=== PATIENT | female | born 1955 | race Caucasian/White ===

== ENCOUNTER 2017-09-28 10:09 | Emergency (ER) | payer OTHER ==
[~2017-09-28] VITALS: Ht 175.3 cm; Wt 78.5 kg
[~2017-09-28 10:09] MED LIST: LIBRIUM25 MG PO
--- NOTE | 2017-09-28 10:28 | ED AMS/SEIZURE/WEAK/DIZZY ---
History of Present Illness General Chief Complaint: General Adult Stated Complaint: HEART RACING, WEAKNESS Source: patient, family, old records Exam Limitations: no limitations Vital Signs & Intake/Output Vital Signs & Intake/Output Vital Signs Date Time Temp Pulse Resp B/P B/P Pulse O2 O2 Flow FiO2 Mean Ox Delivery Rate 09/28 1215 98.0 109 20 137/67 20 09/28 1011 96.4 124 18 155/91 98 Room Air Room Air Allergies Coded Allergies: Penicillins (UNKNOWN 09/28/17) Reconcile Medications LORazepam (Ativan) 1 MG TAB 1 TAB PO TID PRN ANXIETY Triage Note: PT TO ED WITH DAUGHTER WITH C/O "HEART RACING, I FEEL LIKE I'M HAVING A PANIC ATTACK". "I WAS CLEAN FOR YEARS AND STARTED DRINKING AGAIN OVER THE LAST WEEK OR SO". "MY SKIN IS GETTING YELLOW, AND I'M ANEMIC". Triage Nurses Notes Reviewed? yes Onset: Abrupt Duration: day(s): (3), constant Timing: recent history Injury Environment: home Severity: moderate No Modifying Factors: none Associated Symptoms: denies HPI: 61-year-old female with history of breast ca, mastectomy presents with family for evaluation complaining of heart racing for the past few days. The patient states that 3 days ago it all began when she started drinking. She states she had 2-3 classes of from this thing. She states that she was a previous alcoholic after her 4 years ago. She states she's been sober for the past several months and has never gone through alcohol withdrawals. She states she started drinking again because of the impending holiday. She denies any associated chest pain shortness of breath fever chills abdominal pain. Patient denies any other drug use. She states that she was seen by her primary care physician last week had blood work performed and was told she was anemic she had a chest x-ray as well however does not know the results. She denies any leg swelling or recent immobility. she denies si. (Vic Gooden) Past History Travel History Traveled to [place] past 21 day No Medical History Any Pertinent Medical History? 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 No (Vic Gooden) Review of Systems Review of Systems Constitutional: Reports: see HPI. Comments Review of systems: See HPI, All other systems negative. Constitutional, no chills no fever, no malaise HEENT: no sore throat no congestion Cardiovascular: No chest pain , palpitation Skin: no rashes, no change in skin Respiratory: No dyspnea no cough no sputum no hemoptysis GI: No nausea no vomiting, no diarrhea, no bloating/constipation : No dysuria No hematuria, no frequency Muscle skeletal: No joint pain, no back pain, no neck pain, Neurologic: , no headache Psych: No stress no depression,. Heme/endocrine: No bruising no bleeding Immunology: No lymphadenopathy (Vic Gooden) Physical Exam Physical Exam General Appearance: no apparent distress, awake, anxious Comments: Well-developed well-nourished person in no acute distress HEENT: Normal EENT exam; PERRL, EOMI, HEAD is atraumatic. moist mucous membranes. Neck: Supple normal range of motion Back:Full range of motion Cardiovascular: tachycardic, Regular rhythm no murmurs rubs Respiratory: No respiratory distress. Patient speaking in full complete sentences. Breath sounds clear to auscultation bilaterally: NO W/R/R Abdomen: Soft, nontender nondistended, no appreciable organomegaly. Normal bowel sounds. No rebound/guarding, No ascites. Extremity: No edema, full range of motion of extremities Neuro: Alert oriented x3, motor sensory normal, There were no obvious focal neurologic abnormalities. Skin: No appreciable rash on exposed skin, skin is warm and dry. Psych: tearful, memory and judgment is normal. Core Measures ACS in differential dx? Yes CVA/TIA Diagnosis No Sepsis Present: No Sepsis Focused Exam Completed? No (Vic Gooden) Progress Differential Diagnosis: arrythmia, alcohol intoxication, anemia, dehydration, electrolyte imbalance, GI bleed, ami Plan of Care: Orders Procedure Date/time Status ETHANOL 09/28 1045 Complete Telemetry/Media Relations Intern 09/28 1028 Active URINE DRUG SCREEN FOR ER ONLY 09/28 1022 Complete URINALYSIS 09/28 1022 Complete TROPONIN LEVEL 09/28 1010 Complete PARTIAL THROMBOPLASTIN TIME 09/28 1010 Complete PROTHROMBIN TIME 09/28 1010 Complete COMPREHENSIVE METABOLIC PANEL 09/28 1010 Complete CBC WITHOUT DIFFERENTIAL 09/28 1010 Complete EKG 09/28 1010 Active Laboratory Tests 09/28/17 1145: Urine Opiates Screen < 100.00, Methadone Screen 43, Barbiturate Screen < 60, Ur Phencyclidine Scrn < 6.00, Amphetamines Screen < 100, U Benzodiazepines Scrn < 85, Urine Cocaine Screen < 50, Urine Cannabis Screen < 5.00, Urinalysis LIGHT H , Urine Color YEL, Urine Clarity HAZY H, Urine pH 6.5, Ur Specific [place] <= 1.005, Urine Protein NEG, Urine Ketones NEG, Urine Nitrite NEG, Urine Bilirubin NEG, Urine Urobilinogen 1.0, Ur Leukocyte Esterase NEG, Ur Microscopic SEDIMENT EXAMINED, Urine RBC 3-5, Urine WBC RARE, Ur Epithelial Cells FEW, Urine Bacteria RARE H, Urine Mucus RARE, Urine Hemoglobin LARGE H, Urine Glucose NEG 09/28/17 1045: Anion Gap 17 H, Estimated GFR > 60, BUN/Creatinine Ratio 12.9, Glucose 106 H, Calcium 9.2, Total Bilirubin 4.7 H, AST 75 H, ALT 38, Alkaline Phosphatase 169 H, Troponin I 0.01, Total Protein 7.9, Albumin 4.0, Globulin 3.9, Albumin/ Globulin Ratio 1.0 L, PT 15.0 H, INR 1.43 H, APTT 38 H, CBC w Diff NO MAN DIFF REQ, RBC 3.20 L, MCV 97.4, MCH 33.6 H, RDW 16.1 H, MPV 6.6 L, Gran % 65.9, Lymphocytes % 28.3, Monocytes % 3.8, Eosinophils % 1.4, Basophils % 0.6, Absolute Granulocytes 3.3, Absolute Lymphocytes 1.4, Absolute Monocytes 0.2, Absolute Eosinophils 0.1, Absolute Basophils 0, PUBS MCHC 34.5, Serum Alcohol 202.0 09/28/17 1022: Serum Alcohol Cancelled pt anxious, denies cp, sob, only complaint is racing heart at this time, case d/ w dr nolasco, ativan 0.5mg iv ordered labs and xray reviewed from last week. pt declining wishing to speak with crisis 1145 on repeat evaluation patient reports to feeling significantly improved with IV Ativan. Discussed with the patient family all her lab results to date. Patient was seen and evaluated by Dr. Nolasco outpatient resources were provided for detox and psychiatric references. I discussed with the patient at length again plan of care they feel comfortable with taking her home. FINDINGS: The lung hall are well expanded and appear clear bilaterally. The cardiac silhouette is normal. There are no pleural effusions or pneumothorax. The central pulmonary vasculature is normal. The hilar regions appear normal. There is mild dextroscoliosis. There are multiple surgical clips in the left axilla comment demonstrated on prior imaging. IMPRESSION: 1. There are no acute cardiopulmonary findings. DICTATED BY: Jeffery Estrada MD DATE/TIME DICTATED:09/18/171138 WINDOW DECORATOR:CLAIRE DATE/TIME TRANSCRIBED:09/18/171138 CONFIDENTIAL, DO NOT COPY WITHOUT APPROPRIATE AUTHORIZATION. <Electronically signed in Other Vendor System> SIGNED BY: Jeffery Estrada MD 09/18/17 1145 Initial ED EKG: stach (Vic Gooden) Departure Departure Time of Disposition: 1222 Disposition: HOME OR SELF CARE Condition: Stable Clinical Impression Primary Impression: Anxiety Secondary Impressions: Alcohol intoxication, Palpitations Referrals: Jean Carlos Chappell MD (PCP/Family) Additional Instructions: follow up with your pmd next week. ativan as directed. as discussed DO NOT drink alcohol while taking this medication. return at anytime sooner if you have worsening of your symptoms despite medication or any other concerns Departure Forms: Customer Survey General Discharge Information Prescriptions: Current Visit Scripts LORazepam (Ativan) 1 TAB PO TID PRN ANXIETY #12 TAB (Vic Gooden) PA/PATHOLOGY SUPERVISOR Co-Sign Statement Statement: ED Attending supervision documentation- [] I saw and evaluated the patient. I have also reviewed all the pertinent lab results and diagnostic results. I agree with the findings and the plan of care as documented in the PA's/PATHOLOGY SUPERVISOR's documentation. [X] I have reviewed the ED Record and agree with the PA's/PATHOLOGY SUPERVISOR's documentation. [] Additions or exceptions (if any) to the PAs/PATHOLOGY SUPERVISOR's note and plan are summarized below: [] (Constance OROZCO,Marisela)
[2017-09-28 11:07] LABS: PTT 38 SEC (25-37)
[2017-09-28 11:08] LABS: ABSOLUTE BASOPHIL COUNT 0 /CUMM (0.0-0.2); ABSOLUTE EOSINOPHIL COUNT 0.1 /CUMM (0.0-0.7); ABSOLUTE GRANULOCYTE CT 3.3 /CUMM (1.4-6.5); ABSOLUTE LYMPH COUNT 1.4 /CUMM (1.2-3.4); ABSOLUTE MONOCYTE COUNT 0.2 /CUMM (0.10-0.60); BASOPHIL % 0.6 % (0.0-2.0); EOSINOPHIL % 1.4 % (0-5); GRANULOCYTE % 65.9 % (42.2-75.2); HEMATOCRIT 31.1 % (37-47); MEAN CORPUSCULAR HGB 33.6 PG (27.0-31.0); MEAN CORPUSCULAR HGB CONC 34.5 G/DL (33.0-37.0); MEAN CORPUSCULAR VOLUME 97.4 FL (81.0-99.0); MEAN PLATELET VOLUME 6.6 FL (7.4-10.4); PLATELET COUNT 76 /CUMM (130-400); RBC DISTRIBUTION WIDTH 16.1 % (11.5-14.5); WHITE BLOOD CELL COUNT 5.1 /CUMM (4.8-10.8)
[2017-09-28 12:15] VITALS: BP 137/67
[2017-09-28] MEDS ORDERED: ATIVAN1 M1 PO (12:22)
== END 2017-09-28 12:31 ==
LOC: ERH 10:09
PROVIDERS: Emergency Medicine
DX: F41.9 Anxiety disorder, unspecified (principal); F10.129 Alcohol abuse with intoxication, unspecified; R00.2 Palpitations
CPT/HCPCS: 80307; 81001; 93005; 93010; G0480

== ENCOUNTER 2018-01-19 11:35 | Inpatient (IN) | payer OTHER ==
[~2018-01-19] VITALS: Ht 177.8 cm; Wt 81.0 kg
[~2018-01-19 11:35] MED LIST changes: +ATIVAN1 M1 PO
[2018-01-19 13:11] LABS: ABSOLUTE BASOPHIL COUNT 0.1 /CUMM (0.0-0.2); ABSOLUTE EOSINOPHIL COUNT 0.4 /CUMM (0.0-0.7); ABSOLUTE GRANULOCYTE CT 3.6 /CUMM (1.4-6.5); ABSOLUTE MONOCYTE COUNT 0.4 /CUMM (0.10-0.60); BASOPHIL % 1.1 % (0.0-2.0); EOSINOPHIL % 5.7 % (0-5); GRANULOCYTE % 55.9 % (42.2-75.2); HEMATOCRIT 27.9 % (37-47); MEAN CORPUSCULAR HGB 33.4 PG (27.0-31.0); MEAN CORPUSCULAR VOLUME 98.3 FL (81.0-99.0); MEAN PLATELET VOLUME 7.5 FL (7.4-10.4); PLATELET COUNT 119 /CUMM (130-400); RBC DISTRIBUTION WIDTH 17.5 % (11.5-14.5); RED BLOOD CELL CT 2.84 /CUMM (4.20-5.40); WHITE BLOOD CELL COUNT 6.4 /CUMM (4.8-10.8)
[2018-01-19 13:25] LABS: PT 17.4 SEC (9.4-12.5); PTT 34 SEC (25-37)
--- NOTE | 2018-01-19 16:32 | ED GI/GU/ABDOMINAL COMPLAINT ---
History of Present Illness General Chief Complaint: General Adult Stated Complaint: BLEEDING FROM MOUTH Source: patient, family Exam Limitations: no limitations Vital Signs & Intake/Output Vital Signs & Intake/Output Vital Signs Date Time Temp Pulse Resp B/P B/P Pulse O2 O2 Flow FiO2 Mean Ox Delivery Rate 01/22 0625 98.1 79 20 120/60 91 Room Air 01/22 0000 Nasal 3.0L Cannula 01/21 1600 98.3 68 18 96/52 98 Room Air 01/21 1200 96 Nasal 3.0L Cannula ED Intake and Output 01/22 0000 01/21 1200 Intake Total 3026 1200 Output Total 400 200 Balance 2626 1000 Intake, IV 2306 1200 Intake, Oral 720 Number 1 0 Bowel Movements Output, Urine 400 200 Allergies Coded Allergies: Penicillins (TROUBLE BREATHING AN 01/19/18) Reconcile Medications Escitalopram Oxalate 10 MG TABLET 1 TAB PO DAILY MENTAL HEALTH (Reported) Lactulose 10 GRAM/15 ML SOLUTION 30 ML PO BID CONSTIPATION (Reported) Lorazepam 0.5 MG TABLET 1 TAB PO TIDPRN PRN ANXIETY (Reported) Propranolol HCl 20 MG TABLET 1 TAB PO BID VARICES (Reported) Spironolactone 25 MG TABLET 1 TAB PO DAILY DIURETIC (Reported) Ursodiol 500 MG TABLET 2 TAB PO QHS BILE (Reported) Triage Note: PT STATES SHE IS BLEEDING FROM HER MOUTH WHILE LAYING DOWN. PT STATSE SHE HAS A COUPLE OF THINGS GOING ON SHE HAS A LUMP ON HER LIVER. PT JAUDICE IN TRIAGE. PT STATES SHE HAS ESOPHOGEAL WENDY. AND WHEN SHE COUGHS MORE COMES OUT. PT REPORTS BEING COLD AND TIRED. PT STATES SHE HAS BEEN CONSTIPATED FOR THE PAST 11 DAYS. PT STATES SHE STARTED TO MOVE HER BOWELS A LITTLE YESTERDAY. Triage Nurses Notes Reviewed? yes ? N Is pt currently ? No HPI: 62 yo F PMH EtOH abuse, Cirrhosis (c/b esophageal varicies), BCA (s/p left mastectomy) presenting with hematemesis. Patient states that she woke up from sleep this morning with bright red blood on the pillow next to her, mild bleeding from left side of mouth, resolved with standing. Patient states that she had a second episode of bleeding from her mouth around 9:30 AM while laying down, "gushing" of bright red blood from left mouth, lasted 1-2 mins, also resolved with standing. ROS (+) for constipation x 8-9 days, started on lactulose, starting having regular bowel movements yesterday, family notes that the patient has seem more confused from baseline ("loopy"). Denies fevers, chills, chest pain, abdominla pain, nausea, hematochezia, urinary Sx, headache, neck pain or focal neurologic Sx. (Zak Ngo MD) Past History Travel History Traveled to [place] past 21 day No Medical History Any Pertinent Medical History? 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 Yes (Zak Ngo MD) Review of Systems Review of Systems Constitutional: Reports: no symptoms. EENTM: Reports: see HPI. Respiratory: Reports: no symptoms. Cardiovascular: Reports: no symptoms. GI: Reports: see HPI. Genitourinary: Reports: no symptoms. Musculoskeletal: Reports: no symptoms. Skin: Reports: no symptoms. Neurological/Psychological: Reports: no symptoms. Hematologic/Endocrine: Reports: no symptoms. Immunologic/Allergic: Reports: no symptoms. All Other Systems: Reviewed and Negative (Zak Ngo MD) Physical Exam Physical Exam General Appearance: alert, awake, comfortable Head: atraumatic Eyes: Bilateral: PERRL, EOMI. Ears, Nose, Throat, Mouth: moist mucous membrane Neck: normal inspection, full range of motion Respiratory: normal breath sounds, no respiratory distress, lungs clear Cardiovascular: regular rate/rhythm, normal peripheral pulses Gastrointestinal: soft, non-tender Comments: General: Awake, alert, appears fatigued HEENT: Poor dentition with eroision/large dental clary in tooth #18, no apparent bleeding from teeth or gums Abdomen: Soft and non-TTP throughout Core Measures ACS in differential dx? No Sepsis Present: No Sepsis Focused Exam Completed? No (Zak Ngo MD) Progress Differential Diagnosis: AAA, AMI, appendicitis, biliary colic, bowel obstruction , colon cancer, cholecystitis, diverticulitis, ectopic , endometritis, esophageal varices, gastritis, hepatitis, hernia, hemorrhoids, ischemic bowel, inflamm bowel dis, intrauterine , kidney stone, Erin-Karolyn tear, ovarian cyst, ovarian torsion, pancreatitis, PID/cervicitis, peptic ulcer, PUD/ GERD, perforated viscous, SBO, threatened AB, UTI/pyelo Plan of Care: Orders Procedure Date/time Status ICU LAB BUNDLE 01/22 0500 Active CBC WITHOUT DIFFERENTIAL 01/22 0500 Active XRY-CHEST XRAY, TWO VIEWS 01/22 UNK Active Transfer Disposition 01/21 2234 Active ECHOCARDIOGRAM 01/21 1623 Active OXYGEN SETUP CHG 01/21 UNK Complete OXYGEN 01/21 UNK Complete OXYGEN TRANSPORT 01/21 UNK Complete OXYGEN DAILY CHARGE 01/21 UNK Complete Transfer patient to 01/21 UNK Active OXYGEN SETUP CHG 01/20 UNK Complete OXYGEN 01/20 UNK Complete OXYGEN TRANSPORT 01/20 UNK Complete Current Medications Sig/Freddy Start time Last Medication Dose Stop Time Status Admin Omeprazole 40 MG DAILY AC 01/22 0700 AC 01/22 (Prilosec) 0600 Ursodiol 1,000 MG QPM 01/20 2100 AC 01/21 (ROMIE FORTE) 2118 Bacitracin 1 KHUSHBOO DAILY 01/20 1629 AC 01/21 (Bacitracin Ointment) 0852 Escitalopram Oxalate 10 MG DAILY 01/20 0900 AC 01/21 (Lexapro) 0852 Benzocaine/Menthol 1 TAMY Q2P PRN 01/20 0515 AC 01/20 (Chloraseptic 1042 Lozenges) Albumin Human 25 GM Q8 01/19 2244 AC 01/22 (Plasbumin) 0656 Docusate Sodium 100 MG DAILY PRN 01/19 1930 AC (Colace) Lorazepam 0.5 MG TIDPRN PRN 01/19 1930 AC (Ativan) 01/26 1929 Polyethylene Glycol 17 GM DAILY PRN 01/19 1930 AC (Miralax) Senna 187 MG AT BEDTIME PRN 01/19 1930 AC (Senokot) Laboratory Tests 01/22/18 0745: Sodium Pending, Potassium Pending, Chloride Pending, Carbon Dioxide Pending, Anion Gap Pending, BUN Pending, Creatinine Pending, Glucose Pending, Calcium Pending, Phosphorus Pending, Magnesium Pending, Total Bilirubin Pending, AST Pending, ALT Pending, Albumin Pending, CBC w Diff Pending, WBC Pending, RBC Pending, Hgb Pending, Hct Pending, MCV Pending, MCH Pending, MCHC Pending, RDW Pending, Plt Count Pending, MPV Pending Physician MDM: 62 yo F PMH EtOH abuse, Cirrhosis (c/b esophageal varicies), BCA (s/p left mastectomy) presenting with hematemesis. HR 50s, SBP 100s (expected with atenolol), awake, appears fatigued, abdominal exam benign, no apparent source of bleeding in mouth/gums. DDx: Variceal bleed, PUD, gastritis. Given concern for variceal bleeding, 2 large bore IVs placed, protonix IV push and octreotide IV push/drip given, ceftriaxone ordered. CBC with decreased Hgb from baseline at 9.5, platelets 119. CMP with bilirubin increased from baseline (5 >> > 9.3), SHELLEY with elevated creatinine at 1.4, mild hyponatremia. 500 ccs NS for SHELLEY. INR 1.59 2/[address] Goddard, will evaluate for urgent endoscopy. Admit to ICU for close monitoring, possible endoscopy. Initial ED EKG: none (Jeni OROZCO,Zak) Departure Departure Disposition: STILL A PATIENT Condition: Stable Clinical Impression Primary Impression: Hematemesis Referrals: Jean Carlos Chappell MD (PCP/Family) Departure Forms: Customer Survey General Discharge Information Admission Note Spoke With: Crow Zee MD Documentation of Exam: Documentation of any treatments & extenuating circumstances including Concerns Regarding Discharge (functional status, medication knowledge or non-compliance, living conditions, etc.) that warrant an admission rather than observation: [ Patient has history of esophageal varices secondary to hepatic cirrhosis, presents with 2 episodes of hematemesis this morning, patient is a high risk for hematuria with significant variceal bleeding requires admission to the hospital for monitoring, certainly hemoglobins, GI consult, possible endoscopy, possible blood transfusion, if discharged patient is a high likelihood of progression of variceal bleed with hemorrhagic shock, leading to ] (Zak Ngo MD)
--- NOTE | 2018-01-19 18:06 | RADIOLOGY REPORT ---
EXAMINATION: XR PORTABLE CHEST CLINICAL INFORMATION: Aspiration pneumonia COMPARISON: 09/18/2017 and multiple prior chest x-rays. TECHNIQUE: Portable AP upright view of the chest was obtained. FINDINGS: There is moderate enlargement of the cardiac silhouette. Pulmonary venous congestion and interstitial edema in the lower lungs noted. Small bilateral pleural effusions noted. Pulmonary opacities at the lung bases, particularly on the right side noted, which could represent atelectatic changes of the adjacent pulmonary parenchyma, although superimposed pneumonia is not excluded. Surgical marylou are seen in the left axilla. No pneumothorax. The bones are unremarkable. IMPRESSION: Moderate cardiomegaly, pulmonary venous congestion and interstitial edema lower lungs, suggests CHF. Pleural effusions and adjacent pulmonary opacities which could represent atelectasis and/or pneumonia. Clinical correlation is suggested.
[2018-01-19] MEDS ORDERED: SPIRONOLACTONE25 M1 PO (18:14)
[2018-01-19] MEDS ORDERED: ESCITALOPRAM OX10 MG PO (18:14)
[2018-01-19] MEDS ORDERED: LORAZEPAM0.5 M1 PO (18:14)
[2018-01-19] MEDS ORDERED: PROPRANOLOL HCL20 M1 PO (18:14)
[2018-01-19] MEDS ORDERED: URSODIOL500 M1 PO (18:15)
[2018-01-19] MEDS ORDERED: LACTULOSE10 GM/153 PO (18:15)
--- NOTE | 2018-01-19 19:09 | History & Physical ---
Nelson Haque 01/19/18 1848: General Information and HPI MD Statement: I have seen and personally examined PASCUAL WHITE and documented this H&P. The patient is a 62 year old F who presented with a patient stated chief complaint of hematemesis Source of Information: patient, family Exam Limitations: no limitations History of Present Illness: This is a 62-year-old female with past medical history significant for anxiety, depression, liver cirrhosis, portal hypertension, history of esophageal and gastric varices, H pylori gastritis, esophagitis, breast cancer status post mastectomy, breast reconstruction surgery, chemotherapy 14 years ago, fatty liver, chronic back pain, alcoholic, remote history of smoking, family history of colon cancer presented to the emergency room for evaluation of 2 episodes of hematemesis since last night. Patient has extensive history of alcohol abuse since 2012. She takes 8-10 glasses of whiskey every day. She stopped drinking since September 2017. Patient usually follows up with Dr. Reddy ovens supervisor as an outpatient. Dr. aFgan oncologist for breast cancer. Follows up Dr. Gil graves registration specialist. Isidro Chappell MD primary care physician Given her extensive family history of colon cancer patient has been undergoing screening colonoscopies every 3-5 years. So for colonoscopies were normal. She underwent endoscopy in 11/2017 given her liver cirrhosis and portal hypertension. EGD showed esophageal varices, gastric varices, gastropathy, antral erosions. He has a remote history of H pylori gastritis, duodenal ulcer in 2008. CT abdomen November 2017 showed extensive liver cirrhosis with evidence of portal hypertension, esophageal and gastric VARICES. Ill-defined area of hypoattenuation within the hepatic parenchyma within segment 4a in an area of capsular retraction. the possibility of an underlying infiltrative neoplastic process such as hepatocellular carcinoma is not entirely excluded. Liver protocol MRI is recommended for further evaluation as well as clinical correlation and AFP level. Closely following up with Dr. Reddy ovens supervisor for further workup. Patient reports that she has been constipated for last 10 days. She has no bowel movement for last 10 days, followed up with the Isidro Chappell MD primary care physician, started on lactulose on 01/17/2018. She reports one episode of bowel movement last night. She denies any nausea, vomiting, abdominal pain, hematochezia. However patient reports that she had an episode of blood gushing out from her mouth last night. She was dizzy and lightheaded. Again she noted one more episode of blood gushing out from her mouth this morning for 20 minutes. She presented to the emergency room for further evaluation of hematemesis. She denies taking any baby aspirin, [id number] NSAID. Remote history of smoking 20 years ago. Denies any abuse of illicit drugs. She denies any fever, chills, cough, short of breath, chest pain, palpitation, headache, focal neurologic deficits. 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 AN 01/19/18) Home Med list Escitalopram Oxalate 10 MG TABLET 1 TAB PO DAILY MENTAL HEALTH (Reported) Lactulose 10 GRAM/15 ML SOLUTION 30 ML PO BID CONSTIPATION (Reported) Lorazepam 0.5 MG TABLET 1 TAB PO TIDPRN PRN ANXIETY (Reported) Propranolol HCl 20 MG TABLET 1 TAB PO BID VARICES (Reported) Spironolactone 25 MG TABLET 1 TAB PO DAILY DIURETIC (Reported) Ursodiol 500 MG TABLET 2 TAB PO QHS BILE (Reported) Compliance With Home Meds: GOOD Past History Travel History Traveled to [place] past 21 day No Medical History Neurological: NONE EENT: NONE Cardiovascular: HYPOTENSION Respiratory: NONE Gastrointestinal: NONE Hepatic: NONE Renal: NONE Musculoskeletal: NONE Psychiatric: ALCOHOL ABUSE SINCE THE OF HER IN 2012 Endocrine: NONE Blood Disorders: NONE 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 EENTM: Denies: blurred vision, double vision. Cardiovascular: Denies: chest pain, edema, orthopena, palpitations, peripheral edema, syncope. Respiratory: Denies: cough, hemoptysis, orthopnea, short of breath, sputum production, stridor, wheezing. GI: Reports: constipation, vomiting. Denies: abdominal pain, bloating, diarrhea, distention, melena, nausea. Genitourinary: Denies: discharge, dysuria, frequency. Musculoskeletal: Denies: back pain, gout, joint pain. Skin: Denies: dryness, erythema, jaundice. Neurological/Psychological: Denies: anxiety, ataxia, headache, numbness, paresthesia. Exam & Diagnostic Data Last 24 Hrs of Vital Signs/I&O Vital Signs Date Time Temp Pulse Resp B/P B/P Pulse O2 O2 Flow FiO2 Mean Ox Delivery Rate 01/19 1848 97.8 59 16 98/56 96 Room Air 01/19 1702 97.3 59 20 111/56 97 Room Air 01/19 1253 95.0 56 16 108/58 98 Room Air Intake & Output 01/19 1600 01/19 0800 01/19 0000 Intake Total Output Total Balance Patient 78.925 kg Weight Weight Reported by Patient Measurement Method Physical Exam General Appearance Alert, Oriented X3, Cooperative, No Acute Distress Skin No Rashes, No Breakdown Skin Temp/Moisture Exam: Warm/Dry Sepsis Skin Exam (color): Normal for Ethnicity HEENT Atraumatic, PERRLA, EOMI, Mucous Membr. moist/pink, eyes yellow Neck Supple, No JVD, No thryomegaly Lymphatic Axillary nl, Cervical nl Cardiovascular Regular Rate, Normal S1, Normal S2 Lungs Normal Air Movement Abdomen Normal Bowel Sounds, Soft, No Tenderness Extremities No Clubbing, No Cyanosis, +2 pitting edema Vascular Normal Pulses, Pulses Symmetrical Last 24 Hrs of Labs/Bhupendra: Laboratory Tests 01/19/18 1802: Ammonia 39 H 01/19/18 1258: Anion Gap 16, Estimated GFR 38 L, BUN/Creatinine Ratio 22.1, Glucose 93, Lactic Acid 1.2, Calcium 9.4, Total Bilirubin 9.3 H, AST 37 H, ALT 21, Alkaline Phosphatase 97, Total Protein 8.0, Albumin 3.9, Globulin 4.1, Albumin/Globulin Ratio 1.0 L, PT 17.4 H, INR 1.59 H, APTT 34, CBC w Diff MAN DIFF ORDERED, RBC 2.84 L, MCV 98.3, MCH 33.4 H, MCHC 34.0, RDW 17.5 H, MPV 7.5, Gran % 55.9, Lymphocytes % 30.6, Monocytes % 6.7, Eosinophils % 5.7 H, Basophils % 1.1, Absolute Granulocytes 3.6, Segmented Neutrophils 54, Absolute Lymphocytes 2.0, Lymphocytes 35, Monocytes 1 L, Absolute Monocytes 0.4, Eosinophils 9 H, Absolute Eosinophils 0.4, Basophils 1, Absolute Basophils 0.1, Platelet Estimate DECREASEDD, Hypochromic-Microcytic 1+, Poikilocytosis 3+, Anisocytosis 3+, Mary Cells 1+, Schistocytes Assessment/Plan Assessment: This is a 62-year-old female with past medical history significant for anxiety, depression, liver cirrhosis, portal hypertension, history of esophageal and gastric varices, H pylori gastritis, esophagitis, breast cancer status post mastectomy, breast reconstruction surgery, chemotherapy 14 years ago, fatty liver, chronic back pain, alcoholic, remote history of smoking, family history of colon cancer presented to the emergency room for evaluation of 2 episodes of hematemesis since last night. ------- Vitals at the time of admission Afebrile, heart rate 59, respiratory rate 20, blood pressure 111/56, saturating at 98 on room 8 Pertinent labs WBC 6.4, hemoglobin 9.5, hematocrit 27, platelets 119 INR 1.5 BUN 31 and creatinine 1.4 cxr Moderate cardiomegaly, pulmonary venous congestion and interstitial edema lower lungs, suggests CHF. Pleural effusions and adjacent pulmonary opacities which could represent atelectasis and/or pneumonia. Upper GI bleed/hematemesis Patient presented with hematemesis since last night. She is hemodynamically stable with blood pressure ranging around 110. Hemoglobin 9.5 and hematocrit 27.9. No more episodes of hematemesis since presented to the emergency room. She was given Protonix IV, 1 dose of IV ceftriaxone and started on octreotide drip. Given her extensive family history of colon cancer patient has been undergoing screening colonoscopies every 3-5 years. So for colonoscopies were normal. She underwent endoscopy in 11/2017 given her liver cirrhosis and portal hypertension. EGD showed esophageal varices, gastric varices, gastropathy, antral erosions. He has a remote history of H pylori gastritis, duodenal ulcer in 2008. CT abdomen November 2017 showed extensive liver cirrhosis with evidence of portal hypertension, esophageal and gastric VARICES. Ill-defined area of hypoattenuation within the hepatic parenchyma within segment 4a in an area of capsular retraction. the possibility of an underlying infiltrative neoplastic process such as hepatocellular carcinoma is not entirely excluded. Liver protocol MRI is recommended for further evaluation as well as clinical correlation and AFP level. Closely following up with Dr. Reddy ovens supervisor for further workup. * ICU admit * Monitor vitals every hour * Closely monitor for blood pressure changes * Type and screen * 2 large IV bore needles * Monitor serial hemoglobin and hematocrit every 12 hours * Orthostatic vitals * Stool guaiac * IV Protonix 40 twice a day * IV gentle hydration * Continue octreotide drip for variceal bleed * Patient is on propranolol at home for prophylaxis varices * Patient is undergoing EGD in ICU tonight * Follow-up Gastro recommendations * Follow-up EGD note * Monitor for any active signs of bleeding, hemodynamic on stability Liver cirrhosis/portal hypertension/questionable malignancy liver CT abdomen November 2017 showed extensive liver cirrhosis with evidence of portal hypertension, esophageal and gastric VARICES. Ill-defined area of hypoattenuation within the hepatic parenchyma within segment 4a in an area of capsular retraction. the possibility of an underlying infiltrative neoplastic process such as hepatocellular carcinoma is not entirely excluded. Liver protocol MRI is recommended for further evaluation as well as clinical correlation and AFP level. Closely following up with Dr. Reddy ovens supervisor for further workup. * Planning to get outpatient MRA liver * Will get AFP level checked * F/U further GI recommendations AK I Patient presented with upper GI bleed and hematemesis. She was dehydrated at the time of presentation. BUN 32 and creatinine 1.4. Baseline creatinine 0.8. * Looks like prerenal * Adequate hydration * Recheck electrolytes and creatinine in the a.m. * Avoid nephrotoxic agents * no NSAIDS Hyperbilirubinemia Bilirubin 9.3, AST 37, ALT 21, alkaline phosphatase 97 Will get direct bilirubin Constipation Bowel regimen added as needed cxr findings chf versus pneumonia cxr showed Moderate cardiomegaly, pulmonary venous congestion and interstitial edema lower lungs, suggests CHF.Pleural effusions and adjacent pulmonary opacities which could represent atelectasis and/or pneumonia. Clinically she doesn't look like as if she has pneumonia or CHF. She denies any shortness of breath, fever, chills, cold, productive cough, chest pain. she has no history of prior CHF. Other patient has bilateral lower extremity swelling, takes Aldactone. * Monitor fever curve * Monitor leukocytosis * Will check proBNP * Consider adding antibiotics if she becomes febrile or symptomatic Anxiety continue Ativan 0.5 3 times a day as needed Depression continue Lexapro 10 daily DVT prophylaxis alps only given GI bleed She is nothing by mouth Full code Pain pathway IV Tylenol as needed House keeping issues No Foleys catheter No NG tube No rectal tube 2 IV peripheral lines No central line No vasopressors No intubation As Ranked By This Provider Problem List: 1. Hematemesis Core Measures/Misc (06/24) Acute Coronary Syndrome ACS Diagnosis: No Congestive Heart Failure Congestive Heart Failure Diagnosis No Cerebrovascular Accident CVA/TIA Diagnosis: No VTE (View Protocol) VTE Risk Factors No risk factors No Mechanical VTE Prophylaxis d/t Medical Contraindication No VTE Pharm Prophylaxis d/t Medical Contraindication Sepsis (View protocol) Sepsis Present: No Crow Zee MD 01/19/18 2314: Attending MD Review Statement Attending Statement Attending MD Statement: examined this patient, discuss w/resident/PA/MANAGER MOUNTAIN, agreed w/resident/PA/MANAGER MOUNTAIN, discussed with family, reviewed EMR data (avail), reviewed images, amended to note Attending Assessment/Plan: The patient is a 62 yo female with h/o anxiety/depression, cirrhosis/portal HTN/ esophageal varices (secondary to alcohol), h/o H pylori gastritis, breast ca (s/ p mastectomy & chemo 14 years ago), and chronic back pain who presented in the ED with c/o hematemesis. The patient had not drank alcohol since 09/23. She described 2 episodes of red hematemesis since last pm. No fever, chills, chest pain, dyspnea, or abdominal pain. She had noted being constipated and her PC started her on lactulose on 01/17. She had 1 BM last pm. She denied any orthostatic symptoms or lightheadedness. Physical Exam: VS: T 95, P 56, R 15, BP 108/58, PO 98% HEENT: eyes- PERRLA, EOMI cesar- dry mucosa Neck: no JVD/bruits Chest: diminished BS, otherwise clear Cor: RRR nl S1, S2 w/o murm Abd: BS+, soft, non tender, no masses, ?splenomegaly, liver edge firm Ext: 2+ edema, pulses 1+ Neuro: alert & oriented x 3, non-focal exam Labs/Tests- as above Impression/Plan: #Acute Upper Gastrointestinal Bleeding- concern primarily is for esophageal/ gastric variceal bleed. Patient with known disease on prior endoscopy. Other possibilities include ulcer/gastritis. Plan: Admit to ICU for close hemodynamic monitoring. GI consult- Dr. Trejo to perform EGD. IV Protonix, follow serial H/H transfuse prn keep Hgb >=8. IV Octreotide. #Acute Blood Loss Anemia- secondary to UGI bleeding. Baseline Hgb 10.8 09/23 now 9.5. Plan: Type and Cross- transfuse if Hgb < 8. #Hepatic Cirrhosis- with portal HTN- known. Denies alcohol intake since 09/23. Plan: As per GI. #Anxiety/Depression- has been stable. Plan: Continue Ativan and Lexapro.
[2018-01-19 20:15] VITALS: BP 92/60
--- NOTE | 2018-01-19 21:51 | Admission Certification ---
Admission Certification Certification Statement - As attending physician, I certify that at the time of - admission, based on clinical presentation, severity of - symptoms, need for further diagnostic testing and - therapeutic interventions, and risk of adverse outcomes - without in-hospital treatment, in my clinical assessment, - this patient requires an acute hospital stay for a minimum - of two nights or longer. I have also considered psychsocial - factors such as support system, advanced age, financial - issues, cognitive issues, and failed out-patient treatments, - past re-admission history, safety of patient, and lack of - compliance as applicable. Specific rationale supporting this admission is: The patient presents in ED with hematemasis with h/of cirrhosis and known esophageal varices. Needs admission to ICU for close hemodynamic monitoring, close follow of H/H, EGD, GI consult, Octreotide IV and Protonix.
--- NOTE | 2018-01-19 22:22 | Cons- Gastroenterology ---
General Information and HPI Consulting Request Date of Consult: 01/19/18 Requested By: Crow Zee MD Reason for Consult: I was called short while ago by the ER on behalf of the hospitalist service to assess possible UGIB (blood found on pillow), in a patient with cirrhosis. Source of Information: patient, old records Exam Limitations: no limitations History of Present Illness: 62 y/o female, post left mastectomy 2003 for invasive ductal breast Ca (2N1aMx; f/b +CTX, without RT or hormonal tx), f/b breast reconstruction, hx EtOH abuse ( [place]) x yrs- "D/C 06/2017" although 09/28/17: [EtOH] 202), hx cirrhosis, possible overlap with + PBC (hx +AMA), with hx esoph/gastric varices & portal gastropathy, hx colon adenoma. The patient recently saw Dr. Irving Reddy in the office 01/01/18, at which point, Inderal was increased to 20 mg BID & Compa 500 mg- 2tabs Qhs was added. She never had a formal liver bx. She was also on low dose Aldactone 25 mg daily. She was getting Lactulose both for possible low grade PSE & for constipation. She denied any previous abdominal taps or hx SBP. The patient's alcohol abuse worsened after she was in 2012. The patient presented to the [facility] 01/19/18 at 11:35 a.m., stating she was bleeding from the left side of her mouth when laying down, as she saw some blood on her pillow after awakening this a.m.. She has very poor dentition, especially in the left upper teeth. She denied any recent dental work, definite gum bleeding, tongue biting, seizures, or epistaxis. There was no definite hemoptysis or hematemesis. She denied any melena. There was no rectal bleeding , aside from a scant hemorrhoid, when straining and constipation. She claimed a small amount of blood later trickled at left side of her mouth again, one lying down, but that nothing else had recurred since being upright. Again, there was no overt hematemesis, just a "metal taste in her mouth". She denied any GERD, odynophagia, dysphagia, early satiety, retching, or abdominal pain, aside from some minimal discomfort associated with constipation. She was yellow. She noted dark urine over the past few days, without any pruritus. There was no definite confusion. She denied any fevers, chills, symptoms of UTI, or URI. She noted some mild increased peripheral edema, and perhaps some mild increased abdominal girth. 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 There was no obstipation, tenesmus, or diarrhea. Denied any history of viral hepatitis. She was remotely transfused at the time of her breast surgery in 2003. She denied any history of IVDA or tattoos. She denied any history of HIV. She was a remote [id number] cigarette smoker, stopping in 2003. The patient's oral cavity was inspected by the ER & no definite bleeding site was found. Upon arrival, BP 108/58, P 56 (on Inderal), R 16, T 95.0, O2 sat RA 98%. A digital rectal exam was not done in the ER, & the patient wished to defer one at the time of the GI consult. She denied any history of DTs or withdrawal. The patient's mother at 72 of hepatoma in the setting of alcoholic cirrhosis. Her father at 64 of colon cancer. There was no additional family history of any other GI issues. *Please note, the patient was found to have SHELLEY on admission, with previously nl GFR > 60, & subacute on chronic elevated LFTs. *The patient was given IV Protonix bolus followed by IV Protonix drip, IV Octreotide bolus followed by IV Octreotide drip, and IV Ceftriaxone 1 g in the ER, as per my recommendations (as I was taking care of another GI bleed at that time), along with IV NS. I advised an ICU admit. The patient has been NPO today , except for a sip of H2O this a.m. She was not on any ASA, anti-plt agents, or A/C tx. She denied any NSAIDS, aside from 1-2 tabs of Advil/month. She had a ? remote allergy to PCN, but has tolerated cepahlosporins. The patient a medical decisions and does not have a living will. *The patient is awaiting an outpt MRI liver per Dr. Aly Reddy for further workup of an ill-defined area of hypoattenuation in the liver within segment 4A. 11/21/17: EGD to D2 with bxs, per Dr. Aly Reddy- (done for cirrhosis, assess portal HTN, & hx H. pylori gastritis in 08/2005, txd with ? regimen)- 4 columns of non-bleeding esopahgeal varices beginning at 33 cm, extending to the GE junction (44 cm). Distally, one of these was large, 2 medium, and one small. There were no red [place]. GE junction was normal. No junctional varices. There were gastric varices in the proximal greater curve of fundus & in the distal fundus. Mild proximal portal gastropathy. Antral erosions- bx: mild CAG/CFG, HP-neg. *A non-selective beta steve, Inderal, was rxd then. 05/09/13: Last colonoscopy to cecum- negative. A follow-up surveillance colonoscopy was advised in 5 years (i.e.- 05/2018), in view of the +FHx colon Ca & past personal hx colon adenoma. 09/23/17: Fe 116, TIBC 275, Fe sat 42.2%, ferritin 245, B12 836, folate 7.6, HgA1C 4.1 09/28/17: [EtOH] 202 10/30/17: Hep Bs Ag- neg, Hep C Ab- neg; CAT- neg 1:40, +AMA 38, AFP 6.3. 01/19/18: Admission labs- WBC 6.4 (54S/35L/1M/9E/1Baso), H/H 9.5/27.9, MCV 98.3, RDW 17.5, PLT 119, PT 17.4, INR 1.59, PTT 34, glu 93, BUN/Cr 31/1.4, GFR 38, Na 136, K 4.5, HCO3 21, AG 16, lactate 1.2, amylase 40, lipase 272, Ca 9.4, albumin 3.9, globulin 4.1, TBil 9.3, DBil 6.7, alk phos 97, AST 37, ALT 21, NH3 39, troponin < 0.01, elevated BNP 5840, TSH 4.530, nl FT4 1.57 11/14/17: CT ABD & PELVIS W ORAL & IV CONT (per Dr. Aly Reddy)- IMPRESSION: 1. Progressive liver cirrhosis and evidence of portal hypertension with esophageal and gastric varices. 2. Ill-defined area of hypoattenuation within the hepatic parenchyma within segment 4a in an area of capsular retraction. The retraction was identified on the prior study from 2014. Although this likely represents the sequela of the patient's advanced liver cirrhosis, the possibility of an underlying infiltrative neoplastic process such as hepatocellular carcinoma is not entirely excluded. Liver protocol MRI is recommended for further evaluation as well as clinical correlation and AFP level. 3. Note is made of celiac axis variant anatomy as detailed above. 4. Trace abdominal and pelvic ascites. 5. Skin thickening of the partially imaged left breast. In this patient with history of left-sided invasive ductal carcinoma, immediate attention is recommended with physical examination and mammography. This unexpected result was discussed with Dr. Pablo at 8:52 AM on to a 2018 and it was ascertained that the content and urgency of the report was understood at the time of direct communication. (*Again , MRI liver has since beedn rxd per Dr. Aly Reddy) DICTATED BY: Shraddha Goldman MD DATE/TIME DICTATED:11/15/1773901/19/18: EKG- NSR @ 60, nl axis, PRWP, borderline prolonged QT interval. 01/19/18: XRY-PORTABLE CHEST XRAY- IMPRESSION: Moderate cardiomegaly, pulmonary venous congestion and interstitial edema lower lungs, suggests CHF. Pleural effusions and adjacent pulmonary opacities which could represent atelectasis and/or pneumonia. Clinical correlation is suggested. 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 AN INFANT 01/19/18) Home Med List: Escitalopram Oxalate 10 MG TABLET 1 TAB PO DAILY MENTAL HEALTH (Reported) Lactulose 10 GRAM/15 ML SOLUTION 30 ML PO BID CONSTIPATION (Reported) Lorazepam 0.5 MG TABLET 1 TAB PO TIDPRN PRN ANXIETY (Reported) Propranolol HCl 20 MG TABLET 1 TAB PO BID VARICES (Reported) Spironolactone 25 MG TABLET 1 TAB PO DAILY DIURETIC (Reported) Ursodiol 500 MG TABLET 2 TAB PO QHS BILE (Reported) Current Medications: Current Medications Sig/Freddy Start time Last Medication Dose Route Stop Time Status Admin Acetaminophen 1,000 MG Q8P PRN 01/19 1815 AC IV Ceftriaxone Sodium 0 .STK-MED ONE 01/19 173 DC .ROUTE Ceftriaxone Sodium 1,000 MG ONCE ONE 01/19 1645 DC 01/19 IV 01/19 1646 1754 Docusate Sodium 100 MG DAILY PRN 01/19 193 AC PO Escitalopram Oxalate 10 MG DAILY 01/20 09 AC PO Lorazepam 0.5 MG TIDPRN PRN 01/19 1930 AC PO 01/26 192 Octreotide Acetate 50 MCG ONCE ONE 01/19 1645 DC 01/19 IV 01/19 1646 1732 Octreotide Acetate 500 MCG Q10H 01/19 1645 AC 01/19 Dextrose/Water 500 ML IV 1817 Pantoprazole Sodium 40 MG BID 01/19 2100 AC IV Pantoprazole Sodium 0 .STK-MED ONE 01/19 1720 DC IV Pantoprazole Sodium 80 MG ONCE ONE 01/19 1630 DC 01/19 IV 01/19 1631 1722 Polyethylene Glycol 17 GM DAILY PRN 01/19 193 AC PO Senna 187 MG AT BEDTIME PRN 01/19 193 AC PO Sodium Chloride 1,000 ML Q13H 01/19 1930 AC 01/19 IV 2030 Sodium Chloride 500 ML BOLUS ONE 01/19 1630 DC 01/19 IV 01/19 1729 1722 Spironolactone 25 MG DAILY 01/20 09 AC PO Ursodiol 1,000 MG .[BEDTIME] 01/20 1930 UNVr PO Past History Travel History Traveled to [place] past 21 day No Medical History Blood Transfusion Hx: Yes Neurological: NONE EENT: NONE Cardiovascular: HYPOTENSION Respiratory: NONE Gastrointestinal: hx colon adenoma Hepatic: cirrhosis (EtOH, ? 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 , Age 72; Cause: Hepatoma. FATHER, , Age 64; Cause: Colon cancer. Psychosocial History Where Do You Live? Home Who Do You Live With? child (dtr & grandson) Services at Home: None Primary Language: Maori Smoking Status: Former Smoker ETOH Use: denies use (EtOH x yrs- stopped 09/2017) Illicit Drug Use: denies illicit drug use Living Will? no Power of Sling Operator/HCP? no Other Social History: since 2012. 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 EtOH abuse became worse after her . Allegedly stopped EtOH in 09/2017. Ex < 10 pk yr cigarette smoker. No illicit drugs. Lives with dtr & grandson. Functional Ability ADLs Independent: dressing, eating, toileting, bathing. Ambulation: independent IADLs Independent: shopping, housework, finances, food prep, telephone, transportation , medication admin. 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 Review of Systems Constitutional: Denies: chills, diaphoresis, fever, malaise, weakness, unexplained weight loss. EENTM: Reports: icterus. Denies: blurred vision, double vision, visual changes, eye pain, eye drainage, eye tearing, ear discharge, ear pain, ear redness, hearing changes, nasal congestion, epistaxis, nasal pain, throat pain, throat swelling, mouth pain, tooth pain. Cardiovascular: Reports: peripheral edema. Denies: chest pain, edema, orthopena, palpitations, syncope. Respiratory: Denies: cough, hemoptysis, orthopnea, short of breath, sputum production, stridor, wheezing. GI: Reports: constipation (better post Lactulose), vomiting (? hematemesis vs oral blood). Denies: abdominal pain, bloating, diarrhea, distention, bowel incontinence, melena, nausea, bloody stool, changes in stool, steatorrhea. Genitourinary: Denies: discharge, dysuria, frequency, hematuria, hesitation, nocturia, pain, urgency. Musculoskeletal: Reports: back pain (chronic LBP). Denies: gout, joint pain, joint swelling, muscle pain, muscle stiffness, neck pain. Skin: Reports: jaundice. Denies: cysts, change in skin color, change in hair/nails, dryness, erythema, lesions, lymphangitis, lumps, moles, rash. Neurological/Psychological: Reports: anxiety, depressed, emotional problems. Denies: ataxia, cognitive dysfunction, confusion, dementia, headache, numbness, paresthesia, pre-existing deficit, petit mal seizures, tingling, tremors, tonic-clonic seizures, unable to move lower ext, unable to move upper ext, weakness, other. Hematologic/Endocrine: Reports: bleeding. Denies: bruising, polyuria, polydipsia. Immunologic/Allergic: Denies: splenectomy, HIV/AIDS, lymphadenopathy. All Other Systems: Reviewed and Negative Exam & Diagnostic Data Vital Signs and I&O Vital Signs Date Time Temp Pulse Resp B/P B/P Pulse O2 O2 Flow FiO2 Mean Ox Delivery Rate 01/19 1954 98.2 60 15 102/55 96 Room Air 01/19 1848 97.8 59 16 98/56 96 Room Air 01/19 1702 97.3 59 20 111/56 97 Room Air 01/19 1253 95.0 56 16 108/58 98 Room Air Intake & Output 01/19 1600 01/19 0400 01/18 1600 01/18 0400 01/17 1600 01/17 0400 Intake Total Output Total Balance Patient 174 lb Weight Weight Reported by Patient Measurement Method Physical Exam: Well-developed, well-nourished, chronically ill appearing female, looking older than her stated age, in no apparent distress. Sallow complexion. Sclera icteric. Conjunctiva pink. Oropharynx clear. Poor dentition, especially upper left teeth. No oral thrush. No aphthous ulcers. There is no adenopathy, thyromegaly, or JVD. No peripheral stigmata of inflammatory bowel disease on exam. Faint spiders on the anterior chest wall. Breast & pelvic exams: API (post reconstruction left breast, by hx). No CVA tenderness. Lungs: clear to A&P, except for a few bibasilar crackles. No wheezing or rhonchi. Heart exam: regular rate rhythm, S1 and S2, without any murmur. Abdominal exam: normal bowel sounds, soft belly, mildly obese, nontender, without guarding or rebound. No definite mass. Liver approximately 12 cm by percussion. Palpable spleen tip. Questionable mild fluid shift. No pulsatile mass. Digital rectal exam: deferred by patient. Extremities: without cyanosis or clubbing. Trace peripheral edema. No palpable cords. Mild DJD. No acute artrhropathy. No rash. No palmar erythema. No Dupuytren's contractures. Distal pulses 1+ bilaterally. DTRs 2+ bilaterally. Alert and oriented x 3. Right handed. CN II-XII intact. No tremor. No asterixis. Results Pertinent Lab Results: Laboratory Tests 01/19 01/19 01/19 1802 1258 1258 Chemistry Sodium (137 - 145 mmol/L) 136 L Potassium (3.5 - 5.1 mmol/L) 4.5 Chloride (98 - 107 mmol/L) 100 Carbon Dioxide (22 - 30 mmol/L) 21 L Anion Gap (5 - 16) 16 BUN (7 - 17 mg/dL) 31 H Creatinine (0.5 - 1.0 mg/dL) 1.4 H Estimated GFR (>60 ml/min) 38 L BUN/Creatinine Ratio (7 - 25 %) 22.1 Glucose (65 - 99 mg/dL) 93 Lactic Acid (0.7 - 2.1 mmol/L) 1.2 Calcium (8.4 - 10.2 mg/dL) 9.4 Total Bilirubin (0.2 - 1.3 mg/dL) 9.3 H Direct Bilirubin (< 0.4 mg/dL) 6.7 H AST (14 - 36 U/L) 37 H ALT (9 - 52 U/L) 21 Alkaline Phosphatase (<127 U/L) 97 Ammonia (9 - 30 umol/L) 39 H Troponin I (< 0.11 ng/ml) < 0.01 [id number] Pept (<125 pg/mL) 5840 H Total Protein (6.3 - 8.2 g/dL) 8.0 Albumin (3.5 - 5.0 g/dL) 3.9 Globulin (1.9 - 4.2 gm/dL) 4.1 Albumin/Globulin Ratio (1.1 - 2.2 %) 1.0 L Amylase (30 - 110 U/L) 40 Lipase (23 - 300 U/L) 272 Alpha Fetoprotein Pending TSH (0.270 - 4.200 uIU/mL) 4.530 H Free T4 (0.78 - 2.44 ng/dL) 1.57 Coagulation PT (9.4 - 12.5 SEC) 17.4 H INR (0.90 - 1.19) 1.59 H APTT (25 - 37 SEC) 34 Hematology CBC w Diff MAN DIFF ORDERED WBC (4.8 - 10.8 /CUMM) 6.4 RBC (4.20 - 5.40 /CUMM) 2.84 L Hgb (12.0 - 16.0 G/DL) 9.5 L Hct (37 - 47 %) 27.9 L MCV (81.0 - 99.0 FL) 98.3 MCH (27.0 - 31.0 PG) 33.4 H MCHC (33.0 - 37.0 G/DL) 34.0 RDW (11.5 - 14.5 %) 17.5 H Plt Count (130 - 400 /CUMM) 119 L MPV (7.4 - 10.4 FL) 7.5 Gran % (42.2 - 75.2 %) 55.9 Lymphocytes % (20.5 - 51.1 %) 30.6 Monocytes % (1.7 - 9.3 %) 6.7 Eosinophils % (0 - 5 %) 5.7 H Basophils % (0.0 - 2.0 %) 1.1 Absolute Granulocytes (1.4 - 6.5 /CUMM) 3.6 Segmented Neutrophils (42.2 - 75.2 %) 54 Absolute Lymphocytes (1.2 - 3.4 /CUMM) 2.0 Lymphocytes (20.5 - 51.1 %) 35 Monocytes (1.7 - 9.3 %) 1 L Absolute Monocytes (0.10 - 0.60 /CUMM) 0.4 Eosinophils (0 - 5.0 %) 9 H Absolute Eosinophils (0.0 - 0.7 /CUMM) 0.4 Basophils (0.0 - 2.0 %) 1 Absolute Basophils (0.0 - 0.2 /CUMM) 0.1 Platelet Estimate (ADEQUATE) DECREASEDD Hypochromic-Microcytic 1+ Poikilocytosis 3+ Anisocytosis 3+ Mary Cells 1+ Schistocytes Imaging/Other Studies: 11/14/17: CT ABD & PELVIS W ORAL & IV CONT (per Dr. Aly Reddy)- IMPRESSION: 1. Progressive liver cirrhosis and evidence of portal hypertension with esophageal and gastric varices. 2. Ill-defined area of hypoattenuation within the hepatic parenchyma within segment 4a in an area of capsular retraction. The retraction was identified on the prior study from 2014. Although this likely represents the sequela of the patient's advanced liver cirrhosis, the possibility of an underlying infiltrative neoplastic process such as hepatocellular carcinoma is not entirely excluded. Liver protocol MRI is recommended for further evaluation as well as clinical correlation and AFP level. 3. Note is made of celiac axis variant anatomy as detailed above. 4. Trace abdominal and pelvic ascites. 5. Skin thickening of the partially imaged left breast. In this patient with history of left-sided invasive ductal carcinoma, immediate attention is recommended with physical examination and mammography. This unexpected result was discussed with Dr. Pablo at 8:52 AM on to a 2018 and it was ascertained that the content and urgency of the report was understood at the time of direct communication. (*Again , MRI liver has since beedn rxd per Dr. Aly Reddy) DICTATED BY: Shraddha Goldman MD DATE/TIME DICTATED:11/15/1773901/19/18: EKG- NSR @ 60, nl axis, PRWP, borderline prolonged QT interval. 01/19/18: XRY-PORTABLE CHEST XRAY- IMPRESSION: Moderate cardiomegaly, pulmonary venous congestion and interstitial edema lower lungs, suggests CHF. Pleural effusions and adjacent pulmonary opacities which could represent atelectasis and/or pneumonia. Clinical correlation is suggested. Assessment/Plan Assessment/Recommendations: 62 y/o female, post left mastectomy 2003 for invasive ductal breast Ca (2N1aMx; f/b +CTX, without RT or hormonal tx), f/b breast reconstruction, hx EtOH abuse ( [place]) x yrs- "D/C 06/2017" although 09/28/17: [EtOH] 202), hx cirrhosis, possible overlap with + PBC (hx +AMA), with hx esoph/gastric varices & portal gastropathy, hx colon adenoma. The patient recently saw Dr. Irving Reddy in the office 01/01/18, at which point, Inderal was increased to 20 mg BID & Compa 500 mg- 2tabs Qhs was added. She never had a formal liver bx. She was also on low dose Aldactone 25 mg daily. She was getting Lactulose both for possible low grade PSE & for constipation. She denied any previous abdominal taps or hx SBP. The patient's alcohol abuse worsened after she was in 2012. The patient presented to the [facility] 01/19/18 at 11:35 a.m., stating she was bleeding from the left side of her mouth when laying down, as she saw some blood on her pillow after awakening this a.m.. She has very poor dentition, especially in the left upper teeth. She denied any recent dental work, definite gum bleeding, tongue biting, seizures, or epistaxis. There was no definite hemoptysis or hematemesis. She denied any melena. There was no rectal bleeding , aside from a scant hemorrhoid, when straining and constipation. She claimed a small amount of blood later trickled at left side of her mouth again, one lying down, but that nothing else had recurred since being upright. Again, there was no overt hematemesis, just a "metal taste in her mouth". She denied any GERD, odynophagia, dysphagia, early satiety, retching, or abdominal pain, aside from some minimal discomfort associated with constipation. She was yellow. She noted dark urine over the past few days, without any pruritus. There was no definite confusion. She denied any fevers, chills, symptoms of UTI, or URI. She noted some mild increased peripheral edema, and perhaps some mild increased abdominal girth. 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 There was no obstipation, tenesmus, or diarrhea. Denied any history of viral hepatitis. She was remotely transfused at the time of her breast surgery in 2003. She denied any history of IVDA or tattoos. She denied any history of HIV. She was a remote [id number] cigarette smoker, stopping in 2003. The patient's oral cavity was inspected by the ER & no definite bleeding site was found. Upon arrival, BP 108/58, P 56 (on Inderal), R 16, T 95.0, O2 sat RA 98%. A digital rectal exam was not done in the ER, & the patient wished to defer one at the time of the GI consult. She denied any history of DTs or withdrawal. The patient's mother at 72 of hepatoma in the setting of alcoholic cirrhosis. Her father at 64 of colon cancer. There was no additional family history of any other GI issues. *Please note, the patient was found to have SHELLEY on admission, with previously nl GFR > 60, & subacute on chronic elevated LFTs. *The patient was given IV Protonix bolus followed by IV Protonix drip, IV Octreotide bolus followed by IV Octreotide drip, and IV Ceftriaxone 1 g in the ER, as per my recommendations (as I was taking care of another GI bleed at that time), along with IV NS. I advised an ICU admit. The patient has been NPO today , except for a sip of H2O this a.m. She was not on any ASA, anti-plt agents, or A/C tx. She denied any NSAIDS, aside from 1-2 tabs of Advil/month. She had a ? remote allergy to PCN, but has tolerated cepahlosporins. The patient a medical decisions and does not have a living will. *The patient is awaiting an outpt MRI liver per Dr. Aly Reddy for further workup of an ill-defined area of hypoattenuation in the liver within segment 4A. 11/21/17: EGD to D2 with bxs, per Dr. Aly Reddy- (done for cirrhosis, assess portal HTN, & hx H. pylori gastritis in 08/2005, txd with ? regimen)- 4 columns of non-bleeding esopahgeal varices beginning at 33 cm, extending to the GE junction (44 cm). Distally, one of these was large, 2 medium, and one small. There were no red [place]. GE junction was normal. No junctional varices. There were gastric varices in the proximal greater curve of fundus & in the distal fundus. Mild proximal portal gastropathy. Antral erosions- bx: mild CAG/CFG, HP-neg. *A non-selective beta steve, Inderal, was rxd then. 05/09/13: Last colonoscopy to cecum- negative. A follow-up surveillance colonoscopy was advised in 5 years (i.e.- 05/2018), in view of the +FHx colon Ca & past personal hx colon adenoma. 09/23/17: Fe 116, TIBC 275, Fe sat 42.2%, ferritin 245, B12 836, folate 7.6, HgA1C 4.1 09/28/17: [EtOH] 202 10/30/17: Hep Bs Ag- neg, Hep C Ab- neg; CAT- neg 1:40, +AMA 38, AFP 6.3. 01/19/18: Admission labs- WBC 6.4 (54S/35L/1M/9E/1Baso), H/H 9.5/27.9, MCV 98.3, RDW 17.5, PLT 119, PT 17.4, INR 1.59, PTT 34, glu 93, BUN/Cr 31/1.4, GFR 38, Na 136, K 4.5, HCO3 21, AG 16, lactate 1.2, amylase 40, lipase 272, Ca 9.4, albumin 3.9, globulin 4.1, TBil 9.3, DBil 6.7, alk phos 97, AST 37, ALT 21, NH3 39, troponin < 0.01, elevated BNP 5840, TSH 4.530, nl FT4 1.57 11/14/17: CT ABD & PELVIS W ORAL & IV CONT (per Dr. Aly Reddy)- IMPRESSION: 1. Progressive liver cirrhosis and evidence of portal hypertension with esophageal and gastric varices. 2. Ill-defined area of hypoattenuation within the hepatic parenchyma within segment 4a in an area of capsular retraction. The retraction was identified on the prior study from 2014. Although this likely represents the sequela of the patient's advanced liver cirrhosis, the possibility of an underlying infiltrative neoplastic process such as hepatocellular carcinoma is not entirely excluded. Liver protocol MRI is recommended for further evaluation as well as clinical correlation and AFP level. 3. Note is made of celiac axis variant anatomy as detailed above. 4. Trace abdominal and pelvic ascites. 5. Skin thickening of the partially imaged left breast. In this patient with history of left-sided invasive ductal carcinoma, immediate attention is recommended with physical examination and mammography. This unexpected result was discussed with Dr. Pablo at 8:52 AM on to a 2018 and it was ascertained that the content and urgency of the report was understood at the time of direct communication. (*Again , MRI liver has since beedn rxd per Dr. Aly Reddy) DICTATED BY: Shraddha Goldman MD DATE/TIME DICTATED:11/15/1773901/19/18: EKG- NSR @ 60, nl axis, PRWP, borderline prolonged QT interval. 01/19/18: XRY-PORTABLE CHEST XRAY- IMPRESSION: Moderate cardiomegaly, pulmonary venous congestion and interstitial edema lower lungs, suggests CHF. Pleural effusions and adjacent pulmonary opacities which could represent atelectasis and/or pneumonia. Clinical correlation is suggested. *As of 01/19/18, it was difficult to tell whether the patient had actual hematemesis, which she did definitely not experience, vs. bleeding from the oral cavity, with poor dentition. The history of esophageal & gastric varices along with portal gastropathy (on Inderal) is noted. She rarely took an Advil. The patient also had SHELLEY, which could have been precipitated by her low-dose Aldactone 25 mg daily and/or dehydration from her Lactulose. HRS seemed less likely. She did receive IV cont 11/14/17. Her NSAID use was minimal regarding SHELLEY. She did not appear encephalopathic (borderline NH3) and was A & Ox3. The risks and benefits of EGD were discussed with the patient, including the possible need for intubation, to protect her from aspiration. Furthermore, if she had uncontrollably bleeding esophageal varices or possible bleedng gastric varices, she was told that she might have to be transferred for TIPS. Informed consent for the EGD was obtained rfrom the patient. She was already rxd Protonix , Octreotide, & prophylactic Ceftriaxone. *SUGGEST: NPO. ICU monitoring. Continue IV Protonix drip & IV Octreotide drips for now ( may be superfluous & will adjust post EGD). Continue IV Ceftriaxone 1g daily for now. EGD with potential banding in ICU. Hold Lactulose (if needed, can eventually substitute Rifaximin for Lactulose, which will not dehydrate her). Hold Aldactone 25 mg daily. (Eventual resumption of Inderal 20 mg po BID as BP allows & Compa 500 mg tab- 2 tabs po Qhs, to be determined after EGD). T&C 2u PRBC. Keep Hgb > 7 (no hx ASHD, do not "overinflate" varices). Check CBC Q8h for now. Strict I /O's. Depending on EGD results, may need TIPS. *Complete abd sono (r/o hydronephrosis, r/o ascites, doubt dilated ducts). If tappable ascites, should do paracentesis to r/o SBP. Panculture (i.e.- BC/UC/sputum, etc). Check urine lytes & FENa. Gentle IVF. O2 prn. *Empiric SPA 25g IVPB Q8h to increase oncotic pressure & hopefully improve GFR. Consider renal input if no improvement in GFR. Close follow-up of lytes, GFR, LFTs. Eventual outpt MRI liver with gadolinium to r/o HCC, once GFR normalizes. No NSAIDS! Avoid hepatotoxins & keep Tylenol use to < 2g daily. If not immune, should be vaccinated against both Hep A & B semielectively, plus annual flu shot & Pneumovax, if not recently given. The above was discussed with the medical ICU house staff. As an aside, due for f/u surveillance colonoscopy in 05/2018. Further GI recommendations to follow post EGD. Dr. Aly Reddy will assume the pt's outpt GI care after D/C. 1 hour of ICU care was spent on the patient. Problem List: 1. Upper GI bleed 2. Cirrhosis 3. History of esophageal varices 4. Portal hypertensive gastropathy 5. Abnormal LFTs 6. SHELLEY (acute kidney injury) Copies To: Ariel OROZCO,Olga; Saadia OROZCO,Crow; Ta OROZCO,Jean Carlos; Nuzhat OROZCO,Dong Garcia; Barry OROZCO,Thomas Richardson. Consult Acknowledgment - Thank you for your consult request.
--- NOTE | 2018-01-19 23:15 | Procedure ---
Minor Surgical Procedure Note Date of Procedure: 01/19/18 Procedure Note: I was called urgently to the patients bedside during endoscope due to bleeding of the left lateral lower lip. Pt was admitted for suspected GI bleed and had brb from the mouth from unknown origin, thought to be either from varicies or from bleeding of the lip or oral cavity. upon placing the ET tube and the support bracket, significant bleeding was noted from the lower lip, L side and no significant bleeding was found on endoscope. Upon inspecton, a 2-3mm superficial crack in the mucosa of the lower lip that continued to pulsate with blood. Direct pressure was ineffective as no significant clotting was noted. While the patient was under anesthesia, I cleansed the area with chlorhexidine, anesthetized the region with 1% lido with epi, 2cc and place 4, 4-0 vicryl sutures into the lower lip. The bleeding ceased and patient was awaken from anethesia. Absorbable sutures were used that should absorb or fall out in this area in the next 7-10 days. Bacitracin could be used as needed to prevent dryness as well as infection prophylaxsis.
--- NOTE | 2018-01-19 23:47 | Proc Note Endoscopy ---
Endoscopy Procedure Medical History: unchanged Mental Status: alert/oriented Heart/Lung Eval Prior to Sedation: within normal limits Candidate for Sedation? Yes Procedure Date: 01/19/18 Procedure Type: EGD [employer] Eng[employer] Hand: RALEIGH MAURICIO MD ASA Classification: IV (IV-E) Indications: INDX: (*Please refer to my extensive GI consult from earlier on 01/19/18). 62 y/o female, remote hx breast Ca, long hx EtOH abuse (D/C 09/2017) with cirrhosis, additionally, + AMA (? PBC component), hx esophageal & gastric varices with portal gastropathy by 11/21/17: EGD, with poor dentition & bleeding from ? oropharynx vs. UGI bleed ("blood from mouth when tilting head to left"). Rare Advil. Instrument: diagnostic gastroscope Meds Received: MAC (& intubated per anesthesia) Patient's Tolerance: good Complications: none Extent Reached: second part of duodenum Procedure: Follow-uppper endoscopy to the second portion of the duodenum was performed with the Olympus high definition videoendoscope, after obtaining informed consent from the patient, with the residential monitor and pulse oximeter, with the assistance the GI on-call RNs, Kamilla, & Dr. Maynard, of [facility], by the bedside in the [facility], room #107. The patient had very poor dentition preoperatively. A mouthpiece was placed in the usual fashion to protect the patient's teeth. The patient was prophylactically intubated by anesthesiology, prior to inserting the endoscope. Before even inserting the endoscope, with the patient in the supine position, fresh bright red blood was seen emanating from a crack in the corner of the lower left lip. This completely corroborated the patient's story of having "blood from my mouth, when turning my head to the left". In view of this, I endoscoped the patient in the supine position, as I felt that turning the patient to the left lateral decubitus position would exacerbate her bleeding. Anesthesiology provided gentle pressure over the bleeding site at the lower left lip with a gauze pad, intraoperatively. Once the patient was sedated and intubated, the endoscope was advanced from the mouth into the esophagus, using direct visualization technique , with the patient in the supine position. The ET tube was seen going in between the vocal cords. There was some bright red blood in the pharynx, undoubtedly from the bleeding site at the lower left lip. The patient had swallowed some of this blood as well, but the brightness and amount of the blood diminished when entering the esophagus. The proximal esophageal mucosa appeared normal. There were no esophageal rings, webs, lesions, strictures, or ulcers. There was no monilia or vesicles. There was no esophageal ribbing. The Z line was well demarcated at 40 cm in the supine position. There was no hiatal hernia pouch. No significant esophageal inflammation was seen. There were no ectopic islands, nor gross Medina's esophagus. There were 3 columns of non-bleeding 1+ esophageal varices, extending from 30 cm-40 cm, with the patient in the supine position. There was no red nikolai sign. The vast majority of these esophageal varices flattened out with air insufflation. There was no Erin Jones tear. The araujo of the stomach distended normally with air insufflation. Direct and retroflexed views of the stomach were performed. No junctional varices were seen. There were some fairly large non-bleeding proximal gastric fundic varices, towards the greater curvature aspect, just below the cardia, & some smaller non- bleeding gastric fundic varices, distal to this. There was nothing endoscopically to suggest gastroparesis. There was some mild non-bleeding proximal portal gastropathy in the fundus & upper body of the stomach, with some erythema and inflammation, but no "elephant skinning". The remainder of the lesser curvature, incisura, lower body, and antrum appeared normal, without any gastric ulcers or gastric lesions. Some blood that had dripped down from the lip was washed and suctioned essentially clear from the stomach. The pylorus was patent, without any gastric outlet obstruction or channel ulcer. The duodenal bulb and duodenal sweep appeared normal, without any duodenal ulcers, distal ulcerations, or angiodysplasias. I was not able to see the ampulla with the direct-viewing scope. The folds of the second portion of the duodenum were normal in caliber, without any flattening, nodularity, scalloping, or mosaic pattern. No active upper GI bleeding was seen, aside from the blood emanating from the corner of the lower left lip. No GI therapeutics were performed, aside from the endoscopy itself. The patient tolerated the procedure well. Documenting photographs were obtained and placed inside the patient's chart in the ICU. At the conclusion of the upper endoscopy procedure, surgery was contacted. The patient remained sedated and was left on the ventilator by anesthesiology, until the tiny cut in the lower left lip was sutured by surgery. The patient was then uneventfully extubated by anesthesiology. Impression: 1. *Bleeding site from the corner of the lower left lip, sutured by surgery. 2. 3 columns of non-bleeding 1+ esophageal varices from 30-40 cm (supine position), without any red nikolai sign, left intact. No junctional varices. 3. Fairly large non-bleeding proximal gastric fundic varices, towards the greater curvature aspect, just below the cardia, & some smaller non-bleeding gastric fundic varices, distal to this. 4. Mild non-bleeding proximal portal gastropathy in the fundus & upper body of the stomach. Recommendations: NPO for now. Suture care of lower left lip per surgery. If stable, clears po tomorrow. May D/C IV Octreotide drip. May switch IV Protonix drip to IV Protonix 40 mg daily. Continue IV Ceftriaxone 1g daily for now, pending cultures. * Complete abd sono (r/o hydronephrosis, r/o ascites, doubt dilated ducts). If tappable ascites, should do paracentesis to r/o SBP. Panculture (i.e.- BC/UC/ sputum, etc). Hold Lactulose for now (if needed, can eventually substitute Rifaximin for Lactulose, which will not dehydrate the patient). Hold Aldactone 25 mg daily. (Eventual resumption of Inderal 20 mg po BID as BP allows, & Compa 500 mg tab- 2 tabs po Qhs, once the patient resumes po intake). T&C 2u PRBC. Keep Hgb > 7 (no hx ASHD, do not "overinflate" varices). Check CBC Q8h for now. Strict I/O's. Check urine lytes & FENa. Gentle IVF. O2 prn. *Empiric SPA 25g IVPB Q8h to increase oncotic pressure & hopefully improve GFR. Consider renal input if no improvement in GFR. Close follow-up of lytes, GFR, LFTs. Eventual outpt MRI liver with gadolinium to r/o HCC, once GFR normalizes. No NSAIDS! Avoid hepatotoxins & keep Tylenol use to < 2g daily. If not immune, should be vaccinated against both Hep A & B semielectively, plus annual flu shot & Pneumovax, if not recently given. The above was discussed with the medical ICU house staff. The above findings were conveyed to the patient, after she was extubated. As per patient request, I contacted her daughter, Ayanna Baker, postoperatively at [phone], regarding the above findings. As an aside, the patient is due for f/u surveillance colonoscopy in 05/2018. Further GI recommendations to follow, based on clinical course. Dr. Aly Reddy will assume the pt's outpt GI care after D/C. CC: Ariel OROZCO,Olga; Saadia OROZCO,Crow; Ta OROZCO,Jean Carlos; Nuzhat OROZCO,Raleigh Garcia; Barry OROZCO,Thomas Torres
[2018-01-19 23:52] LABS: ABSOLUTE BASOPHIL COUNT 0 /CUMM (0.0-0.2); ABSOLUTE EOSINOPHIL COUNT 0.5 /CUMM (0.0-0.7); ABSOLUTE GRANULOCYTE CT 3.9 /CUMM (1.4-6.5); ABSOLUTE MONOCYTE COUNT 0.5 /CUMM (0.10-0.60); BASOPHIL % 0.2 % (0.0-2.0); EOSINOPHIL % 7.6 % (0-5); GRANULOCYTE % 56.9 % (42.2-75.2); HEMATOCRIT 26.5 % (37-47); MEAN CORPUSCULAR HGB 33.9 PG (27.0-31.0); MEAN CORPUSCULAR HGB CONC 34.5 G/DL (33.0-37.0); MEAN CORPUSCULAR VOLUME 98.3 FL (81.0-99.0); MEAN PLATELET VOLUME 7.7 FL (7.4-10.4); PLATELET COUNT 100 /CUMM (130-400); RED BLOOD CELL CT 2.69 /CUMM (4.20-5.40); WHITE BLOOD CELL COUNT 6.9 /CUMM (4.8-10.8)
[2018-01-20] VITALS: BP 90/64
[2018-01-20 04:56] LABS: ABSOLUTE BASOPHIL COUNT 0 /CUMM (0.0-0.2); ABSOLUTE EOSINOPHIL COUNT 0.3 /CUMM (0.0-0.7); ABSOLUTE GRANULOCYTE CT 2.8 /CUMM (1.4-6.5); ABSOLUTE LYMPH COUNT 1.4 /CUMM (1.2-3.4); ABSOLUTE MONOCYTE COUNT 0.2 /CUMM (0.10-0.60); BASOPHIL % 0.2 % (0.0-2.0); EOSINOPHIL % 7.3 % (0-5); HEMATOCRIT 24.3 % (37-47); MEAN CORPUSCULAR HGB CONC 34.6 G/DL (33.0-37.0); MEAN CORPUSCULAR VOLUME 98.5 FL (81.0-99.0); MEAN PLATELET VOLUME 7.9 FL (7.4-10.4); PLATELET COUNT 83 /CUMM (130-400); RBC DISTRIBUTION WIDTH 17.2 % (11.5-14.5); RED BLOOD CELL CT 2.47 /CUMM (4.20-5.40); WHITE BLOOD CELL COUNT 4.8 /CUMM (4.8-10.8)
[2018-01-20 08:00] VITALS: BP 90/50
--- NOTE | 2018-01-20 09:49 | PN- Resident CRCU ---
Leanne Stephen 01/20/18 0949: Subjective HPI/CRCU Issues: -Possible Upper GI bleeding -Acute blood loss anemia -SHELLEY -Hepatic cirrhosis 24 Hour Events: The patient was seen and examined today. She denies any headache, dizziness, lightheadedness, chest pain, shortness of breath, nausea, vomiting, abdominal pain. Bleeding site from left lateral side of left hip notes that last night, which was sutured by surgery. The patient underwent endoscopy which did not reveal any evidence of active bleeding. Reports that she has an urge to urinate however is not able to pass any urine. Bladder scan was done which revealed 180 mL urine. On normal saline at 75 mL per hour. Borderline hypotensive. On IV albumin. Objective Vital Signs & I&O Last 8 Hrs of Vitals and I&O: Intake & Output 01/20 1600 Intake Total 1220 Output Total Balance 1220 Intake, IV 600 Intake, Oral 620 Number 1 Bowel Movements Exam General Appearance: no apparent distress, alert, awake, comfortable Head: atraumatic Ears, Nose, Throat: normal pharynx, Left lower lat lip suture intact Neck: supple Respiratory: normal breath sounds, chest non-tender, no respiratory distress Cardiovascular: regular rate/rhythm Gastrointestinal: tenderness Extremities: B/L pedal edema Cranial Nerves: normal speech, PERRL Current Medications: Current Medications Sig/Freddy Start time Last Medication Dose Route Stop Time Status Admin Acetaminophen 1,000 MG Q8P PRN 01/19 1815 AC IV Albumin Human 25 GM Q8 01/19 2244 AC 01/20 IV 1533 Benzocaine/Menthol 1 TAMY Q2P PRN 01/20 0515 AC 01/20 PO 1042 Ceftriaxone Sodium 1,000 MG Q24H 01/20 1800 AC IV Ceftriaxone Sodium 0 .STK-MED ONE 01/19 1733 DC .ROUTE Ceftriaxone Sodium 1,000 MG ONCE ONE 01/19 1645 DC 01/19 IV 01/19 1646 1754 Docusate Sodium 100 MG DAILY PRN 01/19 1930 AC PO Escitalopram Oxalate 10 MG DAILY 01/20 0900 AC 01/20 PO 1042 Lorazepam 0.5 MG TIDPRN PRN 01/19 1930 AC PO 01/26 1929 Octreotide Acetate 50 MCG ONCE ONE 01/19 1645 DC 01/19 IV 01/19 1646 1732 Octreotide Acetate 500 MCG Q10H 01/19 1645 DC 01/19 Dextrose/Water 500 ML IV 1817 Pantoprazole Sodium 40 MG DAILY 01/20 0900 AC 01/20 IV 1042 Pantoprazole Sodium 40 MG BID 01/19 2100 DC IV Pantoprazole Sodium 0 .STK-MED ONE 01/19 1720 DC IV Pantoprazole Sodium 80 MG ONCE ONE 01/19 1630 DC 01/19 IV 01/19 1631 1722 Polyethylene Glycol 17 GM DAILY PRN 01/19 1930 AC PO Senna 187 MG AT BEDTIME PRN 01/19 1930 AC PO Sodium Chloride 1,000 ML .Q8H 01/20 1500 AC IV Sodium Chloride 250 ML BOLUS ONE 01/20 0515 DC 01/20 IV 01/20 0614 0400 Sodium Chloride 1,000 ML Q13H 01/19 1930 DC 01/20 IV 0600 Sodium Chloride 500 ML BOLUS ONE 01/19 1630 DC 01/19 IV 01/19 1729 1722 Spironolactone 25 MG DAILY 01/20 0900 CAN PO Ursodiol 1,000 MG QPM 01/20 2100 UNVr PO Ursodiol 1,000 MG .[BEDTIME] 01/20 1930 CAN PO Impression/Plan Impression/Problem List Impression: This is a 62-year-old female with past medical history significant for anxiety/ depression, cirrhosis/portal hypertension, esophageal varices (secondary to alcohol), H pylori gastritis, breast cancer status post mastectomy and chemotherapy therapy (as 14 years ago), colon adenoma, chronic back pain who presented to the hospital bleeding from left side of her mouth when laying down. Was recently started on lactulose by her primary care. Was recently started on lactulose by her primary care. With a suspicion for possible bleeding from varices, she was admitted to the ICU. Received IV Protonix and IV octreotide, ceftriaxone in the ED. She underwent EGD which revealed: * 3 columns of non-bleeding 1+ esophageal varices from 30-40 cm (supine position ), without any red nikolai sign, left intact. No junctional varices. * Fairly large non-bleeding proximal gastric fundic varices, towards the greater curvature aspect, just below the cardia, & some smaller non-bleeding gastric fundic varices, distal to this. * Mild non-bleeding proximal portal gastropathy in the fundus & upper body of the stomach. Plan: * Continue to monitor in the ICU * Monitor H&H and transfuse if hemoglobin less than 8 * 2 g sodium diet given trace ascites * Topical bacitracin to be applied on suture side * Continued toward lactulose, spironolactone * Continue with IV albumin * Continue to monitor CBC every 8 hours * Avoid any aspirin and NSAID-containing medications. * Limits Tylenol use to less than 2 g per day * Consider administrating hep A, B and flu vaccine and Pneumovax * Outpatient MRI of the liver * Increase IV fluids * 24-hour urine protein, SPEP, UPEP per nephro * DVT PPX ALPS * Full code Problem List: 1. Laceration of lip 2. History of esophageal varices 3. Cirrhosis Pain Ratin Tomorrow's Labs & Rationales: CBC to monitor H&H ICU bundle to monitor electrolytes Plan DVT/Prophylaxis: Crow Salvador MD 01/20/18 1353: Attending MD Review Statement Attending Sign Off Attending Cosign Statement: I have: examined this patient, reviewed [facility] EMR data, discussd w/resident/PA/ BUILDING OPERATOR, discussed mgmt plan w/pt, agreed w/resident/PA/BUILDING OPERATOR, amended to note. Other Findings: The patient was seen and discussed with house staff and GI (Dr. Trejo). Source of bleed was inner lip (not varices) and this was sutured. Will continue to hydrate and follow renal function and H/H.
--- NOTE | 2018-01-20 11:08 | ULTRASOUND REPORT ---
EXAMINATION: US ABDOMEN COMPLETE CLINICAL INFORMATION: Acute renal insufficiency. Ascites. COMPARISON: CT abdomen and pelvis 11/14/2017, 01/24/2015, ultrasound abdomen 09/18/2017. TECHNIQUE: Real-time imaging of the abdominal viscera. Examination is obtained portably. Final Inspector Balance Wheel notes challenging exam with difficulty patient breath holding. FINDINGS: PANCREAS: The visualized pancreas is normal in size and echogenicity. There is no pancreatic ductal distention or retroperitoneal effusion. Portions of the pancreas are not well seen due to bowel gas and patient breathing. ABDOMINAL AORTA: The proximal segment is normal in caliber. INFERIOR VENA CAVA: Visualized portions are normal. LIVER: The liver has macrolobulated margins and coarsening of the echotexture. There is no visible focal hepatic parenchymal lesion or intrahepatic biliary ductal dilatation. Color Doppler shows portal flow towards the liver. GALLBLADDER: The gallbladder is distended measuring 5.8 cm in diameter. There is no visible gallstone or layering sludge. There is no gallbladder wall thickening. COMMON BILE DUCT: Normal in caliber measuring 0.5 cm in diameter. RIGHT KIDNEY: Normal. No hydronephrosis. No renal calculi or focal parenchymal lesions. The kidney measures 11.7 cm in maximum dimension. LEFT KIDNEY: Normal. No hydronephrosis. No renal calculi or focal parenchymal lesions. The kidney measures 12.6 cm in maximum dimension. SPLEEN: Spleen is mildly enlarged measuring 13.9 cm in length. FREE FLUID: Some trace ascites is noted around the liver, gallbladder fossa, and spleen. IMPRESSION: 1. Enlarged gallbladder 5.8 cm diameter. No stone, sludge, wall thickening. No ductal dilatation. 2. Splenomegaly. Mild ascites. Portal flow towards the liver. 3. No hydronephrosis. Normal renal parenchymal echogenicity and thickness.
--- NOTE | 2018-01-20 11:55 | PN- Gastroenterology ---
Assessment/Plan GI Assessment/Recommendations: 62 y/o female, post left mastectomy 2003 for invasive ductal breast Ca (2N1aMx; f/b +CTX, without RT or hormonal tx), f/b breast reconstruction, hx EtOH abuse ( [place]) x yrs- "D/C 06/2017" although 09/28/17: [EtOH] 202), hx cirrhosis, possible overlap with + PBC (hx +AMA), with hx esoph/gastric varices & portal gastropathy, hx colon adenoma. The patient recently saw Dr. Irving Reddy in the office 01/01/18, at which point, Inderal was increased to 20 mg BID & Compa 500 mg- 2tabs Qhs was added. She never had a formal liver bx. She was also on low dose Aldactone 25 mg daily. She was getting Lactulose both for possible low grade PSE & for constipation. She denied any previous abdominal taps or hx SBP. The patient's alcohol abuse worsened after she was in 2012. The patient presented to the [facility] 01/19/18 at 11:35 a.m., stating she was bleeding from the left side of her mouth when laying down, as she saw some blood on her pillow after awakening this a.m.. She has very poor dentition, especially in the left upper teeth. She denied any recent dental work, definite gum bleeding, tongue biting, seizures, or epistaxis. There was no definite hemoptysis or hematemesis. She denied any melena. There was no rectal bleeding , aside from a scant hemorrhoid, when straining and constipation. She claimed a small amount of blood later trickled at left side of her mouth again, one lying down, but that nothing else had recurred since being upright. Again, there was no overt hematemesis, just a "metal taste in her mouth". She denied any GERD, odynophagia, dysphagia, early satiety, retching, or abdominal pain, aside from some minimal discomfort associated with constipation. She was yellow. She noted dark urine over the past few days, without any pruritus. There was no definite confusion. She denied any fevers, chills, symptoms of UTI, or URI. She noted some mild increased peripheral edema, and perhaps some mild increased abdominal girth. She was constipated for the past 11 days [employer] and was taking Lactulose, having a BM on 01/18/18. There was no obstipation, tenesmus, or diarrhea. Denied any history of viral hepatitis. She was remotely transfused at the time of her breast surgery in 2003. She denied any history of IVDA or tattoos. She denied any history of HIV. She was a remote [id number] cigarette smoker, stopping in 2003. The patient's oral cavity was inspected by the ER & no definite bleeding site was found. Upon arrival, BP 108/58, P 56 (on Inderal), R 16, T 95.0, O2 sat RA 98%. A digital rectal exam was not done in the ER, & the patient wished to defer one at the time of the GI consult. She denied any history of DTs or withdrawal. The patient's mother at 72 of hepatoma in the setting of alcoholic cirrhosis. Her father at 64 of colon cancer. There was no additional family history of any other GI issues. *Please note, the patient was found to have SHELLEY on admission, with previously nl GFR > 60, & subacute on chronic elevated LFTs. *The patient was given IV Protonix bolus followed by IV Protonix drip, IV Octreotide bolus followed by IV Octreotide drip, and IV Ceftriaxone 1 g in the ER, as per my recommendations (as I was taking care of another GI bleed at that time), along with IV NS. I advised an ICU admit. The patient has been NPO today , except for a sip of H2O this a.m. She was not on any ASA, anti-plt agents, or A/C tx. She denied any NSAIDS, aside from 1-2 tabs of Advil/month. She had a ? remote allergy to PCN, but has tolerated cepahlosporins. The patient a medical decisions and does not have a living will. *The patient is awaiting an outpt MRI liver per Dr. Aly Reddy for further workup of an ill-defined area of hypoattenuation in the liver within segment 4A. 11/21/17: EGD to D2 with bxs, per Dr. Aly Reddy- (done for cirrhosis, assess portal HTN, & hx H. pylori gastritis in 08/2005, txd with ? regimen)- 4 columns of non-bleeding esopahgeal varices beginning at 33 cm, extending to the GE junction (44 cm). Distally, one of these was large, 2 medium, and one small. There were no red elmer. GE junction was normal. No junctional varices. There were gastric varices in the proximal greater curve of fundus & in the distal fundus. Mild proximal portal gastropathy. Antral erosions- bx: mild CAG/CFG, HP-neg. *A non-selective beta steve, Inderal, was rxd then. 05/09/13: Last colonoscopy to cecum- negative. A follow-up surveillance colonoscopy was advised in 5 years (i.e.- 05/2018), in view of the +FHx colon Ca & past personal hx colon adenoma. 09/23/17: Fe 116, TIBC 275, Fe sat 42.2%, ferritin 245, B12 836, folate 7.6, HgA1C 4.1 09/28/17: [EtOH] 202 10/30/17: Hep Bs Ag- neg, Hep C Ab- neg; CAT- neg 1:40, +AMA 38, AFP 6.3. 01/19/18: Admission labs- WBC 6.4 (54S/35L/1M/9E/1Baso), H/H 9.5/27.9, MCV 98.3, RDW 17.5, PLT 119, PT 17.4, INR 1.59, PTT 34, glu 93, BUN/Cr 31/1.4, GFR 38, Na 136, K 4.5, HCO3 21, AG 16, lactate 1.2, amylase 40, lipase 272, Ca 9.4, albumin 3.9, globulin 4.1, TBil 9.3, DBil 6.7, alk phos 97, AST 37, ALT 21, NH3 39, troponin < 0.01, elevated BNP 5840, TSH 4.530, nl FT4 1.57 11/14/17: CT ABD & PELVIS W ORAL & IV CONT (per Dr. Aly Reddy)- IMPRESSION: 1. Progressive liver cirrhosis and evidence of portal hypertension with esophageal and gastric varices. 2. Ill-defined area of hypoattenuation within the hepatic parenchyma within segment 4a in an area of capsular retraction. The retraction was identified on the prior study from 2014. Although this likely represents the sequela of the patient's advanced liver cirrhosis, the possibility of an underlying infiltrative neoplastic process such as hepatocellular carcinoma is not entirely excluded. Liver protocol MRI is recommended for further evaluation as well as clinical correlation and AFP level. 3. Note is made of celiac axis variant anatomy as detailed above. 4. Trace abdominal and pelvic ascites. 5. Skin thickening of the partially imaged left breast. In this patient with history of left-sided invasive ductal carcinoma, immediate attention is recommended with physical examination and mammography. This unexpected result was discussed with Dr. Pablo at 8:52 AM on to a 2017 and it was ascertained that the content and urgency of the report was understood at the time of direct communication. (*Again , MRI liver has since beedn rxd per Dr. Aly Reddy) DICTATED BY: Shraddha Goldman MD DATE/TIME DICTATED:11/15/1773901/19/18: EKG- NSR @ 60, nl axis, PRWP, borderline prolonged QT interval. 01/19/18: XRY-PORTABLE CHEST XRAY- IMPRESSION: Moderate cardiomegaly, pulmonary venous congestion and interstitial edema lower lungs, suggests CHF. Pleural effusions and adjacent pulmonary opacities which could represent atelectasis and/or pneumonia. Clinical correlation is suggested. *As of 01/19/18, it was difficult to tell whether the patient had actual hematemesis, which she did definitely not experience, vs. bleeding from the oral cavity, with poor dentition. The history of esophageal & gastric varices along with portal gastropathy (on Inderal) is noted. She rarely took an Advil. The patient also had SHELLEY, which could have been precipitated by her low-dose Aldactone 25 mg daily and/or dehydration from her Lactulose. HRS seemed less likely. She did receive IV cont 11/14/17. Her NSAID use was minimal regarding SHELLEY. She did not appear encephalopathic (borderline NH3) and was A & Ox3. The risks and benefits of EGD were discussed with the patient, including the possible need for intubation, to protect her from aspiration. Furthermore, if she had uncontrollably bleeding esophageal varices or possible bleedng gastric varices, she was told that she might have to be transferred for TIPS. Informed consent for the EGD was obtained rfrom the patient. She was already rxd Protonix , Octreotide, & prophylactic Ceftriaxone. 01/19/18: *EGD to D3- Impression: 1. *Bleeding site from the corner of the lower lat left lip, sutured by surgery. 2. 3 columns of non-bleeding 1+ esophageal varices from 30-40 cm (supine position), without any red nikolai sign, left intact. No junctional varices. 3. Fairly large non-bleeding proximal gastric fundic varices, towards the greater curvature aspect, just below the cardia, & some smaller non-bleeding gastric fundic varices, distal to this. 4. Mild non-bleeding proximal portal gastropathy in the fundus & upper body of the stomach. *As of 01/20/18, the patient remained with a systolic BP in the 90's. She was afebrile with O2 sat 2L- 95%. She had not required a transfusion. She remained on empiric IV Ceftriaxone. Her Aldactone was held, as was her Lactulose, due to SHELLEY. She remained on IV SPA 25g Q8h. + 895 cc fluid balance. Getting IV NS @ 75cc/hr. Inderal was on hold due to low BP. Her Compa was resumed 1g Qhs. She remained on IV Protonix 40 mg daily. As her varices were not actively bleeding, the Octrotide drip had been D/C. The patient's left lateral lower lip was successfully sutured by surgery post EGD on 01/19/18, while still sedated, prior to extubation. Absorbable sutures were used. Topical bacitracin was advised. She remained on her bowel regimen of Miralax, Colace & Senna. Her low Cortez & FENa 0.0 were c/w pre-renal vs HRS. *There was no significant ascites to tap on 01/20/18: sono (trace), per my review with Dr. Langley, nor were there any dilated ducts, HCC, or hydronephrosis. She was tolerating a regular diet. There was no further lip bleeding. 01/19/18: 11:20 p.m.- WBC 6.9, H/H 9.1/26.5, PLT 100 01/20/18: 4:15 a.m.- WBC 4.8, H/H 8.4/24.3, PLT 83, BUN/Cr 32/1.4, GFR 38, Na 136, K 4.6, HCO3 17, AG 16, Mg 1.9. 01/20/18: *Cortez 7, *FENa 0.0 (probable prerenal > HRS) 01/19/18: BC x 2- pending. 01/20/18: US-COMPLETE ABDOMEN- 1. Enlarged gallbladder 5.8 cm diameter. No stone, sludge, wall thickening. No ductal dilatation. Normal CBD 5 mm. 2. Splenomegaly 13.9 cm. Mild ascites (*per my personal review of the sono with Dr. Langley on 01/20/18, the ascites is scant, around the liver, GB, & spleen, & is high risk to needle). Portal flow towards the liver. Cirrhotic liver without HCC. 3. No hydronephrosis. Normal renal parenchymal echogenicity and thickness. *SUGGEST: *Change diet to 2g Na+ regular (trace ascites). Suture care of lower left lip per surgery (the sutures are absorbable; topical Bacitracin advised). IV Protonix 40 mg daily. Continue IV Ceftriaxone 1g daily for now, pending cultures. There was no significan tascites to tap on 01/20/18: sono. Panculture (i.e.- BC/UC/sputum, etc). *Continue to hold Lactulose for now (if needed, can eventually substitute Rifaximin for Lactulose, which will not dehydrate the patient). *Continue to hold Aldactone 25 mg daily. (Eventual resumption of Inderal 20 mg po BID as BP allows-> BP currently too low ; continue Compa 500 mg tab- 2 tabs po Qhs). T&C 2u PRBC. Keep Hgb > 7 (no hx ASHD, do not "overinflate" varices). Check CBC Q8h for now. Strict I/O's. Check Gentle IVF. O2 prn. *Continue empiric SPA 25g IVPB Q8h to increase oncotic pressure & hopefully improve GFR. *Consider renal input if no improvement in GFR (? pre-renal/hypoperfusion > HRS). *Consider echocardiogram if persistent hypotension. Close follow-up of lytes, GFR, LFTs. *Eventual outpt MRI liver with gadolinium to r/o HCC, once GFR normalizes, per Dr. Aly Reddy. No NSAIDS! Avoid hepatotoxins & keep Tylenol use to < 2g daily. If not immune, should be vaccinated against both Hep A & B semielectively, plus annual flu shot & Pneumovax, if not recently given. The above was again discussed with the medical ICU house staff. The above findings were also discussed with the patient & her son, Tigre, at the bedside in the ICU on 01/20/18, as per patient request. She is remaining in the hospital due to SHELLEY. As per patient request, I had previously contacted her daughter, Ayanna Baker, postoperatively 0n at , regarding the above 01/19/18: EGD findings. DVT prophylaxis with mechanical ALPS. *The patient is stable from a GI perspective for transfer out of the ICU. As an aside, the patient is due for f/u surveillance colonoscopy in 05/2018. Further GI recommendations to follow, based on clinical course. Dr. Aly Reddy will assume the pt's outpt GI care after D/C. 1/2 hour of ICU care was spent on the patient. Problem List: 1. Laceration of lip 2. Cirrhosis 3. History of esophageal varices 4. Portal hypertensive gastropathy 5. Abnormal LFTs 6. SHELLEY (acute kidney injury) 7. Hypotension Subjective Subjective: 01/19/18: *EGD to D3- Impression: 1. *Bleeding site from the corner of the lower lat left lip, sutured by surgery. 2. 3 columns of non-bleeding 1+ esophageal varices from 30-40 cm (supine position), without any red nikolai sign, left intact. No junctional varices. 3. Fairly large non-bleeding proximal gastric fundic varices, towards the greater curvature aspect, just below the cardia, & some smaller non-bleeding gastric fundic varices, distal to this. 4. Mild non-bleeding proximal portal gastropathy in the fundus & upper body of the stomach. *As of 01/20/18, the patient remained with a systolic BP in the 90's. She was afebrile with O2 sat 2L- 95%. She had not required a transfusion. She remained on empiric IV Ceftriaxone. Her Aldactone was held, as was her Lactulose, due to SHELLEY. She remained on IV SPA 25g Q8h. + 895 cc fluid balance. Getting IV NS @ 75cc/hr. Inderal was on hold due to low BP. Her Compa was resumed 1g Qhs. She remained on IV Protonix 40 mg daily. As her varices were not actively bleeding, the Octrotide drip had been D/C. The patient's left lateral lower lip was successfully sutured by surgery post EGD on 01/19/18, while still sedated, prior to extubation. Absorbable sutures were used. Topical bacitracin was advised. She remained on her bowel regimen of Miralax, Colace & Senna. Her low Cortez & FENa 0.0 were c/w pre-renal vs HRS. *There was no significant ascites to tap on 01/20/18: sono (trace), per my review with Dr. Langley, nor were there any dilated ducts, HCC, or hydronephrosis. She was tolerating a regular diet. There was no further lip bleeding. 01/19/18: 11:20 p.m.- WBC 6.9, H/H 9.1/26.5, PLT 100 01/20/18: 4:15 a.m.- WBC 4.8, H/H 8.4/24.3, PLT 83, BUN/Cr 32/1.4, GFR 38, Na 136, K 4.6, HCO3 17, AG 16, Mg 1.9. 01/20/18: *Cortez 7, *FENa 0.0 (probable prerenal > HRS) 01/19/18: BC x 2- pending. 01/20/18: US-COMPLETE ABDOMEN- 1. Enlarged gallbladder 5.8 cm diameter. No stone, sludge, wall thickening. No ductal dilatation. Normal CBD 5 mm. 2. Splenomegaly 13.9 cm. Mild ascites (*per my personal review of the sono with Dr. Langley on 01/20/18, the ascites is scant, around the liver, GB, & spleen, & is high risk to needle). Portal flow towards the liver. Cirrhotic liver without HCC. 3. No hydronephrosis. Normal renal parenchymal echogenicity and thickness. Review of Systems: Full 14 point ROS otherwise noncontributory, and as above. Review of Systems Constitutional: Denies: chills, diaphoresis, fever, malaise, weakness, unexplained weight loss. EENTM: Reports: icterus. Denies: blurred vision, double vision, visual changes, eye pain, eye drainage, eye tearing, ear discharge, ear pain, ear redness, hearing changes, nasal congestion, epistaxis, nasal pain, throat pain, throat swelling, mouth pain, tooth pain. Cardiovascular: Reports: peripheral edema. Denies: chest pain, edema, orthopena, palpitations, syncope. Respiratory: Denies: cough, hemoptysis, orthopnea, short of breath, sputum production, stridor, wheezing. GI: Reports: constipation (better post Lactulose), vomiting (? hematemesis vs oral blood-> found to be laceration of lower lateral left lip). Denies: abdominal pain, bloating, diarrhea, distention, bowel incontinence, melena, nausea, bloody stool, changes in stool, steatorrhea. Genitourinary: Denies: discharge, dysuria, frequency, hematuria, hesitation, nocturia, pain, urgency. Musculoskeletal: Reports: back pain (chronic LBP). Denies: gout, joint pain, joint swelling, muscle pain, muscle stiffness, neck pain. Skin: Reports: jaundice. Denies: cysts, change in skin color, change in hair/nails, dryness, erythema, lesions, lymphangitis, lumps, moles, rash. Neurological/Psychological: Reports: anxiety, depressed, emotional problems. Denies: ataxia, cognitive dysfunction, confusion, dementia, headache, numbness, paresthesia, pre-existing deficit, petit mal seizures, tingling, tremors, tonic- clonic seizures, unable to move lower ext, unable to move upper ext, weakness, other. Hematologic/Endocrine: Denies: bruising, bleeding (resolved), polyuria, polydipsia. Immunologic/Allergic: Denies: splenectomy, HIV/AIDS, lymphadenopathy. All Other Systems: Reviewed and Negative Objective Vital Signs and I&Os Vital Signs Date Time Temp Pulse Resp B/P B/P Pulse O2 O2 Flow FiO2 Mean Ox Delivery Rate 01/20 1040 Nasal 2.0L Cannula 01/20 0800 97.0 62 18 90/50 95 Nasal 2.0L Cannula 01/20 0400 95 Nasal 2.0L Cannula 01/20 0000 98 Nasal 4.0L Cannula 01/20 0000 98.0 56 15 90/64 98 Nasal 4.0L Cannula 01/19 2015 97.8 60 12 92/60 95 Room Air 01/194 98.2 60 15 102/55 96 Room Air 01/19 1848 97.8 59 16 98/56 96 Room Air 01/19 1702 97.3 59 20 111/56 97 Room Air 01/19 1253 95.0 56 16 108/58 98 Room Air Intake & Output 01/20 0400 01/19 1600 01/19 0400 01/18 0400 Intake Total 1095 850 Output Total 200 Balance 895 850 Intake, IV 975 850 Intake, Oral 120 Output, Urine 200 Patient 179 lb 174 lb Weight Weight Bed scale Reported by Patient Measurement Method Physical Exam: Well-developed, well-nourished, chronically ill appearing female, looking older than her stated age, in no apparent distress. Sallow complexion. Sclera icteric. Conjunctiva pink. Oropharynx clear. Poor dentition, especially upper left teeth. No oral thrush. No aphthous ulcers. *Lower lateral aspect of left lip-> sutured. There is no adenopathy, thyromegaly, or JVD. No peripheral stigmata of inflammatory bowel disease on exam. Faint spiders on the anterior chest wall. Breast & pelvic exams: API (post reconstruction left breast, by hx). No CVA tenderness. Lungs: clear to A&P, except for a few bibasilar crackles. No wheezing or rhonchi. Heart exam: regular rate rhythm, S1 and S2, without any murmur. Abdominal exam: normal bowel sounds, soft belly, mildly obese, nontender, without guarding or rebound. No definite mass. Liver approximately 12 cm by percussion. Palpable spleen tip. No definite fluid shift. No pulsatile mass. Digital rectal exam: deferred by patient. Extremities: without cyanosis or clubbing. Trace peripheral edema. B/L ALPS. No palpable cords. Mild DJD. No acute artrhropathy. No rash. No palmar erythema. No Dupuytren's contractures. Distal pulses 1+ bilaterally. DTRs 2+ bilaterally. Alert and oriented x 3. Right handed. CN II-XII intact. No tremor. No asterixis. Current Medications: Current Medications Sig/Freddy Start time Last Medication Dose Route Stop Time Status Admin Acetaminophen 1,000 MG Q8P PRN 01/19 1815 AC IV Albumin Human 25 GM Q8 01/19 2244 AC 01/20 IV 0601 Benzocaine/Menthol 1 TAMY Q2P PRN 01/20 0515 AC 01/20 PO 1042 Ceftriaxone Sodium 1,000 MG Q24H 01/20 1800 AC IV Ceftriaxone Sodium 0 .STK-MED ONE 01/19 1733 DC .ROUTE Ceftriaxone Sodium 1,000 MG ONCE ONE 01/19 1645 DC 01/19 IV 01/19 1646 1754 Docusate Sodium 100 MG DAILY PRN 01/19 1930 AC PO Escitalopram Oxalate 10 MG DAILY 01/20 0900 AC 01/20 PO 1042 Lorazepam 0.5 MG TIDPRN PRN 01/19 1930 AC PO 01/26 1929 Octreotide Acetate 50 MCG ONCE ONE 01/19 1645 DC 01/19 IV 01/19 1646 1732 Octreotide Acetate 500 MCG Q10H 01/19 1645 DC 01/19 Dextrose/Water 500 ML IV 1817 Pantoprazole Sodium 40 MG DAILY 01/20 0900 AC 01/20 IV 1042 Pantoprazole Sodium 40 MG BID 01/19 2100 DC IV Pantoprazole Sodium 0 .STK-MED ONE 01/19 1720 DC IV Pantoprazole Sodium 80 MG ONCE ONE 01/19 1630 DC 01/19 IV 01/19 1631 1722 Polyethylene Glycol 17 GM DAILY PRN 01/19 1930 AC PO Senna 187 MG AT BEDTIME PRN 01/19 1930 AC PO Sodium Chloride 250 ML BOLUS ONE 01/20 0515 DC 01/20 IV 01/20 0614 0400 Sodium Chloride 1,000 ML Q13H 01/19 1930 AC 01/20 IV 0600 Sodium Chloride 500 ML BOLUS ONE 01/19 1630 DC 01/19 IV 01/19 1729 1722 Spironolactone 25 MG DAILY 01/20 0900 CAN PO Ursodiol 1,000 MG QPM 01/20 2100 UNVr PO Ursodiol 1,000 MG .[BEDTIME] 01/20 193 CAN PO Results Pertinent Lab Results: Laboratory Tests 01/20 01/20 0530 0530 Urines Urinalysis LIGHT H Urine Color (YEL,AMB,STR) MARY Urine Clarity (CLEAR) HAZY H Urine pH (5.0 - 8.0) 5.5 Ur Specific [place] (1.001 - 1.035) >= 1.030 Urine Protein (NEG,<30 MG/DL) 100 H Urine Ketones (NEG) TRACE H Urine Nitrite (NEG) POS H Urine Bilirubin (NEG) POS@ICTO H Urine Urobilinogen (0.1 - 1.0 EU/dl) 4.0 H Ur Leukocyte Esterase (NEG) TRACE H Ur Microscopic SEDIMENT EXAMINED Urine WBC (0 - 2 /HPF) 1-3 H Ur Epithelial Cells (NONE,FEW) FEW Urine Bacteria (NEG/NONE) FEW H Hyaline Casts (0/LPF) RARE H Granular Casts (NONE /LPF) 1-3 H Urine Hemoglobin (NEG) NEG Ur Random Creatinine (mg/dL) 236.5 Ur Random Sodium (30 - 90 mmol/L) 7 L Ur Random Potassium (mmol/L) 59.9 Fraction Sodium Excret (<1% %) 0.0 Urine Glucose (N MG/DL) NEG 01/20 01/19 4905 2355 Chemistry Sodium (137 - 145 mmol/L) 136 L Potassium (3.5 - 5.1 mmol/L) 4.6 Chloride (98 - 107 mmol/L) 103 Carbon Dioxide (22 - 30 mmol/L) 17 L Anion Gap (5 - 16) 16 BUN (7 - 17 mg/dL) 32 H Creatinine (0.5 - 1.0 mg/dL) 1.4 H Estimated GFR (>60 ml/min) 38 L BUN/Creatinine Ratio (7 - 25 %) 22.9 Magnesium (1.6 - 2.3 mg/dL) 1.9 Hematology CBC w Diff NO MAN DIFF REQ Cancelled WBC (4.8 - 10.8 /CUMM) 4.8 Cancelled RBC (4.20 - 5.40 /CUMM) 2.47 L Cancelled Hgb (12.0 - 16.0 G/DL) 8.4 L Cancelled Hct (37 - 47 %) 24.3 L Cancelled MCV (81.0 - 99.0 FL) 98.5 Cancelled MCH (27.0 - 31.0 PG) 34.0 H Cancelled MCHC (33.0 - 37.0 G/DL) 34.6 Cancelled RDW (11.5 - 14.5 %) 17.2 H Cancelled Plt Count (130 - 400 /CUMM) 83 L Cancelled MPV (7.4 - 10.4 FL) 7.9 Cancelled Gran % (42.2 - 75.2 %) 59.0 Lymphocytes % (20.5 - 51.1 %) 28.7 Monocytes % (1.7 - 9.3 %) 4.8 Eosinophils % (0 - 5 %) 7.3 H Basophils % (0.0 - 2.0 %) 0.2 Absolute Granulocytes (1.4 - 6.5 /CUMM) 2.8 Absolute Lymphocytes (1.2 - 3.4 /CUMM) 1.4 Absolute Monocytes (0.10 - 0.60 /CUMM) 0.2 Absolute Eosinophils (0.0 - 0.7 /CUMM) 0.3 Absolute Basophils (0.0 - 0.2 /CUMM) 0 01/19 01/19 01/19 2320 1802 1717 Chemistry Ammonia (9 - 30 umol/L) 39 H Hematology CBC w Diff NO MAN DIFF REQ WBC (4.8 - 10.8 /CUMM) 6.9 RBC (4.20 - 5.40 /CUMM) 2.69 L Hgb (12.0 - 16.0 G/DL) 9.1 L Hct (37 - 47 %) 26.5 L MCV (81.0 - 99.0 FL) 98.3 MCH (27.0 - 31.0 PG) 33.9 H MCHC (33.0 - 37.0 G/DL) 34.5 RDW (11.5 - 14.5 %) 17.0 H Plt Count (130 - 400 /CUMM) 100 L MPV (7.4 - 10.4 FL) 7.7 Gran % (42.2 - 75.2 %) 56.9 Lymphocytes % (20.5 - 51.1 %) 28.7 Monocytes % (1.7 - 9.3 %) 6.6 Eosinophils % (0 - 5 %) 7.6 H Basophils % (0.0 - 2.0 %) 0.2 Absolute Granulocytes (1.4 - 6.5 /CUMM) 3.9 Absolute Lymphocytes (1.2 - 3.4 /CUMM) 2.0 Absolute Monocytes (0.10 - 0.60 /CUMM) 0.5 Absolute Eosinophils (0.0 - 0.7 /CUMM) 0.5 Absolute Basophils (0.0 - 0.2 /CUMM) 0 Urines Urine Color Cancelled Urine Clarity Cancelled Urine pH Cancelled Ur Specific [place] Cancelled Urine Protein Cancelled Urine Ketones Cancelled Urine Nitrite Cancelled Urine Bilirubin Cancelled Urine Urobilinogen Cancelled Ur Leukocyte Esterase Cancelled Ur Microscopic Cancelled Urine Hemoglobin Cancelled Urine Glucose Cancelled 01/19 01/19 1258 1258 Chemistry Sodium (137 - 145 mmol/L) 136 L Potassium (3.5 - 5.1 mmol/L) 4.5 Chloride (98 - 107 mmol/L) 100 Carbon Dioxide (22 - 30 mmol/L) 21 L Anion Gap (5 - 16) 16 BUN (7 - 17 mg/dL) 31 H Creatinine (0.5 - 1.0 mg/dL) 1.4 H Estimated GFR (>60 ml/min) 38 L BUN/Creatinine Ratio (7 - 25 %) 22.1 Glucose (65 - 99 mg/dL) 93 Lactic Acid (0.7 - 2.1 mmol/L) 1.2 Calcium (8.4 - 10.2 mg/dL) 9.4 Total Bilirubin (0.2 - 1.3 mg/dL) 9.3 H Direct Bilirubin (< 0.4 mg/dL) 6.7 H AST (14 - 36 U/L) 37 H ALT (9 - 52 U/L) 21 Alkaline Phosphatase (<127 U/L) 97 Troponin I (< 0.11 ng/ml) < 0.01 [id number] Pept (<125 pg/mL) 5840 H Total Protein (6.3 - 8.2 g/dL) 8.0 Albumin (3.5 - 5.0 g/dL) 3.9 Globulin (1.9 - 4.2 gm/dL) 4.1 Albumin/Globulin Ratio (1.1 - 2.2 %) 1.0 L Amylase (30 - 110 U/L) 40 Lipase (23 - 300 U/L) 272 Alpha Fetoprotein Pending TSH (0.270 - 4.200 uIU/mL) 4.530 H Free T4 (0.78 - 2.44 ng/dL) 1.57 Coagulation PT (9.4 - 12.5 SEC) 17.4 H INR (0.90 - 1.19) 1.59 H APTT (25 - 37 SEC) 34 Hematology CBC w Diff MAN DIFF ORDERED WBC (4.8 - 10.8 /CUMM) 6.4 RBC (4.20 - 5.40 /CUMM) 2.84 L Hgb (12.0 - 16.0 G/DL) 9.5 L Hct (37 - 47 %) 27.9 L MCV (81.0 - 99.0 FL) 98.3 MCH (27.0 - 31.0 PG) 33.4 H MCHC (33.0 - 37.0 G/DL) 34.0 RDW (11.5 - 14.5 %) 17.5 H Plt Count (130 - 400 /CUMM) 119 L MPV (7.4 - 10.4 FL) 7.5 Gran % (42.2 - 75.2 %) 55.9 Lymphocytes % (20.5 - 51.1 %) 30.6 Monocytes % (1.7 - 9.3 %) 6.7 Eosinophils % (0 - 5 %) 5.7 H Basophils % (0.0 - 2.0 %) 1.1 Absolute Granulocytes (1.4 - 6.5 /CUMM) 3.6 Segmented Neutrophils (42.2 - 75.2 %) 54 Absolute Lymphocytes (1.2 - 3.4 /CUMM) 2.0 Lymphocytes (20.5 - 51.1 %) 35 Monocytes (1.7 - 9.3 %) 1 L Absolute Monocytes (0.10 - 0.60 /CUMM) 0.4 Eosinophils (0 - 5.0 %) 9 H Absolute Eosinophils (0.0 - 0.7 /CUMM) 0.4 Basophils (0.0 - 2.0 %) 1 Absolute Basophils (0.0 - 0.2 /CUMM) 0.1 Platelet Estimate (ADEQUATE) DECREASEDD Hypochromic-Microcytic 1+ Poikilocytosis 3+ Anisocytosis 3+ [place] Cells 1+ Schistocytes Imaging/Other Studies: 11/14/17: CT ABD & PELVIS W ORAL & IV CONT (per Dr. Aly Reddy)- IMPRESSION: 1. Progressive liver cirrhosis and evidence of portal hypertension with esophageal and gastric varices. 2. Ill-defined area of hypoattenuation within the hepatic parenchyma within segment 4a in an area of capsular retraction. The retraction was identified on the prior study from 2014. Although this likely represents the sequela of the patient's advanced liver cirrhosis, the possibility of an underlying infiltrative neoplastic process such as hepatocellular carcinoma is not entirely excluded. Liver protocol MRI is recommended for further evaluation as well as clinical correlation and AFP level. 3. Note is made of celiac axis variant anatomy as detailed above. 4. Trace abdominal and pelvic ascites. 5. Skin thickening of the partially imaged left breast. In this patient with history of left-sided invasive ductal carcinoma, immediate attention is recommended with physical examination and mammography. This unexpected result was discussed with Dr. Pablo at 8:52 AM on to a 2018 and it was ascertained that the content and urgency of the report was understood at the time of direct communication. (*Again , MRI liver has since beedn rxd per Dr. Aly Reddy) DICTATED BY: Shraddha Goldman MD DATE/TIME DICTATED:11/15/1773901/19/18: EKG- NSR @ 60, nl axis, PRWP, borderline prolonged QT interval. 01/19/18: XRY-PORTABLE CHEST XRAY- IMPRESSION: Moderate cardiomegaly, pulmonary venous congestion and interstitial edema lower lungs, suggests CHF. Pleural effusions and adjacent pulmonary opacities which could represent atelectasis and/or pneumonia. Clinical correlation is suggested. 01/19/18: *EGD to D3- Impression: 1. *Bleeding site from the corner of the lower lat left lip, sutured by surgery. 2. 3 columns of non-bleeding 1+ esophageal varices from 30-40 cm (supine position), without any red nikolai sign, left intact. No junctional varices. 3. Fairly large non-bleeding proximal gastric fundic varices, towards the greater curvature aspect, just below the cardia, & some smaller non-bleeding gastric fundic varices, distal to this. 4. Mild non-bleeding proximal portal gastropathy in the fundus & upper body of the stomach. 01/20/18: US-COMPLETE ABDOMEN- 1. Enlarged gallbladder 5.8 cm diameter. No stone, sludge, wall thickening. No ductal dilatation. Normal CBD 5 mm. 2. Splenomegaly 13.9 cm. Mild ascites (*per my personal review of the sono with Dr. Langley on 01/20/18, the ascites is scant, around the liver, GB, & spleen, & is high risk to needle). Portal flow towards the liver. Cirrhotic liver without HCC. 3. No hydronephrosis. Normal renal parenchymal echogenicity and thickness.
[2018-01-20 12:00] VITALS: BP 92/50
[2018-01-20 13:44] LABS: ABSOLUTE BASOPHIL COUNT 0 /CUMM (0.0-0.2); ABSOLUTE EOSINOPHIL COUNT 0.3 /CUMM (0.0-0.7); RED BLOOD CELL CT 2.47 /CUMM (4.20-5.40); WHITE BLOOD CELL COUNT 5.4 /CUMM (4.8-10.8)
[2018-01-20 13:47] LABS: ABSOLUTE GRANULOCYTE CT 3.4 /CUMM (1.4-6.5); ABSOLUTE LYMPH COUNT 1.5 /CUMM (1.2-3.4); ABSOLUTE MONOCYTE COUNT 0.2 /CUMM (0.10-0.60); BASOPHIL % 0.8 % (0.0-2.0); EOSINOPHIL % 5.8 % (0-5); GRANULOCYTE % 63.3 % (42.2-75.2); HEMATOCRIT 24.4 % (37-47); MEAN CORPUSCULAR HGB 34.2 PG (27.0-31.0); MEAN CORPUSCULAR HGB CONC 34.7 G/DL (33.0-37.0); MEAN CORPUSCULAR VOLUME 98.8 FL (81.0-99.0); MEAN PLATELET VOLUME 7.6 FL (7.4-10.4)
[2018-01-20 14:13] LABS: PLATELET COUNT 89 /CUMM (130-400)
[2018-01-20 16:00] VITALS: BP 98/50
--- NOTE | 2018-01-20 17:32 | Cons- Nephrology ---
General Information and HPI Consulting Request Date of Consult: 01/20/18 Requested By: Crow Zee MD History of Present Illness: Ms Ace is a 62 yo F with a long history of alcohol abuse resulting in cirrhosis. She stopped drinking last year and has been treated with nadolol and spironolactone. She underwent EGD earlier this year which showed grade 1 varices. She was admitted yesterday with constipation, nausea, vomiting with poor po intake and hematemesis x 2. EGD here shows no GI source of bleeding and a cut on the inside of her lip. . She had not voided for a day (per patient) and initial report to me was she had not voided since admission (ICU nursing has clarified that she voided early this morning and again 200 cc just now). Cr was elevated at 1.4 (was 0.8 earlier this month). She denies NSAID use and has not been given IV contrast. She is currently getting albumin and IVF. BP is low ( 90's) prior admissions (progress notes) show BP had been higher (120's) . Pt is unaware of her normal BP but says it is normal on her visits. 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 AN INFANT 01/19/18) Home Med List: Escitalopram Oxalate 10 MG TABLET 1 TAB PO DAILY MENTAL HEALTH (Reported) Lactulose 10 GRAM/15 ML SOLUTION 30 ML PO BID CONSTIPATION (Reported) Lorazepam 0.5 MG TABLET 1 TAB PO TIDPRN PRN ANXIETY (Reported) Propranolol HCl 20 MG TABLET 1 TAB PO BID VARICES (Reported) Spironolactone 25 MG TABLET 1 TAB PO DAILY DIURETIC (Reported) Ursodiol 500 MG TABLET 2 TAB PO QHS BILE (Reported) Review of Systems Review of Systems: As in HPI feels better now. Past History Travel History Traveled to [place] past 21 day No Medical History Blood Transfusion Hx: Yes Neurological: NONE EENT: NONE Cardiovascular: HYPOTENSION Respiratory: NONE Gastrointestinal: hx colon adenoma Hepatic: cirrhosis (EtOH, ? 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 , Age 72; Cause: Hepatoma. FATHER, , Age 64; Cause: Colon cancer. Psychosocial History Where Do You Live? Home Who Do You Live With? child (dtr & grandson) Services at Home: None Primary Language: Upper Sorbian Smoking Status: Former Smoker ETOH Use: denies use (EtOH x yrs- stopped 09/2017) Illicit Drug Use: denies illicit drug use Living Will? no Power of Temporary Administrative Assistant/HCP? no Other Social History: since 2012. 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 EtOH abuse became worse after her . Allegedly stopped EtOH in 09/2017. Ex < 10 pk yr cigarette smoker. No illicit drugs. Lives with dtr & grandson. Functional Ability ADLs Independent: dressing, eating, toileting, bathing. Ambulation: independent IADLs Independent: shopping, housework, finances, food prep, telephone, transportation , medication admin. Employment History Employment: Retired Profession/Employer: retired [employer] Exam & Diagnostic Data Vital Signs and I&O Pleasant F in ICU NAD 92 / 50 62 97.4 Skin neg rash Eyes anicteric ENT moist Neck neg JVD Lungs clear to A Cor RRR Abd soft N/T min ascites Ext tr edema Results Pertinent Lab Results: Laboratory Tests 01/20 01/20 1230 0530 Hematology CBC w Diff NO MAN DIFF REQ WBC (4.8 - 10.8 /CUMM) 5.4 RBC (4.20 - 5.40 /CUMM) 2.47 L Hgb (12.0 - 16.0 G/DL) 8.4 L Hct (37 - 47 %) 24.4 L MCV (81.0 - 99.0 FL) 98.8 MCH (27.0 - 31.0 PG) 34.2 H MCHC (33.0 - 37.0 G/DL) 34.7 RDW (11.5 - 14.5 %) 17.0 H Plt Count (130 - 400 /CUMM) 89 L MPV (7.4 - 10.4 FL) 7.6 Gran % (42.2 - 75.2 %) 63.3 Lymphocytes % (20.5 - 51.1 %) 27.2 Monocytes % (1.7 - 9.3 %) 2.9 Eosinophils % (0 - 5 %) 5.8 H Basophils % (0.0 - 2.0 %) 0.8 Absolute Granulocytes (1.4 - 6.5 /CUMM) 3.4 Absolute Lymphocytes (1.2 - 3.4 /CUMM) 1.5 Absolute Monocytes (0.10 - 0.60 /CUMM) 0.2 Absolute Eosinophils (0.0 - 0.7 /CUMM) 0.3 Absolute Basophils (0.0 - 0.2 /CUMM) 0 Urines Ur Creatinine 24 Hour Pending Ur Total Protein 24 Hr Pending Protein/Creat Ratio 24h Pending U Protein Electrophores Pending Urine Albumin (%) Pending U Ywsys-8-Kxcyqgxm Pending U Xusom-9-Adluebqe Pending U Beta Globulin Pending U Gamma Globulin Pending U Abnormal Prot Band 1 Pending U Abnormal Prot Band 2 Pending U Abnormal Prot Band 3 Pending 01/20 01/20 01/20 0530 0514 9634 Chemistry Sodium (137 - 145 mmol/L) 136 L Potassium (3.5 - 5.1 mmol/L) 4.6 Chloride (98 - 107 mmol/L) 103 Carbon Dioxide (22 - 30 mmol/L) 17 L Anion Gap (5 - 16) 16 BUN (7 - 17 mg/dL) 32 H Creatinine (0.5 - 1.0 mg/dL) 1.4 H Estimated GFR (>60 ml/min) 38 L BUN/Creatinine Ratio (7 - 25 %) 22.9 Magnesium (1.6 - 2.3 mg/dL) 1.9 Urines Urinalysis LIGHT H Urine Color (YEL,AMB,STR) MARY Urine Clarity (CLEAR) HAZY H Urine pH (5.0 - 8.0) 5.5 Ur Specific [place] (1.001 - 1.035) >= 1.030 Urine Protein (NEG,<30 MG/DL) 100 H Urine Ketones (NEG) TRACE H Urine Nitrite (NEG) POS H Urine Bilirubin (NEG) POS@ICTO H Urine Urobilinogen (0.1 - 1.0 EU/dl) 4.0 H Ur Leukocyte Esterase (NEG) TRACE H Ur Microscopic SEDIMENT EXAMINED Urine WBC (0 - 2 /HPF) 1-3 H Ur Epithelial Cells (NONE,FEW) FEW Urine Bacteria (NEG/NONE) FEW H Hyaline Casts (0/LPF) RARE H Granular Casts (NONE /LPF) 1-3 H Urine Hemoglobin (NEG) NEG Ur Random Creatinine (mg/dL) 236.5 U Random Total Protein (0 - 12 mg/dL) 101 H Ur Random Sodium (30 - 90 mmol/L) 7 L Ur Random Potassium (mmol/L) 59.9 Fraction Sodium Excret (<1% %) 0.0 Urine Glucose (N MG/DL) NEG 01/20 01/19 1648 3875 Chemistry Prot Electrophoresis Pending Total Protein (PEP) Pending Albumin % (PEP) Pending Tzfvl-7-Vhcivzavl Pending Mnvqb-1-Ejuzernxx Pending Bcjd-3-Pfbuerxd Pending Omaa-1-Hzoiaaka Pending Gamma Globulins Pending Abnorm Protein Band 1 Pending Abnorm Protein Band 2 Pending Abnorm Protein Band 3 Pending Hematology CBC w Diff NO MAN DIFF REQ Cancelled WBC (4.8 - 10.8 /CUMM) 4.8 Cancelled RBC (4.20 - 5.40 /CUMM) 2.47 L Cancelled Hgb (12.0 - 16.0 G/DL) 8.4 L Cancelled Hct (37 - 47 %) 24.3 L Cancelled MCV (81.0 - 99.0 FL) 98.5 Cancelled MCH (27.0 - 31.0 PG) 34.0 H Cancelled MCHC (33.0 - 37.0 G/DL) 34.6 Cancelled RDW (11.5 - 14.5 %) 17.2 H Cancelled Plt Count (130 - 400 /CUMM) 83 L Cancelled MPV (7.4 - 10.4 FL) 7.9 Cancelled Gran % (42.2 - 75.2 %) 59.0 Lymphocytes % (20.5 - 51.1 %) 28.7 Monocytes % (1.7 - 9.3 %) 4.8 Eosinophils % (0 - 5 %) 7.3 H Basophils % (0.0 - 2.0 %) 0.2 Absolute Granulocytes (1.4 - 6.5 /CUMM) 2.8 Absolute Lymphocytes (1.2 - 3.4 /CUMM) 1.4 Absolute Monocytes (0.10 - 0.60 /CUMM) 0.2 Absolute Eosinophils (0.0 - 0.7 /CUMM) 0.3 Absolute Basophils (0.0 - 0.2 /CUMM) 0 01/19 01/19 01/19 2320 2244 1802 Chemistry Ammonia (9 - 30 umol/L) 39 H Hematology CBC w Diff NO MAN DIFF REQ WBC (4.8 - 10.8 /CUMM) 6.9 RBC (4.20 - 5.40 /CUMM) 2.69 L Hgb (12.0 - 16.0 G/DL) 9.1 L Hct (37 - 47 %) 26.5 L MCV (81.0 - 99.0 FL) 98.3 MCH (27.0 - 31.0 PG) 33.9 H MCHC (33.0 - 37.0 G/DL) 34.5 RDW (11.5 - 14.5 %) 17.0 H Plt Count (130 - 400 /CUMM) 100 L MPV (7.4 - 10.4 FL) 7.7 Gran % (42.2 - 75.2 %) 56.9 Lymphocytes % (20.5 - 51.1 %) 28.7 Monocytes % (1.7 - 9.3 %) 6.6 Eosinophils % (0 - 5 %) 7.6 H Basophils % (0.0 - 2.0 %) 0.2 Absolute Granulocytes (1.4 - 6.5 /CUMM) 3.9 Absolute Lymphocytes (1.2 - 3.4 /CUMM) 2.0 Absolute Monocytes (0.10 - 0.60 /CUMM) 0.5 Absolute Eosinophils (0.0 - 0.7 /CUMM) 0.5 Absolute Basophils (0.0 - 0.2 /CUMM) 0 Urines Ur Random Creatinine Cancelled Ur Random Sodium Cancelled Ur Random Potassium Cancelled Fraction Sodium Excret Cancelled 01/19 01/19 01/19 1717 1258 1258 Chemistry Sodium (137 - 145 mmol/L) 136 L Potassium (3.5 - 5.1 mmol/L) 4.5 Chloride (98 - 107 mmol/L) 100 Carbon Dioxide (22 - 30 mmol/L) 21 L Anion Gap (5 - 16) 16 BUN (7 - 17 mg/dL) 31 H Creatinine (0.5 - 1.0 mg/dL) 1.4 H Estimated GFR (>60 ml/min) 38 L BUN/Creatinine Ratio (7 - 25 %) 22.1 Glucose (65 - 99 mg/dL) 93 Lactic Acid (0.7 - 2.1 mmol/L) 1.2 Calcium (8.4 - 10.2 mg/dL) 9.4 Total Bilirubin (0.2 - 1.3 mg/dL) 9.3 H Direct Bilirubin (< 0.4 mg/dL) 6.7 H AST (14 - 36 U/L) 37 H ALT (9 - 52 U/L) 21 Alkaline Phosphatase (<127 U/L) 97 Troponin I (< 0.11 ng/ml) < 0.01 Son-I-Eizfgdnswst Pept (<125 pg/mL) 5840 H Total Protein (6.3 - 8.2 g/dL) 8.0 Albumin (3.5 - 5.0 g/dL) 3.9 Globulin (1.9 - 4.2 gm/dL) 4.1 Albumin/Globulin Ratio (1.1 - 2.2 %) 1.0 L Amylase (30 - 110 U/L) 40 Lipase (23 - 300 U/L) 272 Alpha Fetoprotein Pending TSH (0.270 - 4.200 uIU/mL) 4.530 H Free T4 (0.78 - 2.44 ng/dL) 1.57 Coagulation PT (9.4 - 12.5 SEC) 17.4 H INR (0.90 - 1.19) 1.59 H APTT (25 - 37 SEC) 34 Hematology CBC w Diff MAN DIFF ORDERED WBC (4.8 - 10.8 /CUMM) 6.4 RBC (4.20 - 5.40 /CUMM) 2.84 L Hgb (12.0 - 16.0 G/DL) 9.5 L Hct (37 - 47 %) 27.9 L MCV (81.0 - 99.0 FL) 98.3 MCH (27.0 - 31.0 PG) 33.4 H MCHC (33.0 - 37.0 G/DL) 34.0 RDW (11.5 - 14.5 %) 17.5 H Plt Count (130 - 400 /CUMM) 119 L MPV (7.4 - 10.4 FL) 7.5 Gran % (42.2 - 75.2 %) 55.9 Lymphocytes % (20.5 - 51.1 %) 30.6 Monocytes % (1.7 - 9.3 %) 6.7 Eosinophils % (0 - 5 %) 5.7 H Basophils % (0.0 - 2.0 %) 1.1 Absolute Granulocytes (1.4 - 6.5 /CUMM) 3.6 Segmented Neutrophils (42.2 - 75.2 %) 54 Absolute Lymphocytes (1.2 - 3.4 /CUMM) 2.0 Lymphocytes (20.5 - 51.1 %) 35 Monocytes (1.7 - 9.3 %) 1 L Absolute Monocytes (0.10 - 0.60 /CUMM) 0.4 Eosinophils (0 - 5.0 %) 9 H Absolute Eosinophils (0.0 - 0.7 /CUMM) 0.4 Basophils (0.0 - 2.0 %) 1 Absolute Basophils (0.0 - 0.2 /CUMM) 0.1 Platelet Estimate (ADEQUATE) DECREASEDD Hypochromic-Microcytic 1+ Poikilocytosis 3+ Anisocytosis 3+ Mary Cells 1+ Schistocytes Urines Urine Color Cancelled Urine Clarity Cancelled Urine pH Cancelled Ur Specific [place] Cancelled Urine Protein Cancelled Urine Ketones Cancelled Urine Nitrite Cancelled Urine Bilirubin Cancelled Urine Urobilinogen Cancelled Ur Leukocyte Esterase Cancelled Ur Microscopic Cancelled Urine Hemoglobin Cancelled Urine Glucose Cancelled Assessment/Plan Assessment/Recommendations Assessment: SHELLEY likely related to volume depletion and low BP. Oliguria is of concern but she did void to the IVF that she has been given. Would continue albumin for now and watch renal function. Suspect SHELLEY is related to volume and not hepatorenal. Thanks will follow. Mervin Padgett MD Recommendations: .
[2018-01-20 23:00] VITALS: BP 90/45
[2018-01-20 23:09] LABS: ABSOLUTE BASOPHIL COUNT 0 /CUMM (0.0-0.2); ABSOLUTE EOSINOPHIL COUNT 0.3 /CUMM (0.0-0.7); ABSOLUTE GRANULOCYTE CT 3.1 /CUMM (1.4-6.5); ABSOLUTE LYMPH COUNT 1.5 /CUMM (1.2-3.4); ABSOLUTE MONOCYTE COUNT 0.4 /CUMM (0.10-0.60); BASOPHIL % 0.1 % (0.0-2.0); GRANULOCYTE % 59.1 % (42.2-75.2); MEAN CORPUSCULAR HGB CONC 34.9 G/DL (33.0-37.0); MEAN CORPUSCULAR VOLUME 97.3 FL (81.0-99.0); MEAN PLATELET VOLUME 8.3 FL (7.4-10.4); PLATELET COUNT 97 /CUMM (130-400); RBC DISTRIBUTION WIDTH 17.3 % (11.5-14.5); RED BLOOD CELL CT 2.36 /CUMM (4.20-5.40); WHITE BLOOD CELL COUNT 5.3 /CUMM (4.8-10.8)
[2018-01-21 05:09] LABS: ABSOLUTE BASOPHIL COUNT 0 /CUMM (0.0-0.2); ABSOLUTE EOSINOPHIL COUNT 0.2 /CUMM (0.0-0.7); ABSOLUTE GRANULOCYTE CT 2.1 /CUMM (1.4-6.5); ABSOLUTE MONOCYTE COUNT 0.3 /CUMM (0.10-0.60); BASOPHIL % 0.3 % (0.0-2.0); EOSINOPHIL % 4.5 % (0-5); GRANULOCYTE % 45.3 % (42.2-75.2); HEMATOCRIT 22.7 % (37-47); MEAN CORPUSCULAR HGB 33.7 PG (27.0-31.0); MEAN CORPUSCULAR HGB CONC 34.4 G/DL (33.0-37.0); MEAN CORPUSCULAR VOLUME 97.9 FL (81.0-99.0); MEAN PLATELET VOLUME 7.5 FL (7.4-10.4); PLATELET COUNT 79 /CUMM (130-400); RBC DISTRIBUTION WIDTH 17.3 % (11.5-14.5); RED BLOOD CELL CT 2.32 /CUMM (4.20-5.40); WHITE BLOOD CELL COUNT 4.7 /CUMM (4.8-10.8)
[2018-01-21 08:00] VITALS: BP 94/50
--- NOTE | 2018-01-21 08:07 | PN- Resident CRCU ---
Otilia OROZCO,Maria Del Rosario 01/21/18 0807: Subjective HPI/CRCU Issues: - Bleeding for lower lip laceration - Hepatic cirrhosis with esophageal and gastric Varices - Acute blood loss anemia - Hyperbilirubinemia, improving. - SHELLEY - Thrombocytopenia 24 Hour Events: Patient sitting comfortably, eating her breakfast. Denies any further episodes of hematemesis. States she does not know how she got the laceration on her lip. She thinks her lips were cracked because of dehydration even though she drinks a lot of fluids at home. Also reports constipation. Denies any pain or burning with urination but states she usually has to wait for long time until she has the sensation to Void so her bladder is distended most of the times. Patient also has chronic bilateral pedal edema, but because of her borderline blood pressure she cannot be given more diuretics. Objective Vital Signs & I&O Last 8 Hrs of Vitals and I&O: Intake & Output 01/21 1600 Intake Total 1360 Output Total 150 Balance 1210 Intake, IV 1120 Intake, Oral 240 Number 0 Bowel Movements Output, Urine 150 Exam General Appearance: well developed/nourished, no apparent distress, alert, awake , comfortable Head: atraumatic, normal appearance Respiratory: normal breath sounds, chest non-tender, lungs clear Cardiovascular: regular rate/rhythm Gastrointestinal: normal bowel sounds, soft, non-tender Extremities: normal inspection, +1 pitting edema Cranial Nerves: normal hearing, normal speech, PERRL Current Medications: Current Medications Sig/Freddy Start time Last Medication Dose Route Stop Time Status Admin Acetaminophen 1,000 MG Q8P PRN 01/19 1815 AC IV Albumin Human 25 GM Q8 01/19 2244 AC 01/21 IV 1337 Bacitracin 1 KHUSHBOO DAILY 01/20 1629 01/21 TOP 0852 Benzocaine/Menthol 1 TAMY Q2P PRN 01/20 0515 AC 01/20 PO 1042 Ceftriaxone Sodium 1,000 MG Q24H 01/20 1800 AC 01/20 IV 1811 Docusate Sodium 100 MG DAILY PRN 01/19 1930 AC PO Escitalopram Oxalate 10 MG DAILY 01/20 0900 AC 01/21 PO 0852 Lorazepam 0.5 MG TIDPRN PRN 01/19 1930 AC PO 01/26 1929 Magnesium Sulfate 1 GM ONCE ONE 01/21 0615 DC 01/21 Dextrose/Water 100 ML IV 01/21 1014 0615 Pantoprazole Sodium 40 MG DAILY 01/20 0900 AC 01/21 IV 0852 Polyethylene Glycol 17 GM DAILY PRN 01/19 1930 AC PO Senna 187 MG AT BEDTIME PRN 01/19 1930 AC PO Sodium Chloride 1,000 ML .Q8H 01/20 1500 AC 01/21 IV 0852 Ursodiol 1,000 MG QPM 01/20 2100 AC 01/20 PO 4 Impression/Plan Impression/Problem List Impression: This is a 62-year-old female with past medical history significant for anxiety/ depression, cirrhosis/portal hypertension, esophageal varices (secondary to alcohol), H pylori gastritis, breast cancer status post mastectomy and chemotherapy therapy (as 14 years ago), colon adenoma, chronic back pain who presented to the hospital bleeding from left side of her mouth when laying down. Was recently started on lactulose by her primary care. Was recently started on lactulose by her primary care. With a suspicion for possible bleeding from varices, she was admitted to the ICU. Received IV Protonix and IV octreotide, ceftriaxone in the ED. She underwent EGD which revealed: * 3 columns of non-bleeding 1+ esophageal varices from 30-40 cm (supine position ), without any red nikolai sign, left intact. No junctional varices. * Fairly large non-bleeding proximal gastric fundic varices, towards the greater curvature aspect, just below the cardia, & some smaller non-bleeding gastric fundic varices, distal to this. * Mild non-bleeding proximal portal gastropathy in the fundus & upper body of the stomach. Plan: * Monitor H&H and transfuse if hemoglobin less than 8 * 2 g sodium diet given trace ascites * Topical bacitracin to be applied on suture site * Continued to hold lactulose, spironolactone * Change IV protonix to PO. * Can D/C ceftriaxone from tomorrow. * Creatinine trending up despite IV fluid hydration, Continue with IV albumin ( though low suspicion for hepatorenal syndrome) * 24-hour urine protein, SPEP, UPEP per nephro * Avoid any aspirin and NSAID-containing medications. * Limits Tylenol use to less than 2 g per day * Consider administrating hep A, B and flu vaccine and Pneumovax * Outpatient MRI of the liver * Thrombocytopenia; unclear etiology. Continue to monitor DVT PPX ALPS Patient is Full code Downgrade to gen Med Problem List: 1. Laceration of lip 2. SHELLEY (acute kidney injury) 3. Hypotension Pain Ratin Pain Location: NA Pain Goal: Remain pain free Pain Plan: NA Tomorrow's Labs & Rationales: CBC ICU bundle Plan DVT/Prophylaxis: mechanical Crow Zee MD 01/21/18 1709: Attending MD Review Statement Attending Sign Off Attending Cosign Statement: I have: examined this patient, reviewed aval EMR data, discussd w/resident/PA/ RESEARCH INVESTIGATOR, discussed mgmt plan w/CM, discussed mgmt plan w/pt, agreed w/resident/PA/RESEARCH INVESTIGATOR, amended to note. Other Findings: The patient was seen and discussed with house staff. Appreciate Nephrology follow-up. Creatinine increased to 1.8 today. Will continue alb/NS as per Nephrology. OK to transfer to general medical floor. May change IV pantoprazole to po protonix and discontinue ceftriaxone.
--- NOTE | 2018-01-21 10:49 | PN- Nephrology ---
Assessment/Plan Nephrology Assessment: SHELLEY, perhaps pre-renal but creatinine up despite IV fluids. [place] quite low. I am concerned about possibity of hepatorenal syndrome although normal serum albumin, lack of massive ascites make this less likey. Suggestion: Continue with SPA/NS for now Subjective Subjective: Patient sitting in chair, states she feels well. UO of 700 cc yesterday. Objective Vital Signs and I&Os Vital Signs Date Time Temp Pulse Resp B/P B/P Pulse O2 O2 Flow FiO2 Mean Ox Delivery Rate 01/21 0800 94 Nasal 3.0L Cannula 01/21 0800 98.2 70 19 94/50 94 Nasal 3.0L Cannula 01/21 0400 92 Nasal 3.0L Cannula 01/21 0000 92 Nasal 3.0L Cannula 01/20 2300 98.6 69 18 90/45 92 Nasal 3.0L Cannula 01/20 2000 95 Nasal 2.0L Cannula 01/20 1600 99.0 62 17 98/50 96 Room Air 01/20 1200 97.4 62 18 92/50 98 Nasal 2.0L Cannula Intake & Output 01/21 1600 01/21 0400 01/20 1600 01/20 0400 01/19 1600 01/19 0400 Intake Total 3927 458 3135 850 Output Total 200 300 400 Balance 5617 302 0193 850 Intake, IV 5500 031 6496 850 Intake, Oral 680 Number 0 1 Bowel Movements Output, Urine 200 300 400 Patient 179 lb 174 lb Weight Weight Bed scale Reported by Patient Measurement Method Physical Exam: NAD VS as above Lungs: clear CV: no rub Abd: nontender Exts: 1+ pedal edema Neuro: Awake, no asterixis. Current Medications: Current Medications Sig/Freddy Start time Last Medication Dose Route Stop Time Status Admin Acetaminophen 1,000 MG Q8P PRN 01/19 1815 AC IV Albumin Human 25 GM Q8 01/19 2244 AC 01/21 IV 0551 Bacitracin 1 KHUSHBOO DAILY 01/20 1629 AC 01/21 TOP 0852 Benzocaine/Menthol 1 TAMY Q2P PRN 01/20 0515 AC 01/20 PO 1042 Ceftriaxone Sodium 1,000 MG Q24H 01/20 1800 AC 01/20 IV 1811 Docusate Sodium 100 MG DAILY PRN 01/19 1930 AC PO Escitalopram Oxalate 10 MG DAILY 01/20 0900 AC 01/21 PO 0852 Lorazepam 0.5 MG TIDPRN PRN 01/19 1930 AC PO 01/26 1929 Magnesium Sulfate 1 GM ONCE ONE 01/21 06 DC 01/21 Dextrose/Water 100 ML IV 01/21 1014 0615 Pantoprazole Sodium 40 MG DAILY 01/20 0900 AC 01/21 IV 0852 Polyethylene Glycol 17 GM DAILY PRN 01/19 1930 AC PO Senna 187 MG AT BEDTIME PRN 01/19 1930 AC PO Sodium Chloride 1,000 ML .Q8H 01/20 1500 AC 01/21 IV 0852 Sodium Chloride 1,000 ML Q13H 01/19 1930 DC 01/20 IV 0600 Ursodiol 1,000 MG QPM 01/20 2100 AC 01/20 PO 2113 Results Pertinent Lab Results: Laboratory Tests 01/21 Chemistry Sodium (137 - 145 mmol/L) 137 Potassium (3.5 - 5.1 mmol/L) 4.2 Chloride (98 - 107 mmol/L) 106 Carbon Dioxide (22 - 30 mmol/L) 17 L Anion Gap (5 - 16) 14 BUN (7 - 17 mg/dL) 35 H Creatinine (0.5 - 1.0 mg/dL) 1.8 H Estimated GFR (>60 ml/min) 28 L Glucose (65 - 99 mg/dL) 112 H Calcium (8.4 - 10.2 mg/dL) 8.2 L Phosphorus (2.5 - 4.5 mg/dL) 4.8 H Magnesium (1.6 - 2.3 mg/dL) 1.7 Total Bilirubin (0.2 - 1.3 mg/dL) 6.0 H AST (14 - 36 U/L) 32 ALT (9 - 52 U/L) 17 Albumin (3.5 - 5.0 g/dL) 4.0 Hematology CBC w Diff NO MAN DIFF REQ NO MAN DIFF REQ WBC (4.8 - 10.8 /CUMM) 4.7 L 5.3 RBC (4.20 - 5.40 /CUMM) 2.32 L 2.36 L Hgb (12.0 - 16.0 G/DL) 7.8 L 8.0 L Hct (37 - 47 %) 22.7 L 23.0 L MCV (81.0 - 99.0 FL) 97.9 97.3 MCH (27.0 - 31.0 PG) 33.7 H 34.0 H MCHC (33.0 - 37.0 G/DL) 34.4 34.9 RDW (11.5 - 14.5 %) 17.3 H 17.3 H Plt Count (130 - 400 /CUMM) 79 L 97 L MPV (7.4 - 10.4 FL) 7.5 8.3 Gran % (42.2 - 75.2 %) 45.3 59.1 Lymphocytes % (20.5 - 51.1 %) 42.6 28.3 Monocytes % (1.7 - 9.3 %) 7.3 7.5 Eosinophils % (0 - 5 %) 4.5 5.0 Basophils % (0.0 - 2.0 %) 0.3 0.1 Absolute Granulocytes (1.4 - 6.5 /CUMM) 2.1 3.1 Absolute Lymphocytes (1.2 - 3.4 /CUMM) 2.0 1.5 Absolute Monocytes (0.10 - 0.60 /CUMM) 0.3 0.4 Absolute Eosinophils (0.0 - 0.7 /CUMM) 0.2 0.3 Absolute Basophils (0.0 - 0.2 /CUMM) 0 0 01/20 01/20 1230 0530 Hematology CBC w Diff NO MAN DIFF REQ WBC (4.8 - 10.8 /CUMM) 5.4 RBC (4.20 - 5.40 /CUMM) 2.47 L Hgb (12.0 - 16.0 G/DL) 8.4 L Hct (37 - 47 %) 24.4 L MCV (81.0 - 99.0 FL) 98.8 MCH (27.0 - 31.0 PG) 34.2 H MCHC (33.0 - 37.0 G/DL) 34.7 RDW (11.5 - 14.5 %) 17.0 H Plt Count (130 - 400 /CUMM) 89 L MPV (7.4 - 10.4 FL) 7.6 Gran % (42.2 - 75.2 %) 63.3 Lymphocytes % (20.5 - 51.1 %) 27.2 Monocytes % (1.7 - 9.3 %) 2.9 Eosinophils % (0 - 5 %) 5.8 H Basophils % (0.0 - 2.0 %) 0.8 Absolute Granulocytes (1.4 - 6.5 /CUMM) 3.4 Absolute Lymphocytes (1.2 - 3.4 /CUMM) 1.5 Absolute Monocytes (0.10 - 0.60 /CUMM) 0.2 Absolute Eosinophils (0.0 - 0.7 /CUMM) 0.3 Absolute Basophils (0.0 - 0.2 /CUMM) 0 Urines Ur Creatinine 24 Hour Cancelled Ur Total Protein 24 Hr Cancelled Protein/Creat Ratio 24h Cancelled U Protein Electrophores Cancelled Urine Albumin (%) Cancelled U [id number] Cancelled U [id number] Cancelled U Beta Globulin Cancelled U Gamma Globulin Cancelled U Abnormal Prot Band 1 Cancelled U Abnormal Prot Band 2 Cancelled U Abnormal Prot Band 3 Cancelled 01/20 01/20 01/20 0530 0530 0512 Miscellaneous Ref Lab Test Result Pending Urines Urinalysis LIGHT H Urine Color (YEL,AMB,STR) MARY Urine Clarity (CLEAR) HAZY H Urine pH (5.0 - 8.0) 5.5 Ur Specific [place] (1.001 - 1.035) >= 1.030 Urine Protein (NEG,<30 MG/DL) 100 H Urine Ketones (NEG) TRACE H Urine Nitrite (NEG) POS H Urine Bilirubin (NEG) POS@ICTO H Urine Urobilinogen (0.1 - 1.0 EU/dl) 4.0 H Ur Leukocyte Esterase (NEG) TRACE H Ur Microscopic SEDIMENT EXAMINED Urine WBC (0 - 2 /HPF) 1-3 H Ur Epithelial Cells (NONE,FEW) FEW Urine Bacteria (NEG/NONE) FEW H Hyaline Casts (0/LPF) RARE H Granular Casts (NONE /LPF) 1-3 H Urine Hemoglobin (NEG) NEG Ur Random Creatinine (mg/dL) 236.5 U Random Total Protein (0 - 12 mg/dL) 101 H Ur Random Sodium (30 - 90 mmol/L) 7 L Ur Random Potassium (mmol/L) 59.9 Fraction Sodium Excret (<1% %) 0.0 Urine Glucose (N MG/DL) NEG 01/20 01/20 01/19 1785 8515 2355 Chemistry Sodium (137 - 145 mmol/L) 136 L Potassium (3.5 - 5.1 mmol/L) 4.6 Chloride (98 - 107 mmol/L) 103 Carbon Dioxide (22 - 30 mmol/L) 17 L Anion Gap (5 - 16) 16 BUN (7 - 17 mg/dL) 32 H Creatinine (0.5 - 1.0 mg/dL) 1.4 H Estimated GFR (>60 ml/min) 38 L BUN/Creatinine Ratio (7 - 25 %) 22.9 Magnesium (1.6 - 2.3 mg/dL) 1.9 Prot Electrophoresis Pending Total Protein (PEP) Pending Albumin % (PEP) Pending [id number]-[id number] Pending Elngv-1-Twtcgnlhs Pending Krcg-4-Vdfdpmjr Pending Lojo-9-Qydqmbjr Pending Gamma Globulins Pending Abnorm Protein Band 1 Pending Abnorm Protein Band 2 Pending Abnorm Protein Band 3 Pending Hematology CBC w Diff NO MAN DIFF REQ Cancelled WBC (4.8 - 10.8 /CUMM) 4.8 Cancelled RBC (4.20 - 5.40 /CUMM) 2.47 L Cancelled Hgb (12.0 - 16.0 G/DL) 8.4 L Cancelled Hct (37 - 47 %) 24.3 L Cancelled MCV (81.0 - 99.0 FL) 98.5 Cancelled MCH (27.0 - 31.0 PG) 34.0 H Cancelled MCHC (33.0 - 37.0 G/DL) 34.6 Cancelled RDW (11.5 - 14.5 %) 17.2 H Cancelled Plt Count (130 - 400 /CUMM) 83 L Cancelled MPV (7.4 - 10.4 FL) 7.9 Cancelled Gran % (42.2 - 75.2 %) 59.0 Lymphocytes % (20.5 - 51.1 %) 28.7 Monocytes % (1.7 - 9.3 %) 4.8 Eosinophils % (0 - 5 %) 7.3 H Basophils % (0.0 - 2.0 %) 0.2 Absolute Granulocytes (1.4 - 6.5 /CUMM) 2.8 Absolute Lymphocytes (1.2 - 3.4 /CUMM) 1.4 Absolute Monocytes (0.10 - 0.60 /CUMM) 0.2 Absolute Eosinophils (0.0 - 0.7 /CUMM) 0.3 Absolute Basophils (0.0 - 0.2 /CUMM) 0 01/19 01/19 01/19 2320 2244 1802 Chemistry Ammonia (9 - 30 umol/L) 39 H Hematology CBC w Diff NO MAN DIFF REQ WBC (4.8 - 10.8 /CUMM) 6.9 RBC (4.20 - 5.40 /CUMM) 2.69 L Hgb (12.0 - 16.0 G/DL) 9.1 L Hct (37 - 47 %) 26.5 L MCV (81.0 - 99.0 FL) 98.3 MCH (27.0 - 31.0 PG) 33.9 H MCHC (33.0 - 37.0 G/DL) 34.5 RDW (11.5 - 14.5 %) 17.0 H Plt Count (130 - 400 /CUMM) 100 L MPV (7.4 - 10.4 FL) 7.7 Gran % (42.2 - 75.2 %) 56.9 Lymphocytes % (20.5 - 51.1 %) 28.7 Monocytes % (1.7 - 9.3 %) 6.6 Eosinophils % (0 - 5 %) 7.6 H Basophils % (0.0 - 2.0 %) 0.2 Absolute Granulocytes (1.4 - 6.5 /CUMM) 3.9 Absolute Lymphocytes (1.2 - 3.4 /CUMM) 2.0 Absolute Monocytes (0.10 - 0.60 /CUMM) 0.5 Absolute Eosinophils (0.0 - 0.7 /CUMM) 0.5 Absolute Basophils (0.0 - 0.2 /CUMM) 0 Urines Ur Random Creatinine Cancelled Ur Random Sodium Cancelled Ur Random Potassium Cancelled Fraction Sodium Excret Cancelled 01/19 01/19 01/19 1717 1258 1258 Chemistry Sodium (137 - 145 mmol/L) 136 L Potassium (3.5 - 5.1 mmol/L) 4.5 Chloride (98 - 107 mmol/L) 100 Carbon Dioxide (22 - 30 mmol/L) 21 L Anion Gap (5 - 16) 16 BUN (7 - 17 mg/dL) 31 H Creatinine (0.5 - 1.0 mg/dL) 1.4 H Estimated GFR (>60 ml/min) 38 L BUN/Creatinine Ratio (7 - 25 %) 22.1 Glucose (65 - 99 mg/dL) 93 Lactic Acid (0.7 - 2.1 mmol/L) 1.2 Calcium (8.4 - 10.2 mg/dL) 9.4 Total Bilirubin (0.2 - 1.3 mg/dL) 9.3 H Direct Bilirubin (< 0.4 mg/dL) 6.7 H AST (14 - 36 U/L) 37 H ALT (9 - 52 U/L) 21 Alkaline Phosphatase (<127 U/L) 97 Troponin I (< 0.11 ng/ml) < 0.01 [id number]-J-Msjjxhnxksu Pept (<125 pg/mL) 5840 H Total Protein (6.3 - 8.2 g/dL) 8.0 Albumin (3.5 - 5.0 g/dL) 3.9 Globulin (1.9 - 4.2 gm/dL) 4.1 Albumin/Globulin Ratio (1.1 - 2.2 %) 1.0 L Amylase (30 - 110 U/L) 40 Lipase (23 - 300 U/L) 272 Alpha Fetoprotein Pending TSH (0.270 - 4.200 uIU/mL) 4.530 H Free T4 (0.78 - 2.44 ng/dL) 1.57 Coagulation PT (9.4 - 12.5 SEC) 17.4 H INR (0.90 - 1.19) 1.59 H APTT (25 - 37 SEC) 34 Hematology CBC w Diff MAN DIFF ORDERED WBC (4.8 - 10.8 /CUMM) 6.4 RBC (4.20 - 5.40 /CUMM) 2.84 L Hgb (12.0 - 16.0 G/DL) 9.5 L Hct (37 - 47 %) 27.9 L MCV (81.0 - 99.0 FL) 98.3 MCH (27.0 - 31.0 PG) 33.4 H MCHC (33.0 - 37.0 G/DL) 34.0 RDW (11.5 - 14.5 %) 17.5 H Plt Count (130 - 400 /CUMM) 119 L MPV (7.4 - 10.4 FL) 7.5 Gran % (42.2 - 75.2 %) 55.9 Lymphocytes % (20.5 - 51.1 %) 30.6 Monocytes % (1.7 - 9.3 %) 6.7 Eosinophils % (0 - 5 %) 5.7 H Basophils % (0.0 - 2.0 %) 1.1 Absolute Granulocytes (1.4 - 6.5 /CUMM) 3.6 Segmented Neutrophils (42.2 - 75.2 %) 54 Absolute Lymphocytes (1.2 - 3.4 /CUMM) 2.0 Lymphocytes (20.5 - 51.1 %) 35 Monocytes (1.7 - 9.3 %) 1 L Absolute Monocytes (0.10 - 0.60 /CUMM) 0.4 Eosinophils (0 - 5.0 %) 9 H Absolute Eosinophils (0.0 - 0.7 /CUMM) 0.4 Basophils (0.0 - 2.0 %) 1 Absolute Basophils (0.0 - 0.2 /CUMM) 0.1 Platelet Estimate (ADEQUATE) DECREASEDD Hypochromic-Microcytic 1+ Poikilocytosis 3+ Anisocytosis 3+ Mary Cells 1+ Schistocytes Urines Urine Color Cancelled Urine Clarity Cancelled Urine pH Cancelled Ur Specific [place] Cancelled Urine Protein Cancelled Urine Ketones Cancelled Urine Nitrite Cancelled Urine Bilirubin Cancelled Urine Urobilinogen Cancelled Ur Leukocyte Esterase Cancelled Ur Microscopic Cancelled Urine Hemoglobin Cancelled Urine Glucose Cancelled
[2018-01-21 16:00] VITALS: BP 96/52
--- NOTE | 2018-01-21 16:03 | PN- Gastroenterology ---
Assessment/Plan GI Assessment/Recommendations: 62 y/o female, post left mastectomy 2003 for invasive ductal breast Ca (2N1aMx; f/b +CTX, without RT or hormonal tx), f/b breast reconstruction, hx EtOH abuse ( [place]) x yrs- "D/C 06/2017" although 09/28/17: [EtOH] 202), hx cirrhosis, possible overlap with + PBC (hx +AMA), with hx esoph/gastric varices & portal gastropathy, hx colon adenoma. The patient recently saw Dr. Irving Reddy in the office 01/01/18, at which point, Inderal was increased to 20 mg BID & Compa 500 mg- 2tabs Qhs was added. She never had a formal liver bx. She was also on low dose Aldactone 25 mg daily. She was getting Lactulose both for possible low grade PSE & for constipation. She denied any previous abdominal taps or hx SBP. The patient's alcohol abuse worsened after she was in 2012. The patient presented to the [facility] 01/19/18 at 11:35 a.m., stating she was bleeding from the left side of her mouth when laying down, as she saw some blood on her pillow after awakening this a.m.. She has very poor dentition, especially in the left upper teeth. She denied any recent dental work, definite gum bleeding, tongue biting, seizures, or epistaxis. There was no definite hemoptysis or hematemesis. She denied any melena. There was no rectal bleeding , aside from a scant hemorrhoid, when straining and constipation. She claimed a small amount of blood later trickled at left side of her mouth again, one lying down, but that nothing else had recurred since being upright. Again, there was no overt hematemesis, just a "metal taste in her mouth". She denied any GERD, odynophagia, dysphagia, early satiety, retching, or abdominal pain, aside from some minimal discomfort associated with constipation. She was yellow. She noted dark urine over the past few days, without any pruritus. There was no definite confusion. She denied any fevers, chills, symptoms of UTI, or URI. She noted some mild increased peripheral edema, and perhaps some mild increased abdominal girth. She was constipated for the past 11 days [employer] and was taking Lactulose, having a BM on 01/18/18. There was no obstipation, tenesmus, or diarrhea. Denied any history of viral hepatitis. She was remotely transfused at the time of her breast surgery in 2003. She denied any history of IVDA or tattoos. She denied any history of HIV. She was a remote 70-caba-aser cigarette smoker, stopping in 2003. The patient's oral cavity was inspected by the ER & no definite bleeding site was found. Upon arrival, BP 108/58, P 56 (on Inderal), R 16, T 95.0, O2 sat RA 98%. A digital rectal exam was not done in the ER, & the patient wished to defer one at the time of the GI consult. She denied any history of DTs or withdrawal. The patient's mother at 72 of hepatoma in the setting of alcoholic cirrhosis. Her father at 64 of colon cancer. There was no additional family history of any other GI issues. *Please note, the patient was found to have SHELLEY on admission, with previously nl GFR > 60, & subacute on chronic elevated LFTs. *The patient was given IV Protonix bolus followed by IV Protonix drip, IV Octreotide bolus followed by IV Octreotide drip, and IV Ceftriaxone 1 g in the ER, as per my recommendations (as I was taking care of another GI bleed at that time), along with IV NS. I advised an ICU admit. The patient has been NPO today , except for a sip of H2O this a.m. She was not on any ASA, anti-plt agents, or A/C tx. She denied any NSAIDS, aside from 1-2 tabs of Advil/month. She had a ? remote allergy to PCN, but has tolerated cepahlosporins. The patient a medical decisions and does not have a living will. *The patient is awaiting an outpt MRI liver per Dr. Aly Reddy for further workup of an ill-defined area of hypoattenuation in the liver within segment 4A. 11/21/17: EGD to D2 with bxs, per Dr. Aly Reddy- (done for cirrhosis, assess portal HTN, & hx H. pylori gastritis in 08/2005, txd with ? regimen)- 4 columns of non-bleeding esopahgeal varices beginning at 33 cm, extending to the GE junction (44 cm). Distally, one of these was large, 2 medium, and one small. There were no red elmer. GE junction was normal. No junctional varices. There were gastric varices in the proximal greater curve of fundus & in the distal fundus. Mild proximal portal gastropathy. Antral erosions- bx: mild CAG/CFG, HP-neg. *A non-selective beta steve, Inderal, was rxd then. 05/09/13: Last colonoscopy to cecum- negative. A follow-up surveillance colonoscopy was advised in 5 years (i.e.- 05/2018), in view of the +FHx colon Ca & past personal hx colon adenoma. 09/23/17: Fe 116, TIBC 275, Fe sat 42.2%, ferritin 245, B12 836, folate 7.6, HgA1C 4.1 09/28/17: [EtOH] 202 10/30/17: Hep Bs Ag- neg, Hep C Ab- neg; CAT- neg 1:40, +AMA 38, AFP 6.3. 01/19/18: Admission labs- WBC 6.4 (54S/35L/1M/9E/1Baso), H/H 9.5/27.9, MCV 98.3, RDW 17.5, PLT 119, PT 17.4, INR 1.59, PTT 34, glu 93, BUN/Cr 31/1.4, GFR 38, Na 136, K 4.5, HCO3 21, AG 16, lactate 1.2, amylase 40, lipase 272, Ca 9.4, albumin 3.9, globulin 4.1, TBil 9.3, DBil 6.7, alk phos 97, AST 37, ALT 21, NH3 39, troponin < 0.01, elevated BNP 5840, TSH 4.530, nl FT4 1.57 11/14/17: CT ABD & PELVIS W ORAL & IV CONT (per Dr. Aly Reddy)- IMPRESSION: 1. Progressive liver cirrhosis and evidence of portal hypertension with esophageal and gastric varices. 2. Ill-defined area of hypoattenuation within the hepatic parenchyma within segment 4a in an area of capsular retraction. The retraction was identified on the prior study from 2014. Although this likely represents the sequela of the patient's advanced liver cirrhosis, the possibility of an underlying infiltrative neoplastic process such as hepatocellular carcinoma is not entirely excluded. Liver protocol MRI is recommended for further evaluation as well as clinical correlation and AFP level. 3. Note is made of celiac axis variant anatomy as detailed above. 4. Trace abdominal and pelvic ascites. 5. Skin thickening of the partially imaged left breast. In this patient with history of left-sided invasive ductal carcinoma, immediate attention is recommended with physical examination and mammography. This unexpected result was discussed with Dr. Pablo at 8:52 AM on to a 2017 and it was ascertained that the content and urgency of the report was understood at the time of direct communication. (*Again , MRI liver has since beedn rxd per Dr. Aly Reddy) DICTATED BY: Shraddha Goldman MD DATE/TIME DICTATED:11/15/1773901/19/18: EKG- NSR @ 60, nl axis, PRWP, borderline prolonged QT interval. 01/19/18: XRY-PORTABLE CHEST XRAY- IMPRESSION: Moderate cardiomegaly, pulmonary venous congestion and interstitial edema lower lungs, suggests CHF. Pleural effusions and adjacent pulmonary opacities which could represent atelectasis and/or pneumonia. Clinical correlation is suggested. *As of 01/19/18, it was difficult to tell whether the patient had actual hematemesis, which she did definitely not experience, vs. bleeding from the oral cavity, with poor dentition. The history of esophageal & gastric varices along with portal gastropathy (on Inderal) is noted. She rarely took an Advil. The patient also had SHELLEY, which could have been precipitated by her low-dose Aldactone 25 mg daily and/or dehydration from her Lactulose. HRS seemed less likely. She did receive IV cont 11/14/17. Her NSAID use was minimal regarding SHELLEY. She did not appear encephalopathic (borderline NH3) and was A & Ox3. The risks and benefits of EGD were discussed with the patient, including the possible need for intubation, to protect her from aspiration. Furthermore, if she had uncontrollably bleeding esophageal varices or possible bleedng gastric varices, she was told that she might have to be transferred for TIPS. Informed consent for the EGD was obtained rfrom the patient. She was already rxd Protonix , Octreotide, & prophylactic Ceftriaxone. 01/19/18: *EGD to D3- Impression: 1. *Bleeding site from the corner of the lower lat left lip, sutured by surgery. 2. 3 columns of non-bleeding 1+ esophageal varices from 30-40 cm (supine position), without any red nikolai sign, left intact. No junctional varices. 3. Fairly large non-bleeding proximal gastric fundic varices, towards the greater curvature aspect, just below the cardia, & some smaller non-bleeding gastric fundic varices, distal to this. 4. Mild non-bleeding proximal portal gastropathy in the fundus & upper body of the stomach. *As of 01/20/18, the patient remained with a systolic BP in the 90's. She was afebrile with O2 sat 2L- 95%. She had not required a transfusion. She remained on empiric IV Ceftriaxone. Her Aldactone was held, as was her Lactulose, due to SHELLEY. She remained on IV SPA 25g Q8h. + 895 cc fluid balance. Getting IV NS @ 75cc/hr. Inderal was on hold due to low BP. Her Compa was resumed 1g Qhs. She remained on IV Protonix 40 mg daily. As her varices were not actively bleeding, the Octrotide drip had been D/C. The patient's left lateral lower lip was successfully sutured by surgery post EGD on 01/19/18, while still sedated, prior to extubation. Absorbable sutures were used. Topical bacitracin was advised. She remained on her bowel regimen of Miralax, Colace & Senna. Her low Cortez & FENa 0.0 were c/w pre-renal vs HRS. *There was no significant ascites to tap on 01/20/18: sono (trace), per my review with Dr. Langley, nor were there any dilated ducts, HCC, or hydronephrosis. She was tolerating a regular diet. There was no further lip bleeding. 01/19/18: 11:20 p.m.- WBC 6.9, H/H 9.1/26.5, PLT 100 01/20/18: 4:15 a.m.- WBC 4.8, H/H 8.4/24.3, PLT 83, BUN/Cr 32/1.4, GFR 38, Na 136, K 4.6, HCO3 17, AG 16, Mg 1.9. 01/20/18: *Cortez 7, *FENa 0.0 (probable prerenal > HRS) 01/19/18: BC x 2- negative so far. 01/20/18: UC- neg x 1 day. 01/20/18: US-COMPLETE ABDOMEN- 1. Enlarged gallbladder 5.8 cm diameter. No stone, sludge, wall thickening. No ductal dilatation. Normal CBD 5 mm. 2. Splenomegaly 13.9 cm. Mild ascites (*per my personal review of the sono with Dr. Langley on 01/20/18, the ascites is scant, around the liver, GB, & spleen, & is high risk to needle). Portal flow towards the liver. Cirrhotic liver without HCC. 3. No hydronephrosis. Normal renal parenchymal echogenicity and thickness. *As of 01/21/18, the patient remained with low systolic BP in the 90's, prohibiting resumption of Inderal. She remained afebrile with Tm 99. O2 sat 3L 96%. She was downgraded to general medicine earlier today. She was still on IV Ceftriaxone, but her cultures remained negative. *Renal consult of 01/20/18 & subsequent renal note of 01/21/18 appreciated.*I agree that the major differential diagnosis for the SHELLEY is prerenal vs. HRS, based on low Cortez & low FENa. Unfortunately, the patient's GFR has not responded to IVF & SPA. She had transiently received Octreotide prior to her admission EGD, but this was purely for possible variceal bleeding. As this was found not to be the case, her IV Octreotide drip was stopped at that point. The pt's UO had diminished to 700 cc yesterday. She was tolerating a 2g Na+ diet, without any recurrent lip bleeding or GI bleeding. She had not required any blood products. Mg was repleted. LFTs were slightly improving. She denied any confusion, fevers, or chills. She was ambulating in her room. She remained on IV NS @ 125 cc/hr & IV SPA 25g Q8h. 01/20/18: *SPEP (per renal; + proteinuria)- pending. 01/21/18: WBC 4.7, H/H 7.8/22.7, PLT 79, glucose 112, BUN/Cr 35/1.8, GFR 28, Na 137, K 4.2, HCO3 17, Ca 8.2, PO4 4.8, albumin 4.0, TBil 6.0, alk phos 97, AST 32 , ALT 17. *SUGGEST: *Continue 2g Na+ regular (trace ascites). Suture care of lower left lip per surgery (the sutures are absorbable; topical Bacitracin advised). IV Protonix 40 mg daily. May disontinue IV Ceftriaxone 1g daily, as cultures negative. There was no significant ascites to tap on 01/20/18: sono. *Continue to hold Lactulose for now (if needed, can eventually substitute Rifaximin for Lactulose, which will not dehydrate the patient). *Continue to hold Aldactone 25 mg daily. (Eventual resumption of Inderal 20 mg po BID as BP allows-> BP currently too low ; continue Compa 500 mg tab- 2 tabs po Qhs). T&C 2u PRBC. Keep Hgb > 7 (no hx ASHD, do not "overinflate" varices). Decrease frequency of CBC to daily for now. Strict I/O's. Check Gentle IVF (currently NS @ 125 cc/hr). O2 prn. *Continue empiric SPA 25g IVPB Q8h to increase oncotic pressure & hopefully improve GFR. * Continue to follow up with renal (? pre-renal/hypoperfusion vs. HRS). *Will defer to renal regarding resumption of Octreotide for HRS, which initially was given purely for possible variceal bleeding, which was found not to be the case. *Advise echocardiogram for persistent hypotension (r/o EtOH cardiomyopathy). Close follow-up of lytes, GFR, LFTs. *Eventual outpt MRI liver with gadolinium to r/o HCC, once GFR normalizes, per Dr. Aly Reddy. No NSAIDS! Avoid hepatotoxins & keep Tylenol use to < 2g daily. If not immune, should be vaccinated against both Hep A & B semielectively, plus annual flu shot & Pneumovax, if not recently given. The above was again discussed with the medical ICU house staff. The above findings were also previously discussed with the patient & her son, Tigre, at the bedside in the ICU on 01/20/18, as per patient request. As per patient request, I had previously contacted her daughter, Ayanna Baker, postoperatively on at [phone], regarding the above 01/19/18: EGD findings. DVT prophylaxis with mechanical ALPS. As an aside, the patient is due for f/u surveillance colonoscopy in 05/2018. I updated the patient in great detail today. Further GI recommendations to follow, based on clinical course. Dr. Aly Reddy will assume the pt's outpt GI care after D/C. Problem List: 1. Laceration of lip 2. Cirrhosis 3. History of esophageal varices 4. Portal hypertensive gastropathy 5. Abnormal LFTs 6. SHELLEY (acute kidney injury) 7. Hypotension Subjective Subjective: *As of 01/21/18, the patient remained with low systolic BP in the 90's, prohibiting resumption of Inderal. She remained afebrile with Tm 99. O2 sat 3L 96%. She was downgraded to general medicine earlier today. She was still on IV Ceftriaxone, but her cultures remained negative. *Renal consult of 01/20/18 & subsequent renal note of 01/21/18 appreciated.*I agree that the major differential diagnosis for the SHELLEY is prerenal vs. HRS, based on low Cortez & low FENa. Unfortunately, the patient's GFR has not responded to IVF & SPA. She had transiently received Octreotide prior to her admission EGD, but this was purely for possible variceal bleeding. As this was found not to be the case, her IV Octreotide drip was stopped at that point. The pt's UO had diminished to 700 cc yesterday. She was tolerating a 2g Na+ diet, without any recurrent lip bleeding or GI bleeding. She had not required any blood products. Mg was repleted. LFTs were slightly improving. She denied any confusion, fevers, or chills. She was ambulating in her room. She remained on IV NS @ 125 cc/hr & IV SPA 25g Q8h. 01/20/18: *SPEP (per renal; + proteinuria)- pending. 01/21/18: WBC 4.7, H/H 7.8/22.7, PLT 79, glucose 112, BUN/Cr 35/1.8, GFR 28, Na 137, K 4.2, HCO3 17, Ca 8.2, PO4 4.8, albumin 4.0, TBil 6.0, alk phos 97, AST 32 , ALT 17. Review of Systems: Full 14 point ROS otherwise noncontributory, and as above. Review of Systems Constitutional: Denies: chills, diaphoresis, fever, malaise, weakness, unexplained weight loss. EENTM: Reports: icterus. Denies: blurred vision, double vision, visual changes, eye pain, eye drainage, eye tearing, ear discharge, ear pain, ear redness, hearing changes, nasal congestion, epistaxis, nasal pain, throat pain, throat swelling, mouth pain, tooth pain. Cardiovascular: Reports: peripheral edema. Denies: chest pain, edema, orthopena, palpitations, syncope. Respiratory: Denies: cough, hemoptysis, orthopnea, short of breath, sputum production, stridor, wheezing. GI: Reports: constipation (better post Lactulose), ? vomiting-> resolved (? hematemesis vs oral blood-> found to be laceration of lower lateral left lip). Denies: abdominal pain, bloating, diarrhea, distention, bowel incontinence, melena, nausea, bloody stool, changes in stool, steatorrhea. Genitourinary: Reports: decreased urine output. Denies: discharge, dysuria, frequency, hematuria, hesitation, nocturia, pain, urgency. Musculoskeletal: Reports: back pain (chronic LBP). Denies: gout, joint pain, joint swelling, muscle pain, muscle stiffness, neck pain. Skin: Reports: jaundice. Denies: cysts, change in skin color, change in hair/nails, dryness, erythema, lesions, lymphangitis, lumps, moles, rash. Neurological/Psychological: Reports: anxiety, depressed, emotional problems. Denies: ataxia, cognitive dysfunction, confusion, dementia, headache, numbness, paresthesia, pre-existing deficit, petit mal seizures, tingling, tremors, tonic- clonic seizures, unable to move lower ext, unable to move upper ext, weakness, other. Hematologic/Endocrine: Denies: bruising, bleeding (resolved), polyuria, polydipsia. Immunologic/Allergic: Denies: splenectomy, HIV/AIDS, lymphadenopathy. All Other Systems: Reviewed and Negative Objective Vital Signs and I&Os Vital Signs Date Time Temp Pulse Resp B/P B/P Pulse O2 O2 Flow FiO2 Mean Ox Delivery Rate 01/21 1200 96 Nasal 3.0L Cannula 01/21 0800 94 Nasal 3.0L Cannula 01/21 0800 98.2 70 19 94/50 94 Nasal 3.0L Cannula 01/21 0400 92 Nasal 3.0L Cannula 01/21 0000 92 Nasal 3.0L Cannula 01/20 2300 98.6 69 18 90/45 92 Nasal 3.0L Cannula 01/20 2000 95 Nasal 2.0L Cannula Intake & Output 01/21 1600 01/21 0400 01/20 1600 01/20 0400 01/19 1600 01/19 0400 Intake Total 2560 800 2255 850 Output Total 350 300 400 Balance 2210 500 1855 850 Intake, IV 2320 800 1575 850 Intake, Oral 240 680 Number 0 1 Bowel Movements Output, Urine 350 300 400 Patient 179 lb 174 lb Weight Weight Bed scale Reported by Patient Measurement Method Physical Exam: Well-developed, well-nourished, chronically ill appearing female, looking older than her stated age, in no apparent distress. Sallow complexion. Sclera icteric. Conjunctiva pink. Oropharynx clear. Poor dentition, especially upper left teeth. No oral thrush. No aphthous ulcers. *Lower lateral aspect of left lip-> sutured. There is no adenopathy, thyromegaly, or JVD. No peripheral stigmata of inflammatory bowel disease on exam. Faint spiders on the anterior chest wall. Breast & pelvic exams: API (post reconstruction left breast, by hx). No CVA tenderness. Lungs: clear to A&P, except for a few bibasilar crackles. No wheezing or rhonchi. Heart exam: regular rate rhythm, S1 and S2, without any murmur. Abdominal exam: normal bowel sounds, soft belly, mildly obese, nontender, without guarding or rebound. No definite mass. Liver approximately 12 cm by percussion. Palpable spleen tip. No definite fluid shift. No pulsatile mass. Digital rectal exam: deferred by patient. Extremities: without cyanosis or clubbing. Trace peripheral edema. B/L ALPS. No palpable cords. Mild DJD. No acute artrhropathy. No rash. No palmar erythema. No Dupuytren's contractures. Distal pulses 1+ bilaterally. DTRs 2+ bilaterally. Alert and oriented x 3. Right handed. CN II-XII intact. No tremor. No asterixis. Current Medications: Current Medications Sig/Freddy Start time Last Medication Dose Route Stop Time Status Admin Acetaminophen 1,000 MG Q8P PRN 01/19 1815 AC IV Albumin Human 25 GM Q8 01/19 2244 01/21 IV 1337 Bacitracin 1 KHUSHBOO DAILY 01/20 1629 01/21 TOP 0852 Benzocaine/Menthol 1 TAMY Q2P PRN 01/20 0515 01/20 PO 1042 Ceftriaxone Sodium 1,000 MG Q24H 01/21 1600 01/21 IV 1628 Ceftriaxone Sodium 1,000 MG Q24H 01/20 1800 DC 01/20 IV 1811 Docusate Sodium 100 MG DAILY PRN 01/19 1930 AC PO Escitalopram Oxalate 10 MG DAILY 01/20 0900 01/21 PO 0852 Lorazepam 0.5 MG TIDPRN PRN 01/19 1930 AC PO 01/26 1929 Magnesium Sulfate 1 GM ONCE ONE 01/21 0615 VT 01/21 Dextrose/Water 100 ML IV 01/21 1014 0615 Pantoprazole Sodium 40 MG DAILY 01/20 0900 01/21 IV 0852 Polyethylene Glycol 17 GM DAILY PRN 01/19 1930 AC PO Senna 187 MG AT BEDTIME PRN 01/19 1930 AC PO Sodium Chloride 1,000 ML .Q8H 01/20 1500 01/21 IV 0852 Ursodiol 1,000 MG QPM 01/20 2100 01/20 PO 2114 Results Pertinent Lab Results: Laboratory Tests 01/21 01/20 0409 5 Chemistry Sodium (137 - 145 mmol/L) 137 Potassium (3.5 - 5.1 mmol/L) 4.2 Chloride (98 - 107 mmol/L) 106 Carbon Dioxide (22 - 30 mmol/L) 17 L Anion Gap (5 - 16) 14 BUN (7 - 17 mg/dL) 35 H Creatinine (0.5 - 1.0 mg/dL) 1.8 H Estimated GFR (>60 ml/min) 28 L Glucose (65 - 99 mg/dL) 112 H Calcium (8.4 - 10.2 mg/dL) 8.2 L Phosphorus (2.5 - 4.5 mg/dL) 4.8 H Magnesium (1.6 - 2.3 mg/dL) 1.7 Total Bilirubin (0.2 - 1.3 mg/dL) 6.0 H AST (14 - 36 U/L) 32 ALT (9 - 52 U/L) 17 Albumin (3.5 - 5.0 g/dL) 4.0 Hematology CBC w Diff NO MAN DIFF REQ NO MAN DIFF REQ WBC (4.8 - 10.8 /CUMM) 4.7 L 5.3 RBC (4.20 - 5.40 /CUMM) 2.32 L 2.36 L Hgb (12.0 - 16.0 G/DL) 7.8 L 8.0 L Hct (37 - 47 %) 22.7 L 23.0 L MCV (81.0 - 99.0 FL) 97.9 97.3 MCH (27.0 - 31.0 PG) 33.7 H 34.0 H MCHC (33.0 - 37.0 G/DL) 34.4 34.9 RDW (11.5 - 14.5 %) 17.3 H 17.3 H Plt Count (130 - 400 /CUMM) 79 L 97 L MPV (7.4 - 10.4 FL) 7.5 8.3 Gran % (42.2 - 75.2 %) 45.3 59.1 Lymphocytes % (20.5 - 51.1 %) 42.6 28.3 Monocytes % (1.7 - 9.3 %) 7.3 7.5 Eosinophils % (0 - 5 %) 4.5 5.0 Basophils % (0.0 - 2.0 %) 0.3 0.1 Absolute Granulocytes (1.4 - 6.5 /CUMM) 2.1 3.1 Absolute Lymphocytes (1.2 - 3.4 /CUMM) 2.0 1.5 Absolute Monocytes (0.10 - 0.60 /CUMM) 0.3 0.4 Absolute Eosinophils (0.0 - 0.7 /CUMM) 0.2 0.3 Absolute Basophils (0.0 - 0.2 /CUMM) 0 0 01/20 01/20 1230 0530 Hematology CBC w Diff NO MAN DIFF REQ WBC (4.8 - 10.8 /CUMM) 5.4 RBC (4.20 - 5.40 /CUMM) 2.47 L Hgb (12.0 - 16.0 G/DL) 8.4 L Hct (37 - 47 %) 24.4 L MCV (81.0 - 99.0 FL) 98.8 MCH (27.0 - 31.0 PG) 34.2 H MCHC (33.0 - 37.0 G/DL) 34.7 RDW (11.5 - 14.5 %) 17.0 H Plt Count (130 - 400 /CUMM) 89 L MPV (7.4 - 10.4 FL) 7.6 Gran % (42.2 - 75.2 %) 63.3 Lymphocytes % (20.5 - 51.1 %) 27.2 Monocytes % (1.7 - 9.3 %) 2.9 Eosinophils % (0 - 5 %) 5.8 H Basophils % (0.0 - 2.0 %) 0.8 Absolute Granulocytes (1.4 - 6.5 /CUMM) 3.4 Absolute Lymphocytes (1.2 - 3.4 /CUMM) 1.5 Absolute Monocytes (0.10 - 0.60 /CUMM) 0.2 Absolute Eosinophils (0.0 - 0.7 /CUMM) 0.3 Absolute Basophils (0.0 - 0.2 /CUMM) 0 Urines Ur Creatinine 24 Hour Cancelled Ur Total Protein 24 Hr Cancelled Protein/Creat Ratio 24h Cancelled U Protein Electrophores Cancelled Urine Albumin (%) Cancelled U [id number] Cancelled U [id number] Cancelled U Beta Globulin Cancelled U Gamma Globulin Cancelled U Abnormal Prot Band 1 Cancelled U Abnormal Prot Band 2 Cancelled U Abnormal Prot Band 3 Cancelled 01/20 01/20 01/20 0530 0530 0512 Miscellaneous Ref Lab Test Result Pending Urines Urinalysis LIGHT H Urine Color (YEL,AMB,STR) MARY Urine Clarity (CLEAR) HAZY H Urine pH (5.0 - 8.0) 5.5 Ur Specific [place] (1.001 - 1.035) >= 1.030 Urine Protein (NEG,<30 MG/DL) 100 H Urine Ketones (NEG) TRACE H Urine Nitrite (NEG) POS H Urine Bilirubin (NEG) POS@ICTO H Urine Urobilinogen (0.1 - 1.0 EU/dl) 4.0 H Ur Leukocyte Esterase (NEG) TRACE H Ur Microscopic SEDIMENT EXAMINED Urine WBC (0 - 2 /HPF) 1-3 H Ur Epithelial Cells (NONE,FEW) FEW Urine Bacteria (NEG/NONE) FEW H Hyaline Casts (0/LPF) RARE H Granular Casts (NONE /LPF) 1-3 H Urine Hemoglobin (NEG) NEG Ur Random Creatinine (mg/dL) 236.5 U Random Total Protein (0 - 12 mg/dL) 101 H Ur Random Sodium (30 - 90 mmol/L) 7 L Ur Random Potassium (mmol/L) 59.9 Fraction Sodium Excret (<1% %) 0.0 Urine Glucose (N MG/DL) NEG 01/20 01/20 01/19 0415 [id number] Chemistry Sodium (137 - 145 mmol/L) 136 L Potassium (3.5 - 5.1 mmol/L) 4.6 Chloride (98 - 107 mmol/L) 103 Carbon Dioxide (22 - 30 mmol/L) 17 L Anion Gap (5 - 16) 16 BUN (7 - 17 mg/dL) 32 H Creatinine (0.5 - 1.0 mg/dL) 1.4 H Estimated GFR (>60 ml/min) 38 L BUN/Creatinine Ratio (7 - 25 %) 22.9 Magnesium (1.6 - 2.3 mg/dL) 1.9 Prot Electrophoresis Pending Total Protein (PEP) Pending Albumin % (PEP) Pending [id number] Pending [id number] Pending [id number] Pending Axce-[id number]-Yqipdwio Pending Gamma Globulins Pending Abnorm Protein Band 1 Pending Abnorm Protein Band 2 Pending Abnorm Protein Band 3 Pending Hematology CBC w Diff NO MAN DIFF REQ Cancelled WBC (4.8 - 10.8 /CUMM) 4.8 Cancelled RBC (4.20 - 5.40 /CUMM) 2.47 L Cancelled Hgb (12.0 - 16.0 G/DL) 8.4 L Cancelled Hct (37 - 47 %) 24.3 L Cancelled MCV (81.0 - 99.0 FL) 98.5 Cancelled MCH (27.0 - 31.0 PG) 34.0 H Cancelled MCHC (33.0 - 37.0 G/DL) 34.6 Cancelled RDW (11.5 - 14.5 %) 17.2 H Cancelled Plt Count (130 - 400 /CUMM) 83 L Cancelled MPV (7.4 - 10.4 FL) 7.9 Cancelled Gran % (42.2 - 75.2 %) 59.0 Lymphocytes % (20.5 - 51.1 %) 28.7 Monocytes % (1.7 - 9.3 %) 4.8 Eosinophils % (0 - 5 %) 7.3 H Basophils % (0.0 - 2.0 %) 0.2 Absolute Granulocytes (1.4 - 6.5 /CUMM) 2.8 Absolute Lymphocytes (1.2 - 3.4 /CUMM) 1.4 Absolute Monocytes (0.10 - 0.60 /CUMM) 0.2 Absolute Eosinophils (0.0 - 0.7 /CUMM) 0.3 Absolute Basophils (0.0 - 0.2 /CUMM) 0 01/19 01/19 01/19 2320 2244 1802 Chemistry Ammonia (9 - 30 umol/L) 39 H Hematology CBC w Diff NO MAN DIFF REQ WBC (4.8 - 10.8 /CUMM) 6.9 RBC (4.20 - 5.40 /CUMM) 2.69 L Hgb (12.0 - 16.0 G/DL) 9.1 L Hct (37 - 47 %) 26.5 L MCV (81.0 - 99.0 FL) 98.3 MCH (27.0 - 31.0 PG) 33.9 H MCHC (33.0 - 37.0 G/DL) 34.5 RDW (11.5 - 14.5 %) 17.0 H Plt Count (130 - 400 /CUMM) 100 L MPV (7.4 - 10.4 FL) 7.7 Gran % (42.2 - 75.2 %) 56.9 Lymphocytes % (20.5 - 51.1 %) 28.7 Monocytes % (1.7 - 9.3 %) 6.6 Eosinophils % (0 - 5 %) 7.6 H Basophils % (0.0 - 2.0 %) 0.2 Absolute Granulocytes (1.4 - 6.5 /CUMM) 3.9 Absolute Lymphocytes (1.2 - 3.4 /CUMM) 2.0 Absolute Monocytes (0.10 - 0.60 /CUMM) 0.5 Absolute Eosinophils (0.0 - 0.7 /CUMM) 0.5 Absolute Basophils (0.0 - 0.2 /CUMM) 0 Urines Ur Random Creatinine Cancelled Ur Random Sodium Cancelled Ur Random Potassium Cancelled Fraction Sodium Excret Cancelled 01/19 01/19 01/19 1717 1258 1258 Chemistry Sodium (137 - 145 mmol/L) 136 L Potassium (3.5 - 5.1 mmol/L) 4.5 Chloride (98 - 107 mmol/L) 100 Carbon Dioxide (22 - 30 mmol/L) 21 L Anion Gap (5 - 16) 16 BUN (7 - 17 mg/dL) 31 H Creatinine (0.5 - 1.0 mg/dL) 1.4 H Estimated GFR (>60 ml/min) 38 L BUN/Creatinine Ratio (7 - 25 %) 22.1 Glucose (65 - 99 mg/dL) 93 Lactic Acid (0.7 - 2.1 mmol/L) 1.2 Calcium (8.4 - 10.2 mg/dL) 9.4 Total Bilirubin (0.2 - 1.3 mg/dL) 9.3 H Direct Bilirubin (< 0.4 mg/dL) 6.7 H AST (14 - 36 U/L) 37 H ALT (9 - 52 U/L) 21 Alkaline Phosphatase (<127 U/L) 97 Troponin I (< 0.11 ng/ml) < 0.01 Jen-G-Knlbrcausml Pept (<125 pg/mL) 5840 H Total Protein (6.3 - 8.2 g/dL) 8.0 Albumin (3.5 - 5.0 g/dL) 3.9 Globulin (1.9 - 4.2 gm/dL) 4.1 Albumin/Globulin Ratio (1.1 - 2.2 %) 1.0 L Amylase (30 - 110 U/L) 40 Lipase (23 - 300 U/L) 272 Alpha Fetoprotein Pending TSH (0.270 - 4.200 uIU/mL) 4.530 H Free T4 (0.78 - 2.44 ng/dL) 1.57 Coagulation PT (9.4 - 12.5 SEC) 17.4 H INR (0.90 - 1.19) 1.59 H APTT (25 - 37 SEC) 34 Hematology CBC w Diff MAN DIFF ORDERED WBC (4.8 - 10.8 /CUMM) 6.4 RBC (4.20 - 5.40 /CUMM) 2.84 L Hgb (12.0 - 16.0 G/DL) 9.5 L Hct (37 - 47 %) 27.9 L MCV (81.0 - 99.0 FL) 98.3 MCH (27.0 - 31.0 PG) 33.4 H MCHC (33.0 - 37.0 G/DL) 34.0 RDW (11.5 - 14.5 %) 17.5 H Plt Count (130 - 400 /CUMM) 119 L MPV (7.4 - 10.4 FL) 7.5 Gran % (42.2 - 75.2 %) 55.9 Lymphocytes % (20.5 - 51.1 %) 30.6 Monocytes % (1.7 - 9.3 %) 6.7 Eosinophils % (0 - 5 %) 5.7 H Basophils % (0.0 - 2.0 %) 1.1 Absolute Granulocytes (1.4 - 6.5 /CUMM) 3.6 Segmented Neutrophils (42.2 - 75.2 %) 54 Absolute Lymphocytes (1.2 - 3.4 /CUMM) 2.0 Lymphocytes (20.5 - 51.1 %) 35 Monocytes (1.7 - 9.3 %) 1 L Absolute Monocytes (0.10 - 0.60 /CUMM) 0.4 Eosinophils (0 - 5.0 %) 9 H Absolute Eosinophils (0.0 - 0.7 /CUMM) 0.4 Basophils (0.0 - 2.0 %) 1 Absolute Basophils (0.0 - 0.2 /CUMM) 0.1 Platelet Estimate (ADEQUATE) DECREASEDD Hypochromic-Microcytic 1+ Poikilocytosis 3+ Anisocytosis 3+ Mary Cells 1+ Schistocytes Urines Urine Color Cancelled Urine Clarity Cancelled Urine pH Cancelled Ur Specific [place] Cancelled Urine Protein Cancelled Urine Ketones Cancelled Urine Nitrite Cancelled Urine Bilirubin Cancelled Urine Urobilinogen Cancelled Ur Leukocyte Esterase Cancelled Ur Microscopic Cancelled Urine Hemoglobin Cancelled Urine Glucose Cancelled Imaging/Other Studies: 11/14/17: CT ABD & PELVIS W ORAL & IV CONT (per Dr. Aly Reddy)- IMPRESSION: 1. Progressive liver cirrhosis and evidence of portal hypertension with esophageal and gastric varices. 2. Ill-defined area of hypoattenuation within the hepatic parenchyma within segment 4a in an area of capsular retraction. The retraction was identified on the prior study from 2014. Although this likely represents the sequela of the patient's advanced liver cirrhosis, the possibility of an underlying infiltrative neoplastic process such as hepatocellular carcinoma is not entirely excluded. Liver protocol MRI is recommended for further evaluation as well as clinical correlation and AFP level. 3. Note is made of celiac axis variant anatomy as detailed above. 4. Trace abdominal and pelvic ascites. 5. Skin thickening of the partially imaged left breast. In this patient with history of left-sided invasive ductal carcinoma, immediate attention is recommended with physical examination and mammography. This unexpected result was discussed with Dr. Pablo at 8:52 AM on to a 2018 and it was ascertained that the content and urgency of the report was understood at the time of direct communication. (*Again , MRI liver has since beedn rxd per Dr. Aly Reddy) DICTATED BY: Shraddha Goldman MD DATE/TIME DICTATED:11/15/1740 01/19/18: EKG- NSR @ 60, nl axis, PRWP, borderline prolonged QT interval. 01/19/18: XRY-PORTABLE CHEST XRAY- IMPRESSION: Moderate cardiomegaly, pulmonary venous congestion and interstitial edema lower lungs, suggests CHF. Pleural effusions and adjacent pulmonary opacities which could represent atelectasis and/or pneumonia. Clinical correlation is suggested. 01/19/18: *EGD to D3- Impression: 1. *Bleeding site from the corner of the lower lat left lip, sutured by surgery. 2. 3 columns of non-bleeding 1+ esophageal varices from 30-40 cm (supine position), without any red nikolai sign, left intact. No junctional varices. 3. Fairly large non-bleeding proximal gastric fundic varices, towards the greater curvature aspect, just below the cardia, & some smaller non-bleeding gastric fundic varices, distal to this. 4. Mild non-bleeding proximal portal gastropathy in the fundus & upper body of the stomach. 01/20/18: US-COMPLETE ABDOMEN- 1. Enlarged gallbladder 5.8 cm diameter. No stone, sludge, wall thickening. No ductal dilatation. Normal CBD 5 mm. 2. Splenomegaly 13.9 cm. Mild ascites (*per my personal review of the sono with Dr. Langley on 01/20/18, the ascites is scant, around the liver, GB, & spleen, & is high risk to needle). Portal flow towards the liver. Cirrhotic liver without HCC. 3. No hydronephrosis. Normal renal parenchymal echogenicity and thickness.
[2018-01-22 06:25] VITALS: BP 120/60
--- NOTE | 2018-01-22 07:35 | PN- Housestaff ---
See Addendum Subjective Follow-up For: Acute kidney injury, lip laceration Subjective: No overnight events. Patient was transferred from last night. She says that she feels short of breath this morning and thinks that she has received much fluids. She is also wondering with the echocardiogram says. Otherwise, she is feeling fine. No chest pain, abdominal pain, nausea, vomiting, diarrhea. Review of Systems Constitutional: Reports: no symptoms. EENTM: Reports: no symptoms. Cardiovascular: Reports: no symptoms. Respiratory: Reports: see HPI. Gastrointestinal: Reports: no symptoms. Genitourinary: Reports: no symptoms. Musculoskeletal: Reports: no symptoms. Skin: Reports: no symptoms. Neurological/Psychological: Reports: no symptoms. Hematologic/Endocrine: Reports: no symptoms. Immunologic/Allergic: Reports: no symptoms. Objective Last 24 Hrs of Vital Signs/I&O Vital Signs Date Time Temp Pulse Resp B/P B/P Pulse O2 O2 Flow FiO2 Mean Ox Delivery Rate 01/22 0625 98.1 79 20 120/60 91 Room Air 01/22 0000 Nasal 3.0L Cannula 01/21 1600 98.3 68 18 96/52 98 Room Air 01/21 1200 96 Nasal 3.0L Cannula 01/21 0800 94 Nasal 3.0L Cannula 01/21 0800 98.2 70 19 94/50 94 Nasal 3.0L Cannula Intake & Output 01/22 0800 01/22 0000 01/21 1600 Intake Total 1360 1666 1360 Output Total 200 250 150 Balance 1160 1416 1210 Intake, IV 1000 1186 1120 Intake, Oral 360 480 240 Number 1 0 Bowel Movements Output, Urine 200 250 150 Physical Exam General Appearance: Alert, Oriented X3, Cooperative, No Acute Distress Cardiovascular: Regular Rate, Normal S1, Normal S2, JVD Lungs: crackles Abdomen: Normal Bowel Sounds, Soft, No Tenderness Extremities: 1+ pitting edema Current Medications: Current Medications Sig/Freddy Start time Last Medication Dose Route Stop Time Status Admin Acetaminophen 1,000 MG Q8P PRN 01/19 1815 DC IV Albumin Human 25 GM Q8 01/19 2244 AC 01/22 IV 0656 Bacitracin 1 KHUSHBOO DAILY 01/20 1629 01/21 TOP 0852 Benzocaine/Menthol 1 TAMY Q2P PRN 01/20 0515 AC 04/15 PO 1042 Ceftriaxone Sodium 1,000 MG Q24H 01/21 1600 DC 01/21 IV 1628 Ceftriaxone Sodium 1,000 MG Q24H 01/20 1800 DC 01/20 IV 1811 Docusate Sodium 100 MG DAILY PRN 01/19 1930 AC PO Escitalopram Oxalate 10 MG DAILY 01/20 0900 AC 01/21 PO 0852 Lorazepam 0.5 MG TIDPRN PRN 01/19 1930 AC PO 01/26 192 Magnesium Sulfate 1 GM ONCE ONE 01/21 0615 DC 01/21 Dextrose/Water 100 ML IV 01/21 1014 0615 Omeprazole 40 MG DAILY AC 01/22 0700 AC 01/22 PO 0600 Pantoprazole Sodium 40 MG DAILY 01/20 0900 DC 01/21 IV 0852 Polyethylene Glycol 17 GM DAILY PRN 01/19 193 AC PO Senna 187 MG AT BEDTIME PRN 01/19 193 AC PO Sodium Chloride 1,000 ML .Q8H 01/20 1500 DC 01/22 IV 0328 Ursodiol 1,000 MG QPM 01/20 2100 AC 01/21 PO 2118 Assessment/Plan Assessment: Ms. Ace is a 62-year-old female with past medical history significant for anxiety/depression, cirrhosis/portal hypertension, esophageal varices (secondary to alcohol), H pylori gastritis, breast cancer status post mastectomy and chemotherapy therapy (as 14 years ago), colon adenoma, chronic back pain who was initially admitted to the ICU for hematemesis later found to be an oral laceration that was sutured and is now transferred to general medicine on after stabilization of her condition. Problem List: 1. Acute kidney injury 2. Oral laceration 3. Alcoholic cirrhosis 4. Dyspnea #Acute kidney injury: The patient presented with a creatinine of 1.4 and this is up trended to 1.8 despite fluid hydration. Nephrology is evaluated and is concerned about potential hepatorenal syndrome. Urine electrolytes show a low sodium. Abdominal ultrasound shows no hydronephrosis and mild ascites. Creatinine today has returned to baseline of 1.0. -Appreciate nephrology recommendations -Continue albumin #Oral laceration: Patient seen that showed bleeding site from the corner of the left lower lip that was sutured by surgery, 3 columns of non-bleeding 1+ esophageal varices from 30-40 cm (supine position), without any red nikolai sign, left intact, No junctional varices, fairly large non-bleeding proximal gastric fundic varices, towards the greater curvature aspect, just below the cardia, & some smaller non-bleeding gastric fundic varices, distal to this, and mild non- bleeding proximal portal m gastropathy in the fundus & upper body of the stomach. She is unsure of how she received the oral laceration. -Local wound care -Bacitracin #Dyspnea: Patient is complaining of shortness of breath this morning. Chest x- ray on admission did show fluid overload and she has continued to receive a lot of fluid. There is concern for alcoholic cardiomyopathy. Repeat chest x-ray continues to show CHF. -Follow-up TTE -Stop fluids -Consider diuresing #Alcoholic cirrhosis: Patient says she has not drank since . She does have a history of alcoholic cirrhosis with esophageal and gastric varices. Endoscopy did not reveal any active bleeding. Her thrombocytopenia is likely secondary to alcohol use. -2 g sodium diet -Holding lactulose and spironolactone -Oral omeprazole -No NSAIDs -Limited acetaminophen to 2 g per day -Appreciate GI recommendations -Outpatient MRI of the liver #Chronic medical problems: Continue other medications DVT prophylaxis with Alps 2 g sodium diet Full code Problem List: 1. SHELLEY (acute kidney injury) Pain Ratin Pain Location: no Pain Goal: Remain pain free Pain Plan: see a/p Tomorrow's Labs & Rationales: cbc, bep, lft
--- NOTE | 2018-01-22 07:44 | Transfer of Care Summary ---
Hospital Course Course Hospital Course: This is a 62-year-old female with past medical history significant for anxiety, depression, liver cirrhosis, portal hypertension, history of esophageal and gastric varices, H pylori gastritis, esophagitis, breast cancer status post mastectomy, breast reconstruction surgery, chemotherapy 14 years ago, fatty liver, chronic back pain, alcoholic, remote history of smoking, family history of colon cancer presented to the emergency room for evaluation of 2 episodes of hematemesis on the night of presentation. Patient has extensive history of alcohol abuse since 2012. She takes 8-10 glasses of whiskey every day. She underwent endoscopy in 11/2017 given her liver cirrhosis and portal hypertension. EGD showed esophageal varices, gastric varices, gastropathy, antral erosions. He has a remote history of H pylori gastritis, duodenal ulcer in 2008. CT abdomen November 2017 showed extensive liver cirrhosis with evidence of portal hypertension, esophageal and gastric VARICES. Ill-defined area of hypoattenuation within the hepatic parenchyma within segment 4a in an area of capsular retraction. the possibility of an underlying infiltrative neoplastic process such as hepatocellular carcinoma is not entirely excluded. Vitals at the time of admission Afebrile, heart rate 59, respiratory rate 20, blood pressure 111/56, saturating at 98 on room 8 Pertinent labs WBC 6.4, hemoglobin 9.5, hematocrit 27, platelets 119 INR 1.5 BUN 31 and creatinine 1.4 cxr Moderate cardiomegaly, pulmonary venous congestion and interstitial edema lower lungs, suggests CHF. Pleural effusions and adjacent pulmonary opacities which could represent atelectasis and/or pneumonia. Hematemesis; With a suspicion for possible bleeding from varices, she was admitted to the ICU. Received IV Protonix and IV octreotide, ceftriaxone in the ED. She underwent EGD which revealed: * 3 columns of non-bleeding 1+ esophageal varices from 30-40 cm (supine position ), without any red nikolai sign, left intact. No junctional varices. * Fairly large non-bleeding proximal gastric fundic varices, towards the greater curvature aspect, just below the cardia, & some smaller non-bleeding gastric fundic varices, distal to this. * Mild non-bleeding proximal portal gastropathy in the fundus & upper body of the stomach. H&H was monitored every 8 hours, which remained stable. Patient was started on clear liquids and diet advanced as tolerated. On day 2 of admission, patient was found to have bleeding from laceration on her lower lip, which was sutured by surgery. Patient did not have any further episodes of active bleeding. Which and also received ceftriaxone x 3 days. - Currently off antibiotics. - Continue PO Protonix. - Topical bacitracin to be applied on suture site - Follow GI recommendation - Continue to monitor CBC daily. - Watch for any active signs of bleeding. History of cirrhosis with gastric and esophageal varices; CT scan showing trace ascites; - 2 g sodium diet given trace ascites - Lactulose and spironolactone on hold, if needed, can eventually substitute Rifaximin for Lactulose, which will not dehydrate the patient. - Continue to hold Aldactone 25 mg daily. - Propranolol on hold ; Eventual resumption of Inderal 20 mg po BID as BP allows -> BP currently too low; - Continue Ursodiol. - f/u GI recommendations - Outpatient MRA liver. - AFP pending Hypotension; Patient has history of chronic hypertension, But blood pressure the time of admission was lower than baseline. She was given IV fluids with some improvement in the blood pressure. - Continue to monitor vitals. - Continue to hold propranolol. - Echocardiogram pending(suggested by GI due persisent hypotension) SHELLEY; Patient had a creatinine of 1.4 at the time of admission, initially thought to be prerenal she was started on IV fluids. Nephrology was called with a low suspicion for hepatorenal syndrome. - Cr. Increased from 1.4 to 1.8 despite IV fluid hydration. - Continue Albumin per nephro - f/u nephro recommendations. - 24-hour urine protein, SPEP, UPEP per nephro - Continue to monitor Cr, GFR and lytes Thrombocytopenia; unclear etiology. - Continue to monitor DVT PPX ALPS Patient is Full code Assessment/Plan: See above
[2018-01-22 09:33] LABS: ABSOLUTE BASOPHIL COUNT 0 /CUMM (0.0-0.2); ABSOLUTE EOSINOPHIL COUNT 0.2 /CUMM (0.0-0.7); ABSOLUTE LYMPH COUNT 1.4 /CUMM (1.2-3.4); ABSOLUTE MONOCYTE COUNT 0.3 /CUMM (0.10-0.60); BASOPHIL % 1.2 % (0.0-2.0); EOSINOPHIL % 5.2 % (0-5); HEMATOCRIT 23.1 % (37-47); MEAN CORPUSCULAR HGB 33.7 PG (27.0-31.0); MEAN CORPUSCULAR HGB CONC 34.5 G/DL (33.0-37.0); MEAN CORPUSCULAR VOLUME 97.5 FL (81.0-99.0); MEAN PLATELET VOLUME 7.5 FL (7.4-10.4); PLATELET COUNT 78 /CUMM (130-400); RBC DISTRIBUTION WIDTH 17.2 % (11.5-14.5); RED BLOOD CELL CT 2.37 /CUMM (4.20-5.40)
--- NOTE | 2018-01-22 09:54 | RADIOLOGY REPORT ---
EXAMINATION: XR CHEST CLINICAL INFORMATION: 62-year-old female patient with shortness of breath, crackles, and edema. Presumptive diagnosis: Fluid overload. COMPARISON: Last chest x-ray done portably on 01/19/2018. (CHF). Baseline normal x-ray on 09/18/2017. TECHNIQUE: AP and lateral views of the chest. FINDINGS: The heart remains enlarged. There is increasing central pulmonary vascular congestion. Bilateral moderate effusions persist. IMPRESSION: No improvement in the CHF.
--- NOTE | 2018-01-22 10:33 | PN- Nephrology ---
Assessment/Plan Nephrology Assessment: SHELLEY from volume depletion, improved. Has some edema at this point. Creatinine not yet back to baseline of 0.8. Suggestion: Discontinue IV. Would not diurese at this point, however as creatinine not back to her normal. Subjective Subjective: Patient states she feels well, no N/V. Objective Vital Signs and I&Os Vital Signs Date Time Temp Pulse Resp B/P B/P Pulse O2 O2 Flow FiO2 Mean Ox Delivery Rate 01/22 0625 98.1 79 20 120/60 91 Room Air 01/22 0000 Nasal 3.0L Cannula 01/21 1600 98.3 68 18 96/52 98 Room Air 01/21 1200 96 Nasal 3.0L Cannula Intake & Output 01/22 1600 01/22 0400 01/21 1600 01/21 0400 01/20 1600 01/20 0400 Intake Total 1360 1666 2560 800 2255 850 Output Total 400 250 350 300 400 Balance 960 1416 2210 500 1855 850 Intake, IV 1000 1186 2320 800 1575 850 Intake, Oral 360 480 240 680 Number 1 0 1 Bowel Movements Output, Urine 400 250 350 300 400 Patient 179 lb Weight Weight Bed scale Measurement Method Physical Exam: NAD VS as above Lungs: clear CV: no rub Abd: nontender Exts: 1-2+ pedal edema Neuro: Awake, no asterixis. Current Medications: Current Medications Sig/Freddy Start time Last Medication Dose Route Stop Time Status Admin Acetaminophen 1,000 MG Q8P PRN 01/19 1815 DC IV Albumin Human 25 GM Q8 01/19 2244 AC 01/22 IV 0656 Bacitracin 1 KHUSHBOO DAILY 01/20 1629 AC 01/21 TOP 0852 Benzocaine/Menthol 1 TAMY Q2P PRN 01/20 0515 AC 01/20 PO 1042 Ceftriaxone Sodium 1,000 MG Q24H 01/21 1600 DC 01/21 IV 1628 Ceftriaxone Sodium 1,000 MG Q24H 01/20 1800 DC 01/20 IV 1811 Docusate Sodium 100 MG DAILY PRN 01/19 1930 AC PO Escitalopram Oxalate 10 MG DAILY 01/20 0900 AC 01/21 PO 0852 Lorazepam 0.5 MG TIDPRN PRN 01/19 1930 AC PO 01/26 1929 Omeprazole 40 MG DAILY AC 01/22 0700 AC 01/22 PO 0600 Pantoprazole Sodium 40 MG DAILY 01/20 0900 DC 01/21 IV 0852 Polyethylene Glycol 17 GM DAILY PRN 01/19 1930 AC PO Senna 187 MG AT BEDTIME PRN 01/19 1930 AC PO Sodium Chloride 1,000 ML .Q8H 01/20 1500 DC 01/22 IV 0328 Ursodiol 1,000 MG QPM 01/20 2100 AC 01/21 PO 2118 Results Pertinent Lab Results: Laboratory Tests 01/22 01/21 0745 0409 Chemistry Sodium (137 - 145 mmol/L) 139 137 Potassium (3.5 - 5.1 mmol/L) 3.7 4.2 Chloride (98 - 107 mmol/L) 107 106 Carbon Dioxide (22 - 30 mmol/L) 17 L 17 L Anion Gap (5 - 16) 15 14 BUN (7 - 17 mg/dL) 25 H 35 H Creatinine (0.5 - 1.0 mg/dL) 1.0 1.8 H Estimated GFR (>60 ml/min) 56 L 28 L Glucose (65 - 99 mg/dL) 92 112 H Calcium (8.4 - 10.2 mg/dL) 8.7 8.2 L Phosphorus (2.5 - 4.5 mg/dL) 3.0 4.8 H Magnesium (1.6 - 2.3 mg/dL) 1.9 1.7 Total Bilirubin (0.2 - 1.3 mg/dL) 6.5 H 6.0 H AST (14 - 36 U/L) 30 32 ALT (9 - 52 U/L) 18 17 Albumin (3.5 - 5.0 g/dL) 4.4 4.0 Hematology CBC w Diff NO MAN DIFF REQ NO MAN DIFF REQ WBC (4.8 - 10.8 /CUMM) 4.0 L 4.7 L RBC (4.20 - 5.40 /CUMM) 2.37 L 2.32 L Hgb (12.0 - 16.0 G/DL) 8.0 L 7.8 L Hct (37 - 47 %) 23.1 L 22.7 L MCV (81.0 - 99.0 FL) 97.5 97.9 MCH (27.0 - 31.0 PG) 33.7 H 33.7 H MCHC (33.0 - 37.0 G/DL) 34.5 34.4 RDW (11.5 - 14.5 %) 17.2 H 17.3 H Plt Count (130 - 400 /CUMM) 78 L 79 L MPV (7.4 - 10.4 FL) 7.5 7.5 Gran % (42.2 - 75.2 %) 51.0 45.3 Lymphocytes % (20.5 - 51.1 %) 35.2 42.6 Monocytes % (1.7 - 9.3 %) 7.4 7.3 Eosinophils % (0 - 5 %) 5.2 H 4.5 Basophils % (0.0 - 2.0 %) 1.2 0.3 Absolute Granulocytes (1.4 - 6.5 /CUMM) 2.0 2.1 Absolute Lymphocytes (1.2 - 3.4 /CUMM) 1.4 2.0 Absolute Monocytes (0.10 - 0.60 /CUMM) 0.3 0.3 Absolute Eosinophils (0.0 - 0.7 /CUMM) 0.2 0.2 Absolute Basophils (0.0 - 0.2 /CUMM) 0 0 01/20 1230 Hematology CBC w Diff NO MAN DIFF REQ NO MAN DIFF REQ WBC (4.8 - 10.8 /CUMM) 5.3 5.4 RBC (4.20 - 5.40 /CUMM) 2.36 L 2.47 L Hgb (12.0 - 16.0 G/DL) 8.0 L 8.4 L Hct (37 - 47 %) 23.0 L 24.4 L MCV (81.0 - 99.0 FL) 97.3 98.8 MCH (27.0 - 31.0 PG) 34.0 H 34.2 H MCHC (33.0 - 37.0 G/DL) 34.9 34.7 RDW (11.5 - 14.5 %) 17.3 H 17.0 H Plt Count (130 - 400 /CUMM) 97 L 89 L MPV (7.4 - 10.4 FL) 8.3 7.6 Gran % (42.2 - 75.2 %) 59.1 63.3 Lymphocytes % (20.5 - 51.1 %) 28.3 27.2 Monocytes % (1.7 - 9.3 %) 7.5 2.9 Eosinophils % (0 - 5 %) 5.0 5.8 H Basophils % (0.0 - 2.0 %) 0.1 0.8 Absolute Granulocytes (1.4 - 6.5 /CUMM) 3.1 3.4 Absolute Lymphocytes (1.2 - 3.4 /CUMM) 1.5 1.5 Absolute Monocytes (0.10 - 0.60 /CUMM) 0.4 0.2 Absolute Eosinophils (0.0 - 0.7 /CUMM) 0.3 0.3 Absolute Basophils (0.0 - 0.2 /CUMM) 0 0 01/20 01/20 01/20 0530 0530 0530 Urines Urinalysis LIGHT H Urine Color (YEL,AMB,STR) MARY Urine Clarity (CLEAR) HAZY H Urine pH (5.0 - 8.0) 5.5 Ur Specific [place] (1.001 - 1.035) >= 1.030 Urine Protein (NEG,<30 MG/DL) 100 H Urine Ketones (NEG) TRACE H Urine Nitrite (NEG) POS H Urine Bilirubin (NEG) POS@ICTO H Urine Urobilinogen (0.1 - 1.0 EU/dl) 4.0 H Ur Leukocyte Esterase (NEG) TRACE H Ur Microscopic SEDIMENT EXAMINED Urine WBC (0 - 2 /HPF) 1-3 H Ur Epithelial Cells (NONE,FEW) FEW Urine Bacteria (NEG/NONE) FEW H Hyaline Casts (0/LPF) RARE H Granular Casts (NONE /LPF) 1-3 H Urine Hemoglobin (NEG) NEG Ur Random Creatinine (mg/dL) 236.5 U Random Total Protein (0 - 12 mg/dL) 101 H Ur Random Sodium (30 - 90 mmol/L) 7 L Ur Random Potassium (mmol/L) 59.9 Ur Creatinine 24 Hour Cancelled Ur Total Protein 24 Hr Cancelled Protein/Creat Ratio 24h Cancelled Fraction Sodium Excret (<1% %) 0.0 Urine Glucose (N MG/DL) NEG U Protein Electrophores Cancelled Urine Albumin (%) Cancelled U [id number] Cancelled U Ssceb-1-Yqvkabpw Cancelled U Beta Globulin Cancelled U Gamma Globulin Cancelled U Abnormal Prot Band 1 Cancelled U Abnormal Prot Band 2 Cancelled U Abnormal Prot Band 3 Cancelled 01/20 01/20 01/20 0512 0415 0415 Chemistry Sodium (137 - 145 mmol/L) 136 L Potassium (3.5 - 5.1 mmol/L) 4.6 Chloride (98 - 107 mmol/L) 103 Carbon Dioxide (22 - 30 mmol/L) 17 L Anion Gap (5 - 16) 16 BUN (7 - 17 mg/dL) 32 H Creatinine (0.5 - 1.0 mg/dL) 1.4 H Estimated GFR (>60 ml/min) 38 L BUN/Creatinine Ratio (7 - 25 %) 22.9 Magnesium (1.6 - 2.3 mg/dL) 1.9 Prot Electrophoresis Pending Total Protein (PEP) Pending Albumin % (PEP) Pending [id number]-Pwuixwssb Pending Qouxw-7-Hdpifpazy Pending Lnsu-8-Bbmqndpa Pending Ptjd-3-Jqwxbhpv Pending Gamma Globulins Pending Abnorm Protein Band 1 Pending Abnorm Protein Band 2 Pending Abnorm Protein Band 3 Pending Hematology CBC w Diff NO MAN DIFF REQ WBC (4.8 - 10.8 /CUMM) 4.8 RBC (4.20 - 5.40 /CUMM) 2.47 L Hgb (12.0 - 16.0 G/DL) 8.4 L Hct (37 - 47 %) 24.3 L MCV (81.0 - 99.0 FL) 98.5 MCH (27.0 - 31.0 PG) 34.0 H MCHC (33.0 - 37.0 G/DL) 34.6 RDW (11.5 - 14.5 %) 17.2 H Plt Count (130 - 400 /CUMM) 83 L MPV (7.4 - 10.4 FL) 7.9 Gran % (42.2 - 75.2 %) 59.0 Lymphocytes % (20.5 - 51.1 %) 28.7 Monocytes % (1.7 - 9.3 %) 4.8 Eosinophils % (0 - 5 %) 7.3 H Basophils % (0.0 - 2.0 %) 0.2 Absolute Granulocytes (1.4 - 6.5 /CUMM) 2.8 Absolute Lymphocytes (1.2 - 3.4 /CUMM) 1.4 Absolute Monocytes (0.10 - 0.60 /CUMM) 0.2 Absolute Eosinophils (0.0 - 0.7 /CUMM) 0.3 Absolute Basophils (0.0 - 0.2 /CUMM) 0 Miscellaneous Ref Lab Test Result Pending 01/19 01/19 01/19 8845 5071 2244 Hematology CBC w Diff Cancelled NO MAN DIFF REQ WBC (4.8 - 10.8 /CUMM) Cancelled 6.9 RBC (4.20 - 5.40 /CUMM) Cancelled 2.69 L Hgb (12.0 - 16.0 G/DL) Cancelled 9.1 L Hct (37 - 47 %) Cancelled 26.5 L MCV (81.0 - 99.0 FL) Cancelled 98.3 MCH (27.0 - 31.0 PG) Cancelled 33.9 H MCHC (33.0 - 37.0 G/DL) Cancelled 34.5 RDW (11.5 - 14.5 %) Cancelled 17.0 H Plt Count (130 - 400 /CUMM) Cancelled 100 L MPV (7.4 - 10.4 FL) Cancelled 7.7 Gran % (42.2 - 75.2 %) 56.9 Lymphocytes % (20.5 - 51.1 %) 28.7 Monocytes % (1.7 - 9.3 %) 6.6 Eosinophils % (0 - 5 %) 7.6 H Basophils % (0.0 - 2.0 %) 0.2 Absolute Granulocytes (1.4 - 6.5 /CUMM) 3.9 Absolute Lymphocytes (1.2 - 3.4 /CUMM) 2.0 Absolute Monocytes (0.10 - 0.60 /CUMM) 0.5 Absolute Eosinophils (0.0 - 0.7 /CUMM) 0.5 Absolute Basophils (0.0 - 0.2 /CUMM) 0 Urines Ur Random Creatinine Cancelled Ur Random Sodium Cancelled Ur Random Potassium Cancelled Fraction Sodium Excret Cancelled 01/19 01/19 01/19 1802 1717 1258 Chemistry Ammonia (9 - 30 umol/L) 39 H Alpha Fetoprotein Pending Urines Urine Color Cancelled Urine Clarity Cancelled Urine pH Cancelled Ur Specific [place] Cancelled Urine Protein Cancelled Urine Ketones Cancelled Urine Nitrite Cancelled Urine Bilirubin Cancelled Urine Urobilinogen Cancelled Ur Leukocyte Esterase Cancelled Ur Microscopic Cancelled Urine Hemoglobin Cancelled Urine Glucose Cancelled 01/19 1258 Chemistry Sodium (137 - 145 mmol/L) 136 L Potassium (3.5 - 5.1 mmol/L) 4.5 Chloride (98 - 107 mmol/L) 100 Carbon Dioxide (22 - 30 mmol/L) 21 L Anion Gap (5 - 16) 16 BUN (7 - 17 mg/dL) 31 H Creatinine (0.5 - 1.0 mg/dL) 1.4 H Estimated GFR (>60 ml/min) 38 L BUN/Creatinine Ratio (7 - 25 %) 22.1 Glucose (65 - 99 mg/dL) 93 Lactic Acid (0.7 - 2.1 mmol/L) 1.2 Calcium (8.4 - 10.2 mg/dL) 9.4 Total Bilirubin (0.2 - 1.3 mg/dL) 9.3 H Direct Bilirubin (< 0.4 mg/dL) 6.7 H AST (14 - 36 U/L) 37 H ALT (9 - 52 U/L) 21 Alkaline Phosphatase (<127 U/L) 97 Troponin I (< 0.11 ng/ml) < 0.01 Cdy-V-Kykhikjepgb Pept (<125 pg/mL) 5840 H Total Protein (6.3 - 8.2 g/dL) 8.0 Albumin (3.5 - 5.0 g/dL) 3.9 Globulin (1.9 - 4.2 gm/dL) 4.1 Albumin/Globulin Ratio (1.1 - 2.2 %) 1.0 L Amylase (30 - 110 U/L) 40 Lipase (23 - 300 U/L) 272 TSH (0.270 - 4.200 uIU/mL) 4.530 H Free T4 (0.78 - 2.44 ng/dL) 1.57 Coagulation PT (9.4 - 12.5 SEC) 17.4 H INR (0.90 - 1.19) 1.59 H APTT (25 - 37 SEC) 34 Hematology CBC w Diff MAN DIFF ORDERED WBC (4.8 - 10.8 /CUMM) 6.4 RBC (4.20 - 5.40 /CUMM) 2.84 L Hgb (12.0 - 16.0 G/DL) 9.5 L Hct (37 - 47 %) 27.9 L MCV (81.0 - 99.0 FL) 98.3 MCH (27.0 - 31.0 PG) 33.4 H MCHC (33.0 - 37.0 G/DL) 34.0 RDW (11.5 - 14.5 %) 17.5 H Plt Count (130 - 400 /CUMM) 119 L MPV (7.4 - 10.4 FL) 7.5 Gran % (42.2 - 75.2 %) 55.9 Lymphocytes % (20.5 - 51.1 %) 30.6 Monocytes % (1.7 - 9.3 %) 6.7 Eosinophils % (0 - 5 %) 5.7 H Basophils % (0.0 - 2.0 %) 1.1 Absolute Granulocytes (1.4 - 6.5 /CUMM) 3.6 Segmented Neutrophils (42.2 - 75.2 %) 54 Absolute Lymphocytes (1.2 - 3.4 /CUMM) 2.0 Lymphocytes (20.5 - 51.1 %) 35 Monocytes (1.7 - 9.3 %) 1 L Absolute Monocytes (0.10 - 0.60 /CUMM) 0.4 Eosinophils (0 - 5.0 %) 9 H Absolute Eosinophils (0.0 - 0.7 /CUMM) 0.4 Basophils (0.0 - 2.0 %) 1 Absolute Basophils (0.0 - 0.2 /CUMM) 0.1 Platelet Estimate (ADEQUATE) DECREASEDD Hypochromic-Microcytic 1+ Poikilocytosis 3+ Anisocytosis 3+ [place] Cells 1+ Schistocytes
[2018-01-22] MEDS ORDERED: BACITRACIN ZIN120 GM TOP (13:23)
[2018-01-22 14:46] VITALS: BP 118/58
--- NOTE | 2018-01-22 18:05 | ECHOCARDIOGRAM REPORT ---
PASCUAL WHITE Age: 62 : 1955 Gender: F Exam Date: 01/21/2018 19:59 Exam Location: [facility] Ht (in): 70 Wt (lb): 178 BSA: 2.01 BP: 96 / 52 Ordering Physician: Becky Haque MD Referring Physician: Becky Haque MD Technologist: Franca Coley [facility] Room Number: 107 Indications: HEART FAILURE Rhythm: Sinus Technical Quality: Fair FINDINGS Left Ventricle Normal size left ventricle. Normal left ventricular wall thickness. No obvious regional wall motion abnormalities. Normal left ventricular ejection fraction visually estimated at >65 %. Flattened septum in systole and diastole consistent with right ventricle pressure and volume overload. Restrictive filling pattern of the left ventricle for age (stage 3 diastolic dysfunction). Right Ventricle Right ventricle at upper limits of normal. Right Atrium Moderate right atrial dilatation. Left Atrium Moderate left atrial dilatation. Mitral Valve Mildly calcified mitral valve annulus. Mitral valve moderately thickened. Mild to moderate mitral regurgitation. Aortic Valve Diffuse thickening of the aortic valve cusps with reduced excursion. Very mild aortic stenosis. Trace aortic regurgitation. Tricuspid Valve Structurally normal tricuspid valve. Moderate tricuspid regurgitation. Mild pulmonary hypertension. Right ventricular systolic pressure estimated at 38 mmHg. Pulmonic Valve Pulmonic valve not well visualized, grossly normal. Trace pulmonic regurgitation. Pericardium Minimal pericardial effusion (normal variant). Great Vessels Normal size aortic root. Dilated inferior vena cava. CONCLUSIONS Normal size left ventricle. Normal left ventricular wall thickness. Normal left ventricular ejection fraction visually estimated at >65 Flattened septum in systole and diastole consistent with right ventricle pressure and volume overload. Restrictive filling pattern of the left ventricle for age (stage 3 diastolic dysfunction). Right ventricle at upper limits of normal. Moderate atrial dilatation. Mild mitral regurgitation. Very mild aortic stenosis. Trace aortic regurgitation. Moderate tricuspid regurgitation. Mild pulmonary hypertension. Trace pulmonic regurgitation. Dilated inferior vena cava. Sd Grimaldo M.D. (Electronically Signed) Final Date: 22 January 2018 18:04 MEASUREMENTS (Male / Female) Normal Values 2D ECHO LV Diastolic Diameter PLAX 4.9 cm 4.2 - 5.9 / 3.9 - 5.3 cm LV Systolic Diameter PLAX 2.8 cm 2.1 - 4.0 cm LV Fractional Shortening PLAX 42.9 % 25 - 46 % LV Ejection Fraction 2D Teich 73.8 % IVS Diastolic Thickness 1.0 cm LVPW Diastolic Thickness 0.8 cm LV Relative Wall Thickness 0.4 RV Internal Dim ED PLAX 3.5 cm 1.9 - 3.8 cm LVOT Diameter 1.9 cm Aortic Root Diameter 2.7 cm LA Systolic Diameter LX 4.7 cm 3.0 - 4.0 / 2.7 - 3.8 cm LA Volume 73.0 cm 18 - 58 / 22 - 52 cm Ascending Aorta Diameter 2.9 cm DOPPLER AV Peak Velocity 208.0 cm/s AV Peak Gradient 17.3 mmHg AV Mean Velocity 143.0 cm/s AV Mean Gradient 9.0 mmHg AV Velocity Time Integral 44.9 cm LVOT Peak Velocity 127.0 cm/s LVOT Peak Gradient 6.5 mmHg LVOT Mean Velocity 81.2 cm/s LVOT Mean Gradient 3.0 mmHg LVOT Velocity Time Integral 27.0 cm LVOT Stroke Volume 76.6 cm AV Area Cont Eq vti 1.7 cm AV Area Cont Eq pk 1.7 cm MV Peak Velocity 189.0 cm/s MV Peak Gradient 14.3 mmHg MV Mean Velocity 81.6 cm/s MV Mean Gradient 3.0 mmHg Mitral E Point Velocity 162.0 cm/s Mitral A Point Velocity 69.1 cm/s Mitral E to A Ratio 2.3 MV PHT Velocity 198.0 cm/s MV Deceleration Hinds 1308.0 cm/s MV Pressure Half Time 45.4 ms MV Area PHT 4.8 cm MV Deceleration Time 158.0 ms TR Peak Velocity 285.0 cm/s TR Peak Gradient 32.5 mmHg Right Atrial Pressure 5.0 mmHg Pulmonary Artery Systolic Pressu 37.5 mmHg Right Ventricular Systolic Press 37.5 mmHg PV Peak Velocity 79.5 cm/s PV Peak Gradient 2.5 mmHg PV Mean Velocity 57.3 cm/s PV Mean Gradient 2.0 mmHg PV Velocity Time Integral 17.9 cm LV E' Lateral Velocity 16.3 cm/s Mitral E to LV E' Lateral Ratio 9.9 LV E' Septal Velocity 14.1 cm/s Mitral E to LV E' Septal Ratio 11.5
[2018-01-22 21:44] VITALS: BP 130/60
--- NOTE | 2018-01-22 23:28 | PN- Gastroenterology ---
Assessment/Plan GI Assessment/Recommendations: 62 y/o female, post left mastectomy 2003 for invasive ductal breast Ca (2N1aMx; f/b +CTX, without RT or hormonal tx), f/b breast reconstruction, hx EtOH abuse ( [place]) x yrs- "D/C 06/2017" although 09/28/17: [EtOH] 202), hx cirrhosis, possible overlap with + PBC (hx +AMA), with hx esoph/gastric varices & portal gastropathy, hx colon adenoma. The patient recently saw Dr. Irving Reddy in the office 01/01/18, at which point, Inderal was increased to 20 mg BID & Compa 500 mg- 2tabs Qhs was added. She never had a formal liver bx. She was also on low dose Aldactone 25 mg daily. She was getting Lactulose both for possible low grade PSE & for constipation. She denied any previous abdominal taps or hx SBP. The patient's alcohol abuse worsened after she was in 2012. The patient presented to the [place] ER 01/19/18 at 11:35 a.m., stating she was bleeding from the left side of her mouth when laying down, as she saw some blood on her pillow after awakening this a.m.. She has very poor dentition, especially in the left upper teeth. She denied any recent dental work, definite gum bleeding, tongue biting, seizures, or epistaxis. There was no definite hemoptysis or hematemesis. She denied any melena. There was no rectal bleeding , aside from a scant hemorrhoid, when straining and constipation. She claimed a small amount of blood later trickled at left side of her mouth again, one lying down, but that nothing else had recurred since being upright. Again, there was no overt hematemesis, just a "metal taste in her mouth". She denied any GERD, odynophagia, dysphagia, early satiety, retching, or abdominal pain, aside from some minimal discomfort associated with constipation. She was yellow. She noted dark urine over the past few days, without any pruritus. There was no definite confusion. She denied any fevers, chills, symptoms of UTI, or URI. She noted some mild increased peripheral edema, and perhaps some mild increased abdominal girth. She was constipated for the past 11 days [employer]FFER OPER[employer] and was taking Lactulose, having a BM on 01/18/18. There was no obstipation, tenesmus, or diarrhea. Denied any history of viral hepatitis. She was remotely transfused at the time of her breast surgery in 2003. She denied any history of IVDA or tattoos. She denied any history of HIV. She was a remote 70-madp-sjev cigarette smoker, stopping in 2003. The patient's oral cavity was inspected by the ER & no definite bleeding site was found. Upon arrival, BP 108/58, P 56 (on Inderal), R 16, T 95.0, O2 sat RA 98%. A digital rectal exam was not done in the ER, & the patient wished to defer one at the time of the GI consult. She denied any history of DTs or withdrawal. The patient's mother at 72 of hepatoma in the setting of alcoholic cirrhosis. Her father at 64 of colon cancer. There was no additional family history of any other GI issues. *Please note, the patient was found to have SHELLEY on admission, with previously nl GFR > 60, & subacute on chronic elevated LFTs. *The patient was given IV Protonix bolus followed by IV Protonix drip, IV Octreotide bolus followed by IV Octreotide drip, and IV Ceftriaxone 1 g in the ER, as per my recommendations (as I was taking care of another GI bleed at that time), along with IV NS. I advised an ICU admit. The patient has been NPO today , except for a sip of H2O this a.m. She was not on any ASA, anti-plt agents, or A/C tx. She denied any NSAIDS, aside from 1-2 tabs of Advil/month. She had a ? remote allergy to PCN, but has tolerated cepahlosporins. The patient a medical decisions and does not have a living will. *The patient is awaiting an outpt MRI liver per Dr. Aly Reddy for further workup of an ill-defined area of hypoattenuation in the liver within segment 4A. 11/21/17: EGD to D2 with bxs, per Dr. Aly Reddy- (done for cirrhosis, assess portal HTN, & hx H. pylori gastritis in 08/2005, txd with ? regimen)- 4 columns of non-bleeding esopahgeal varices beginning at 33 cm, extending to the GE junction (44 cm). Distally, one of these was large, 2 medium, and one small. There were no red elmer. GE junction was normal. No junctional varices. There were gastric varices in the proximal greater curve of fundus & in the distal fundus. Mild proximal portal gastropathy. Antral erosions- bx: mild CAG/CFG, HP-neg. *A non-selective beta steve, Inderal, was rxd then. 05/09/13: Last colonoscopy to cecum- negative. A follow-up surveillance colonoscopy was advised in 5 years (i.e.- 05/2018), in view of the +FHx colon Ca & past personal hx colon adenoma. 09/23/17: Fe 116, TIBC 275, Fe sat 42.2%, ferritin 245, B12 836, folate 7.6, HgA1C 4.1 09/28/17: [EtOH] 202 10/30/17: Hep Bs Ag- neg, Hep C Ab- neg; CAT- neg 1:40, +AMA 38, AFP 6.3. 01/19/18: Admission labs- WBC 6.4 (54S/35L/1M/9E/1Baso), H/H 9.5/27.9, MCV 98.3, RDW 17.5, PLT 119, PT 17.4, INR 1.59, PTT 34, glu 93, BUN/Cr 31/1.4, GFR 38, Na 136, K 4.5, HCO3 21, AG 16, lactate 1.2, amylase 40, lipase 272, Ca 9.4, albumin 3.9, globulin 4.1, TBil 9.3, DBil 6.7, alk phos 97, AST 37, ALT 21, NH3 39, troponin < 0.01, elevated BNP 5840, TSH 4.530, nl FT4 1.57 11/14/17: CT ABD & PELVIS W ORAL & IV CONT (per Dr. Aly Reddy)- IMPRESSION: 1. Progressive liver cirrhosis and evidence of portal hypertension with esophageal and gastric varices. 2. Ill-defined area of hypoattenuation within the hepatic parenchyma within segment 4a in an area of capsular retraction. The retraction was identified on the prior study from 2014. Although this likely represents the sequela of the patient's advanced liver cirrhosis, the possibility of an underlying infiltrative neoplastic process such as hepatocellular carcinoma is not entirely excluded. Liver protocol MRI is recommended for further evaluation as well as clinical correlation and AFP level. 3. Note is made of celiac axis variant anatomy as detailed above. 4. Trace abdominal and pelvic ascites. 5. Skin thickening of the partially imaged left breast. In this patient with history of left-sided invasive ductal carcinoma, immediate attention is recommended with physical examination and mammography. This unexpected result was discussed with Dr. Pablo at 8:52 AM on to a 2017 and it was ascertained that the content and urgency of the report was understood at the time of direct communication. (*Again , MRI liver has since beedn rxd per Dr. Aly Reddy) DICTATED BY: Sharddha Goldman MD DATE/TIME DICTATED:11/15/1773901/19/18: EKG- NSR @ 60, nl axis, PRWP, borderline prolonged QT interval. 01/19/18: XRY-PORTABLE CHEST XRAY- IMPRESSION: Moderate cardiomegaly, pulmonary venous congestion and interstitial edema lower lungs, suggests CHF. Pleural effusions and adjacent pulmonary opacities which could represent atelectasis and/or pneumonia. Clinical correlation is suggested. *As of 01/19/18, it was difficult to tell whether the patient had actual hematemesis, which she did definitely not experience, vs. bleeding from the oral cavity, with poor dentition. The history of esophageal & gastric varices along with portal gastropathy (on Inderal) is noted. She rarely took an Advil. The patient also had SHELLEY, which could have been precipitated by her low-dose Aldactone 25 mg daily and/or dehydration from her Lactulose. HRS seemed less likely. She did receive IV cont 11/14/17. Her NSAID use was minimal regarding SHELLEY. She did not appear encephalopathic (borderline NH3) and was A & Ox3. The risks and benefits of EGD were discussed with the patient, including the possible need for intubation, to protect her from aspiration. Furthermore, if she had uncontrollably bleeding esophageal varices or possible bleedng gastric varices, she was told that she might have to be transferred for TIPS. Informed consent for the EGD was obtained rfrom the patient. She was already rxd Protonix , Octreotide, & prophylactic Ceftriaxone. 01/19/18: *EGD to D3- Impression: 1. *Bleeding site from the corner of the lower lat left lip, sutured by surgery. 2. 3 columns of non-bleeding 1+ esophageal varices from 30-40 cm (supine position), without any red nikolai sign, left intact. No junctional varices. 3. Fairly large non-bleeding proximal gastric fundic varices, towards the greater curvature aspect, just below the cardia, & some smaller non-bleeding gastric fundic varices, distal to this. 4. Mild non-bleeding proximal portal gastropathy in the fundus & upper body of the stomach. *As of 01/20/18, the patient remained with a systolic BP in the 90's. She was afebrile with O2 sat 2L- 95%. She had not required a transfusion. She remained on empiric IV Ceftriaxone. Her Aldactone was held, as was her Lactulose, due to SHELLEY. She remained on IV SPA 25g Q8h. + 895 cc fluid balance. Getting IV NS @ 75cc/hr. Inderal was on hold due to low BP. Her Compa was resumed 1g Qhs. She remained on IV Protonix 40 mg daily. As her varices were not actively bleeding, the Octrotide drip had been D/C. The patient's left lateral lower lip was successfully sutured by surgery post EGD on 01/19/18, while still sedated, prior to extubation. Absorbable sutures were used. Topical bacitracin was advised. She remained on her bowel regimen of Miralax, Colace & Senna. Her low Cortez & FENa 0.0 were c/w pre-renal vs HRS. *There was no significant ascites to tap on 01/20/18: sono (trace), per my review with Dr. Langley, nor were there any dilated ducts, HCC, or hydronephrosis. She was tolerating a regular diet. There was no further lip bleeding. 01/19/18: 11:20 p.m.- WBC 6.9, H/H 9.1/26.5, PLT 100 01/20/18: 4:15 a.m.- WBC 4.8, H/H 8.4/24.3, PLT 83, BUN/Cr 32/1.4, GFR 38, Na 136, K 4.6, HCO3 17, AG 16, Mg 1.9. 01/20/18: *Cortez 7, *FENa 0.0 (probable prerenal > HRS) 01/19/18: BC x 2- negative so far. 01/20/18: UC- neg x 1 day. 01/20/18: US-COMPLETE ABDOMEN- 1. Enlarged gallbladder 5.8 cm diameter. No stone, sludge, wall thickening. No ductal dilatation. Normal CBD 5 mm. 2. Splenomegaly 13.9 cm. Mild ascites (*per my personal review of the sono with Dr. Langley on 01/20/18, the ascites is scant, around the liver, GB, & spleen, & is high risk to needle). Portal flow towards the liver. Cirrhotic liver without HCC. 3. No hydronephrosis. Normal renal parenchymal echogenicity and thickness. *As of 01/21/18, the patient remained with low systolic BP in the 90's, prohibiting resumption of Inderal. She remained afebrile with Tm 99. O2 sat 3L 96%. She was downgraded to general medicine earlier today. She was still on IV Ceftriaxone, but her cultures remained negative. *Renal consult of 01/20/18 & subsequent renal note of 01/21/18 appreciated.*I agree that the major differential diagnosis for the SHELLEY is prerenal vs. HRS, based on low Cortez & low FENa. Unfortunately, the patient's GFR has not responded to IVF & SPA. She had transiently received Octreotide prior to her admission EGD, but this was purely for possible variceal bleeding. As this was found not to be the case, her IV Octreotide drip was stopped at that point. The pt's UO had diminished to 700 cc yesterday. She was tolerating a 2g Na+ diet, without any recurrent lip bleeding or GI bleeding. She had not required any blood products. Mg was repleted. LFTs were slightly improving. She denied any confusion, fevers, or chills. She was ambulating in her room. She remained on IV NS @ 125 cc/hr & IV SPA 25g Q8h. 01/20/18: *SPEP (per renal; + proteinuria)- pending. 01/21/18: WBC 4.7, H/H 7.8/22.7, PLT 79, glucose 112, BUN/Cr 35/1.8, GFR 28, Na 137, K 4.2, HCO3 17, Ca 8.2, PO4 4.8, albumin 4.0, TBil 6.0, alk phos 97, AST 32 , ALT 17. 01/21/18: ECHOCARDIOGRAM: CONCLUSIONS Normal size left ventricle. Normal left ventricular wall thickness. Normal left ventricular ejection fraction visually estimated at >65 Flattened septum in systole and diastole consistent with right ventricle pressure and volume overload. Restrictive filling pattern of the left ventricle for age (*stage 3 diastolic dysfunction). Right ventricle at upper limits of normal. Moderate atrial dilatation. Mild mitral regurgitation. Very mild aortic stenosis. Trace aortic regurgitation. Moderate tricuspid regurgitation. Mild pulmonary hypertension. Trace pulmonic regurgitation. Dilated inferior vena cava. Sd Grimaldo M.D. 01/22/18: XRY-CHEST XRAY, TWO VIEWS- The heart remains enlarged. There is increasing central pulmonary vascular congestion. Bilateral moderate effusions persist. *No improvement in the CHF 01/19/18: AFP 6.4 01/22/18: WBC 4.0, H/H 8.0/23.1, PLT 78, glucose 92, BUN/Cr 25/1.0, GFR 56, Na 139, K 3.7, HCO3 17, Mg 1.9, Ca 8.7, PO4 3.0, albumin 4.4, TBil 6.5, AST 30, ALT 18. *As of 01/22/18, the patient's GFR was improving on tx for presumed pre-renal azotemia. Octreotide (initially rxd for suspicion of variceal bleed, not for HRS ), was never resumed. Her IVF (NS @ 125 cc/hr) was stopped on 01/22/18. She remained on IV SPA 25g Q8h. The patient noted shortness of breath (better when sitting up) & peripheral edema, without chest pain. She denied any abdominal pain or confusion. Her cultures remained negative. *Clinically, she was in mild CHF. Diuretics were held for now, post SHELLEY. Her BP was much better, & she was no longer hypotensive. BP 130/60, P 86, R 20, T 97.8 (w/o spike), O2 1.5L nc 92%. *SUGGEST: *Continue 2g Na+ regular (trace ascites). Suture care of lower left lip per surgery (the sutures are absorbable; topical Bacitracin advised). IV Protonix 40 mg daily. (IV Ceftriaxone 1g daily D/C'd 01/21/18, as cultures negative). There was no significant ascites to tap on : sono. *Continue to hold Lactulose for now (if needed, can eventually substitute Rifaximin for Lactulose, which will not dehydrate the patient). * Continue to hold Aldactone 25 mg daily. (Eventual resumption of Inderal 20 mg po BID as BP allows-> BP currently too low; continue Compa 500 mg tab- 2 tabs po Qhs ). T&C 2u PRBC. Keep Hgb > 7 (no hx ASHD, do not "overinflate" varices). Decrease frequency of CBC to daily for now. Strict I/O's. O2 prn. D/C IV NS @ 125cc/hr (done 01/22/18). D/C SPA 25g IVPB Q8h (GFR improved & pt in CHF)-> d/ w pt's RN. *Continue to follow up with renal (? pre-renal/hypoperfusion >> HRS). *Will defer to renal regarding resumption of Octreotide for less likely HRS, which initially was given purely for possible variceal bleeding, which was found not to be the case. Close follow-up of lytes, GFR, LFTs. *Eventual outpt MRI liver with gadolinium to r/o HCC, once GFR normalizes, per Dr. Aly Reddy. No NSAIDS! Avoid hepatotoxins & keep Tylenol use to < 2g daily. If not immune, should be vaccinated against both Hep A & B semielectively, plus annual flu shot & Pneumovax, if not recently given. The above findings were also previously discussed with the patient & her son, Tigre, at the bedside in the ICU on , as per patient request. As per patient request, I had previously contacted her daughter, Ayanna Baker, postoperatively on at [phone], regarding the above 01/19/18: EGD findings. DVT prophylaxis with mechanical ALPS. As an aside , the patient is due for f/u surveillance colonoscopy in 05/2018. I updated the patient in great detail today. Further GI recommendations to follow, based on clinical course. Dr. Aly Reddy will assume the pt's outpt GI care after D/C. Problem List: 1. Laceration of lip 2. Cirrhosis 3. History of esophageal varices 4. Portal hypertensive gastropathy 5. Abnormal LFTs 6. SHELLEY (acute kidney injury) 7. Hypotension 8. Diastolic CHF Subjective Subjective: 01/21/18: ECHOCARDIOGRAM: CONCLUSIONS Normal size left ventricle. Normal left ventricular wall thickness. Normal left ventricular ejection fraction visually estimated at >65 Flattened septum in systole and diastole consistent with right ventricle pressure and volume overload. Restrictive filling pattern of the left ventricle for age (*stage 3 diastolic dysfunction). Right ventricle at upper limits of normal. Moderate atrial dilatation. Mild mitral regurgitation. Very mild aortic stenosis. Trace aortic regurgitation. Moderate tricuspid regurgitation. Mild pulmonary hypertension. Trace pulmonic regurgitation. Dilated inferior vena cava. Sd Grimaldo M.D. 01/22/18: XRY-CHEST XRAY, TWO VIEWS- The heart remains enlarged. There is increasing central pulmonary vascular congestion. Bilateral moderate effusions persist. *No improvement in the CHF 01/19/18: AFP 6.4 01/22/18: WBC 4.0, H/H 8.0/23.1, PLT 78, glucose 92, BUN/Cr 25/1.0, GFR 56, Na 139, K 3.7, HCO3 17, Mg 1.9, Ca 8.7, PO4 3.0, albumin 4.4, TBil 6.5, AST 30, ALT 18. *As of 01/22/18, the patient's GFR was improving on tx for presumed pre-renal azotemia. Octreotide (initially rxd for suspicion of variceal bleed, not for HRS ), was never resumed. Her IVF (NS @ 125 cc/hr) was stopped on 01/22/18. She remained on IV SPA 25g Q8h. The patient noted shortness of breath (better when sitting up) & peripheral edema, without chest pain. She denied any abdominal pain or confusion. Her cultures remained negative. *Clinically, she was in mild CHF. Diuretics were held for now, post SHELLEY. Her BP was much better, & she was no longer hypotensive. BP 130/60, P 86, R 20, T 97.8 (w/o spike), O2 1.5L nc 92%. Review of Systems: Full 14 point ROS otherwise noncontributory, and as above. Review of Systems Constitutional: Denies: chills, diaphoresis, fever, malaise, weakness, unexplained weight loss. EENTM: Reports: icterus. Denies: blurred vision, double vision, visual changes, eye pain, eye drainage, eye tearing, ear discharge, ear pain, ear redness, hearing changes, nasal congestion, epistaxis, nasal pain, throat pain, throat swelling, mouth pain, tooth pain. Cardiovascular: Reports: peripheral edema. Denies: chest pain, edema, orthopena, palpitations, syncope. Respiratory: Reports: SOB Denies: cough, hemoptysis, orthopnea, sputum production, stridor, wheezing. GI: Reports: constipation (better post Lactulose), ? vomiting-> resolved (? hematemesis vs oral blood-> found to be laceration of lower lateral left lip). Denies: abdominal pain, bloating, diarrhea, distention, bowel incontinence, melena, nausea, bloody stool, changes in stool, steatorrhea. Genitourinary: Reports: decreased urine output-> sl better. Denies: discharge, dysuria, frequency, hematuria, hesitation, nocturia, pain, urgency. Musculoskeletal: Reports: back pain (chronic LBP). Denies: gout, joint pain, joint swelling, muscle pain, muscle stiffness, neck pain. Skin: Reports: jaundice. Denies: cysts, change in skin color, change in hair/nails, dryness, erythema, lesions, lymphangitis, lumps, moles, rash. Neurological/Psychological: Reports: anxiety, depressed, emotional problems. Denies: ataxia, cognitive dysfunction, confusion, dementia, headache, numbness, paresthesia, pre-existing deficit, petit mal seizures, tingling, tremors, tonic- clonic seizures, unable to move lower ext, unable to move upper ext, weakness, other. Hematologic/Endocrine: Denies: bruising, bleeding (resolved), polyuria, polydipsia. Immunologic/Allergic: Denies: splenectomy, HIV/AIDS, lymphadenopathy. All Other Systems: Reviewed and Negative Objective Vital Signs and I&Os Vital Signs Date Time Temp Pulse Resp B/P B/P Pulse O2 O2 Flow FiO2 Mean Ox Delivery Rate 01/22 2144 97.8 86 20 130/60 92 01/22 1600 Nasal 1.5L Cannula 04/17 1446 97.8 76 20 118/58 95 Room Air 01/22 0800 98 Nasal 3.0L Cannula 01/22 0625 98.1 79 20 120/60 91 Room Air 01/22 0000 Nasal 3.0L Cannula Intake & Output 01/22 1600 01/22 0400 01/21 1600 01/21 0400 01/20 1600 01/20 0400 Intake Total 1660 1666 2560 800 2255 850 Output Total 600 250 350 300 400 Balance 1060 1416 2210 500 1855 850 Intake, IV 1000 1186 2320 800 1575 850 Intake, Oral 660 480 240 680 Number 1 0 1 Bowel Movements Output, Urine 600 250 350 300 400 Patient 179 lb Weight Weight Bed scale Measurement Method Physical Exam: Well-developed, well-nourished, chronically ill appearing female, looking older than her stated age, in no apparent distress. Sallow complexion. Sclera icteric. Conjunctiva pink. Oropharynx clear. Poor dentition, especially upper left teeth. No oral thrush. No aphthous ulcers. *Lower lateral aspect of left lip-> sutured. There is no adenopathy, thyromegaly, or JVD. + HJR. No peripheral stigmata of inflammatory bowel disease on exam. Faint spiders on the anterior chest wall. Breast & pelvic exams: API (post reconstruction left breast, by hx). No CVA tenderness. Lungs: clear to A&P, except for mild bibasilar crackles. No wheezing or rhonchi. Heart exam: regular rate rhythm, S1 and S2, with I/ systolic murmur. Abdominal exam: normal bowel sounds, soft belly, mildly obese, nontender, without guarding or rebound. No definite mass. Liver approximately 12 cm by percussion. Palpable spleen tip. No definite fluid shift. No pulsatile mass. Digital rectal exam: deferred by patient. Extremities: without cyanosis or clubbing. Trace peripheral edema. B/L ALPS. No palpable cords. Mild DJD. No acute artrhropathy. No rash. No palmar erythema. No Dupuytren's contractures. Distal pulses 1+ bilaterally. DTRs 2+ bilaterally. Alert and oriented x 3. Right handed. CN II-XII intact. No tremor. No asterixis. Current Medications: Current Medications Sig/Freddy Start time Last Medication Dose Route Stop Time Status Admin Acetaminophen 1,000 MG Q8P PRN 01/19 1815 DC IV Albumin Human 25 GM Q8 01/19 2244 AC 01/22 IV 2132 Bacitracin 1 KHUSHBOO DAILY 01/20 1629 AC 01/21 TOP 0852 Benzocaine/Menthol 1 TAMY Q2P PRN 01/20 0515 AC 01/20 PO 1042 Docusate Sodium 100 MG DAILY PRN 01/19 1930 AC PO Escitalopram Oxalate 10 MG DAILY 01/20 0900 AC 01/22 PO 1046 Lorazepam 0.5 MG TIDPRN PRN 01/19 1930 AC PO 01/26 192 Omeprazole 40 MG DAILY AC 01/22 0700 AC 01/22 PO 0600 Polyethylene Glycol 17 GM DAILY PRN 01/19 193 AC PO Senna 187 MG AT BEDTIME PRN 01/19 193 AC PO Sodium Chloride 1,000 ML .Q8H 01/20 1500 DC 01/22 IV 0328 Ursodiol 1,000 MG QPM 01/20 2100 AC 01/22 PO 2131 Results Pertinent Lab Results: Laboratory Tests 01/22 01/21 0745 0409 Chemistry Sodium (137 - 145 mmol/L) 139 137 Potassium (3.5 - 5.1 mmol/L) 3.7 4.2 Chloride (98 - 107 mmol/L) 107 106 Carbon Dioxide (22 - 30 mmol/L) 17 L 17 L Anion Gap (5 - 16) 15 14 BUN (7 - 17 mg/dL) 25 H 35 H Creatinine (0.5 - 1.0 mg/dL) 1.0 1.8 H Estimated GFR (>60 ml/min) 56 L 28 L Glucose (65 - 99 mg/dL) 92 112 H Calcium (8.4 - 10.2 mg/dL) 8.7 8.2 L Phosphorus (2.5 - 4.5 mg/dL) 3.0 4.8 H Magnesium (1.6 - 2.3 mg/dL) 1.9 1.7 Total Bilirubin (0.2 - 1.3 mg/dL) 6.5 H 6.0 H AST (14 - 36 U/L) 30 32 ALT (9 - 52 U/L) 18 17 Albumin (3.5 - 5.0 g/dL) 4.4 4.0 Hematology CBC w Diff NO MAN DIFF REQ NO MAN DIFF REQ WBC (4.8 - 10.8 /CUMM) 4.0 L 4.7 L RBC (4.20 - 5.40 /CUMM) 2.37 L 2.32 L Hgb (12.0 - 16.0 G/DL) 8.0 L 7.8 L Hct (37 - 47 %) 23.1 L 22.7 L MCV (81.0 - 99.0 FL) 97.5 97.9 MCH (27.0 - 31.0 PG) 33.7 H 33.7 H MCHC (33.0 - 37.0 G/DL) 34.5 34.4 RDW (11.5 - 14.5 %) 17.2 H 17.3 H Plt Count (130 - 400 /CUMM) 78 L 79 L MPV (7.4 - 10.4 FL) 7.5 7.5 Gran % (42.2 - 75.2 %) 51.0 45.3 Lymphocytes % (20.5 - 51.1 %) 35.2 42.6 Monocytes % (1.7 - 9.3 %) 7.4 7.3 Eosinophils % (0 - 5 %) 5.2 H 4.5 Basophils % (0.0 - 2.0 %) 1.2 0.3 Absolute Granulocytes (1.4 - 6.5 /CUMM) 2.0 2.1 Absolute Lymphocytes (1.2 - 3.4 /CUMM) 1.4 2.0 Absolute Monocytes (0.10 - 0.60 /CUMM) 0.3 0.3 Absolute Eosinophils (0.0 - 0.7 /CUMM) 0.2 0.2 Absolute Basophils (0.0 - 0.2 /CUMM) 0 0 01/20 1230 Hematology CBC w Diff NO MAN DIFF REQ NO MAN DIFF REQ WBC (4.8 - 10.8 /CUMM) 5.3 5.4 RBC (4.20 - 5.40 /CUMM) 2.36 L 2.47 L Hgb (12.0 - 16.0 G/DL) 8.0 L 8.4 L Hct (37 - 47 %) 23.0 L 24.4 L MCV (81.0 - 99.0 FL) 97.3 98.8 MCH (27.0 - 31.0 PG) 34.0 H 34.2 H MCHC (33.0 - 37.0 G/DL) 34.9 34.7 RDW (11.5 - 14.5 %) 17.3 H 17.0 H Plt Count (130 - 400 /CUMM) 97 L 89 L MPV (7.4 - 10.4 FL) 8.3 7.6 Gran % (42.2 - 75.2 %) 59.1 63.3 Lymphocytes % (20.5 - 51.1 %) 28.3 27.2 Monocytes % (1.7 - 9.3 %) 7.5 2.9 Eosinophils % (0 - 5 %) 5.0 5.8 H Basophils % (0.0 - 2.0 %) 0.1 0.8 Absolute Granulocytes (1.4 - 6.5 /CUMM) 3.1 3.4 Absolute Lymphocytes (1.2 - 3.4 /CUMM) 1.5 1.5 Absolute Monocytes (0.10 - 0.60 /CUMM) 0.4 0.2 Absolute Eosinophils (0.0 - 0.7 /CUMM) 0.3 0.3 Absolute Basophils (0.0 - 0.2 /CUMM) 0 0 01/20 01/20 01/20 0530 0530 0530 Urines Urinalysis LIGHT H Urine Color (YEL,AMB,STR) MARY Urine Clarity (CLEAR) HAZY H Urine pH (5.0 - 8.0) 5.5 Ur Specific Tony (1.001 - 1.035) >= 1.030 Urine Protein (NEG,<30 MG/DL) 100 H Urine Ketones (NEG) TRACE H Urine Nitrite (NEG) POS H Urine Bilirubin (NEG) POS@ICTO H Urine Urobilinogen (0.1 - 1.0 EU/dl) 4.0 H Ur Leukocyte Esterase (NEG) TRACE H Ur Microscopic SEDIMENT EXAMINED Urine WBC (0 - 2 /HPF) 1-3 H Ur Epithelial Cells (NONE,FEW) FEW Urine Bacteria (NEG/NONE) FEW H Hyaline Casts (0/LPF) RARE H Granular Casts (NONE /LPF) 1-3 H Urine Hemoglobin (NEG) NEG Ur Random Creatinine (mg/dL) 236.5 U Random Total Protein (0 - 12 mg/dL) 101 H Ur Random Sodium (30 - 90 mmol/L) 7 L Ur Random Potassium (mmol/L) 59.9 Ur Creatinine 24 Hour Cancelled Ur Total Protein 24 Hr Cancelled Protein/Creat Ratio 24h Cancelled Fraction Sodium Excret (<1% %) 0.0 Urine Glucose (N MG/DL) NEG U Protein Electrophores Cancelled Urine Albumin (%) Cancelled U Poolg-6-Npoyfulu Cancelled U Mgddq-1-Nqjcqlva Cancelled U Beta Globulin Cancelled U Gamma Globulin Cancelled U Abnormal Prot Band 1 Cancelled U Abnormal Prot Band 2 Cancelled U Abnormal Prot Band 3 Cancelled 01/20 01/20 01/20 0512 0415 0415 Chemistry Sodium (137 - 145 mmol/L) 136 L Potassium (3.5 - 5.1 mmol/L) 4.6 Chloride (98 - 107 mmol/L) 103 Carbon Dioxide (22 - 30 mmol/L) 17 L Anion Gap (5 - 16) 16 BUN (7 - 17 mg/dL) 32 H Creatinine (0.5 - 1.0 mg/dL) 1.4 H Estimated GFR (>60 ml/min) 38 L BUN/Creatinine Ratio (7 - 25 %) 22.9 Magnesium (1.6 - 2.3 mg/dL) 1.9 Prot Electrophoresis Pending Total Protein (PEP) Pending Albumin % (PEP) Pending Qvebd-1-Inhrphctl Pending Qyubp-5-Pjibkowfl Pending Bghq-8-Xprhscfm Pending Mfes-6-Znvaflol Pending Gamma Globulins Pending Abnorm Protein Band 1 Pending Abnorm Protein Band 2 Pending Abnorm Protein Band 3 Pending Hematology CBC w Diff NO MAN DIFF REQ WBC (4.8 - 10.8 /CUMM) 4.8 RBC (4.20 - 5.40 /CUMM) 2.47 L Hgb (12.0 - 16.0 G/DL) 8.4 L Hct (37 - 47 %) 24.3 L MCV (81.0 - 99.0 FL) 98.5 MCH (27.0 - 31.0 PG) 34.0 H MCHC (33.0 - 37.0 G/DL) 34.6 RDW (11.5 - 14.5 %) 17.2 H Plt Count (130 - 400 /CUMM) 83 L MPV (7.4 - 10.4 FL) 7.9 Gran % (42.2 - 75.2 %) 59.0 Lymphocytes % (20.5 - 51.1 %) 28.7 Monocytes % (1.7 - 9.3 %) 4.8 Eosinophils % (0 - 5 %) 7.3 H Basophils % (0.0 - 2.0 %) 0.2 Absolute Granulocytes (1.4 - 6.5 /CUMM) 2.8 Absolute Lymphocytes (1.2 - 3.4 /CUMM) 1.4 Absolute Monocytes (0.10 - 0.60 /CUMM) 0.2 Absolute Eosinophils (0.0 - 0.7 /CUMM) 0.3 Absolute Basophils (0.0 - 0.2 /CUMM) 0 Miscellaneous Ref Lab Test Result Pending Imaging/Other Studies: 11/14/17: CT ABD & PELVIS W ORAL & IV CONT (per Dr. Aly Reddy)- IMPRESSION: 1. Progressive liver cirrhosis and evidence of portal hypertension with esophageal and gastric varices. 2. Ill-defined area of hypoattenuation within the hepatic parenchyma within segment 4a in an area of capsular retraction. The retraction was identified on the prior study from 2014. Although this likely represents the sequela of the patient's advanced liver cirrhosis, the possibility of an underlying infiltrative neoplastic process such as hepatocellular carcinoma is not entirely excluded. Liver protocol MRI is recommended for further evaluation as well as clinical correlation and AFP level. 3. Note is made of celiac axis variant anatomy as detailed above. 4. Trace abdominal and pelvic ascites. 5. Skin thickening of the partially imaged left breast. In this patient with history of left-sided invasive ductal carcinoma, immediate attention is recommended with physical examination and mammography. This unexpected result was discussed with Dr. Pablo at 8:52 AM on to a 2018 and it was ascertained that the content and urgency of the report was understood at the time of direct communication. (*Again , MRI liver has since beedn rxd per Dr. Aly Reddy) DICTATED BY: Shraddha Goldman MD DATE/TIME DICTATED:11/15/1773901/19/18: EKG- NSR @ 60, nl axis, PRWP, borderline prolonged QT interval. 01/19/18: XRY-PORTABLE CHEST XRAY- IMPRESSION: Moderate cardiomegaly, pulmonary venous congestion and interstitial edema lower lungs, suggests CHF. Pleural effusions and adjacent pulmonary opacities which could represent atelectasis and/or pneumonia. Clinical correlation is suggested. 01/19/18: *EGD to D3- Impression: 1. *Bleeding site from the corner of the lower lat left lip, sutured by surgery. 2. 3 columns of non-bleeding 1+ esophageal varices from 30-40 cm (supine position), without any red nikolai sign, left intact. No junctional varices. 3. Fairly large non-bleeding proximal gastric fundic varices, towards the greater curvature aspect, just below the cardia, & some smaller non-bleeding gastric fundic varices, distal to this. 4. Mild non-bleeding proximal portal gastropathy in the fundus & upper body of the stomach. 01/20/18: US-COMPLETE ABDOMEN- 1. Enlarged gallbladder 5.8 cm diameter. No stone, sludge, wall thickening. No ductal dilatation. Normal CBD 5 mm. 2. Splenomegaly 13.9 cm. Mild ascites (*per my personal review of the sono with Dr. Langley on 01/20/18, the ascites is scant, around the liver, GB, & spleen, & is high risk to needle). Portal flow towards the liver. Cirrhotic liver without HCC. 3. No hydronephrosis. Normal renal parenchymal echogenicity and thickness. 01/21/18: ECHOCARDIOGRAM: CONCLUSIONS Normal size left ventricle. Normal left ventricular wall thickness. Normal left ventricular ejection fraction visually estimated at >65 Flattened septum in systole and diastole consistent with right ventricle pressure and volume overload. Restrictive filling pattern of the left ventricle for age (*stage 3 diastolic dysfunction). Right ventricle at upper limits of normal. Moderate atrial dilatation. Mild mitral regurgitation. Very mild aortic stenosis. Trace aortic regurgitation. Moderate tricuspid regurgitation. Mild pulmonary hypertension. Trace pulmonic regurgitation. Dilated inferior vena cava. Sd Grimaldo M.D. 01/22/18: XRY-CHEST XRAY, TWO VIEWS- The heart remains enlarged. There is increasing central pulmonary vascular congestion. Bilateral moderate effusions persist. *No improvement in the CHF.
--- NOTE | 2018-01-23 05:07 | RADIOLOGY REPORT ---
EXAMINATION: XR PORTABLE CHEST CLINICAL INFORMATION: Shortness of breath. COMPARISON: 01/22/2018 TECHNIQUE: Portable frontal view of the chest was obtained. FINDINGS: Lung volumes are low. Small bilateral pleural effusions are present with associated airspace opacity. Central vascular prominence without overt edema. No pneumothorax. The cardiomediastinal silhouette is unchanged. Left axillary surgical clips. IMPRESSION: No significant change from prior. Small bilateral pleural effusions with airspace opacity.
[2018-01-23 06:37] VITALS: BP 140/68
--- NOTE | 2018-01-23 07:31 | PN- Housestaff ---
See Addendum Subjective Follow-up For: Acute kidney injury, acute hypoxic respiratory failure. Subjective: Patient was experiencing increased shortness of breath last night. repeat chest x-ray continues to show fluid overload. She is requiring Ventimask for oxygen. She is worried about requiring oxygen at home and does not think she is ready to go home despite wanting to go home today. She also notes that one of her teeth broke and fell on the floor. She says she needs to see a dentist. No chest pain Review of Systems Constitutional: Reports: no symptoms. EENTM: Reports: see HPI. Cardiovascular: Reports: no symptoms. Respiratory: Reports: see HPI. Gastrointestinal: Reports: no symptoms. Genitourinary: Reports: no symptoms. Musculoskeletal: Reports: no symptoms. Skin: Reports: no symptoms. Neurological/Psychological: Reports: no symptoms. Hematologic/Endocrine: Reports: no symptoms. Immunologic/Allergic: Reports: no symptoms. Objective Last 24 Hrs of Vital Signs/I&O Vital Signs Date Time Temp Pulse Resp B/P B/P Pulse O2 O2 Flow FiO2 Mean Ox Delivery Rate 01/23 0637 98.0 100 20 140/68 91 Nasal 1.5L Cannula 01/23 0143 Venti Mask 28% 01/23 0000 95 Nasal 2.0L Cannula 01/22 2144 97.8 86 20 130/60 92 01/22 1600 Nasal 1.5L Cannula 01/22 1446 97.8 76 20 118/58 95 Room Air 01/22 0800 98 Nasal 3.0L Cannula Intake & Output 01/23 0800 01/23 0000 01/22 1600 Intake Total 360 530 300 Output Total 200 400 Balance 360 330 -100 Intake, IV 50 Intake, Oral 360 480 300 Output, Urine 200 400 Physical Exam General Appearance: Alert, Oriented X3, Cooperative, Mild Distress Cardiovascular: Regular Rate, Normal S1, Normal S2, JVD present Lungs: crackles at base Abdomen: Normal Bowel Sounds, Soft, No Tenderness Extremities: 2+ pitting edema Current Medications: Current Medications Sig/Freddy Start time Last Medication Dose Route Stop Time Status Admin Albumin Human 25 GM Q8 01/19 2244 DC 01/22 IV 2132 Bacitracin 1 KHUSHBOO DAILY 01/20 1629 AC 01/21 TOP 0852 Benzocaine/Menthol 1 TAMY Q2P PRN 01/20 0515 AC 01/20 PO 1042 Docusate Sodium 100 MG DAILY PRN 01/19 1930 AC PO Escitalopram Oxalate 10 MG DAILY 01/20 0900 AC 01/22 PO 1046 Lorazepam 0.5 MG TIDPRN PRN 01/19 193 AC PO 01/26 1929 Omeprazole 40 MG DAILY AC 01/22 0700 DC 01/22 PO 0600 Pantoprazole Sodium 40 MG DAILY 01/23 0900 AC IV Polyethylene Glycol 17 GM DAILY PRN 01/19 1930 AC PO Senna 187 MG AT BEDTIME PRN 01/19 1930 AC PO Sodium Chloride 1,000 ML .Q8H 01/20 1500 DC 01/22 IV 0328 Spironolactone 25 MG DAILY 01/23 0900 AC PO Ursodiol 1,000 MG QPM 01/20 2100 AC 01/22 PO 2131 Last 24 Hrs of Lab/Bhupendra Results Last 24 Hrs of Labs/Mics: Laboratory Tests 01/22/18 0745: Anion Gap 15, Estimated GFR 56 L, Glucose 92, Calcium 8.7, Phosphorus 3.0, Magnesium 1.9, Total Bilirubin 6.5 H, AST 30, ALT 18, Albumin 4.4, CBC w Diff NO MAN DIFF REQ, RBC 2.37 L, MCV 97.5, MCH 33.7 H, MCHC 34.5, RDW 17.2 H, MPV 7.5, Gran % 51.0, Lymphocytes % 35.2, Monocytes % 7.4, Eosinophils % 5.2 H, Basophils % 1.2, Absolute Granulocytes 2.0, Absolute Lymphocytes 1.4, Absolute Monocytes 0.3, Absolute Eosinophils 0.2, Absolute Basophils 0 Assessment/Plan Assessment: Ms. Ace is a 62-year-old female with past medical history significant for anxiety/depression, cirrhosis/portal hypertension, esophageal varices (secondary to alcohol), H pylori gastritis, breast cancer status post mastectomy and chemotherapy therapy (as 14 years ago), colon adenoma, chronic back pain who was initially admitted to the ICU for hematemesis later found to be an oral laceration that was sutured and is now transferred to general medicine on after stabilization of her condition. Problem List: 1. Acute kidney injury 2. Oral laceration 3. Alcoholic cirrhosis 4. Acute hypoxic respiratory failure 5. Diastolic heart failure #Acute hypoxic respiratory failure: Patient continues to complain of dyspnea now requiring Ventimask. Chest x-ray on admission did show fluid overload and she received a lot of fluid. 2 repeat chest x-rays continue to show fluid overload. TTE revealed stage III diastolic dysfunction. Her dyspnea is likely secondary to right heart failure. Nephrology is recommending against diuresing. -Consider diuresing -Consider cardiology consult -Continue oxygen therapy -Follow-up BNP #Acute kidney injury: The patient presented with a creatinine of 1.4 and this is up trended to 1.8 despite fluid hydration. Nephrology is evaluated and is concerned about potential hepatorenal syndrome. Urine electrolytes show a low sodium. Abdominal ultrasound shows no hydronephrosis and mild ascites. Creatinine has returned to baseline of 1.0. This was likely prerenal given the FENA but may have been caused by low output heart failure/decreased circulating volume rather than actual hypovolemia. -Appreciate nephrology recommendations #Oral laceration: Patient seen that showed bleeding site from the corner of the left lower lip that was sutured by surgery, 3 columns of non-bleeding 1+ esophageal varices from 30-40 cm (supine position), without any red nikolai sign, left intact, No junctional varices, fairly large non-bleeding proximal gastric fundic varices, towards the greater curvature aspect, just below the cardia, & some smaller non-bleeding gastric fundic varices, distal to this, and mild non- bleeding proximal portal m gastropathy in the fundus & upper body of the stomach. She is unsure of how she received the oral laceration. -Local wound care -Bacitracin -Outpatient dentistry follow-up #Alcoholic cirrhosis: Patient says she has not drank since . She does have a history of alcoholic cirrhosis with esophageal and gastric varices. Endoscopy did not reveal any active bleeding. Her thrombocytopenia is likely secondary to alcohol use. -2 g sodium diet -Spironolactone -Oral omeprazole -No NSAIDs -Limited acetaminophen to 2 g per day -Appreciate GI recommendations -Outpatient MRI of the liver #Chronic medical problems: Continue other medications DVT prophylaxis with Alps 2 g sodium diet Full code Problem List: 1. Cirrhosis Pain Ratin Pain Location: no Pain Goal: Remain pain free Pain Plan: see a/p Tomorrow's Labs & Rationales: bep
[2018-01-23 09:29] LABS: ABSOLUTE BASOPHIL COUNT 0 /CUMM (0.0-0.2); ABSOLUTE EOSINOPHIL COUNT 0.2 /CUMM (0.0-0.7); ABSOLUTE GRANULOCYTE CT 3.6 /CUMM (1.4-6.5); ABSOLUTE LYMPH COUNT 1.3 /CUMM (1.2-3.4); ABSOLUTE MONOCYTE COUNT 0.4 /CUMM (0.10-0.60); BASOPHIL % 0.2 % (0.0-2.0); EOSINOPHIL % 3.9 % (0-5); GRANULOCYTE % 65.4 % (42.2-75.2); HEMATOCRIT 24.9 % (37-47); MEAN CORPUSCULAR HGB CONC 34.5 G/DL (33.0-37.0); MEAN CORPUSCULAR VOLUME 98.4 FL (81.0-99.0); PLATELET COUNT 84 /CUMM (130-400); RBC DISTRIBUTION WIDTH 17.3 % (11.5-14.5); RED BLOOD CELL CT 2.53 /CUMM (4.20-5.40); WHITE BLOOD CELL COUNT 5.6 /CUMM (4.8-10.8)
--- NOTE | 2018-01-23 11:57 | PN- Nephrology ---
Assessment/Plan Nephrology Assessment: Creatinine back to normal. Suggestion: At this point it might be reasonable to give her 20mg of IV Lasxi to diurese her a little, see if respiratory symptoms improve. Would not send he home on Lasix at this point. Subjective Subjective: Patient on oxygen, states she is SOB. She states she got Lasix today and urinate 600 cc but I only see spironolactone which wouln't work that quick. Objective Vital Signs and I&Os Vital Signs Date Time Temp Pulse Resp B/P B/P Pulse O2 O2 Flow FiO2 Mean Ox Delivery Rate 01/23 0637 98.0 100 20 140/68 91 Nasal 1.5L Cannula 01/23 0143 Venti Mask 28% 01/23 0000 95 Nasal 2.0L Cannula 01/22 2144 97.8 86 20 130/60 92 01/22 1600 Nasal 1.5L Cannula 01/22 1446 97.8 76 20 118/58 95 Room Air Intake & Output 01/23 1600 01/23 0400 01/22 1600 01/22 0400 01/21 1600 01/21 0400 Intake Total 465 759 2347 1666 2560 800 Output Total 200 600 250 350 300 Balance 744 566 0264 1416 2210 500 Intake, IV 50 1000 1186 2320 800 Intake, Oral 360 480 660 480 240 Number 1 0 Bowel Movements Output, Urine 200 600 250 350 300 Physical Exam: NAD VS as above Lungs: clear CV: no rub Abd: nontender Exts: 1+ pedal edema Neuro: Awake, no asterixis. Current Medications: Current Medications Sig/Freddy Start time Last Medication Dose Route Stop Time Status Admin Albumin Human 25 GM Q8 01/19 2244 DC 01/22 IV 2132 Bacitracin 1 KHUSHBOO DAILY 01/20 1629 AC 01/23 TOP 0911 Benzocaine/Menthol 1 TAMY Q2P PRN 01/20 0515 AC 01/23 PO 0916 Docusate Sodium 100 MG DAILY PRN 01/19 1930 AC PO Escitalopram Oxalate 10 MG DAILY 01/20 0900 AC 01/23 PO 0912 Lorazepam 0.5 MG BID PRN 01/23 0945 CAN PO 01/30 0944 Lorazepam 0.5 MG TIDPRN PRN 01/19 1930 AC 01/23 PO 01/26 192 0937 Omeprazole 40 MG DAILY AC 01/22 0700 DC 01/22 PO 0600 Pantoprazole Sodium 40 MG DAILY 01/23 0900 AC IV Polyethylene Glycol 17 GM DAILY PRN 01/19 1930 AC PO Senna 187 MG AT BEDTIME PRN 01/19 1930 AC PO Spironolactone 25 MG DAILY 01/23 0945 AC 01/23 PO 0948 Spironolactone 25 MG DAILY 01/23 0900 CAN PO Ursodiol 1,000 MG QPM 01/20 2100 AC 01/22 PO 2131 Results Pertinent Lab Results: Laboratory Tests 01/23 01/22 0831 0745 Chemistry Sodium (137 - 145 mmol/L) 138 139 Potassium (3.5 - 5.1 mmol/L) 3.8 3.7 Chloride (98 - 107 mmol/L) 105 107 Carbon Dioxide (22 - 30 mmol/L) 18 L 17 L Anion Gap (5 - 16) 15 15 BUN (7 - 17 mg/dL) 18 H 25 H Creatinine (0.5 - 1.0 mg/dL) 0.7 1.0 Estimated GFR (>60 ml/min) > 60 56 L BUN/Creatinine Ratio (7 - 25 %) 25.7 H Glucose (65 - 99 mg/dL) 92 Calcium (8.4 - 10.2 mg/dL) 8.7 Phosphorus (2.5 - 4.5 mg/dL) 3.0 Magnesium (1.6 - 2.3 mg/dL) 1.9 Total Bilirubin (0.2 - 1.3 mg/dL) 7.6 H 6.5 H Direct Bilirubin (< 0.4 mg/dL) 4.9 H AST (14 - 36 U/L) 28 30 ALT (9 - 52 U/L) 17 18 Alkaline Phosphatase (<127 U/L) 88 Zha-[id number]-Mcoxjxvifpj Pept (<125 pg/mL) 5710 H 4860 H Total Protein (6.3 - 8.2 g/dL) 7.8 Albumin (3.5 - 5.0 g/dL) 4.5 4.4 Hematology CBC w Diff NO MAN DIFF REQ NO MAN DIFF REQ WBC (4.8 - 10.8 /CUMM) 5.6 4.0 L RBC (4.20 - 5.40 /CUMM) 2.53 L 2.37 L Hgb (12.0 - 16.0 G/DL) 8.6 L 8.0 L Hct (37 - 47 %) 24.9 L 23.1 L MCV (81.0 - 99.0 FL) 98.4 97.5 MCH (27.0 - 31.0 PG) 34.0 H 33.7 H MCHC (33.0 - 37.0 G/DL) 34.5 34.5 RDW (11.5 - 14.5 %) 17.3 H 17.2 H Plt Count (130 - 400 /CUMM) 84 L 78 L MPV (7.4 - 10.4 FL) 7.0 L 7.5 Gran % (42.2 - 75.2 %) 65.4 51.0 Lymphocytes % (20.5 - 51.1 %) 23.4 35.2 Monocytes % (1.7 - 9.3 %) 7.1 7.4 Eosinophils % (0 - 5 %) 3.9 5.2 H Basophils % (0.0 - 2.0 %) 0.2 1.2 Absolute Granulocytes (1.4 - 6.5 /CUMM) 3.6 2.0 Absolute Lymphocytes (1.2 - 3.4 /CUMM) 1.3 1.4 Absolute Monocytes (0.10 - 0.60 /CUMM) 0.4 0.3 Absolute Eosinophils (0.0 - 0.7 /CUMM) 0.2 0.2 Absolute Basophils (0.0 - 0.2 /CUMM) 0 0 01/21 01/20 0409 2035 Chemistry Sodium (137 - 145 mmol/L) 137 Potassium (3.5 - 5.1 mmol/L) 4.2 Chloride (98 - 107 mmol/L) 106 Carbon Dioxide (22 - 30 mmol/L) 17 L Anion Gap (5 - 16) 14 BUN (7 - 17 mg/dL) 35 H Creatinine (0.5 - 1.0 mg/dL) 1.8 H Estimated GFR (>60 ml/min) 28 L Glucose (65 - 99 mg/dL) 112 H Calcium (8.4 - 10.2 mg/dL) 8.2 L Phosphorus (2.5 - 4.5 mg/dL) 4.8 H Magnesium (1.6 - 2.3 mg/dL) 1.7 Total Bilirubin (0.2 - 1.3 mg/dL) 6.0 H AST (14 - 36 U/L) 32 ALT (9 - 52 U/L) 17 Albumin (3.5 - 5.0 g/dL) 4.0 Hematology CBC w Diff NO MAN DIFF REQ NO MAN DIFF REQ WBC (4.8 - 10.8 /CUMM) 4.7 L 5.3 RBC (4.20 - 5.40 /CUMM) 2.32 L 2.36 L Hgb (12.0 - 16.0 G/DL) 7.8 L 8.0 L Hct (37 - 47 %) 22.7 L 23.0 L MCV (81.0 - 99.0 FL) 97.9 97.3 MCH (27.0 - 31.0 PG) 33.7 H 34.0 H MCHC (33.0 - 37.0 G/DL) 34.4 34.9 RDW (11.5 - 14.5 %) 17.3 H 17.3 H Plt Count (130 - 400 /CUMM) 79 L 97 L MPV (7.4 - 10.4 FL) 7.5 8.3 Gran % (42.2 - 75.2 %) 45.3 59.1 Lymphocytes % (20.5 - 51.1 %) 42.6 28.3 Monocytes % (1.7 - 9.3 %) 7.3 7.5 Eosinophils % (0 - 5 %) 4.5 5.0 Basophils % (0.0 - 2.0 %) 0.3 0.1 Absolute Granulocytes (1.4 - 6.5 /CUMM) 2.1 3.1 Absolute Lymphocytes (1.2 - 3.4 /CUMM) 2.0 1.5 Absolute Monocytes (0.10 - 0.60 /CUMM) 0.3 0.4 Absolute Eosinophils (0.0 - 0.7 /CUMM) 0.2 0.3 Absolute Basophils (0.0 - 0.2 /CUMM) 0 0 01/20 1230 Hematology CBC w Diff NO MAN DIFF REQ WBC (4.8 - 10.8 /CUMM) 5.4 RBC (4.20 - 5.40 /CUMM) 2.47 L Hgb (12.0 - 16.0 G/DL) 8.4 L Hct (37 - 47 %) 24.4 L MCV (81.0 - 99.0 FL) 98.8 MCH (27.0 - 31.0 PG) 34.2 H MCHC (33.0 - 37.0 G/DL) 34.7 RDW (11.5 - 14.5 %) 17.0 H Plt Count (130 - 400 /CUMM) 89 L MPV (7.4 - 10.4 FL) 7.6 Gran % (42.2 - 75.2 %) 63.3 Lymphocytes % (20.5 - 51.1 %) 27.2 Monocytes % (1.7 - 9.3 %) 2.9 Eosinophils % (0 - 5 %) 5.8 H Basophils % (0.0 - 2.0 %) 0.8 Absolute Granulocytes (1.4 - 6.5 /CUMM) 3.4 Absolute Lymphocytes (1.2 - 3.4 /CUMM) 1.5 Absolute Monocytes (0.10 - 0.60 /CUMM) 0.2 Absolute Eosinophils (0.0 - 0.7 /CUMM) 0.3 Absolute Basophils (0.0 - 0.2 /CUMM) 0
[2018-01-23 15:00] VITALS: BP 136/62
--- NOTE | 2018-01-23 20:48 | PN- Gastroenterology ---
Assessment/Plan GI Assessment/Recommendations: 62 y/o female, post left mastectomy 2003 for invasive ductal breast Ca (2N1aMx; f/b +CTX, without RT or hormonal tx), f/b breast reconstruction, hx EtOH abuse ( [place]) x yrs- "D/C 06/2017" although 09/28/17: [EtOH] 202), hx cirrhosis, possible overlap with + PBC (hx +AMA), with hx esoph/gastric varices & portal gastropathy, hx colon adenoma. The patient recently saw Dr. Irving Reddy in the office 01/01/18, at which point, Inderal was increased to 20 mg BID & Compa 500 mg- 2tabs Qhs was added. She never had a formal liver bx. She was also on low dose Aldactone 25 mg daily. She was getting Lactulose both for possible low grade PSE & for constipation. She denied any previous abdominal taps or hx SBP. The patient's alcohol abuse worsened after she was in 2012. The patient presented to the [place] ER 01/19/18 at 11:35 a.m., stating she was bleeding from the left side of her mouth when laying down, as she saw some blood on her pillow after awakening this a.m.. She has very poor dentition, especially in the left upper teeth. She denied any recent dental work, definite gum bleeding, tongue biting, seizures, or epistaxis. There was no definite hemoptysis or hematemesis. She denied any melena. There was no rectal bleeding , aside from a scant hemorrhoid, when straining and constipation. She claimed a small amount of blood later trickled at left side of her mouth again, one lying down, but that nothing else had recurred since being upright. Again, there was no overt hematemesis, just a "metal taste in her mouth". She denied any GERD, odynophagia, dysphagia, early satiety, retching, or abdominal pain, aside from some minimal discomfort associated with constipation. She was yellow. She noted dark urine over the past few days, without any pruritus. There was no definite confusion. She denied any fevers, chills, symptoms of UTI, or URI. She noted some mild increased peripheral edema, and perhaps some mild increased abdominal girth. 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 There was no obstipation, tenesmus, or diarrhea. Denied any history of viral hepatitis. She was remotely transfused at the time of her breast surgery in 2003. She denied any history of IVDA or tattoos. She denied any history of HIV. She was a remote [id number] cigarette smoker, stopping in 2003. The patient's oral cavity was inspected by the ER & no definite bleeding site was found. Upon arrival, BP 108/58, P 56 (on Inderal), R 16, T 95.0, O2 sat RA 98%. A digital rectal exam was not done in the ER, & the patient wished to defer one at the time of the GI consult. She denied any history of DTs or withdrawal. The patient's mother at 72 of hepatoma in the setting of alcoholic cirrhosis. Her father at 64 of colon cancer. There was no additional family history of any other GI issues. *Please note, the patient was found to have SHELLEY on admission, with previously nl GFR > 60, & subacute on chronic elevated LFTs. *The patient was given IV Protonix bolus followed by IV Protonix drip, IV Octreotide bolus followed by IV Octreotide drip, and IV Ceftriaxone 1 g in the ER, as per my recommendations (as I was taking care of another GI bleed at that time), along with IV NS. I advised an ICU admit. The patient has been NPO today , except for a sip of H2O this a.m. She was not on any ASA, anti-plt agents, or A/C tx. She denied any NSAIDS, aside from 1-2 tabs of Advil/month. She had a ? remote allergy to PCN, but has tolerated cepahlosporins. The patient a medical decisions and does not have a living will. *The patient is awaiting an outpt MRI liver per Dr. Aly Reddy for further workup of an ill-defined area of hypoattenuation in the liver within segment 4A. 11/21/17: EGD to D2 with bxs, per Dr. Aly Reddy- (done for cirrhosis, assess portal HTN, & hx H. pylori gastritis in 08/2005, txd with ? regimen)- 4 columns of non-bleeding esopahgeal varices beginning at 33 cm, extending to the GE junction (44 cm). Distally, one of these was large, 2 medium, and one small. There were no red elmer. GE junction was normal. No junctional varices. There were gastric varices in the proximal greater curve of fundus & in the distal fundus. Mild proximal portal gastropathy. Antral erosions- bx: mild CAG/CFG, HP-neg. *A non-selective beta steve, Inderal, was rxd then. 05/09/13: Last colonoscopy to cecum- negative. A follow-up surveillance colonoscopy was advised in 5 years (i.e.- 05/2018), in view of the +FHx colon Ca & past personal hx colon adenoma. 09/23/17: Fe 116, TIBC 275, Fe sat 42.2%, ferritin 245, B12 836, folate 7.6, HgA1C 4.1 09/28/17: [EtOH] 202 10/30/17: Hep Bs Ag- neg, Hep C Ab- neg; CAT- neg 1:40, +AMA 38, AFP 6.3. 01/19/18: Admission labs- WBC 6.4 (54S/35L/1M/9E/1Baso), H/H 9.5/27.9, MCV 98.3, RDW 17.5, PLT 119, PT 17.4, INR 1.59, PTT 34, glu 93, BUN/Cr 31/1.4, GFR 38, Na 136, K 4.5, HCO3 21, AG 16, lactate 1.2, amylase 40, lipase 272, Ca 9.4, albumin 3.9, globulin 4.1, TBil 9.3, DBil 6.7, alk phos 97, AST 37, ALT 21, NH3 39, troponin < 0.01, elevated BNP 5840, TSH 4.530, nl FT4 1.57 11/14/17: CT ABD & PELVIS W ORAL & IV CONT (per Dr. Aly Reddy)- IMPRESSION: 1. Progressive liver cirrhosis and evidence of portal hypertension with esophageal and gastric varices. 2. Ill-defined area of hypoattenuation within the hepatic parenchyma within segment 4a in an area of capsular retraction. The retraction was identified on the prior study from 2014. Although this likely represents the sequela of the patient's advanced liver cirrhosis, the possibility of an underlying infiltrative neoplastic process such as hepatocellular carcinoma is not entirely excluded. Liver protocol MRI is recommended for further evaluation as well as clinical correlation and AFP level. 3. Note is made of celiac axis variant anatomy as detailed above. 4. Trace abdominal and pelvic ascites. 5. Skin thickening of the partially imaged left breast. In this patient with history of left-sided invasive ductal carcinoma, immediate attention is recommended with physical examination and mammography. This unexpected result was discussed with Dr. Pablo at 8:52 AM on to a 2017 and it was ascertained that the content and urgency of the report was understood at the time of direct communication. (*Again , MRI liver has since beedn rxd per Dr. Aly Reddy) DICTATED BY: Shraddha Goldman MD DATE/TIME DICTATED:11/15/1773901/19/18: EKG- NSR @ 60, nl axis, PRWP, borderline prolonged QT interval. 01/19/18: XRY-PORTABLE CHEST XRAY- IMPRESSION: Moderate cardiomegaly, pulmonary venous congestion and interstitial edema lower lungs, suggests CHF. Pleural effusions and adjacent pulmonary opacities which could represent atelectasis and/or pneumonia. Clinical correlation is suggested. *As of 01/19/18, it was difficult to tell whether the patient had actual hematemesis, which she did definitely not experience, vs. bleeding from the oral cavity, with poor dentition. The history of esophageal & gastric varices along with portal gastropathy (on Inderal) is noted. She rarely took an Advil. The patient also had SHELLEY, which could have been precipitated by her low-dose Aldactone 25 mg daily and/or dehydration from her Lactulose. HRS seemed less likely. She did receive IV cont 11/14/17. Her NSAID use was minimal regarding SHELLEY. She did not appear encephalopathic (borderline NH3) and was A & Ox3. The risks and benefits of EGD were discussed with the patient, including the possible need for intubation, to protect her from aspiration. Furthermore, if she had uncontrollably bleeding esophageal varices or possible bleedng gastric varices, she was told that she might have to be transferred for TIPS. Informed consent for the EGD was obtained rfrom the patient. She was already rxd Protonix , Octreotide, & prophylactic Ceftriaxone. 01/19/18: *EGD to D3- Impression: 1. *Bleeding site from the corner of the lower lat left lip, sutured by surgery. 2. 3 columns of non-bleeding 1+ esophageal varices from 30-40 cm (supine position), without any red nikolai sign, left intact. No junctional varices. 3. Fairly large non-bleeding proximal gastric fundic varices, towards the greater curvature aspect, just below the cardia, & some smaller non-bleeding gastric fundic varices, distal to this. 4. Mild non-bleeding proximal portal gastropathy in the fundus & upper body of the stomach. *As of 01/20/18, the patient remained with a systolic BP in the 90's. She was afebrile with O2 sat 2L- 95%. She had not required a transfusion. She remained on empiric IV Ceftriaxone. Her Aldactone was held, as was her Lactulose, due to SHELLEY. She remained on IV SPA 25g Q8h. + 895 cc fluid balance. Getting IV NS @ 75cc/hr. Inderal was on hold due to low BP. Her Compa was resumed 1g Qhs. She remained on IV Protonix 40 mg daily. As her varices were not actively bleeding, the Octrotide drip had been D/C. The patient's left lateral lower lip was successfully sutured by surgery post EGD on 01/19/18, while still sedated, prior to extubation. Absorbable sutures were used. Topical bacitracin was advised. She remained on her bowel regimen of Miralax, Colace & Senna. Her low Cortez & FENa 0.0 were c/w pre-renal vs HRS. *There was no significant ascites to tap on 01/20/18: sono (trace), per my review with Dr. Langley, nor were there any dilated ducts, HCC, or hydronephrosis. She was tolerating a regular diet. There was no further lip bleeding. 01/19/18: 11:20 p.m.- WBC 6.9, H/H 9.1/26.5, PLT 100 01/20/18: 4:15 a.m.- WBC 4.8, H/H 8.4/24.3, PLT 83, BUN/Cr 32/1.4, GFR 38, Na 136, K 4.6, HCO3 17, AG 16, Mg 1.9. 01/20/18: *Cortez 7, *FENa 0.0 (probable prerenal > HRS) 01/19/18: BC x 2- negative so far. 01/20/18: UC- neg x 1 day. 01/20/18: US-COMPLETE ABDOMEN- 1. Enlarged gallbladder 5.8 cm diameter. No stone, sludge, wall thickening. No ductal dilatation. Normal CBD 5 mm. 2. Splenomegaly 13.9 cm. Mild ascites (*per my personal review of the sono with Dr. Langley on 01/20/18, the ascites is scant, around the liver, GB, & spleen, & is high risk to needle). Portal flow towards the liver. Cirrhotic liver without HCC. 3. No hydronephrosis. Normal renal parenchymal echogenicity and thickness. *As of 01/21/18, the patient remained with low systolic BP in the 90's, prohibiting resumption of Inderal. She remained afebrile with Tm 99. O2 sat 3L 96%. She was downgraded to general medicine earlier today. She was still on IV Ceftriaxone, but her cultures remained negative. *Renal consult of 01/20/18 & subsequent renal note of 01/21/18 appreciated.*I agree that the major differential diagnosis for the SHELLEY is prerenal vs. HRS, based on low Cotrez & low FENa. Unfortunately, the patient's GFR has not responded to IVF & SPA. She had transiently received Octreotide prior to her admission EGD, but this was purely for possible variceal bleeding. As this was found not to be the case, her IV Octreotide drip was stopped at that point. The pt's UO had diminished to 700 cc yesterday. She was tolerating a 2g Na+ diet, without any recurrent lip bleeding or GI bleeding. She had not required any blood products. Mg was repleted. LFTs were slightly improving. She denied any confusion, fevers, or chills. She was ambulating in her room. She remained on IV NS @ 125 cc/hr & IV SPA 25g Q8h. 01/20/18: *SPEP (per renal; + proteinuria)- pending. 01/21/18: WBC 4.7, H/H 7.8/22.7, PLT 79, glucose 112, BUN/Cr 35/1.8, GFR 28, Na 137, K 4.2, HCO3 17, Ca 8.2, PO4 4.8, albumin 4.0, TBil 6.0, alk phos 97, AST 32 , ALT 17. 01/21/18: ECHOCARDIOGRAM: CONCLUSIONS Normal size left ventricle. Normal left ventricular wall thickness. Normal left ventricular ejection fraction visually estimated at >65 Flattened septum in systole and diastole consistent with right ventricle pressure and volume overload. Restrictive filling pattern of the left ventricle for age (*stage 3 diastolic dysfunction). Right ventricle at upper limits of normal. Moderate atrial dilatation. Mild mitral regurgitation. Very mild aortic stenosis. Trace aortic regurgitation. Moderate tricuspid regurgitation. Mild pulmonary hypertension. Trace pulmonic regurgitation. Dilated inferior vena cava. Sd Grimaldo M.D. 01/22/18: XRY-CHEST XRAY, TWO VIEWS- The heart remains enlarged. There is increasing central pulmonary vascular congestion. Bilateral moderate effusions persist. *No improvement in the CHF 01/19/18: AFP 6.4 01/22/18: WBC 4.0, H/H 8.0/23.1, PLT 78, glucose 92, BUN/Cr 25/1.0, GFR 56, Na 139, K 3.7, HCO3 17, Mg 1.9, Ca 8.7, PO4 3.0, albumin 4.4, TBil 6.5, AST 30, ALT 18. *As of 01/22/18, the patient's GFR was improving on tx for presumed pre-renal azotemia. Octreotide (initially rxd for suspicion of variceal bleed, not for HRS ), was never resumed. Her IVF (NS @ 125 cc/hr) was stopped on 01/22/18. She remained on IV SPA 25g Q8h. The patient noted shortness of breath (better when sitting up) & peripheral edema, without chest pain. She denied any abdominal pain or confusion. Her cultures remained negative. *Clinically, she was in mild CHF. Diuretics were held for now, post SHELLEY. Her BP was much better, & she was no longer hypotensive. BP 130/60, P 86, R 20, T 97.8 (w/o spike), O2 1.5L nc 92%. 01/23/18: WBC 5.6, H/H 8.6/24.9, PLT 84, BUN/Cr 18/0.7, GFR > 60, Na 138, K 3.8, HCO3 18, AG 15, albumin 4.5, globulin 3.3, TBil 7.6, DBil 4.9, alk phos 88, AST 28, ALT 17 01/23/18: XRY-PORTABLE CHEST XRAY- No significant change from prior. Small bilateral pleural effusions with airspace opacity. *As of 01/23/18, the patient's GFR was now normal. She was in some mild CHF and was diuresed, as per renal. She was rxd Aldactone 25 mg po daily & got Lasix 20 mg IV x 1. She was negative 140 cc fluid balance so far today. Her breathing was better & she was less short of breath. She denied any chest pain. She was hemodynamically stable & afebrile, with O2 sat 28% VM- 95%. *SUGGEST- *Continue 2g Na+ regular (trace ascites). Suture care of lower left lip per surgery (the sutures are absorbable; topical Bacitracin advised). Protonix 40 mg daily. (IV Ceftriaxone 1g daily D/C'd 01/21/18, as cultures negative). There was no significant ascites to tap on : sono. *Continue to hold Lactulose for now (if needed, can eventually substitute Rifaximin for Lactulose, which will not dehydrate the patient). * Aldactone 25 mg daily & Lasix 20 mg daily for now, as per renal, with close f/u lytes, GFR, & CHF. (Eventual resumption of Inderal 20 mg po BID as BP allows- BP previously too low; continue Compa 500 mg tab- 2 tabs po Qhs). T&C 2u PRBC. Keep Hgb > 7 (no hx ASHD, do not "overinflate" varices). Decrease frequency of CBC to daily for now. Strict I/O's. O2 prn. *IVF & SPA both stopped 01/22/18. * Continue to follow up with renal (? pre-renal/hypoperfusion >> HRS). *Eventual outpt MRI liver with gadolinium to r/o HCC, if GFR remains stable, per Dr. Aly Reddy. No NSAIDS! Avoid hepatotoxins & keep Tylenol use to < 2g daily. If not immune, should be vaccinated against both Hep A & B semielectively, plus annual flu shot & Pneumovax, if not recently given. The above findings were also previously discussed with the patient & her son, Tigre, at the bedside in the ICU on 01/20/18, as per patient request. As per patient request, I had previously contacted her daughter, Ayanna Baker, postoperatively on at [phone], regarding the above 01/19/18: EGD findings. DVT prophylaxis with mechanical ALPS. As an aside, the patient is due for f/u surveillance colonoscopy in 2017. I updated the patient in great detail today. *Further inpt GI follow-up as needed- d/w Dr. Almanza today. Dr. Aly Reddy will assume the pt's outpt GI care after D/C. Problem List: 1. Laceration of lip 2. Cirrhosis 3. History of esophageal varices 4. Portal hypertensive gastropathy 5. Abnormal LFTs 6. SHELLEY (acute kidney injury) 7. Diastolic CHF Subjective Subjective: 01/23/18: WBC 5.6, H/H 8.6/24.9, PLT 84, BUN/Cr 18/0.7, GFR > 60, Na 138, K 3.8, HCO3 18, AG 15, albumin 4.5, globulin 3.3, TBil 7.6, DBil 4.9, alk phos 88, AST 28, ALT 17 01/23/18: XRY-PORTABLE CHEST XRAY- No significant change from prior. Small bilateral pleural effusions with airspace opacity. *As of 01/23/18, the patient's GFR was now normal. She was in some mild CHF and was diuresed, as per renal. She was rxd Aldactone 25 mg po daily & got Lasix 20 mg IV x 1. She was negative 140 cc fluid balance so far today. Her breathing was better & she was less short of breath. She denied any chest pain. She was hemodynamically stable & afebrile, with O2 sat 28% VM- 95%. Review of Systems: Full 14 point ROS otherwise noncontributory, and as above. Review of Systems Constitutional: Denies: chills, diaphoresis, fever, malaise, weakness, unexplained weight loss. EENTM: Reports: icterus. Denies: blurred vision, double vision, visual changes, eye pain, eye drainage, eye tearing, ear discharge, ear pain, ear redness, hearing changes, nasal congestion, epistaxis, nasal pain, throat pain, throat swelling, mouth pain, tooth pain. Cardiovascular: Reports: peripheral edema. Denies: chest pain, edema, orthopena, palpitations, syncope. Respiratory: Reports: SOB-> improving post diuresis Denies: cough, hemoptysis, orthopnea, sputum production, stridor, wheezing. GI: Reports: constipation (better post Lactulose), ? vomiting-> resolved (? 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 Denies: abdominal pain, bloating, diarrhea, distention, bowel incontinence, melena, nausea, bloody stool, changes in stool, steatorrhea. Genitourinary: Reports: decreased urine output-> sl better. Denies: discharge, dysuria, frequency, hematuria, hesitation, nocturia, pain, urgency. Musculoskeletal: Reports: back pain (chronic LBP). Denies: gout, joint pain, joint swelling, muscle pain, muscle stiffness, neck pain. Skin: Reports: jaundice. Denies: cysts, change in skin color, change in hair/nails, dryness, erythema, lesions, lymphangitis, lumps, moles, rash. Neurological/Psychological: Reports: anxiety, depressed, emotional problems. Denies: ataxia, cognitive dysfunction, confusion, dementia, headache, numbness, paresthesia, pre-existing deficit, petit mal seizures, tingling, tremors, tonic- clonic seizures, unable to move lower ext, unable to move upper ext, weakness, other. Hematologic/Endocrine: Denies: bruising, bleeding (resolved), polyuria, polydipsia. Immunologic/Allergic: Denies: splenectomy, HIV/AIDS, lymphadenopathy. All Other Systems: Reviewed and Negative Objective Vital Signs and I&Os Vital Signs Date Time Temp Pulse Resp B/P B/P Pulse O2 O2 Flow FiO2 Mean Ox Delivery Rate 01/23 1600 95 Venti Mask 28% 01/23 1500 97.9 93 20 136/62 95 01/23 1425 97 Venti Mask 28% 01/23 0800 97 Venti Mask 2.0L 01/23 0637 98.0 100 20 140/68 91 Nasal 1.5L Cannula 04/18 0143 Venti Mask 28% 01/23 0000 95 Nasal 2.0L Cannula 01/22 2144 97.8 86 20 130/60 92 Intake & Output 01/23 1600 01/23 0400 01/22 1600 01/22 0400 01/21 1600 01/21 0400 Intake Total 836 920 0116 1666 2560 800 Output Total 200 600 250 350 300 Balance 243 830 3847 1416 2210 500 Intake, IV 50 1000 1186 2320 800 Intake, Oral 360 480 660 480 240 Number 1 0 Bowel Movements Output, Urine 200 600 250 350 300 Physical Exam: Well-developed, well-nourished, chronically ill appearing female, looking older than her stated age, in no apparent distress. Sallow complexion. Sclera icteric. Conjunctiva pink. Oropharynx clear. Poor dentition, especially upper left teeth. No oral thrush. No aphthous ulcers. *Lower lateral aspect of left lip-> sutured. There is no adenopathy, thyromegaly, or JVD. + HJR. No peripheral stigmata of inflammatory bowel disease on exam. Faint spiders on the anterior chest wall. Breast & pelvic exams: API (post reconstruction left breast, by hx). No CVA tenderness. Lungs: clear to A&P, except for scant bibasilar crackles. No wheezing or rhonchi. Heart exam: regular rate rhythm, S1 and S2, with I/ systolic murmur. Abdominal exam: normal bowel sounds, soft belly, mildly obese, nontender, without guarding or rebound. No definite mass. Liver approximately 12 cm by percussion. Palpable spleen tip. No definite fluid shift. No pulsatile mass. Digital rectal exam: deferred by patient. Extremities: without cyanosis or clubbing. < 1+ peripheral edema LE B/L. B/L ALPS. No palpable cords. Mild DJD. No acute artrhropathy. No rash. No palmar erythema. No Dupuytren's contractures. Distal pulses 1+ bilaterally. DTRs 2+ bilaterally. Alert and oriented x 3. Right handed. CN II-XII intact. No tremor. No asterixis. Current Medications: Current Medications Sig/Freddy Start time Last Medication Dose Route Stop Time Status Admin Albumin Human 25 GM Q8 01/19 2244 DC 01/22 IV 2132 Bacitracin 1 KHUSHBOO DAILY 01/20 1629 AC 01/23 TOP 0911 Benzocaine/Menthol 1 TAMY Q2P PRN 01/20 0515 AC 01/23 PO 0916 Docusate Sodium 100 MG DAILY PRN 01/19 1930 AC PO Escitalopram Oxalate 10 MG DAILY 01/20 0900 AC 01/23 PO 0912 Furosemide 20 MG DAILY 01/23 1321 AC 01/23 IV 1702 Lorazepam 0.5 MG BID PRN 01/23 0945 CAN PO 01/30 0944 Lorazepam 0.5 MG TIDPRN PRN 01/19 1930 AC 01/23 PO 01/26 192 0937 Omeprazole 40 MG DAILY AC 01/24 0700 AC PO Omeprazole 40 MG DAILY AC 01/22 0700 DC 01/22 PO 0600 Pantoprazole Sodium 40 MG DAILY 01/23 0900 DC IV Polyethylene Glycol 17 GM DAILY PRN 01/19 1930 AC PO Senna 187 MG AT BEDTIME PRN 01/19 1930 AC PO Spironolactone 25 MG DAILY 01/23 0945 AC 01/23 PO 0948 Spironolactone 25 MG DAILY 01/23 0900 CAN PO Ursodiol 1,000 MG QPM 01/20 2100 AC 01/22 PO 2131 Results Pertinent Lab Results: Laboratory Tests 01/23 01/22 0831 0745 Chemistry Sodium (137 - 145 mmol/L) 138 139 Potassium (3.5 - 5.1 mmol/L) 3.8 3.7 Chloride (98 - 107 mmol/L) 105 107 Carbon Dioxide (22 - 30 mmol/L) 18 L 17 L Anion Gap (5 - 16) 15 15 BUN (7 - 17 mg/dL) 18 H 25 H Creatinine (0.5 - 1.0 mg/dL) 0.7 1.0 Estimated GFR (>60 ml/min) > 60 56 L BUN/Creatinine Ratio (7 - 25 %) 25.7 H Glucose (65 - 99 mg/dL) 92 Calcium (8.4 - 10.2 mg/dL) 8.7 Phosphorus (2.5 - 4.5 mg/dL) 3.0 Magnesium (1.6 - 2.3 mg/dL) 1.9 Total Bilirubin (0.2 - 1.3 mg/dL) 7.6 H 6.5 H Direct Bilirubin (< 0.4 mg/dL) 4.9 H AST (14 - 36 U/L) 28 30 ALT (9 - 52 U/L) 17 18 Alkaline Phosphatase (<127 U/L) 88 [id number] Pept (<125 pg/mL) 5710 H 4860 H Total Protein (6.3 - 8.2 g/dL) 7.8 Albumin (3.5 - 5.0 g/dL) 4.5 4.4 Hematology CBC w Diff NO MAN DIFF REQ NO MAN DIFF REQ WBC (4.8 - 10.8 /CUMM) 5.6 4.0 L RBC (4.20 - 5.40 /CUMM) 2.53 L 2.37 L Hgb (12.0 - 16.0 G/DL) 8.6 L 8.0 L Hct (37 - 47 %) 24.9 L 23.1 L MCV (81.0 - 99.0 FL) 98.4 97.5 MCH (27.0 - 31.0 PG) 34.0 H 33.7 H MCHC (33.0 - 37.0 G/DL) 34.5 34.5 RDW (11.5 - 14.5 %) 17.3 H 17.2 H Plt Count (130 - 400 /CUMM) 84 L 78 L MPV (7.4 - 10.4 FL) 7.0 L 7.5 Gran % (42.2 - 75.2 %) 65.4 51.0 Lymphocytes % (20.5 - 51.1 %) 23.4 35.2 Monocytes % (1.7 - 9.3 %) 7.1 7.4 Eosinophils % (0 - 5 %) 3.9 5.2 H Basophils % (0.0 - 2.0 %) 0.2 1.2 Absolute Granulocytes (1.4 - 6.5 /CUMM) 3.6 2.0 Absolute Lymphocytes (1.2 - 3.4 /CUMM) 1.3 1.4 Absolute Monocytes (0.10 - 0.60 /CUMM) 0.4 0.3 Absolute Eosinophils (0.0 - 0.7 /CUMM) 0.2 0.2 Absolute Basophils (0.0 - 0.2 /CUMM) 0 0 04/16 0409 Chemistry Sodium (137 - 145 mmol/L) 137 Potassium (3.5 - 5.1 mmol/L) 4.2 Chloride (98 - 107 mmol/L) 106 Carbon Dioxide (22 - 30 mmol/L) 17 L Anion Gap (5 - 16) 14 BUN (7 - 17 mg/dL) 35 H Creatinine (0.5 - 1.0 mg/dL) 1.8 H Estimated GFR (>60 ml/min) 28 L Glucose (65 - 99 mg/dL) 112 H Calcium (8.4 - 10.2 mg/dL) 8.2 L Phosphorus (2.5 - 4.5 mg/dL) 4.8 H Magnesium (1.6 - 2.3 mg/dL) 1.7 Total Bilirubin (0.2 - 1.3 mg/dL) 6.0 H AST (14 - 36 U/L) 32 ALT (9 - 52 U/L) 17 Albumin (3.5 - 5.0 g/dL) 4.0 Hematology CBC w Diff NO MAN DIFF REQ WBC (4.8 - 10.8 /CUMM) 4.7 L RBC (4.20 - 5.40 /CUMM) 2.32 L Hgb (12.0 - 16.0 G/DL) 7.8 L Hct (37 - 47 %) 22.7 L MCV (81.0 - 99.0 FL) 97.9 MCH (27.0 - 31.0 PG) 33.7 H MCHC (33.0 - 37.0 G/DL) 34.4 RDW (11.5 - 14.5 %) 17.3 H Plt Count (130 - 400 /CUMM) 79 L MPV (7.4 - 10.4 FL) 7.5 Gran % (42.2 - 75.2 %) 45.3 Lymphocytes % (20.5 - 51.1 %) 42.6 Monocytes % (1.7 - 9.3 %) 7.3 Eosinophils % (0 - 5 %) 4.5 Basophils % (0.0 - 2.0 %) 0.3 Absolute Granulocytes (1.4 - 6.5 /CUMM) 2.1 Absolute Lymphocytes (1.2 - 3.4 /CUMM) 2.0 Absolute Monocytes (0.10 - 0.60 /CUMM) 0.3 Absolute Eosinophils (0.0 - 0.7 /CUMM) 0.2 Absolute Basophils (0.0 - 0.2 /CUMM) 0 Imaging/Other Studies: 11/14/17: CT ABD & PELVIS W ORAL & IV CONT (per Dr. Aly Reddy)- IMPRESSION: 1. Progressive liver cirrhosis and evidence of portal hypertension with esophageal and gastric varices. 2. Ill-defined area of hypoattenuation within the hepatic parenchyma within segment 4a in an area of capsular retraction. The retraction was identified on the prior study from 2014. Although this likely represents the sequela of the patient's advanced liver cirrhosis, the possibility of an underlying infiltrative neoplastic process such as hepatocellular carcinoma is not entirely excluded. Liver protocol MRI is recommended for further evaluation as well as clinical correlation and AFP level. 3. Note is made of celiac axis variant anatomy as detailed above. 4. Trace abdominal and pelvic ascites. 5. Skin thickening of the partially imaged left breast. In this patient with history of left-sided invasive ductal carcinoma, immediate attention is recommended with physical examination and mammography. This unexpected result was discussed with Dr. Pablo at 8:52 AM on to a 2018 and it was ascertained that the content and urgency of the report was understood at the time of direct communication. (*Again , MRI liver has since beedn rxd per Dr. Aly Reddy) DICTATED BY: Shraddha Goldman MD DATE/TIME DICTATED:11/15/1773901/19/18: EKG- NSR @ 60, nl axis, PRWP, borderline prolonged QT interval. 01/19/18: XRY-PORTABLE CHEST XRAY- IMPRESSION: Moderate cardiomegaly, pulmonary venous congestion and interstitial edema lower lungs, suggests CHF. Pleural effusions and adjacent pulmonary opacities which could represent atelectasis and/or pneumonia. Clinical correlation is suggested. 01/19/18: *EGD to D3- Impression: 1. *Bleeding site from the corner of the lower lat left lip, sutured by surgery. 2. 3 columns of non-bleeding 1+ esophageal varices from 30-40 cm (supine position), without any red nikolai sign, left intact. No junctional varices. 3. Fairly large non-bleeding proximal gastric fundic varices, towards the greater curvature aspect, just below the cardia, & some smaller non-bleeding gastric fundic varices, distal to this. 4. Mild non-bleeding proximal portal gastropathy in the fundus & upper body of the stomach. 01/20/18: US-COMPLETE ABDOMEN- 1. Enlarged gallbladder 5.8 cm diameter. No stone, sludge, wall thickening. No ductal dilatation. Normal CBD 5 mm. 2. Splenomegaly 13.9 cm. Mild ascites (*per my personal review of the sono with Dr. Langley on 01/20/18, the ascites is scant, around the liver, GB, & spleen, & is high risk to needle). Portal flow towards the liver. Cirrhotic liver without HCC. 3. No hydronephrosis. Normal renal parenchymal echogenicity and thickness. 01/21/18: ECHOCARDIOGRAM: CONCLUSIONS Normal size left ventricle. Normal left ventricular wall thickness. Normal left ventricular ejection fraction visually estimated at >65 Flattened septum in systole and diastole consistent with right ventricle pressure and volume overload. Restrictive filling pattern of the left ventricle for age (*stage 3 diastolic dysfunction). Right ventricle at upper limits of normal. Moderate atrial dilatation. Mild mitral regurgitation. Very mild aortic stenosis. Trace aortic regurgitation. Moderate tricuspid regurgitation. Mild pulmonary hypertension. Trace pulmonic regurgitation. Dilated inferior vena cava. Sd Grimaldo M.D. 01/22/18: XRY-CHEST XRAY, TWO VIEWS- The heart remains enlarged. There is increasing central pulmonary vascular congestion. Bilateral moderate effusions persist. *No improvement in the CHF. 01/23/18: XRY-PORTABLE CHEST XRAY- No significant change from prior. Small bilateral pleural effusions with airspace opacity.
[2018-01-23 22:07] VITALS: BP 136/62
[2018-01-24 06:41] VITALS: BP 136/64
--- NOTE | 2018-01-24 07:18 | PN- Housestaff ---
See Addendum Subjective Follow-up For: Acute Hypoxic respiratory failure secondary to fluid overload, jarrell, oral laceration Subjective: No overnight events. The patient's breathing is much improved this morning after the diuresis yesterday. She a lot last night. She is saturating well off of oxygen but still wants it sometimes because she feels better with it. Otherwise, no chest pain, abdominal pain, or other complaints. Review of Systems Constitutional: Reports: no symptoms. EENTM: Reports: no symptoms. Cardiovascular: Reports: no symptoms. Respiratory: Reports: see HPI. Gastrointestinal: Reports: no symptoms. Genitourinary: Reports: no symptoms. Musculoskeletal: Reports: no symptoms. Skin: Reports: no symptoms. Neurological/Psychological: Reports: no symptoms. Hematologic/Endocrine: Reports: no symptoms. Immunologic/Allergic: Reports: no symptoms. Objective Last 24 Hrs of Vital Signs/I&O Vital Signs Date Time Temp Pulse Resp B/P B/P Pulse O2 O2 Flow FiO2 Mean Ox Delivery Rate 01/24 0641 98.1 107 20 136/64 94 Venti Mask 01/24 0000 93 Venti Mask 28% 01/23 2207 98.7 100 18 136/62 93 01/23 1600 95 Venti Mask 28% 01/23 1500 97.9 93 20 136/62 95 01/23 1425 97 Venti Mask 28% 01/23 0800 97 Venti Mask 2.0L Intake & Output 01/24 0800 01/24 0000 01/23 1600 Intake Total 200 200 Output Total 500 Balance 200 -300 Intake, Oral 200 200 Output, Urine 500 Physical Exam General Appearance: Alert, Oriented X3, Cooperative, No Acute Distress Cardiovascular: Regular Rate, Normal S1, Normal S2, JVD, lower than yesterday Lungs: mild crackles at base Abdomen: Normal Bowel Sounds, Soft, No Tenderness Extremities: 1+ pitting edema Current Medications: Current Medications Sig/Freddy Start time Last Medication Dose Route Stop Time Status Admin Bacitracin 1 KHUSHBOO DAILY 01/20 1629 AC 01/23 TOP 0911 Benzocaine/Menthol 1 TAMY Q2P PRN 01/20 0515 AC 01/23 PO 0916 Docusate Sodium 100 MG DAILY PRN 01/19 1930 AC PO Escitalopram Oxalate 10 MG DAILY 01/20 0900 AC 01/23 PO 0912 Furosemide 20 MG DAILY 01/23 1321 AC 01/23 IV 1702 Lorazepam 0.5 MG BID PRN 01/23 945 CAN PO 01/31 944 Lorazepam 0.5 MG TIDPRN PRN 01/19 1930 AC 01/23 PO 01/26 Omeprazole 40 MG DAILY AC 01/24 0700 AC 01/24 PO 0536 Pantoprazole Sodium 40 MG DAILY 01/23 0900 DC IV Polyethylene Glycol 17 GM DAILY PRN 01/19 1930 AC PO Senna 187 MG AT BEDTIME PRN 01/19 1930 AC PO Spironolactone 25 MG DAILY 01/23 0945 AC 01/23 PO 0948 Spironolactone 25 MG DAILY 01/23 09 CAN PO Ursodiol 1,000 MG QPM 01/20 2100 AC 01/23 PO 2048 Last 24 Hrs of Lab/Bhupendra Results Last 24 Hrs of Labs/Mics: Laboratory Tests 01/23/1831: Anion Gap 15, Estimated GFR > 60, BUN/Creatinine Ratio 25.7 H, Total Bilirubin 7.6 H, Direct Bilirubin 4.9 H, AST 28, ALT 17, Alkaline Phosphatase 88, Pro-B- Natriuretic Pept 5710 H, Total Protein 7.8, Albumin 4.5, CBC w Diff NO MAN DIFF REQ, RBC 2.53 L, MCV 98.4, MCH 34.0 H, MCHC 34.5, RDW 17.3 H, MPV 7.0 L, Gran % 65.4, Lymphocytes % 23.4, Monocytes % 7.1, Eosinophils % 3.9, Basophils % 0.2, Absolute Granulocytes 3.6, Absolute Lymphocytes 1.3, Absolute Monocytes 0.4 , Absolute Eosinophils 0.2, Absolute Basophils 0 Assessment/Plan Assessment: Ms. Ace is a 62-year-old female with past medical history significant for anxiety/depression, cirrhosis/portal hypertension, esophageal varices (secondary to alcohol), H pylori gastritis, breast cancer status post mastectomy and chemotherapy therapy (as 14 years ago), colon adenoma, chronic back pain who was initially admitted to the ICU for hematemesis later found to be an oral laceration that was sutured and is now transferred to general medicine on after stabilization of her condition. Problem List: 1. Acute kidney injury 2. Oral laceration 3. Alcoholic cirrhosis 4. Acute hypoxic respiratory failure 5. Diastolic heart failure #Acute hypoxic respiratory failure: The patient's dyspnea has markedly improved status post diuresis.. Chest x-ray on admission did show fluid overload and she received a lot of fluid. 2 repeat chest x-rays continued to show fluid overload. TTE revealed stage III diastolic dysfunction. Her dyspnea was likely secondary to right heart failure. BNP was elevated. -Continue furosemide 20 mg IV daily -Continue oxygen therapy -Physical therapy consult -Ambulatory saturations #Acute kidney injury: The patient presented with a creatinine of 1.4 and this is up trended to 1.8 despite fluid hydration. Nephrology is evaluated and is concerned about potential hepatorenal syndrome. Urine electrolytes show a low sodium. Abdominal ultrasound shows no hydronephrosis and mild ascites. Creatinine has returned to baseline of 1.0. This was likely prerenal given the FENA but may have been caused by low output heart failure/decreased circulating volume rather than actual hypovolemia. -Appreciate nephrology recommendations #Oral laceration: Patient seen that showed bleeding site from the corner of the left lower lip that was sutured by surgery, 3 columns of non-bleeding 1+ esophageal varices from 30-40 cm (supine position), without any red nikolai sign, left intact, No junctional varices, fairly large non-bleeding proximal gastric fundic varices, towards the greater curvature aspect, just below the cardia, & some smaller non-bleeding gastric fundic varices, distal to this, and mild non- bleeding proximal portal m gastropathy in the fundus & upper body of the stomach. She is unsure of how she received the oral laceration. -Local wound care -Bacitracin -Outpatient dentistry follow-up #Alcoholic cirrhosis: Patient says she has not drank since . She does have a history of alcoholic cirrhosis with esophageal and gastric varices. Endoscopy did not reveal any active bleeding. Her thrombocytopenia is likely secondary to alcohol use. -2 g sodium diet -Spironolactone -Oral omeprazole -No NSAIDs -Limited acetaminophen to 2 g per day -Appreciate GI recommendations -Outpatient MRI of the liver #Chronic medical problems: Continue other medications DVT prophylaxis with Alps 2 g sodium diet Full code Problem List: 1. Diastolic CHF 2. Cirrhosis Pain Ratin Pain Location: no Pain Goal: Remain pain free Pain Plan: see a/p Tomorrow's Labs & Rationales: bep
--- NOTE | 2018-01-24 07:46 | Patient Discharge Instructions ---
Discharge Instructions General Discharge Information You were seen/treated for: Oral laceration, acute kidney injury, acute hypoxic respiratory failure secondary to fluid overload Watch for these problems: Fever, chest pain, shortness of breath Special Instructions: Please take all medications as directed. Please follow-up with primary care and gastroenterology. Please follow-up for MRI of your liver. Okay to take loratadine for allergies or seasonal. Diet Continue normal diet: No Additional DIET Information: 2g Sodium Activity Full Activity/No Limits: Yes Acute Coronary Syndrome Inclusion Criteria At DC or during hospital stay patient has or had the following: ACS DIAGNOSIS No Discharge Core Measures Meds if any: Prescribed or Continued at Discharge Meds if any: NOT Prescribed or Continued at Discharge Congestive Heart Failure Inclusion Criteria At DC or during hospital stay patient has or had the following: CHF DIAGNOSIS No Discharge Core Measures Meds if any: Prescribed or Continued at Discharge Meds if any: NOT Prescribed or Continued at Discharge Cerebrovascular accident Inclusion Criteria At DC or during hospital stay patient has or had the following: CVA/TIA Diagnosis No Discharge Core Measures Meds if any: Prescribed or Continued at Discharge Meds if any: NOT Prescribed or Continued at Discharge Venous thromboembolism Inclusion Criteria VTE Diagnosis No VTE Type NONE VTE Confirmed by (Test) NONE Discharge Core Measures - Per Current guidelines, there needs to be overlap - treatment for the first 5 days of Warfarin therapy. - If discharged on Warfarin prior to 5 days of - overlap therapy, the patient will need to be - assessed for post discharge needs including - *Post discharge parental anticoagulation - *Warfarin and/or parental anticoagulation education - *Follow up date to check INR post discharge At least 5 days overlap therapy as Inpatient No Meds if any: Prescribed or Continued at Discharge Note: Overlap Therapy is Warfarin and Anticoagulant Meds if any: NOT Prescribed or Continued at Discharge
[2018-01-24] MEDS ORDERED: OMEPRAZOLE20 M2 PO (08:59)
--- NOTE | 2018-01-24 09:46 | PN- Student ---
Subjective Subjective: No overnight events reported. Ms. Ace reports that she feels as if she is breathing better and was able to lay at 30 degrees and using 2 pillows to sleep last night. She reports getting up multiple times to urinate and reports that she produced 800 cc of urine yesterday from 4:30 to midnight and about 300 cc this morning of urine, post diuresis with spirnolactone and furosemide. She feels as if she is ready to go home, she lives with her daughter. Objective Objective: Current Medications Sig/Freddy Start time Last Medication Dose Route Stop Time Status Admin Bacitracin 1 KHUSHBOO DAILY 01/20 1629 AC 01/23 TOP 0911 Benzocaine/Menthol 1 TAMY Q2P PRN 01/20 0515 AC 01/23 PO 0916 Docusate Sodium 100 MG DAILY PRN 01/19 1930 AC PO Escitalopram Oxalate 10 MG DAILY 01/20 0900 AC 01/23 PO 0912 Furosemide 20 MG DAILY 01/23 1321 AC 01/23 IV 1702 Lorazepam 0.5 MG TIDPRN PRN 01/19 1930 AC 01/23 PO 01/26 1929 2049 Omeprazole 40 MG DAILY AC 01/24 0700 AC 01/24 PO 0536 Pantoprazole Sodium 40 MG DAILY 01/23 0900 DC IV Polyethylene Glycol 17 GM DAILY PRN 01/19 1930 AC PO Senna 187 MG AT BEDTIME PRN 01/19 1930 AC PO Spironolactone 25 MG DAILY 01/23 0945 AC 01/23 PO 0948 Ursodiol 1,000 MG QPM 01/20 2100 AC 01/23 PO 2049 Laboratory Tests 01/24 0805 Chemistry Sodium Pending Potassium Pending Chloride Pending Carbon Dioxide Pending Anion Gap Pending BUN Pending Creatinine Pending BUN/Creatinine Ratio Pending Total Bilirubin Pending Direct Bilirubin Pending AST Pending ALT Pending Alkaline Phosphatase Pending Total Protein Pending Albumin Pending Vital Signs Date Time Temp Pulse Resp B/P B/P Pulse O2 O2 Flow FiO2 Mean Ox Delivery Rate 01/24 0641 98.1 107 20 136/64 94 Venti Mask 01/24 0000 93 Venti Mask 28% 01/23 2207 98.7 100 18 136/62 93 01/23 1600 95 Venti Mask 28% 01/23 1500 97.9 93 20 136/62 95 01/23 1425 97 Venti Mask 28% Intake & Output 01/24 1600 01/24 0800 01/24 0000 Intake Total 200 200 Output Total 500 Balance 200 -300 Intake, Oral 200 200 Output, Urine 500 Chest X-Ray 01/23/18 revealed small bilateral pleural effusions with air space opacity comparing to previous CXR the radiologist's impression that there was no significant change and the patient's CXR is consistent with that of CHF Echocardiogram 01/21/18 normal size LV & wall thickness normal LV EF estimated to be >65% flattened septum in systole and diastole consistent with RV pressure and volume overload moderate atrial dilation mild MR, mild , trace AR, moderate TR, mild pulmonary HTN, trace NE, Dilated inferior vena cava Physical Exam General apperance: AOx3, sitting up in bed, no acute distress HEENT: slight scleral icterus, spider angioma lower left jaw CV: regular rhythym, regular rate, normal S1&S2 Pulm: slight crackles at the lung bases bilaterally Abd: normal bowel sounds, non-tender, soft Ext: 1+ pitting edema bilaterally at the ankle Assessment/Plan Assessment: Ms. Ace is a 62 year old female with a past medical history significant for anxiety, depression, cirrhosis, esophageal varcies, H Pylori gastritis, breast cancer s/p masectomy and chemotherapy who presented to the ED and admitted to the ICU for hematemesis. This was found to be a result of an oral laceration that was sutured. She was transferred to the general medical floor on 01/21/18. She also was found to be short of breath and was found to be in CHF. She has been seen by GI, nephrology and PT during her hospitalization. She lives at home with her daughter. She has been on oxygen during her stay in the hospital but does not recieve oxygen at home. She is a prior smoker and alcoholic with her last drink being around [place]. She has improved over the course of her hospitalization with her breathing improving. Plan: Problem List: 1. Acute Hypoxia 2. SHELLEY 3. Oral laceration 4. Alcoholic cirrhosis 5. Chronic medical problems #Acute Hypoxia: Patient previously had difficulty breathing, orthopnea and peripheral pitting edema. On chest xray and echocardiogram studies it was found that she had a normal LV ejection fraction, however she had RV pressure and volume overload. Her BNP was elevated on 01/22/18 and on 01/23/18 further supporting volume overload. She was given lasix and spirnolactone on 01/23/19 and diuressed a total of 1100 cc's from yesterday into today. She reports improved breahting, improved orthonpnea as she was able to lay 30 degrees flat with two pillows last night and a significantly reduced JVD over a 24 hour period. She is seen by Dr. Conn who suggests he would like to see Ms. Ace's spirnolactone increased and lasix discontinued at the time of discharge due to concern of volume depletion. Her potassium is 3.6 at this time and her sodium is 141. Her BUN/Cr ratio is 17.5 with a GFR > 60. She has been on oxygen supplemenation for the duration of her hospitalization. Her oxygenation should be assessed prior to discharge. -Continue Lasix and Spirnolactone today -Monitor O2 saturation off oxygen while at rest and ambulatory -PT consult -consider discharge today if O2 sat and PT consult determine she is physically stable and saturating well -If discharging today consider sending home on Spirnolactone alone -matain heart healthy low sodium diet #SHELLEY: Patient has improved creatinine levels from 1.4 from when she first arrived with a spike of 1.8 to wnl and today being at 0.8. She also has improved BUN from being in the 30s to 14 today. Her estimated GFR has also significantly improved from 38 with a low of 28 to >60 the past two days. Patient most likely had decreased right sided cardiac output leading to reval venous congestion resulting in volume retention. This could be explained by hypervolemic hypotonic hyponatremia seen on blood work up. Her potassium level is wnl, 3.6 today with it being just above the lower limit of normal. Dr. Conn suggested increasing the patients Spirnolactone and removing lasix at discharge which would help raise her potassium as well. -Continue diuresis -As labs have resolved f/u in outpatient -Appreciate nephrology recommendations -f/u electrolytes in outpatient setting #Oral laceration: Patient presented with bleeding, there was concern this was from ruptured esophogeal varcies. However she was found to have an oral laceration, subsequently recieiving repair via sutures of her lower left lip, with no indications of local infection. She is also being followed for the presence of esophageal varcies as a result of alcohol abuse. -Continue to monitor for signs of infection #Alcoholic cirrhosis: Patient has a history of esophageal varcies and it was initially worrying that her initial bleeding presentation was related to rupture. Endoscopy revealed that there was no evidence of bleeding or rupture. She reports that she has not had any ETOH use since . She does have spider angioma present on her face, and some scleral icterus. Her low platelet count is likely due to her alcohol abuse. -Spirnolactone -Omeprazole -No NSADs -Appreciate GI recommendations -Due to questionable kidney function, schedule MRI of the liver outpatient when numbers improve #Chronic medical problems -take medications as prescribed DVT ppx: ALPS Heart healthy low sodium diet Full code
--- NOTE | 2018-01-24 10:47 | PN- Nephrology ---
Assessment/Plan Nephrology Assessment: Still with some edema no longer in respiratory distress. Suggestion: Could increase spironolactone further but realize it takes many days to reach equilibrium levels. Would try to avoid discharging her on Lasix as risk of another bout of volume depletion high, can induce HRS. If she requires Lasix as outpatient will need very close monitoring. Subjective Subjective: Breathing much better today. Objective Vital Signs and I&Os Vital Signs Date Time Temp Pulse Resp B/P B/P Pulse O2 O2 Flow FiO2 Mean Ox Delivery Rate 01/24 641 98.1 107 20 136/64 94 Venti Mask 01/24 0000 93 Venti Mask 28% 01/23 2207 98.7 100 18 136/62 93 01/23 1600 95 Venti Mask 28% 01/23 1500 97.9 93 20 136/62 95 01/23 1425 97 Venti Mask 28% Intake & Output 01/24 1600 01/24 0400 01/23 1600 01/23 0400 01/22 1600 01/22 0400 Intake Total 200 200 800 091 0629 1666 Output Total 500 200 600 250 Balance 200 -300 741 596 1306 1416 Intake, IV 50 1000 1186 Intake, Oral 200 200 360 480 660 480 Number 1 Bowel Movements Output, Urine 500 200 600 250 Physical Exam: NAD VS as above Lungs: clear CV: no rub Abd: nontender Exts: 1+ pedal edema Neuro: Awake, no asterixis. Results Pertinent Lab Results: Laboratory Tests 01/24 01/23 0805 0831 Chemistry Sodium (137 - 145 mmol/L) 141 138 Potassium (3.5 - 5.1 mmol/L) 3.6 3.8 Chloride (98 - 107 mmol/L) 104 105 Carbon Dioxide (22 - 30 mmol/L) 19 L 18 L Anion Gap (5 - 16) 18 H 15 BUN (7 - 17 mg/dL) 14 18 H Creatinine (0.5 - 1.0 mg/dL) 0.8 0.7 Estimated GFR (>60 ml/min) > 60 > 60 BUN/Creatinine Ratio (7 - 25 %) 17.5 25.7 H Total Bilirubin (0.2 - 1.3 mg/dL) 8.0 H 7.6 H Direct Bilirubin (< 0.4 mg/dL) 5.4 H 4.9 H AST (14 - 36 U/L) 27 28 ALT (9 - 52 U/L) 16 17 Alkaline Phosphatase (<127 U/L) 84 88 [id number] Pept (<125 pg/mL) 5710 H Total Protein (6.3 - 8.2 g/dL) 7.5 7.8 Albumin (3.5 - 5.0 g/dL) 4.0 4.5 Hematology CBC w Diff NO MAN DIFF REQ WBC (4.8 - 10.8 /CUMM) 5.6 RBC (4.20 - 5.40 /CUMM) 2.53 L Hgb (12.0 - 16.0 G/DL) 8.6 L Hct (37 - 47 %) 24.9 L MCV (81.0 - 99.0 FL) 98.4 MCH (27.0 - 31.0 PG) 34.0 H MCHC (33.0 - 37.0 G/DL) 34.5 RDW (11.5 - 14.5 %) 17.3 H Plt Count (130 - 400 /CUMM) 84 L MPV (7.4 - 10.4 FL) 7.0 L Gran % (42.2 - 75.2 %) 65.4 Lymphocytes % (20.5 - 51.1 %) 23.4 Monocytes % (1.7 - 9.3 %) 7.1 Eosinophils % (0 - 5 %) 3.9 Basophils % (0.0 - 2.0 %) 0.2 Absolute Granulocytes (1.4 - 6.5 /CUMM) 3.6 Absolute Lymphocytes (1.2 - 3.4 /CUMM) 1.3 Absolute Monocytes (0.10 - 0.60 /CUMM) 0.4 Absolute Eosinophils (0.0 - 0.7 /CUMM) 0.2 Absolute Basophils (0.0 - 0.2 /CUMM) 0 04/17 0745 Chemistry Sodium (137 - 145 mmol/L) 139 Potassium (3.5 - 5.1 mmol/L) 3.7 Chloride (98 - 107 mmol/L) 107 Carbon Dioxide (22 - 30 mmol/L) 17 L Anion Gap (5 - 16) 15 BUN (7 - 17 mg/dL) 25 H Creatinine (0.5 - 1.0 mg/dL) 1.0 Estimated GFR (>60 ml/min) 56 L Glucose (65 - 99 mg/dL) 92 Calcium (8.4 - 10.2 mg/dL) 8.7 Phosphorus (2.5 - 4.5 mg/dL) 3.0 Magnesium (1.6 - 2.3 mg/dL) 1.9 Total Bilirubin (0.2 - 1.3 mg/dL) 6.5 H AST (14 - 36 U/L) 30 ALT (9 - 52 U/L) 18 [id number]-Aqawfzltdsr Pept (<125 pg/mL) 4860 H Albumin (3.5 - 5.0 g/dL) 4.4 Hematology CBC w Diff NO MAN DIFF REQ WBC (4.8 - 10.8 /CUMM) 4.0 L RBC (4.20 - 5.40 /CUMM) 2.37 L Hgb (12.0 - 16.0 G/DL) 8.0 L Hct (37 - 47 %) 23.1 L MCV (81.0 - 99.0 FL) 97.5 MCH (27.0 - 31.0 PG) 33.7 H MCHC (33.0 - 37.0 G/DL) 34.5 RDW (11.5 - 14.5 %) 17.2 H Plt Count (130 - 400 /CUMM) 78 L MPV (7.4 - 10.4 FL) 7.5 Gran % (42.2 - 75.2 %) 51.0 Lymphocytes % (20.5 - 51.1 %) 35.2 Monocytes % (1.7 - 9.3 %) 7.4 Eosinophils % (0 - 5 %) 5.2 H Basophils % (0.0 - 2.0 %) 1.2 Absolute Granulocytes (1.4 - 6.5 /CUMM) 2.0 Absolute Lymphocytes (1.2 - 3.4 /CUMM) 1.4 Absolute Monocytes (0.10 - 0.60 /CUMM) 0.3 Absolute Eosinophils (0.0 - 0.7 /CUMM) 0.2 Absolute Basophils (0.0 - 0.2 /CUMM) 0
[2018-01-24 14:36] VITALS: BP 130/78
[2018-01-24 22:12] VITALS: BP 130/70
[2018-01-25 06:45] VITALS: BP 130/60
--- NOTE | 2018-01-25 07:07 | PN- Housestaff ---
See Addendum Subjective Follow-up For: Acute kidney injury, oral ulceration, acute hypoxic respiratory failure Subjective: No overnight events, her breathing continues to improve. She is ready go home today. Review of Systems Constitutional: Reports: no symptoms. EENTM: Reports: no symptoms. Cardiovascular: Reports: no symptoms. Respiratory: Reports: no symptoms. Gastrointestinal: Reports: no symptoms. Genitourinary: Reports: no symptoms. Musculoskeletal: Reports: no symptoms. Skin: Reports: no symptoms. Neurological/Psychological: Reports: no symptoms. Hematologic/Endocrine: Reports: no symptoms. Immunologic/Allergic: Reports: no symptoms. Objective Last 24 Hrs of Vital Signs/I&O Vital Signs Date Time Temp Pulse Resp B/P B/P Pulse O2 O2 Flow FiO2 Mean Ox Delivery Rate 01/25 0645 99.7 98 20 130/60 93 Room Air 01/24 2212 98.9 100 20 130/70 92 Venti Mask 2.0L 01/24 1600 93 Room Air 01/24 1436 97.5 91 18 130/78 95 Venti Mask 01/24 0800 94 Intake & Output 01/25 0800 01/25 0000 01/24 1600 Intake Total 350 Output Total Balance 350 Intake, Oral 350 Physical Exam General Appearance: Alert, Oriented X3, Cooperative, No Acute Distress Cardiovascular: Regular Rate, Normal S1, Normal S2 Lungs: mild crackles at base Abdomen: Normal Bowel Sounds, Soft, No Tenderness Extremities: mild edema Current Medications: Current Medications Sig/Freddy Start time Last Medication Dose Route Stop Time Status Admin Bacitracin 1 KHUSHBOO DAILY 01/20 1629 AC 01/24 TOP 1006 Benzocaine/Menthol 1 TAMY Q2P PRN 01/20 0515 AC 01/23 PO 0916 Docusate Sodium 100 MG DAILY PRN 01/19 193 AC PO Escitalopram Oxalate 10 MG DAILY 01/20 0900 AC 01/24 PO 1006 Furosemide 20 MG DAILY 01/23 1321 AC 01/24 IV 1006 Lorazepam 0.5 MG TIDPRN PRN 01/19 1930 AC 01/24 PO 01/26 Omeprazole 40 MG DAILY AC 01/24 0700 AC 01/25 PO 0612 Polyethylene Glycol 17 GM DAILY PRN 01/19 1930 AC PO Senna 187 MG AT BEDTIME PRN 01/19 1930 AC 01/24 PO 2000 Spironolactone 25 MG DAILY 01/23 0945 AC 01/24 PO 1006 Ursodiol 1,000 MG QPM 01/20 2100 AC 01/24 PO 2000 Last 24 Hrs of Lab/Bhupendra Results Last 24 Hrs of Labs/Mics: Laboratory Tests 01/24/18 0805: Anion Gap 18 H, Estimated GFR > 60, BUN/Creatinine Ratio 17.5, Total Bilirubin 8.0 H, Direct Bilirubin 5.4 H, AST 27, ALT 16, Alkaline Phosphatase 84, Total Protein 7.5, Albumin 4.0 Assessment/Plan Assessment: Ms. Ace is a 62-year-old female with past medical history significant for anxiety/depression, cirrhosis/portal hypertension, esophageal varices (secondary to alcohol), H pylori gastritis, breast cancer status post mastectomy and chemotherapy therapy (as 14 years ago), colon adenoma, chronic back pain who was initially admitted to the ICU for hematemesis later found to be an oral laceration that was sutured and is now transferred to general medicine on after stabilization of her condition. Problem List: 1. Acute kidney injury 2. Oral laceration 3. Alcoholic cirrhosis 4. Acute hypoxic respiratory failure 5. Diastolic heart failure #Acute hypoxic respiratory failure: The patient's dyspnea has markedly improved status post diuresis. Chest x-ray on admission did show fluid overload and she received a lot of fluid. 2 repeat chest x-rays continued to show fluid overload. TTE revealed stage III diastolic dysfunction. Her dyspnea was likely secondary to right heart failure. BNP was elevated. She is still requiring oxygen while ambulating however. Therefore we'll send her home with oxygen temporarily at least. -Continue furosemide 20 mg IV daily -Continue oxygen therapy, home with oxygen -Ambulatory saturations #Acute kidney injury: The patient presented with a creatinine of 1.4 and this up trended to 1.8 despite fluid hydration. Nephrology evaluated. Urine electrolytes showed a low sodium. Abdominal ultrasound shows no hydronephrosis and mild ascites. Creatinine has returned to baseline of 1.0. This was likely prerenal given the FENA but may have been caused by low output heart failure/decreased circulating volume rather than actual hypovolemia. -Appreciate nephrology recommendations #Oral laceration: Patient seen that showed bleeding site from the corner of the left lower lip that was sutured by surgery, 3 columns of non-bleeding 1+ esophageal varices from 30-40 cm (supine position), without any red nikolai sign, left intact, No junctional varices, fairly large non-bleeding proximal gastric fundic varices, towards the greater curvature aspect, just below the cardia, & some smaller non-bleeding gastric fundic varices, distal to this, and mild non- bleeding proximal portal m gastropathy in the fundus & upper body of the stomach. She is unsure of how she received the oral laceration. -Local wound care -Bacitracin -Outpatient dentistry follow-up #Alcoholic cirrhosis: Patient says she has not drank since . She does have a history of alcoholic cirrhosis with esophageal and gastric varices. Endoscopy did not reveal any active bleeding. Her thrombocytopenia is likely secondary to alcohol use. -2 g sodium diet -Spironolactone -Oral omeprazole -No NSAIDs -Limited acetaminophen to 2 g per day -Appreciate GI recommendations -Outpatient MRI of the liver #Chronic medical problems: Continue other medications DVT prophylaxis with Alps 2 g sodium diet Full code Problem List: 1. SHELLEY (acute kidney injury) 2. Cirrhosis 3. Diastolic CHF Pain Ratin Pain Location: no Pain Goal: Remain pain free Pain Plan: see a/p Tomorrow's Labs & Rationales: no
--- NOTE | 2018-01-25 08:00 | Discharge Summary ---
Visit Information Visit Dates Admission Date: 01/19/18 Discharge Date: 01/25/18 Hospital Course Course Attending Physician: Gela Almanza MD Primary Care Physician: Ta OROZCO,[facility] Course: Ms. Ace is a 62-year-old female with past medical history significant for anxiety/depression, cirrhosis/portal hypertension, esophageal varices (secondary to alcohol), H pylori gastritis, breast cancer status post mastectomy and chemotherapy therapy (as 14 years ago), colon adenoma, chronic back pain who was initially admitted to the ICU for hematemesis later found to be an oral laceration that was sutured and was then transferred to general medicine on 01/21 after stabilization of her condition. Problem List: 1. Oral laceration 2. Acute kidney injury 3. Alcoholic cirrhosis 4. Acute hypoxic respiratory failure 5. Heart failure with preserved ejection fraction #Oral laceration: Patient presented with supposed hematemesis but was later found to have bleeding site from the corner of the left lower lip that was sutured by surgery. Gastroenterology was consulted. Endoscopy revealed 3 columns of non-bleeding 1+ esophageal varices from 30-40 cm (supine position), without any red nikolai sign, left intact, no junctional varices, fairly large non-bleeding proximal gastric fundic varices, towards the greater curvature aspect, just below the cardia, some smaller non-bleeding gastric fundic varices, distal to this, and mild non-bleeding proximal portal gastropathy in the fundus & upper body of the stomach. She is unsure of how she received the oral laceration. She does note that she has poor dental hygiene and severe gingivitis. She should continue local wound care and follow-up with a dentist. #Acute hypoxic respiratory failure: The patient developed dyspnea after being transferred general medicine. Chest x-ray on admission did show fluid overload and she received a lot of fluid. 2 repeat chest x-rays continued to show fluid overload. TTE revealed stage III diastolic dysfunction. Her dyspnea was likely secondary to right heart failure. BNP was elevated. Her dyspnea improved with diuresis. The patient desaturated to 88% ambulating on room air and will need home oxygen. Her oxygen saturation returned to 93/94% with oxygen. #Acute kidney injury: The patient presented with a creatinine of 1.4 and this up trended to 1.8 despite fluid hydration. Nephrology evaluated. Urine electrolytes showed a low sodium. There was initial concern for hepatorenal syndrome. Abdominal ultrasound shows no hydronephrosis and mild ascites. Creatinine has returned to baseline of 1.0. This was likely prerenal given the FENA but may have been caused by low output heart failure/decreased circulating volume rather than actual hypovolemia. She should continue to avoid NSAIDs and nephrotoxic medications. #Alcoholic cirrhosis: Patient says she has not drank since . She does have a history of alcoholic cirrhosis with esophageal and gastric varices. Endoscopy did not reveal any active bleeding. Her thrombocytopenia was likely secondary to alcohol use. She was maintained on a 2 g sodium diet and her spironolactone was restarted. She should continue avoiding NSAIDs and limit acetaminophen to 2 g per day. She will also need an outpatient MRI of the liver and follow-up with gastroenterology. #Chronic medical problems: Her other home medications were continued. Allergies: Coded Allergies: Penicillins (TROUBLE BREATHING AN 01/19/18) Disposition Summary Disposition Principal Diagnosis: 1. Oral laceration Additional Diagnosis: 2. Acute kidney injury 3. Alcoholic cirrhosis 4. Acute hypoxic respiratory failure 5. Heart failure with preserved ejection fraction Discharge Disposition: home or self care Discharge Instructions General Discharge Information Code Status: Full Code Patient's Diet: 2 g sodium diet, abstain from all alcohol use Patient's Activity: As tolerated Follow-Up Instructions/Appts: Please take all medications as directed. Please follow-up with primary care and gastroenterology for MRI of the liver. Please avoid all alcohol. Medications at Discharge Discharge Medications: Continue taking these medications: Spironolactone (Spironolactone) 25 MG TABLET 1 Tablet ORAL DAILY Qty = 30 Lorazepam (Lorazepam) 0.5 MG TABLET 1 Tablet ORAL THREE TIMES A DAY NEEDED as needed for ANXIETY Qty = 30 Propranolol HCl (Propranolol HCl) 20 MG TABLET 1 Tablet ORAL TWICE DAILY Qty = 60 Escitalopram Oxalate (Escitalopram Oxalate) 10 MG TABLET 1 Tablet ORAL DAILY Qty = 30 Ursodiol (Ursodiol) 500 MG TABLET 2 Tablet ORAL TAKE AT BEDTIME Qty = 60 Lactulose (Lactulose) 10 GRAM/15 ML SOLUTION 30 Milliliters ORAL TWICE DAILY Qty = 1000 Start taking the following new medications: Omeprazole (Omeprazole) 20 MG CAPSULE.DR 40 Milligram ORAL DAILY BEFORE BREAKFAST Qty = 60 No Refills Instructions: . Bacitracin (Bacitracin Zinc) 500 UNIT/GRAM OINT...G. 1 Application On the skin DAILY Qty = 1 No Refills Instructions: . Copies To: Maya OROZCO,Dong Stephens; Fabien OROZCO,Crow Garcia; Lorin OROZCO,Mervin Romo; Jacobo Espinal ; Ta OROZCO,Jean Carlos; Barry OROZCO,Thomas Torres
--- NOTE | 2018-01-25 08:24 | PN- Student ---
Subjective Subjective: No overnight events reported. Patient states that she is feeling and breathing well. She will have repeat amblulatory oxygen saturation testing done today after breakfast. Otherwise she is looking forward to going home today. She denies any chest pain, palpatations, headache, n/v or skin rashes/brusing. Objective Objective: Current Medications Sig/Freddy Start time Last Medication Dose Route Stop Time Status Admin Bacitracin 1 KHUSHBOO DAILY 01/20 1629 AC 01/24 TOP 1006 Benzocaine/Menthol 1 TAMY Q2P PRN 01/20 0515 AC 01/23 PO 0916 Docusate Sodium 100 MG DAILY PRN 01/19 1930 AC PO Escitalopram Oxalate 10 MG DAILY 01/20 0900 AC 01/24 PO 1006 Furosemide 20 MG DAILY 01/23 1321 AC 01/24 IV 1006 Lorazepam 0.5 MG TIDPRN PRN 01/19 1930 AC 01/24 PO 01/26 Omeprazole 40 MG DAILY AC 01/24 0700 AC 01/25 PO 0612 Polyethylene Glycol 17 GM DAILY PRN 01/19 193 AC PO Senna 187 MG AT BEDTIME PRN 01/19 193 AC 01/24 PO 2000 Spironolactone 25 MG DAILY 01/23 0945 AC 01/24 PO 1006 Ursodiol 1,000 MG QPM 01/20 2100 AC 01/24 PO 1999 Laboratory Tests 01/24 0805 Chemistry Sodium (137 - 145 mmol/L) 141 Potassium (3.5 - 5.1 mmol/L) 3.6 Chloride (98 - 107 mmol/L) 104 Carbon Dioxide (22 - 30 mmol/L) 19 L Anion Gap (5 - 16) 18 H BUN (7 - 17 mg/dL) 14 Creatinine (0.5 - 1.0 mg/dL) 0.8 Estimated GFR (>60 ml/min) > 60 BUN/Creatinine Ratio (7 - 25 %) 17.5 Total Bilirubin (0.2 - 1.3 mg/dL) 8.0 H Direct Bilirubin (< 0.4 mg/dL) 5.4 H AST (14 - 36 U/L) 27 ALT (9 - 52 U/L) 16 Alkaline Phosphatase (<127 U/L) 84 Total Protein (6.3 - 8.2 g/dL) 7.5 Albumin (3.5 - 5.0 g/dL) 4.0 Vital Signs Date Time Temp Pulse Resp B/P B/P Pulse O2 O2 Flow FiO2 Mean Ox Delivery Rate 01/25 0645 99.7 98 20 130/60 93 Room Air 01/24 2212 98.9 100 20 130/70 92 Venti Mask 2.0L 01/24 1600 93 Room Air 01/24 1436 97.5 91 18 130/78 95 Venti Mask 01/24 0800 94 Intake & Output 01/25 0800 01/25 0000 01/24 1600 Intake Total 350 Output Total Balance 350 Intake, Oral 350 Physical Exam General apperance: AOx3, sitting in bed comfortably no signs of acute distress CV: regular rate and rhythym, normal S1 & S2, JVD improved significantly Pulmonary: Room air, Posterior lung hall clear on ausculataion Abdomen: normal bowel sounds, soft, non-tender Extremities: Slight peripheral edema at the ankle, improved from yesterday Assessment/Plan Assessment: Ms. Ace is a 62 year old female with a Past medical history significant for anxiety, depression, cirrohsis, portal hypertension, esophageal varcies, H. pylori gastritis and breast cancer s/p masectomy and chemotherapy presented to the hospital initially with hematemesis on 01/19/18. It was initially worried this was due to esophageal variceal rupture. However after endoscopic study and upon further inspection it was deemed to be due to an oral laceration which was repaired with suture. She was initially admitted to the ICU and then transfered to the medical floor on 01/21/18. Over the duration of her hospitalization it was discovered that she was experiencing right sided volume and presure overload, leading to her experiencing dyspnea, orthopnea, and peripheral edema. She has been subsequently given IV lasix and spirnolactone to reduce her volume burden. Today her breathing and peripheral edema are much improved and the patient feels that she is ready for discharge. However she did use supplemental oxygen via venti mask last night, as she states it was more as a safety blanket than actual need. She did desaturate on ambulation yesterday, and required oxygen while ambulating. Plan: Problem list: 1. Acute Hypoxia 2. SHELLEY 3. Oral Laceration 4. Alcoholic Cirrhosis 5 Chronic medical problems #Acute Hypoxia: Patient has improved significantly showing only slight peripheral edema today at the ankle and increased ease of breathing. She reports producing a total of 1100 ccs of urine over the course of yesterday evening into this morning. However her oxygen saturation on ambulation yesterday reportedly did drop she feels she is ready to go home today. She will perform another ambulatory oxygen saturation testing again today prior to possible discharge. Furthermore Ms. Ace did use the ventimask last night as she stated it was her safety blanket. It is likely she will be discharged with supplemental oxygen. After consultation with nephrology it was recommended that she go home on spirnolactone alone, as nephrology is worried about discharging with lasix. -Continue Spirnolactone therapy at home -One dose of lasix this morning prior to discharge -discharge with oxygen supplementation PRN -Home incentive spirometry -f/u with pcp #SHELLEY: Ms. Ace kidney function testing is greatly improved with her BUN and Cr being 14 and 0.8 as of yesterday morning. She will have repeat blood work this morning prior to possible discharge. Furthermore her sodium and potassium levels have also remained wnl. It is likely this was related to her right heart dysfunction as her kidneys were not adequately perfused due to the heart overload. -appreciate nephrology recommendation -f/u with ssn/ssbn assistant navigator when discharged #Oral Laceration: Patient initially presented to the hospital for a bleed that was suspected to be an esophgeal variceal rupture. However it was discovered to be the result of an oral laceration that was repaired. She has not had any episodes of hemoptysis or hematesis during her hospitalization on the medical floor. -watch for signs of infection -continue wound hygeine #Alcoholic Cirrhosis: Patient has a histroy of cirrhosis due to alcohol abuse. She does have an elevated total and direct bilirubin which is likely related to her liver cirrhosis. She will have liver imaging done outpatient when she recovers from her hospitalization. -f/u with pcp -avoid hepatotoxins #Chronic medical problems: -continue home medications as prescribed DVT ppx: ALPS Heart healthy low sodium diet Full code
[2018-01-25] MEDS ORDERED: OMEPRAZOLE20 M2 PO (09:41)
[2018-01-25] MEDS ORDERED: BACITRACIN ZIN120 GM TOP (09:41)
[2018-01-25 14:09] VITALS: BP 128/60
== END 2018-01-25 15:00 | disposition home health service (06) | DRG 157 ==
LOC: ERH 11:35 → ERHI 17:32 → CRI 17:32 → ENRESERV 18:20 → ENTRNSPT 19:48 → EDTRNSPTSTS 19:55 → EDTRNSPT 19:55 → CRI 19:57 → CMPTRNSPT 20:28 → ENTRNSPT 01-21 22:10 → EDTRNSPTSTS 01-21 22:20 → EDTRNSPT 01-21 22:20 → CMPTRNSPT 01-21 22:41 → 2NA 01-21 22:44 → ENPENDDIS 01-25 09:44 → 2NA 01-25 15:00
PROVIDERS: Emergency Medicine; Hospitalist; Internal Medicine; Physician Assistant Medical
PROC: 0DJ08ZZ Inspection of Upper Intestinal Tract, Via Natural or Artificial Opening Endoscopic (ICD-10-PCS; principal; 2018-01-19)
PROC: 0CQ1XZZ Repair Lower Lip, External Approach (ICD-10-PCS; 2018-01-19)
DX: S01.511A Laceration without foreign body of lip, initial encounter (principal); J96.01 Acute respiratory failure with hypoxia; N17.9 Acute kidney failure, unspecified; D69.6 Thrombocytopenia, unspecified; D62 Acute posthemorrhagic anemia; I85.10 Secondary esophageal varices without bleeding; I95.9 Hypotension, unspecified; I50.32 Chronic diastolic (congestive) heart failure; K76.6 Portal hypertension; F32.9 Major depressive disorder, single episode, unspecified; F41.9 Anxiety disorder, unspecified; K29.70 Gastritis, unspecified, without bleeding; B96.81 Helicobacter pylori [H. pylori] as the cause of diseases classified elsewhere; Z85.3 Personal history of malignant neoplasm of breast; Z90.10 Acquired absence of unspecified breast and nipple; M54.9 Dorsalgia, unspecified; Z80.0 Family history of malignant neoplasm of digestive organs; Z88.0 Allergy status to penicillin; F10.10 Alcohol abuse, uncomplicated; K59.00 Constipation, unspecified; K70.30 Alcoholic cirrhosis of liver without ascites
CPT/HCPCS: 2NASP; 82570; 84133; 84156; 84166; 84300; CCU; 36415; 36592; 71045; 71046; 81001; 82436; 84165; 87040; 87086; 93005; 93010; 93306; 96374; 96375; J0131; J0696; J1940; J2354; J7040; J7060; P9047

== ENCOUNTER 2018-02-28 10:46 | Inpatient (IN) | payer OTHER ==
[~2018-02-28] VITALS: Ht 175.3 cm; Wt 94.9 kg
[~2018-02-28 10:46] MED LIST changes: +BACITRACIN ZIN120 GM TOP; +ESCITALOPRAM OX10 MG PO; +LACTULOSE10 GM/153 PO; +LORAZEPAM0.5 M1 PO; +OMEPRAZOLE20 M2 PO; +PROPRANOLOL HCL20 M1 PO; +SPIRONOLACTONE25 M1 PO; +URSODIOL500 M1 PO
--- NOTE | 2018-02-28 11:06 | ED DYSPNEA/ASTHMA COMPLAINT ---
History of Present Illness General Chief Complaint: General Adult Stated Complaint: UNABLE TO URINATE X 3 DAYS Source: patient, old records Exam Limitations: no limitations Vital Signs & Intake/Output Vital Signs & Intake/Output Vital Signs Date Time Temp Pulse Resp B/P B/P Pulse O2 O2 Flow FiO2 Mean Ox Delivery Rate 02/28 1416 97.5 54 24 90/56 92 Nasal Cannula 02/28 1252 97.8 54 20 84/40 95 Nasal 3.0L Cannula 02/28 1154 91 Nasal 2.0L Cannula 02/28 1055 96.9 56 22 86/40 92 Nasal 2.0L Cannula Allergies Coded Allergies: Penicillins (TROUBLE BREATHING AN 01/19/18) Reconcile Medications Escitalopram Oxalate 10 MG TABLET 1 TAB PO DAILY MENTAL HEALTH (Reported) Lactulose 10 GRAM/15 ML SOLUTION 30 ML PO DAILY CONSTIPATION (Reported) Lorazepam 0.5 MG TABLET 1 TAB PO TIDPRN PRN ANXIETY (Reported) Propranolol HCl 20 MG TABLET 1 TAB PO BID VARICES (Reported) Rifaximin (Xifaxan) 550 MG TABLET 1 TAB PO BID GI (Reported) Spironolactone 25 MG TABLET 1 TAB PO DAILY DIURETIC (Reported) Ursodiol 500 MG TABLET 2 TAB PO QHS BILE (Reported) Triage Note: PT STATES THAT SHE FEELS LIKE SHE HAS TO URINATE THE PAST 3 DAYS AND WHEN SHE GOES SHE ONLY DRIBBLES. PT HAS CHIROSIS . SKIN JAUNDICE, PT O2 DEPENDENT AND STATES THAT SHE FEELS SOB, O2 SAT 92 % ON 2L VIA NC. ALSO STATES THAT SHE HAS INCREASED BILATERAL LOWER EXTREMITIE EDEMA AND WEIGHT GAIN Triage Nurses Notes Reviewed? yes Onset: Abrupt Duration: day(s): (2), constant Timing: recent history Severity: moderate Prior Episodes/Possible Cause: occasional episodes Associated Symptoms: edema HPI: 62-year-old female with past medical history significant for anxiety/depression, cirrhosis/portal hypertension, esophageal varices (secondary to alcohol), H pylori gastritis, breast cancer status post mastectomy and chemotherapy therapy (as 14 years ago), colon adenoma, chronic back pain, CHF presents to ER with family for evaluation complaining of progressively worsening shortness of breath worse with exertion bilateral leg swelling and decreased urine output for the past 3 days. Her family states this is similar to her previous presentation one month ago which time she was in the emergency room and admitted for acute kidney injury in the emergency room and admitted for acute kidney injury No fever no chills no chest pain. There has been no change in mental status no lethargy fa or recent trauma (Vic Gooden) Past History Travel History Traveled to [place] past 21 day No Medical History Any Pertinent Medical History? see below for history Neurological: NONE EENT: NONE Cardiovascular: HYPOTENSION Respiratory: NONE Gastrointestinal: hx colon adenoma Hepatic: cirrhosis (Et[place], ? 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 , Age 72; Cause: Hepatoma. FATHER, , Age 64; Cause: Colon cancer. Hx Contributory? No (Vic Gooden) Review of Systems Review of Systems Constitutional: Reports: see HPI. Comments Insert review of systemsReview of systems: See HPI, All other systems negative. Constitutional, no chills no fever, (+) malaise no weight loss HEENT: no sore throat no congestion, no ear pain Cardiovascular: No chest pain , no palpitation Skin: no rashes, no change in skin Respiratory: (+) dyspnea no cough no sputum no hemoptysis GI: No nausea no vomiting, no diarrhea : No dysuria No hematuria, no frequency Muscle skeletal: No joint pain, no back pain, no neck pain, Neurologic: , no headache Psych: No stress Heme/endocrine: No bruising Immunology: No lymphadenopathy (Vic Gooden) Physical Exam Physical Exam General Appearance: well developed/nourished, alert Respiratory: normal breath sounds Comments: Insert full physical examWell-developed well-nourished person in no acute distress HEENT: Normal EENT exam; PERRL, EOMI, HEAD is atraumatic. moist mucous membranes. Neck: Supple, normal range of motion without pain or tenderness Back: Nontender, no CVA tenderness. Full range of motion Cardiovascular: Regular rate and rhythms no murmurs rubs or gallops Respiratory: Chest nontender.There were no bony deformities, no asymmetry. No respiratory distress. Patient speaking in full complete sentences. Diminished breath sounds Diminished breath sounds Abdomen: Soft, nontender nondistended, no appreciable organomegaly. Normal bowel sounds. No rebound/guarding, No appreciable enlargement of the abdominal aorta, ascites. Extremity: No edema, full range of motion of extremities, normal and equal pulses bilaterally, 5 out of 5 strength noted to bilateral upper and lower extremities Neuro: Alert oriented x3, motor sensory normal, cranial nerves II through XII grossly intact. There were no obvious focal neurologic abnormalities. Skin: Jaundiced, Jaundice,skin is warm and dry. Psych: Mood and affect is normal, memory and judgment is normal. Core Measures ACS in differential dx? Yes CVA/TIA Diagnosis No Sepsis Present: No Sepsis Focused Exam Completed? No (Joe MONTANO,Vic) Progress Differential Diagnosis: asthma, AMI, CHF, COPD, acute kidney injury ascites Plan of Care: Orders Procedure Date/time Status Heart Healthy Diet 02/28 D Active Intake & Output 02/28 1446 Active Pathway - chart 02/28 1324 Active House Staff 02/28 1324 Active Patient Data 02/28 1324 Active Code Status 02/28 1324 Active Patient Data 02/28 1320 Active ED Holding Orders 02/28 1248 Active Admit to inpatient 02/28 1248 Active Vital Signs 02/28 1248 Active Code Status 02/28 1248 Complete Quintana, Insertion/Removal/Asses 02/28 1225 Active TROPONIN LEVEL 02/28 1140 Complete COMPREHENSIVE METABOLIC PANEL 02/28 1140 Complete B-TYPE NATRIURETIC PEP (BNP) 02/28 1140 Complete Telemetry/Leather Grainer 02/28 1121 Active AMMONIA 02/28 1121 Complete LACTIC ACID 02/28 1121 Complete EKG 02/28 1121 Active PARTIAL THROMBOPLASTIN TIME 02/28 1106 Complete PROTHROMBIN TIME 02/28 1106 Complete CULTURE,URINE 02/28 1057 Active URINALYSIS 02/28 1057 Active CBC WITHOUT DIFFERENTIAL 02/28 1057 Complete VTE Mechanical Prophylaxis 02/28 UNK Active Current Medications Sig/Freddy Start time Last Medication Dose Stop Time Status Admin Sodium Chloride 1,000 ML ONCE ONE 02/28 1130 AC 02/28 (Normal Saline 0.9%) 02/28 1809 1151 Laboratory Tests 02/28/18 1421: Lactic Acid Cancelled 02/28/18 1140: Anion Gap 19 H, Estimated GFR 9 L, BUN/Creatinine Ratio 9.4, Glucose 115 H, Lactic Acid 1.7, Calcium 9.2, Total Bilirubin 15.4 H, AST 39 H, ALT 22, Alkaline Phosphatase 122, Ammonia 82 H, Troponin I 0.02, Dga-O-Fzccyfibpbf Pept 31434 H, Total Protein 8.1, Albumin 4.2, Globulin 3.9, Albumin/Globulin Ratio 1.1, PT 20.3 H, INR 1.85 H, APTT 36, CBC w Diff MAN DIFF ORDERED, RBC 2.19 L, MCV 102.8 H, MCH 36.9 H, MCHC 35.9, RDW 20.2 H, MPV 8.2, Gran % 64.1, Lymphocytes % 26.5, Monocytes % 9.1, Eosinophils % 0, Basophils % 0.3, Absolute Granulocytes 4.3, Absolute Lymphocytes 1.8, Absolute Monocytes 0.6, Absolute Eosinophils 0, Absolute Basophils 0, Platelet Estimate DECREASED, Poikilocytosis 2+, Anisocytosis 2+, Parlin Cells 2+, Schistocytes 02/28/18 1059: Troponin I Cancelled, Myw-F-Uapalkefwwy Pept Cancelled 02/28/18 1057: Sodium Cancelled, Potassium Cancelled, Chloride Cancelled, Carbon Dioxide Cancelled, Anion Gap Cancelled, BUN Cancelled, Creatinine Cancelled, BUN/ Creatinine Ratio Cancelled, Glucose Cancelled, Calcium Cancelled, Total Bilirubin Cancelled, AST Cancelled, ALT Cancelled, Alkaline Phosphatase Cancelled, Total Protein Cancelled, Albumin Cancelled, Globulin Cancelled, Albumin/Globulin Ratio Cancelled Microbiology 02/28 1057 URINE ROUT: Urine Culture - ORD Labs ordered old records reviewed gentle hydration ordered x-rays ordered Case discussed with Dr. Ybarra who is in to evaluate the patient agrees with plan I discussed with the patient and family at length all of her labs patient was hypotensive during her last visit to the ER has a history of hypotension she is mentating alert and oriented [address] Ybarra put a call to the hospitalist and nephrology, lactulose ordered for elevated ammonia she is alert and oriented 3 Diagnostic Imaging: Viewed by Me: Radiology Read. Discussed w/RAD: Radiology Read. Radiology Impression: PATIENT: PASCUAL WHITE PRESENT AGE: 62 PATIENT ACCOUNT NO: [id number] : 53 LOCATION: [facility] ORDERING PHYSICIAN: Vic MONTANO SERVICE DATE: 02/28/18 EXAM TYPE: RAD - XRY- PORTABLE CHEST XRAY EXAMINATION: XR PORTABLE CHEST CLINICAL INFORMATION: Dyspnea. COMPARISON: 01/23/2018 TECHNIQUE: Portable frontal view of the chest was obtained. FINDINGS: Since the previous study there has been a significant increase in right subpulmonic pleural effusion. In addition, there is a probable left subpulmonic effusion as well. There is upper zone redistribution consistent with elevated left ventricular end-diastolic pressure and pulmonary vascular congestion. No gross interstitial pulmonary edema is seen. Heart size is borderline. Surgical clips noted in the left axilla. IMPRESSION: Increasing size of right subpulmonic pleural effusion with mild CHF. A small left effusion is present as well. DICTATED BY: Alpesh Funes MD DATE/TIME DICTATED:02/28/181204 SUBMARINE OPERATOR:CLAIRE DATE/TIME TRANSCRIBED:02/28/181204 CONFIDENTIAL, DO NOT COPY WITHOUT APPROPRIATE AUTHORIZATION. <Electronically signed in Other Vendor System> SIGNED BY: Alpesh Funes MD 02/28/18 1216 Initial ED EKG: normal intervals, normal p-waves, normal QRS complex, normal sinus rhythm Prior EKG: unchanged Rhythm Strip: normal sinus rhythm (Vic Gooden) Departure Departure Time of Disposition: 1239 Disposition: STILL A PATIENT Condition: Stable Clinical Impression Primary Impression: SHELLEY (acute kidney injury) Secondary Impressions: CHF (congestive heart failure), Hepatic encephalopathy, Hyponatremia, Pleural effusion Referrals: Jean Carlos Chappell MD (PCP/Family) Departure Forms: Customer Survey General Discharge Information Admission Note Documentation of Exam: Documentation of any treatments & extenuating circumstances including Concerns Regarding Discharge (functional status, medication knowledge or non-compliance, living conditions, etc.) that warrant an admission rather than observation: Nephrology, GI, cardiology consult gentle hydration, trend electrolytes premature discharge to BE medically harmful (Vic Gooden) Admission Note Spoke With: Sandy OROZCO,Dante Documentation of Exam: Documentation of any treatments & extenuating circumstances including Concerns Regarding Discharge (functional status, medication knowledge or non-compliance, living conditions, etc.) that warrant an admission rather than observation: [PT' S BLOOD PRESSURE IS LOW. SIMLAR TO HER LAST ADMISSION PT IS A&OX3. SHE DENIES LIGHTHEADEDNESS. HER AMMONIA IS ELEVATED BUT SHE IS NOT CONFUSED. AT THIS POIT SHE IS STABLE FOR GEN MED] PA/PNEUMATIC TESTER MECHANIC Co-Sign Statement Statement: ED Attending supervision documentation- [X] I saw and evaluated the patient. I have also reviewed all the pertinent lab results and diagnostic results. I agree with the findings and the plan of care as documented in the PA's/PNEUMATIC TESTER MECHANIC's documentation. [X] I have reviewed the ED Record and agree with the PA's/PNEUMATIC TESTER MECHANIC's documentation. [] Additions or exceptions (if any) to the PAs/PNEUMATIC TESTER MECHANIC's note and plan are summarized below: [SEE GINA NOTE] (Tate OROZCO,Rigo Early) Critical Care Note Critical Care Note Critical Care Time: 30-74 min (Vic Gooden) Critical Care Time: 30-74 min (Vic Gooden)
[2018-02-28] MEDS ORDERED: XIFAXAN550 M1 PO (11:48)
[2018-02-28 12:04] LABS: PT 20.3 SEC (9.4-12.5); PTT 36 SEC (25-37)
[2018-02-28 12:10] LABS: ABSOLUTE BASOPHIL COUNT 0 /CUMM (0.0-0.2); ABSOLUTE EOSINOPHIL COUNT 0 /CUMM (0.0-0.7); ABSOLUTE GRANULOCYTE CT 4.3 /CUMM (1.4-6.5); ABSOLUTE LYMPH COUNT 1.8 /CUMM (1.2-3.4); ABSOLUTE MONOCYTE COUNT 0.6 /CUMM (0.10-0.60); BASOPHIL % 0.3 % (0.0-2.0); EOSINOPHIL % 0 % (0-5); HEMATOCRIT 22.5 % (37-47); MEAN CORPUSCULAR HGB 36.9 PG (27.0-31.0); MEAN CORPUSCULAR HGB CONC 35.9 G/DL (33.0-37.0); MEAN CORPUSCULAR VOLUME 102.8 FL (81.0-99.0); MEAN PLATELET VOLUME 8.2 FL (7.4-10.4); PLATELET COUNT 98 /CUMM (130-400); RBC DISTRIBUTION WIDTH 20.2 % (11.5-14.5); RED BLOOD CELL CT 2.19 /CUMM (4.20-5.40); WHITE BLOOD CELL COUNT 6.7 /CUMM (4.8-10.8)
--- NOTE | 2018-02-28 12:16 | RADIOLOGY REPORT ---
EXAMINATION: XR PORTABLE CHEST CLINICAL INFORMATION: Dyspnea. COMPARISON: 01/23/2018 TECHNIQUE: Portable frontal view of the chest was obtained. FINDINGS: Since the previous study there has been a significant increase in right subpulmonic pleural effusion. In addition, there is a probable left subpulmonic effusion as well. There is upper zone redistribution consistent with elevated left ventricular end-diastolic pressure and pulmonary vascular congestion. No gross interstitial pulmonary edema is seen. Heart size is borderline. Surgical clips noted in the left axilla. IMPRESSION: Increasing size of right subpulmonic pleural effusion with mild CHF. A small left effusion is present as well.
[2018-02-28 12:19] LABS: GRANULOCYTE % 64.1 % (42.2-75.2)
--- NOTE | 2018-02-28 13:32 | History & Physical ---
Amber Pierson 02/28/18 1329: General Information and HPI History of Present Illness: Ms. White is a 62-year-old female with past medical history significant for HFpEF (>65% 01/2018), anxiety/depression, cirrhosis/portal hypertension, esophageal varices, H pylori gastritis, breast cancer status post mastectomy and chemotherapy therapy (2003), colon adenoma, chronic back pain who presents to the ED with progressively worsening SOB, BLE swelling and decreased urine output for the past 3 days. Patient reports for the past 3 days she has had urinary retention accompanied by abdominal distention. She does notice that she has dribbling without urinary burning or increase in frequency. She keeps herself hydrated with half a gallon of water a day. She is also on a sodium restricted diet but recently had a poor appetite. She had one episode of watery brown stools. She saw her PCP last week because she was very lethargic and what the family reports as "semi-comatose" and she was put on lactulose and rifaximin at that time. After recent discharge from [facility] in January 2018 for acute hypoxic respiratory failure she uses continuous home oxygen 2-3L. She reports last she went to see her GI doctor who advised a possible liver transplant at [place] [place]. She does not have a critical care clinical nurse specialist. She lives with her daughter and has a visiting nurse once a week. She denies any fever, chills, nausea, vomiting, abdominal pain or bowel symptoms. In the ED, she was given 1 dose of Lactulose and NS IVF. 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 AN INFANT 01/19/18) Home Med list Escitalopram Oxalate 10 MG TABLET 1 TAB PO DAILY MENTAL HEALTH (Reported) Lactulose 10 GRAM/15 ML SOLUTION 30 ML PO DAILY CONSTIPATION (Reported) Lorazepam 0.5 MG TABLET 1 TAB PO TIDPRN PRN ANXIETY (Reported) Propranolol HCl 20 MG TABLET 1 TAB PO BID VARICES (Reported) Rifaximin (Xifaxan) 550 MG TABLET 1 TAB PO BID GI (Reported) Spironolactone 25 MG TABLET 1 TAB PO DAILY DIURETIC (Reported) Ursodiol 500 MG TABLET 2 TAB PO QHS BILE (Reported) Past History Travel History Traveled to [place] past 21 day No Medical History Neurological: NONE EENT: NONE Cardiovascular: HYPOTENSION Respiratory: NONE Gastrointestinal: hx colon adenoma Hepatic: cirrhosis (EtOH, ? 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 , Age 72; Cause: Hepatoma. FATHER, , Age 64; Cause: Colon cancer. Psychosocial History Who Do You Live With? child (dtr & grandson) Services at Home: None Primary Language: Bulgarian ETOH Use: denies use Illicit Drug Use: denies illicit drug use Living Will? no Power of Sucker Machine Operator/HCP? no Functional Ability ADLs Independent: dressing, eating, toileting, bathing. Ambulation: independent IADLs Independent: shopping, housework, finances, food prep, telephone, transportation , medication admin. Review of Systems Review of Systems Constitutional: Reports: see HPI. Exam & Diagnostic Data Last 24 Hrs of Vital Signs/I&O Vital Signs Date Time Temp Pulse Resp B/P B/P Pulse O2 O2 Flow FiO2 Mean Ox Delivery Rate 02/28 1252 97.8 54 20 84/40 95 Nasal 3.0L Cannula 02/28 1154 91 Nasal 2.0L Cannula 02/28 1055 96.9 56 22 86/40 92 Nasal 2.0L Cannula Intake & Output 02/28 1600 02/28 0800 02/28 0000 Intake Total Output Total Balance Patient 200 lb Weight Physical Exam General Appearance Alert, Oriented X3, Cooperative, No Acute Distress Skin Jaundice HEENT Atraumatic, PERRLA, EOMI, scleral icterus Neck Supple, No JVD, No thryomegaly Cardiovascular 2/6 systolic murmur Lungs Clear to Auscultation, Normal Air Movement Abdomen Normal Bowel Sounds, Soft, No Tenderness Extremities BLE 2+ pitting edema, pedal edema, nonpalpable pulses, left hip ecchymoses Last 24 Hrs of Labs/Bhupendra: Laboratory Tests 02/28/18 1140: Anion Gap 19 H, Estimated GFR 9 L, BUN/Creatinine Ratio 9.4, Glucose 115 H, Lactic Acid 1.7, Calcium 9.2, Total Bilirubin 15.4 H, AST 39 H, ALT 22, Alkaline Phosphatase 122, Ammonia 82 H, Troponin I 0.02, Dth-U-Trvvnujqkeg Pept 42036 H, Total Protein 8.1, Albumin 4.2, Globulin 3.9, Albumin/Globulin Ratio 1.1, PT 20.3 H, INR 1.85 H, APTT 36, CBC w Diff MAN DIFF ORDERED, RBC 2.19 L, MCV 102.8 H, MCH 36.9 H, MCHC 35.9, RDW 20.2 H, MPV 8.2, Gran % 64.1, Lymphocytes % 26.5, Monocytes % 9.1, Eosinophils % 0, Basophils % 0.3, Absolute Granulocytes 4.3, Absolute Lymphocytes 1.8, Absolute Monocytes 0.6, Absolute Eosinophils 0, Absolute Basophils 0, Platelet Estimate DECREASED, Poikilocytosis 2+, Anisocytosis 2+, Tram Cells 2+, Schistocytes 02/28/18 1059: Troponin I Cancelled, Ijt-F-Kvvwepggpxb Pept Cancelled 02/28/18 1057: Sodium Cancelled, Potassium Cancelled, Chloride Cancelled, Carbon Dioxide Cancelled, Anion Gap Cancelled, BUN Cancelled, Creatinine Cancelled, BUN/ Creatinine Ratio Cancelled, Glucose Cancelled, Calcium Cancelled, Total Bilirubin Cancelled, AST Cancelled, ALT Cancelled, Alkaline Phosphatase Cancelled, Total Protein Cancelled, Albumin Cancelled, Globulin Cancelled, Albumin/Globulin Ratio Cancelled Microbiology 02/28 1057 URINE ROUT: Urine Culture - ORD Diagnostic Data EKG Results SR, HR 53, QTc 515 CXR Results FINDINGS: Since the previous study there has been a significant increase in right subpulmonic pleural effusion. In addition, there is a probable left subpulmonic effusion as well. There is upper zone redistribution consistent with elevated left ventricular end-diastolic pressure and pulmonary vascular congestion. No gross interstitial pulmonary edema is seen. Heart size is borderline. Surgical clips noted in the left axilla. IMPRESSION: Increasing size of right subpulmonic pleural effusion with mild CHF. A small left effusion is present as well. Assessment/Plan Assessment: Ms. White is a 62-year-old female with past medical history significant for HFpEF (>65% 01/2018), anxiety/depression, alcoholic cirrhosis/portal hypertension, esophageal varices, H pylori gastritis, breast cancer status post mastectomy and chemotherapy therapy (2003), colon adenoma, chronic back pain who presents to the ED with progressively worsening SOB, BLE swelling and decreased urine output for the past 3 days. Problem list: #Hypotension #Chronic Thrombocytopenia - may be secondary to alcohol #Mild Hyponatremia #Anion gap metabolic acidosis #SHELLEY (Cr 4.8, baseline ~1) may be secondary to hypotension versus hepatorenal syndrome #Mild CHF exacerbation (BNP 18,200) Plan: Admit to general medical floor for further evaluation and management TRC/nebs PRN Vitals every shift 1200 mL fluid restriction for hyponatremia 2 g sodium restriction Urine lytes to investigate hyponatremia Hold spironolactone Start Midorine 10 mg TID for hypotension Continue home med lactulose and rifaximin IV albumin 25 g every 6h Resume home meds: Escitalopram, propranolol, ursodiol Avoid nephrotoxic agents Nephro consult GI consult Diet: Renal DVT ppx: ALPS Code: Full As Ranked By This Provider Problem List: 1. Hepatic encephalopathy 2. Pleural effusion 3. Heart failure, diastolic, with acute decompensation 4. Hyponatremia 5. SHELLEY (acute kidney injury) Core Measures/Misc (06/24) Acute Coronary Syndrome ACS Diagnosis: No Congestive Heart Failure Congestive Heart Failure Diagnosis No Cerebrovascular Accident CVA/TIA Diagnosis: No VTE (View Protocol) VTE Risk Factors Age>40 No Mechanical VTE Prophylaxis d/t N/A MechProphylax Ordered No VTE Pharm Prophylaxis d/t Platelets below ref range Sepsis (View protocol) Sepsis Present: No If YES complete Sepsis Event Note If YES complete Sepsis Event Note Archie OROZCO,Gela 02/28/18 1510: Core Measures/Misc (06/24) Sepsis (View protocol) If YES complete Sepsis Event Note If YES complete Sepsis Event Note Attending MD Review Statement Attending Statement Attending MD Statement: examined this patient, discuss w/resident/PA/TRAFFIC MONITOR SPECIALIST, agreed w/resident/PA/TRAFFIC MONITOR SPECIALIST, discussed with family, reviewed EMR data (avail), discussed with nursing, discussed with case mgmt, reviewed images, amended to note Attending Assessment/Plan: 62 y/o F with pmh sig for ch diastolic CHF, anxiety/depression, alcoholic cirrhosis/portal hypertension, esophageal varices, H pylori gastritis, breast cancer status post mastectomy and chemotherapy therapy (2003), colon adenoma, chronic back pain, recent admission to in 01/23 for acute kidney injury, acute resp failure, and oral laceration p/w Unable to urinate x 3 days. She also noticed swelling in b/l le and abd swelling. She is also Jaundiced. She did complain of some chills but denies any fevers. She said that she did not have the urge to urinate. She has a Quintana catheter inserted in the emergency room and did not drain any urine. Patient is in acute renal failure. She denies any diarrhea. She is aching her medications including lactulose, Rifaxamine and other medications. Vital Signs Date Time Temp Pulse Resp B/P B/P Pulse O2 O2 Flow FiO2 Mean Ox Delivery Rate 02/28 1416 97.5 54 24 90/56 92 Nasal Cannula 02/28 1252 97.8 54 20 84/40 95 Nasal 3.0L Cannula 02/28 1154 91 Nasal 2.0L Cannula 02/28 1055 96.9 56 22 86/40 92 Nasal 2.0L Cannula on exam; aox3, nad. heent: + scleral icterus. few Telengectasia noted on patient's neck and face cv; s1,s2, rrr resp; decreased bs at bases. abd; distended, + shifting dullness, bs+, NT. ext; 3+ edema b/l no asterixis. Laboratory Tests 02/28 02/28 1421 1140 Chemistry Sodium (137 - 145 mmol/L) 129 L Potassium (3.5 - 5.1 mmol/L) 3.9 Chloride (98 - 107 mmol/L) 93 L Carbon Dioxide (22 - 30 mmol/L) 18 L Anion Gap (5 - 16) 19 H BUN (7 - 17 mg/dL) 45 H Creatinine (0.5 - 1.0 mg/dL) 4.8 H Estimated GFR (>60 ml/min) 9 L BUN/Creatinine Ratio (7 - 25 %) 9.4 Glucose (65 - 99 mg/dL) 115 H Lactic Acid (0.7 - 2.1 mmol/L) Cancelled 1.7 Calcium (8.4 - 10.2 mg/dL) 9.2 Total Bilirubin (0.2 - 1.3 mg/dL) 15.4 H AST (14 - 36 U/L) 39 H ALT (9 - 52 U/L) 22 Alkaline Phosphatase (<127 U/L) 122 Ammonia (9 - 30 umol/L) 82 H Troponin I (< 0.11 ng/ml) 0.02 Loy-M-Ktqzntfimvp Pept (<125 pg/mL) 03582 H Total Protein (6.3 - 8.2 g/dL) 8.1 Albumin (3.5 - 5.0 g/dL) 4.2 Globulin (1.9 - 4.2 gm/dL) 3.9 Albumin/Globulin Ratio (1.1 - 2.2 %) 1.1 Coagulation PT (9.4 - 12.5 SEC) 20.3 H INR (0.90 - 1.19) 1.85 H APTT (25 - 37 SEC) 36 Hematology CBC w Diff MAN DIFF ORDERED WBC (4.8 - 10.8 /CUMM) 6.7 RBC (4.20 - 5.40 /CUMM) 2.19 L Hgb (12.0 - 16.0 G/DL) 8.1 L Hct (37 - 47 %) 22.5 L MCV (81.0 - 99.0 FL) 102.8 H MCH (27.0 - 31.0 PG) 36.9 H MCHC (33.0 - 37.0 G/DL) 35.9 RDW (11.5 - 14.5 %) 20.2 H Plt Count (130 - 400 /CUMM) 98 L MPV (7.4 - 10.4 FL) 8.2 Gran % (42.2 - 75.2 %) 64.1 Lymphocytes % (20.5 - 51.1 %) 26.5 Monocytes % (1.7 - 9.3 %) 9.1 Eosinophils % (0 - 5 %) 0 Basophils % (0.0 - 2.0 %) 0.3 Absolute Granulocytes (1.4 - 6.5 /CUMM) 4.3 Absolute Lymphocytes (1.2 - 3.4 /CUMM) 1.8 Absolute Monocytes (0.10 - 0.60 /CUMM) 0.6 Absolute Eosinophils (0.0 - 0.7 /CUMM) 0 Absolute Basophils (0.0 - 0.2 /CUMM) 0 Platelet Estimate (ADEQUATE) DECREASED Poikilocytosis 2+ Anisocytosis 2+ Mary Cells 2+ Schistocytes 02/28 02/28 1059 1057 Chemistry Sodium Cancelled Potassium Cancelled Chloride Cancelled Carbon Dioxide Cancelled Anion Gap Cancelled BUN Cancelled Creatinine Cancelled BUN/Creatinine Ratio Cancelled Glucose Cancelled Calcium Cancelled Total Bilirubin Cancelled AST Cancelled ALT Cancelled Alkaline Phosphatase Cancelled Troponin I Cancelled Faq-L-Bpgrcvvhrig Pept Cancelled Total Protein Cancelled Albumin Cancelled Globulin Cancelled Albumin/Globulin Ratio Cancelled A/P: 62 y/o F with pmh sig for ch diastolic CHF, anxiety/depression, alcoholic cirrhosis/portal hypertension, esophageal varices, H pylori gastritis, breast cancer status post mastectomy and chemotherapy therapy (2003), colon adenoma, chronic back pain, recent admission to in 01/23 for acute kidney injury, acute resp failure, and oral laceration is admitted with oliguric acute renal failure, possibility of hepatorenal syndrome although patient is not in hepatic encephalopathy at this time. She also has hyponatremia. Patient admitted to medicine. Seen by Dr. Rogers from nephrology. She will be started on IV albumin as well as Midodrin. Will hold off on further IV hydration. Will put her on 1200 cc fluid restriction for hyponat. Will stop her spironolactone. We will continue her lactulose as well as rifaximin. Would hold any other nephrotoxic medications. We'll monitor her creatinine. Please consult GI. She sees Dr. Reddy as an outpatient and claims that rifaximin was recently admitted. He likely has mild ascites but low likelihood of SBP. DVT px; ALPS. Full code. Jose Luis OROZCO,Harsh 02/28/18 1552: General Information and HPI MD Statement: I have seen and personally examined PASCUAL WHITE and documented this H&P. The patient is a 62 year old F who presented with a patient stated chief complaint of inability to urinate. Source of Information: patient, family, old records Exam Limitations: no limitations Core Measures/Misc (06/24) VTE (View Protocol) Comment: low palatelet Sepsis (View protocol) If YES complete Sepsis Event Note If YES complete Sepsis Event Note Resident Review Statement Resident Statement: examined this patient, discussed with environmental health and safety intern, agreed with environmental health and safety intern Other Findings: Patient is a 62-year-old female, baseline on 2-3 L of oxygen at home with past medical history of hepatic cirrhosis secondary to alcohol leading to portal hypertension, esophageal verices undergoing regular endoscopy(last January 2018), history of H. pylori gastritis, history of breast cancer status post mastectomy and chemotherapy (14 years ago), colon adenoma, chronic back pain, anxiety, depression, presented with chief complaints of inability to urinate since last 3 days. Most of the history is taken from the patient's son. She usually during half gallon of water in a day and on low-sodium diet and having very little appetite despite of that she is gaining weight since last 1 week. She was seen by her newspaper inserter last week and he wanted, hard to bring the list of liver transplantation. He also added tablet rifaximin 550 mg twice daily. She was little bit drowsy and she was seen by her primary care provider last week. She was given syrup lactulose, as she was not compliant with the lactulose. ED course - vital signs at the time of admission -temperature 96.9, pulse 56, respiratory rate 22, blood pressure 86/40, SPO2 92% on 2 L nasal cannula. On physical exam -patient was conscious cooperative and oriented to time place and person. She was pale, sclera was icteric, had a spider angioma on the left lower check, thin and cachectic, neck -no JVD, oral cavity dry chest - bilateral clear,heart systolic murmur present, abdomen distended-ascites present, bilateral lower extremity 3+ edema present. Blood workup showed -hemoglobin 8.1, hematocrit 22.5, platelet count 98,000, granulocytes 64.1, serum sodium 129, potassium 3.9, chloride 93, carbon dioxide 18, anion gap 19, BUN 45, creatinine 4.8, GFR 9, glucose 115, lactic acid 1.7, calcium 9.2, phosphorus 4.6, magnesium 1.6, total bilirubin 15.4, AST 39, ALT 22 , alkaline phosphatase 122, ammonia 82, creatinine kinase 51, troponin 0 0.02, proBNP 18,200, total protein 8.1, albumin 4.2, globulin 3.9, PT/INR-20.3/ 1.85, APTT 36. CXR -Increasing size of right subpulmonic pleural effusion with mild CHF. A small left effusion is present as well. Assessment and plan - Hepatorenal syndrome secondary to alcoholic cirrhosis and dehydration (anemia, thrombocytopenia, low Na, HCo3 -18, AG -19, BUN-45, Cr-4.8, NH3-82) * Keep head end of the bed elevated * We will hold spironolactone, citalopram * We will continue lactulose and rifaximin * We will start patient on tablet midodrine 10 mg 3 times a day tomorrow. * Injection albumin 25 g IV Q6 * Fluid restriction 1200 cc per day * Avoid pain medication sedative-hypnotics * We will follow GI consult for further evaluation and management. * We will follow nephrology consult for further evaluation and management. Macrocytic anemia - * We will check Vit b12, and folic acid Elevated Pro-BNP in setting of HRS; CXR - mild CHF - * We cannt use lasix due to compromized renal perfusion * We will restrict the fluid intake to 1200CC, and d strict intake output charting. Code status - FC DVT prophylaxis - ALPS Diet - Renal Dialysis diet
[2018-02-28 15:40] VITALS: BP 88/50
--- NOTE | 2018-02-28 16:10 | Cons- Nephrology ---
General Information and HPI Consulting Request Date of Consult: 02/28/18 Requested By: Gela Almanza MD Reason for Consult: SHELLEY Source of Information: patient, family, old records Exam Limitations: no limitations History of Present Illness: The patient is a 62-year-old woman who was seen by the renal service last month for acute kidney injury secondary to hypotension and volume depletion in the setting of decompensated alcoholic cirrhosis. Her creatinine peaked at that time at 1.8 falling with IV hydration to 0.8 at the time of discharge on 01/25. She now comes in today because she noted increasing lower extremity edema over the past several days while at the same time her urine output has become minimal. She was found to have a serum creatinine of 4.8 and serum sodium of 129. There has been no exposure to NSAIDs or parenteral contrast. She admits to attempts at hydration with increased fluid intake recently. Her outpatient medication regimen included lactulose, rifaximin, ursodiol and spironolactone. Past medical history is positive for cirrhosis secondary to alcohol although there was also mention of a possible diagnosis of primary biliary cirrhosis, portal hypertension with esophageal and gastric varices, left breast surgery for cancer in 2003, anemia and thrombocytopenia. Medications: See below Family history: Strongly positive for alcohol abuse, negative for kidney disease. She has 2 children a son and a daughter who were not drinkers. Social history: Chronic alcoholism dating back many years but significantly exacerbated after her several years ago. 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 AN 01/19/18) Home Med List: Escitalopram Oxalate 10 MG TABLET 1 TAB PO DAILY MENTAL HEALTH (Reported) Lactulose 10 GRAM/15 ML SOLUTION 30 ML PO DAILY CONSTIPATION (Reported) Lorazepam 0.5 MG TABLET 1 TAB PO TIDPRN PRN ANXIETY (Reported) Propranolol HCl 20 MG TABLET 1 TAB PO BID VARICES (Reported) Rifaximin (Xifaxan) 550 MG TABLET 1 TAB PO BID GI (Reported) Spironolactone 25 MG TABLET 1 TAB PO DAILY DIURETIC (Reported) Ursodiol 500 MG TABLET 2 TAB PO QHS BILE (Reported) Review of Systems Review of Systems: Gen.: Appetite flat, recent weight gain Skin: No rash or new skin lesions HEENT: No visual or hearing disturbances, no discharge Cardiopulmonary: No shortness of breath, cough, chest pain, orthopnea GI: No nausea, vomiting, abdominal pain; she has chronic diarrhea which she attributesprobably correctlyto her medications : Decreased urine output (see HPI). No dysuria, hematuria or other symptoms referable to the urinary tract Musculoskeletal: No arthralgias, arthritis, myalgias Neuro: Cognitive function has apparently been fairly well preserved on this occasion according to the patient and her son, no paresthesias Past History Travel History Traveled to [place] past 21 day No Medical History Neurological: NONE EENT: NONE Cardiovascular: HYPOTENSION Respiratory: NONE Gastrointestinal: hx colon adenoma Hepatic: cirrhosis (EtOH, ? 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 , Age 72; Cause: Hepatoma. FATHER, , Age 64; Cause: Colon cancer. Psychosocial History Who Do You Live With? child (dtr & grandson) Services at Home: None Primary Language: Trinidadian Smoking Status: Unknown If Ever Smoked ETOH Use: denies use Illicit Drug Use: denies illicit drug use Living Will? no Power of Hand Launderer/HCP? no Functional Ability ADLs Independent: dressing, eating, toileting, bathing. Ambulation: independent IADLs Independent: shopping, housework, finances, food prep, telephone, transportation , medication admin. Exam & Diagnostic Data Vital Signs and I&O Vital Signs Date Time Temp Pulse Resp B/P B/P Pulse O2 O2 Flow FiO2 Mean Ox Delivery Rate 02/28 1416 97.5 54 24 90/56 92 Nasal Cannula 02/28 1252 97.8 54 20 84/40 95 Nasal 3.0L Cannula 02/28 1154 91 Nasal 2.0L Cannula 02/28 1055 96.9 56 22 86/40 92 Nasal 2.0L Cannula Intake & Output 02/28 1600 02/28 04002/27 04002/26 0400 Intake Total Output Total 0 Balance 0 Output, Urine 0 Patient 200 lb Weight Physical Exam: General: Well-developed chronically ill-appearing female looking older than her stated age Skin: Jaundiced with several spider telangiectasia HEENT: Conjunctivae pale, sclerae icteric, mucous membranes dry Neck: Without masses or thyromegaly, no supraclavicular or cervical adenopathy Chest: Clear without rales or rhonchi with some bronchial breath sounds at both bases Heart: Regular rate and rhythm without S3 or rub Abdomen: Soft and nontender without palpable masses or organomegaly; there is a well-healed horizontal surgical scar; probable ascites although not specifically tested Extremities: 3+ lower extremity edema without cyanosis Neuro: Awake, alert without cognitive dysfunction, no focal findings, no asterixis or myoclonus Assessment/Plan Assessment/Recommendations Assessment: 62-year-old woman with alcoholic cirrhosis on chronic lactulose and rifaximin therapy with resulting chronic diarrhea, now comes in with acute kidney injury while at the same time becoming markedly fluid overloaded with severe edema and a rising serum bilirubin. She does not appear to be encephalopathic. Etiology of her SHELLEY is likely poor renal perfusion due to hypotension but I cannot absolutely rule out hepatorenal syndrome at this time. Recommendations: 1. Spot urine for sodium; check serum phosphorus, magnesium and CK levels 2. 25% albumin 25 g IV every 6 hours 3. Would avoid crystalloid at this time 4. Limit p.o. fluids to 1200 cc per day 5. No diuretics but continue prophylactic therapy for encephalopathy 6. Midodrine 10 mg p.o. every 8 hours 7. Would hold on octreotide for the moment but have a very low threshold for starting should she develop any encephalopathic signs or symptoms 8. GI consult Thank you. Will follow along with you.
[2018-02-28 17:20] VITALS: BP 79/48
[2018-02-28 21:00] VITALS: BP 82/48
--- NOTE | 2018-02-28 21:43 | RADIOLOGY REPORT ---
EXAMINATION: CHEST 1 VIEW CLINICAL INFORMATION: Decreased oxygen saturation. COMPARISON: Same day chest radiograph obtained at 1120 hours TECHNIQUE: An AP view of the chest was obtained at 2121 hours. FINDINGS: The cardiac silhouette is enlarged, though stable. There is increasing bibasilar airspace disease. There are small bilateral pleural effusions. There is mild interstitial prominence throughout both lungs. The osseous structures are stable. IMPRESSION: Stable cardiomegaly. Small bilateral pleural effusions with increasing bibasilar airspace disease and mild vascular congestion.
[2018-02-28 23:00] VITALS: BP 92/40
--- NOTE | 2018-02-28 23:33 | Event Note ---
Event Note Event Note: S: Patient has been in persistent asymptomatic hypotension at 80s/50s (per previous hx, that was her baseline), without tachycardia,. 8:30 PM, patient suddenly desatted into 82% on the 3 L of oxygen nasal cannula, however still without particular complaint or tachypnea. Respiratory therapist was notified and increased oxygen flow 6L and then to high flow to maintain oxygen around 88% , and recommended continuous oxygen therapy. Patient had not received a nighttime dose of midodrine at the time of the event. Propranolol was on hold due to hypotension. B: Ms. Ace is a 62-year-old female with past medical history significant for HFpEF (>65% 01/2018), anxiety/depression, alcoholic cirrhosis/portal hypertension, esophageal varices, H pylori gastritis, breast cancer status post mastectomy and chemotherapy therapy (2003), colon adenoma, chronic back pain who presents to the ED with progressively worsening SOB, BLE swelling and decreased urine output for the past 3 days. A/R: In view of patient's critical hypotension, and sudden oxygen desaturation patient may require continuous oxygen flow and possible, BiPAP/intubation if continues to deteriorate. Patient denies any history of pulmonary disease, and the etiology of the O2 desaturation could be due to newly developed hepatopulmonary syndrome, was negative findings of sudden deterioration of vascular congestion on chest x-ray repeated during the event. At this point point, patient may require upper level of care and critical care units, and further evaluation in the a.m.
[2018-03-01 05:27] LABS: ABSOLUTE BASOPHIL COUNT 0 /CUMM (0.0-0.2); ABSOLUTE EOSINOPHIL COUNT 0.1 /CUMM (0.0-0.7); ABSOLUTE LYMPH COUNT 1.6 /CUMM (1.2-3.4); ABSOLUTE MONOCYTE COUNT 0.4 /CUMM (0.10-0.60); BASOPHIL % 0.3 % (0.0-2.0); EOSINOPHIL % 2.1 % (0-5); MEAN CORPUSCULAR HGB 36.8 PG (27.0-31.0); MEAN CORPUSCULAR HGB CONC 35.8 G/DL (33.0-37.0); MEAN CORPUSCULAR VOLUME 102.9 FL (81.0-99.0); MEAN PLATELET VOLUME 7.5 FL (7.4-10.4); PLATELET COUNT 74 /CUMM (130-400); RBC DISTRIBUTION WIDTH 19.5 % (11.5-14.5); RED BLOOD CELL CT 1.81 /CUMM (4.20-5.40); WHITE BLOOD CELL COUNT 5.3 /CUMM (4.8-10.8)
[2018-03-01 05:31] LABS: HEMATOCRIT 18.6 % (37-47)
--- NOTE | 2018-03-01 07:32 | Cons- CRCU ---
Kanchan OROZCO,Mel 03/01/18 0731: General Information and HPI Consulting Request Date of Consult: 03/01/18 Requested By: Reason for Consult: Persistent hypotension and desaturation requiring high flow nasal cannula Source of Information: patient, old records, EMS Exam Limitations: no limitations History of Present Illness: Patient is a 62 YO F with PMH significant for anxiety/depression, cirrhosis/ portal hypertension, esophageal varices (secondary to alcohol), H pylori gastritis, breast cancer status post mastectomy and chemotherapy therapy (as 14 years ago), colon adenoma, chronic back pain, CHF presents to ER with family for evaluation complaining of progressively worsening shortness of breath worse with exertion bilateral leg swelling and decreased urine output for the past 3 days. Admitted for acute kidney injury in the setting of GI bleed and hypotension which improved with hydration. She is scheduled to get transplant evaluation at [facility] coming March 25. She follows , occasionally . H Decompensated alcoholic cirrhosis - although there was also mention of a possible diagnosis of primary biliary cirrhosis. Splenomegaly with portal hypertension leading to thrombocytopenia, esophageal and gastric varices, left breast surgery for cancer in 2003, anemia and thrombocytopenia. Family history: Strongly positive for alcohol abuse, negative for kidney disease. She has 2 children a son and a daughter who were not drinkers. Social history: Chronic alcoholism dating back many years but significantly exacerbated after her several years ago. Stopped since last april, had 2 drinks last and since then in absolute remission. 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 AN INFANT 01/19/18) Home Med List: Albumin Human (Alburx) 25 % VIAL 25 GM IV Q6 hepatorenal syndrome Escitalopram Oxalate 10 MG TABLET 1 TAB PO DAILY MENTAL HEALTH (Reported) Lactulose 10 GRAM/15 ML SOLUTION 30 ML PO DAILY CONSTIPATION (Reported) Lorazepam 0.5 MG TABLET 1 TAB PO TIDPRN PRN ANXIETY (Reported) Midodrine HCl 2.5 MG TABLET 10 MG PO 0800,1200,1600 hepatorenal syndrome Octreotide Acetate 500 MCG/ML VIAL 50 ML IV CONTINOUS INFUSION hepatorenal syndrome 50mcg/hr of continous infusion. Propranolol HCl 20 MG TABLET 1 TAB PO BID VARICES (Reported) Rifaximin (Xifaxan) 550 MG TABLET 1 TAB PO BID GI (Reported) Spironolactone 25 MG TABLET 1 TAB PO DAILY DIURETIC (Reported) Ursodiol 500 MG TABLET 2 TAB PO QHS BILE (Reported) Current Medications: Current Medications Sig/Freddy Start time Last Medication Dose Route Stop Time Status Admin Albumin Human 25 GM Q6 02/28 1800 AC 03/01 IV 0634 Albumin Human 25 GM TID 02/28 1615 DC IV Escitalopram Oxalate 10 MG DAILY 03/01 0900 AC 03/01 PO 1140 Lactulose 10 GM TID 02/28 1633 AC 03/01 PO 1140 Lactulose 0 .STK-MED ONE 02/28 1312 DC PO Lactulose 20 GM ONCE ONE 02/28 1230 DC 02/28 PO 02/28 1231 1316 Magnesium Chloride 64 MG BID 03/01 0900 AC PO Midodrine 10 MG Q8 03/01 1400 CAN PO Midodrine 5 MG 0800,1200,1600 03/01 0800 DC PO Midodrine 10 MG 0800,1200,1600 03/01 0800 DC PO Midodrine 10 MG 0800,1200,1600 02/28 2030 AC 03/01 PO 1140 Octreotide Acetate 100 MCG Q8 03/01 1400 AC IV Propranolol HCl 20 MG BID 02/28 2100 AC PO Rifaximin 550 MG BID 02/28 2100 AC 03/01 PO 1139 Sodium Chloride 1,000 ML ONCE ONE 02/28 1130 DC 02/28 IV 02/28 1809 1151 Ursodiol 900 MG 2100 02/28 2100 AC 02/28 PO 2112 Review of Systems Review of Systems Constitutional: Reports: see HPI. EENTM: Reports: see HPI. Cardiovascular: Reports: see HPI. Past History Travel History Traveled to [place] past 21 day No Medical History Blood Transfusion Hx: No Neurological: NONE EENT: NONE Cardiovascular: HYPOTENSION Respiratory: HOME O2 USE Gastrointestinal: hx colon adenoma Hepatic: cirrhosis (EtOH, ? 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 , Age 72; Cause: Hepatoma. FATHER, , Age 64; Cause: Colon cancer. Psychosocial History Where Do You Live? Home Who Do You Live With? child (dtr & grandson) Services at Home: Nursing Primary Language: Chinese Smoking Status: Former Smoker ETOH Use: denies use Illicit Drug Use: denies illicit drug use Living Will? no Power of Environmental Analyst/HCP? no Functional Ability ADLs Independent: dressing, eating, toileting, bathing. Ambulation: independent IADLs Independent: shopping, housework, finances, food prep, telephone, transportation , medication admin. Exam & Diagnostic Data Last 24 Hrs of Vital Signs/I&O Vital Signs Date Time Temp Pulse Resp B/P B/P Pulse O2 O2 Flow FiO2 Mean Ox Delivery Rate 03/01 0400 94 Nasal 50% Cannula 03/01 0008 98 Nasal 55% Cannula 03/01 0000 95 Nasal 50% Cannula 02/28 2300 97.7 54 18 92/40 95 Nasal 50% Cannula 02/28 2114 56 82/48 02/28 2102 90 Nasal 6.0L Cannula 02/28 2100 97.5 56 20 82/48 86 Nasal 4.0L Cannula 02/28 2001 Nasal 4.0L Cannula 02/28 1746 52 02/28 1720 97.5 50 18 79/48 92 Nasal 3.0L Cannula 02/28 1611 24 94 Nasal 3.0L Cannula 02/28 1611 24 95 Nasal 4.0L Cannula 02/28 1600 94 Nasal 3.0L Cannula 02/28 1541 24 90 Nasal 4.0L Cannula 02/28 1540 84 Nasal 2.5L Cannula 02/28 1540 97.8 54 24 88/50 84 Nasal 3.0L Cannula 02/28 1416 97.5 54 24 90/56 92 Nasal Cannula 02/28 1252 97.8 54 20 84/40 95 Nasal 3.0L Cannula 02/28 1154 91 Nasal 2.0L Cannula 02/28 1055 96.9 56 22 86/40 92 Nasal 2.0L Cannula Intake & Output 03/01 0800 03/01 0000 02/28 1600 Intake Total 260 480 Output Total 20 0 0 Balance 240 480 0 Intake, IV 200 120 Intake, Oral 60 360 Number 0 0 Bowel Movements Output, Urine 20 0 0 Patient 95.339 kg 97.154 kg Weight Weight Bed scale Bed scale Measurement Method Physical Exam General Appearance: alert, awake Head: atraumatic, normal appearance Eyes: Bilateral: PERRL, EOMI, pale conjunctivae. Ears, Nose, Throat: normal pharynx, spider angiomata on left lateral lip region, right anterior chest region Neck: normal inspection, supple Respiratory: normal breath sounds, chest non-tender, no respiratory distress Cardiovascular: bradycardia, systolic murmur, normal S1, S2 Peripheral Pulses: 2+ radial (R), 2+ radial (L) Gastrointestinal: non-tender, distention, hepatomegaly, spleenomegaly Back: normal inspection, normal range of motion Extremities: 3+ pitting edema present Neurologic/Psych: awake, alert, oriented x 3, mild asterexis Cranial Nerves: normal speech, PERRL Skin: intact, spider angiomata Last 48 Hrs of Labs/Bhupendra: Laboratory Tests 03/01/18 0509: CBC w Diff MAN DIFF ORDERED, RBC 1.81 L, MCV 102.9 H, MCH 36.8 H, MCHC 35.8, RDW 19.5 H, MPV 7.5, Gran % 58.0, Lymphocytes % 31.2, Monocytes % 8.4, Eosinophils % 2.1, Basophils % 0.3, Absolute Granulocytes 3.0, Segmented Neutrophils 47, Absolute Lymphocytes 1.6, Lymphocytes 43, Monocytes 6, Absolute Monocytes 0.4, Eosinophils 4, Absolute Eosinophils 0.1, Absolute Basophils 0, Platelet Estimate DECREASED, Polychromasia 1+, Poikilocytosis 2+, Anisocytosis 1 +, Macrocytic Cells 1+, Target Cells FEW, Ovalocytes 1+, Conway Cells 2+, Elliptocytes FEW, Fld Total RBCs Counted 100 03/01/18 0507: Anion Gap 20 H, Estimated GFR 8 L, BUN/Creatinine Ratio 8.9, Phosphorus 5.0 H , Magnesium 1.6 02/28/18 2200: pH 7.45, pCO2 24 L, pO2 77 L, HCO3 16 L, ABG O2 Sat (Measured) 93.0 L, P-50 (Temp Corrected) N, Carboxyhemoglobin 2.3, O2 Concentration % 50%, Temperature 96.6 L, O2 Delivery Method NC, Phlebotomy Draw Site RIGHT BRACHIAL 02/28/18 1421: Lactic Acid Cancelled 02/28/18 1140: Anion Gap 19 H, Estimated GFR 9 L, BUN/Creatinine Ratio 9.4, Glucose 115 H, Lactic Acid 1.7, Calcium 9.2, Phosphorus 4.6 H, Magnesium 1.6, Total Bilirubin 15.4 H, AST 39 H, ALT 22, Alkaline Phosphatase 122, Ammonia 82 H, Creatine Kinase 51, Troponin I 0.02, Cvi-E-Qjwhgzphavp Pept 93135 H, Total Protein 8.1, Albumin 4.2, Globulin 3.9, Albumin/Globulin Ratio 1.1, Vitamin B12 975 H, Folate 12.1, PT 20.3 H, INR 1.85 H, APTT 36, CBC w Diff MAN DIFF ORDERED, RBC 2.19 L, MCV 102.8 H, MCH 36.9 H, MCHC 35.9, RDW 20.2 H, MPV 8.2, Gran % 64.1 , Lymphocytes % 26.5, Monocytes % 9.1, Eosinophils % 0, Basophils % 0.3, Absolute Granulocytes 4.3, Absolute Lymphocytes 1.8, Absolute Monocytes 0.6, Absolute Eosinophils 0, Absolute Basophils 0, Platelet Estimate DECREASED, Poikilocytosis 2+, Anisocytosis 2+, Mary Cells 2+, Schistocytes 02/28/18 1059: Troponin I Cancelled, Zbx-C-Hsdaipalyiy Pept Cancelled 02/28/18 1057: Sodium Cancelled, Potassium Cancelled, Chloride Cancelled, Carbon Dioxide Cancelled, Anion Gap Cancelled, BUN Cancelled, Creatinine Cancelled, BUN/ Creatinine Ratio Cancelled, Glucose Cancelled, Calcium Cancelled, Total Bilirubin Cancelled, AST Cancelled, ALT Cancelled, Alkaline Phosphatase Cancelled, Total Protein Cancelled, Albumin Cancelled, Globulin Cancelled, Albumin/Globulin Ratio Cancelled Diagnostic Data CXR Results IMPRESSION: Stable cardiomegaly. Small bilateral pleural effusions with increasing bibasilar airspace disease and mild vascular congestion Assessment/Plan CRCU Impression/Plan: Patient is a 62 YO F with PMH significant for Diastolic heart failure (EF65% ), alcoholic cirrhosis/portal hypertension possible overlap with progressive biliary cirrhosis (+AMA), esophageal varices, H pylori gastritis, breast cancer s/p mastectomy and chemotherapy therapy (2003), colon adenoma, chronic back pain, anxiety/depression recent admission to in 01/23 for acute kidney injury, acute resp failure, and oral laceration is admitted to general medicine floor initially with concerns of acute renal failure with possible hepatorenal syndrome. At presentation VS - Temp 97.8, HR 54, blood pressure 86/40, SPO2 92% on 2 L nasal cannula. Physical exam AAO X 3, She was pale, sclera was icteric, had a spider angioma on the left lower check, neck -no JVD, oral cavity dry chest - bilateral clear, heart systolic murmur present, abdomen distended-ascites with hepatosplenomegaly present, bilateral lower extremity 3+ edema present. Pertinent labs H&H 8.1/ 22.5, platelet count 98,000, granulocytes 64.1, serum Na 129, K 3.9, cl 93, bicarbonate 18, AG 19, BUN 45, Cr 4.8, GFR 9, glucose 115, lactic acid 1.7, Ca 9.2, Po4 4.6, Mg 1.6, total bilirubin 15.4, AST 39, ALT 22, ALP 122, ammonia 82, CPK 51, troponin 0.02, proBNP 18,200, TP 8.1, albumin 4.2, globulin 3.9, PT/INR-20.3/ 1.85, APTT 36. Imaging shows bilateral pleural effusions with increasing bibasilar airspace disease, mild vascular congestion. Differrential Acute hepatorenal syndrome due to decompensation of cirrhosis, Increased third spacing due to anemia in addition to diarrhea. Problem list Decompensated alcohol cirrhosis She has a history of heavy bourbon use X 45yrs which was worsened after her in 2012. She was in absolute remission from alcohol since (stopped since , had one time gloria). She had cirrhosis with possible overlap with + PBC (hx +AMA), with hx esoph/gastric varices & portal gastropathy. Recently admitted for esophageal bleed and SHELLEY, recovered with resuscitation/endoscopy and esophageal and gastric varices. She had spider angiomata, hepatosplenomegaly with 3+ pitting edema. She was on rifaximin/ lactulose, prapranolol at baseline. CXR did show bilateral pleural effusions Right > left concerning for hepatic hydrothorax. She had mild asterexis although alert and oriented X 3. She was admitted to general medicine floor and transferred to ICU for acute desaturation to 82% on 3L of oxygen, persistent hypotension 80/40mmHg requiring 50% of high flow. She was started on albumin 25mg Q6, midodrine 10mg Q8 while continuing rifaximin, Ursodiol 900mg. She was profoundly oliguric with 15ml of urine since admission. Started on octerotide drip subsequently. Propronolol held due to bradycardia. Patient not responding to fluids, octreotie, albumin and midrodrine. Patient still with BP 90/40 and increated BUN/Cr. Patient may need norepinephrine to achieve sufficient increase in MAP. Further, patient may benefit from thoracentesis to improve pulmonary function. Given that patient is currently in the process of seeking a transplant evaluation and since she clearly needs more intensive hepatology services, A decidsion was made to transfer to [facility]. She was accepted by [facility] with transplant hepatology consultation. SHELLEY with possible Hepatorenal syndrome Cr at admission was 4.8 --> 5.3 (day 2). Urine lytes shows random Cr 222, Urine Na 58, K 27, FeNa 1.1. chem panel on 03/01/18 - Na 131 , K 3.6, Cl 94, bicarbonate 17, AG 20, BUN 47, Cr 5.3. She remained profoundly anuric with only 15ml of fluid. ProBNP 43070. She was started on Midodrine and albumin without any improvement. Started on octreotide drip. Patient remains alert, oriented X 3 without any encephalopathy. Acute drop in H&H Patient had a H&H of 8.1/22.5 at admission, dropped to 6.6/18 on 03/01. She received a unit of transfusion with improvement in H&H to 7.4/21. No hematemesis/melena. She received 1L of NS after admission. No clear source of bleed. Anxiety/depression Continued Escitalopram DVT prophylaxis ALPS Code status Full code Recommendations: as above Consult Acknowledgment - Thank you for your consult request. Ham Agee MD 03/01/18 1241: Assessment/Plan CRCU Other Findings/Comments: Ham Franklin M.D. have examined this patient, reviewed available EMR data, personally reviewed images, discussed with resident/PA/PATTERN CHECKER, discussed management plan with housestaff and nursing staff, discussed managment plan all of healthcare providers, discussed management plan with patient and/or family, agreed with resident/PA/PATTERN CHECKER. The past history and parts of the chart have been autopopulated. Impression 62 year old woman * cirrhosis, etoh related * shelley, likely HRS * hyponatremia * anemia * hypotension Plan -GI consultation -renal consul appreciated -octreotide to be started -transfusion -ECHO, abd usg -monitor lfts -high flow oxygen taper to goal >92% -resume midodrine DVT prophylaxis at all times - ALPS TTS 40min Consult Acknowledgment - Thank you for your consult request.
[2018-03-01 08:00] VITALS: BP 90/50
[2018-03-01 12:00] VITALS: BP 90/40
--- NOTE | 2018-03-01 12:27 | PN- Nephrology ---
See Addendum Assessment/Plan Nephrology Assessment: 1. Acute kidney injury secondary to hepatorenal syndrome with hypotension, oliguria and rising serum creatinine 2. Hyponatremia -improved 3. Respiratory alkalosis with underlying anion gap metabolic acidosis as well 4. Lannec's cirrhosis with rising serum bilirubin, thrombocytopenia and elevated INR 5. Anemia -severe; no evidence for GI bleeding at the moment Suggestion: 1. Continue albumin infusions, midodrine 2. Start octreotide 3. Agree with need for packed RBC transfusion 4. Monitor for GI bleeding 5. Vitamin K 6. Blood cultures 7. Consider abdominal ultrasound, echocardiogram 8. If significant ascites found, consider diagnostic tap 9. Monitor renal function, CBC daily; follow LFTs Subjective Subjective: Patient remains awake and alert but continues to be oliguric with a rising serum creatinine. Falling hemoglobin noted and packed RBC transfusion in progress. Despite lactulose and rifaximin, she has yet to move her bowels. Objective Vital Signs and I&Os Vital Signs Date Time Temp Pulse Resp B/P B/P Pulse O2 O2 Flow FiO2 Mean Ox Delivery Rate 03/01 1144 90/40 03/01 1131 93 Nasal 50% Cannula 03/01 0842 94 Nasal 50% Cannula 03/01 0400 94 Nasal 50% Cannula 03/01 0008 98 Nasal 55% Cannula 03/01 0000 95 Nasal 50% Cannula 02/28 2300 97.7 54 18 92/40 95 Nasal 50% Cannula 02/28 2114 56 82/48 02/28 2102 90 Nasal 6.0L Cannula 02/28 2100 97.5 56 20 82/48 86 Nasal 4.0L Cannula 02/28 2001 Nasal 4.0L Cannula 02/28 1746 52 02/28 1720 97.5 50 18 79/48 92 Nasal 3.0L Cannula 02/28 1611 24 94 Nasal 3.0L Cannula 02/28 1611 24 95 Nasal 4.0L Cannula 02/28 1600 94 Nasal 3.0L Cannula 02/28 1541 24 90 Nasal 4.0L Cannula 02/28 1540 84 Nasal 2.5L Cannula 02/28 1540 97.8 54 24 88/50 84 Nasal 3.0L Cannula 02/28 1416 97.5 54 24 90/56 92 Nasal Cannula 02/28 1252 97.8 54 20 84/40 95 Nasal 3.0L Cannula Intake & Output 03/010 02/28 0400 Intake Total 260 480 Output Total 20 0 0 Balance 240 480 0 Intake, IV 200 120 Intake, Oral 60 360 Number 0 0 Bowel Movements Output, Urine 20 0 0 Patient 209 lb 214 lb Weight Weight Bed scale Bed scale Measurement Method Physical Exam: General: Well-developed chronically ill-appearing female looking older than her stated age Skin: Jaundiced with several spider telangiectasia HEENT: Conjunctivae pale, sclerae icteric, mucous membranes dry Neck: Without masses or thyromegaly, no supraclavicular or cervical adenopathy Chest: Clear without rales or rhonchi Heart: Regular rate and rhythm without S3 or rub Abdomen: Soft and nontender without palpable masses or organomegaly; there is a well-healed horizontal surgical scar Extremities: 3+ lower extremity edema without cyanosis Neuro: Awake, alert without cognitive dysfunction, no focal findings, +few beats of asterixis, no myoclonus Results Pertinent Lab Results: Laboratory Tests 03/01 03/01 0509 0507 Chemistry Sodium (137 - 145 mmol/L) 131 L Potassium (3.5 - 5.1 mmol/L) 3.6 Chloride (98 - 107 mmol/L) 94 L Carbon Dioxide (22 - 30 mmol/L) 17 L Anion Gap (5 - 16) 20 H BUN (7 - 17 mg/dL) 47 H Creatinine (0.5 - 1.0 mg/dL) 5.3 *H Estimated GFR (>60 ml/min) 8 L BUN/Creatinine Ratio (7 - 25 %) 8.9 Phosphorus (2.5 - 4.5 mg/dL) 5.0 H Magnesium (1.6 - 2.3 mg/dL) 1.6 Hematology CBC w Diff MAN DIFF ORDERED WBC (4.8 - 10.8 /CUMM) 5.3 RBC (4.20 - 5.40 /CUMM) 1.81 L Hgb (12.0 - 16.0 G/DL) 6.6 *L Hct (37 - 47 %) 18.6 *L MCV (81.0 - 99.0 FL) 102.9 H MCH (27.0 - 31.0 PG) 36.8 H MCHC (33.0 - 37.0 G/DL) 35.8 RDW (11.5 - 14.5 %) 19.5 H Plt Count (130 - 400 /CUMM) 74 L MPV (7.4 - 10.4 FL) 7.5 Gran % (42.2 - 75.2 %) 58.0 Lymphocytes % (20.5 - 51.1 %) 31.2 Monocytes % (1.7 - 9.3 %) 8.4 Eosinophils % (0 - 5 %) 2.1 Basophils % (0.0 - 2.0 %) 0.3 Absolute Granulocytes (1.4 - 6.5 /CUMM) 3.0 Segmented Neutrophils (42.2 - 75.2 %) 47 Absolute Lymphocytes (1.2 - 3.4 /CUMM) 1.6 Lymphocytes (20.5 - 51.1 %) 43 Monocytes (1.7 - 9.3 %) 6 Absolute Monocytes (0.10 - 0.60 /CUMM) 0.4 Eosinophils (0 - 5.0 %) 4 Absolute Eosinophils (0.0 - 0.7 /CUMM) 0.1 Absolute Basophils (0.0 - 0.2 /CUMM) 0 Platelet Estimate (ADEQUATE) DECREASED Polychromasia 1+ Poikilocytosis 2+ Anisocytosis 1+ Macrocytic Cells 1+ Target Cells FEW Ovalocytes 1+ Mary Cells 2+ Elliptocytes FEW Other Body Source Fld Total RBCs Counted (%) 100 02/28 02/28 2200 1421 Blood Gas pH (7.35 - 7.45 PH) 7.45 pCO2 (35 - 45 TORR) 24 L pO2 (80 - 100 TORR) 77 L HCO3 (21 - 28 MEQ/L) 16 L ABG O2 Sat (Measured) (>96.0 %) 93.0 L P-50 (Temp Corrected) N Carboxyhemoglobin (1.5 - 5.0 %) 2.3 O2 Concentration % 50% Temperature (97.0 - 100.0 FARH) 96.6 L O2 Delivery Method NC Chemistry Lactic Acid Cancelled Miscellaneous Phlebotomy Draw Site RIGHT BRACHIAL 02/28 02/28 1140 1059 Chemistry Sodium (137 - 145 mmol/L) 129 L Potassium (3.5 - 5.1 mmol/L) 3.9 Chloride (98 - 107 mmol/L) 93 L Carbon Dioxide (22 - 30 mmol/L) 18 L Anion Gap (5 - 16) 19 H BUN (7 - 17 mg/dL) 45 H Creatinine (0.5 - 1.0 mg/dL) 4.8 H Estimated GFR (>60 ml/min) 9 L BUN/Creatinine Ratio (7 - 25 %) 9.4 Glucose (65 - 99 mg/dL) 115 H Lactic Acid (0.7 - 2.1 mmol/L) 1.7 Calcium (8.4 - 10.2 mg/dL) 9.2 Phosphorus (2.5 - 4.5 mg/dL) 4.6 H Magnesium (1.6 - 2.3 mg/dL) 1.6 Total Bilirubin (0.2 - 1.3 mg/dL) 15.4 H AST (14 - 36 U/L) 39 H ALT (9 - 52 U/L) 22 Alkaline Phosphatase (<127 U/L) 122 Ammonia (9 - 30 umol/L) 82 H Creatine Kinase (30 - 135 U/L) 51 Troponin I (< 0.11 ng/ml) 0.02 Cancelled [id number]-[id number]-Xpfhblqruqe Pept (<125 pg/mL) 17243 H Cancelled Total Protein (6.3 - 8.2 g/dL) 8.1 Albumin (3.5 - 5.0 g/dL) 4.2 Globulin (1.9 - 4.2 gm/dL) 3.9 Albumin/Globulin Ratio (1.1 - 2.2 %) 1.1 Vitamin B12 (239 - 931 pg/mL) 975 H Folate (2.76 - 20.0 ng/mL) 12.1 Coagulation PT (9.4 - 12.5 SEC) 20.3 H INR (0.90 - 1.19) 1.85 H APTT (25 - 37 SEC) 36 Hematology CBC w Diff MAN DIFF ORDERED WBC (4.8 - 10.8 /CUMM) 6.7 RBC (4.20 - 5.40 /CUMM) 2.19 L Hgb (12.0 - 16.0 G/DL) 8.1 L Hct (37 - 47 %) 22.5 L MCV (81.0 - 99.0 FL) 102.8 H MCH (27.0 - 31.0 PG) 36.9 H MCHC (33.0 - 37.0 G/DL) 35.9 RDW (11.5 - 14.5 %) 20.2 H Plt Count (130 - 400 /CUMM) 98 L MPV (7.4 - 10.4 FL) 8.2 Gran % (42.2 - 75.2 %) 64.1 Lymphocytes % (20.5 - 51.1 %) 26.5 Monocytes % (1.7 - 9.3 %) 9.1 Eosinophils % (0 - 5 %) 0 Basophils % (0.0 - 2.0 %) 0.3 Absolute Granulocytes (1.4 - 6.5 /CUMM) 4.3 Absolute Lymphocytes (1.2 - 3.4 /CUMM) 1.8 Absolute Monocytes (0.10 - 0.60 /CUMM) 0.6 Absolute Eosinophils (0.0 - 0.7 /CUMM) 0 Absolute Basophils (0.0 - 0.2 /CUMM) 0 Platelet Estimate (ADEQUATE) DECREASED Poikilocytosis 2+ Anisocytosis 2+ Mary Cells 2+ Schistocytes 02/28 1057 Chemistry Sodium Cancelled Potassium Cancelled Chloride Cancelled Carbon Dioxide Cancelled Anion Gap Cancelled BUN Cancelled Creatinine Cancelled BUN/Creatinine Ratio Cancelled Glucose Cancelled Calcium Cancelled Total Bilirubin Cancelled AST Cancelled ALT Cancelled Alkaline Phosphatase Cancelled Total Protein Cancelled Albumin Cancelled Globulin Cancelled Albumin/Globulin Ratio Cancelled
[2018-03-01 13:56] LABS: ABSOLUTE BASOPHIL COUNT 0 /CUMM (0.0-0.2); ABSOLUTE EOSINOPHIL COUNT 0 /CUMM (0.0-0.7); ABSOLUTE GRANULOCYTE CT 3.7 /CUMM (1.4-6.5); ABSOLUTE LYMPH COUNT 1.3 /CUMM (1.2-3.4); ABSOLUTE MONOCYTE COUNT 0.5 /CUMM (0.10-0.60); BASOPHIL % 0.2 % (0.0-2.0); EOSINOPHIL % 0 % (0-5); GRANULOCYTE % 66.9 % (42.2-75.2); MEAN CORPUSCULAR HGB 35.1 PG (27.0-31.0); MEAN CORPUSCULAR HGB CONC 35.3 G/DL (33.0-37.0); MEAN CORPUSCULAR VOLUME 99.2 FL (81.0-99.0); MEAN PLATELET VOLUME 7.9 FL (7.4-10.4); PLATELET COUNT 80 /CUMM (130-400); RBC DISTRIBUTION WIDTH 22.1 % (11.5-14.5); RED BLOOD CELL CT 2.11 /CUMM (4.20-5.40); WHITE BLOOD CELL COUNT 5.5 /CUMM (4.8-10.8)
--- NOTE | 2018-03-01 14:43 | ECHOCARDIOGRAM REPORT ---
PASCUAL WHITE Age: 62 : 1955 Gender: F Exam Date: 03/01/2018 11:54 Exam Location: [facility] Ht (in): 69 Wt (lb): 214 BSA: 2.20 BP: 95 / 51 Ordering Physician: Bladimir Sweeney MD Referring Physician: Bladimir Sweeney MD Technologist: Skyler Castellon RIZWAN Room Number: 106 Indications: HEART FAILURE Rhythm: Sinus Technical Quality: good FINDINGS Left Ventricle Normal left ventricular size and wall thickness with normal systolic function. No obvious regional wall motion abnormalities. Diastolic filling pattern is consistent with restrictive hemodynamics. The ejection fraction is visually estimated at 70%. Right Ventricle The right ventricle is normal in size and function. Right Atrium The right atrium is normal in size. Left Atrium The left atrium is normal in size. The interatrial septum is intact. Mitral Valve The mitral valve demonstrates mild annular and leaflet calcification. There is mild mitral regurgitation. Aortic Valve Mildly thickened and sclerotic aortic valve without significant stenosis. There is trace aortic regurgitation. Tricuspid Valve The tricuspid valve is normal in structure and function. There is moderate tricuspid regurgitation. Pulmonary artery systolic pressure is normal. Pulmonic Valve Structurally normal pulmonic valve. There is mild pulmonic regurgitation. Pericardium Normal pericardium without effusion. Large pleural effusion. Great Vessels Normal aortic root dimension. The aortic arch and great vessels are well seen and are normal. CONCLUSIONS 1. Normal EF of 70% with restrictive hemodynamics. 2. Mild mitral regurgitation. 3. Moderate tricuspid regurgitation. 4. Trace aortic regurgitation. 5. Mild pulmonic regurgitation. 6. Large pleural effusion. Simba Kang M.D. (Electronically Signed) Final Date: 01 Mar 2018 14:43 MEASUREMENTS (Male / Female) Normal Values 2D ECHO LV Diastolic Diameter PLAX 4.9 cm 4.2 - 5.9 / 3.9 - 5.3 cm LV Systolic Diameter PLAX 2.9 cm 2.1 - 4.0 cm LV Fractional Shortening PLAX 40.8 % 25 - 46 % LV Ejection Fraction 2D Teich 71.4 % IVS Diastolic Thickness 1.0 cm LVPW Diastolic Thickness 0.8 cm LV Relative Wall Thickness 0.4 RV Internal Dim ED PLAX 3.5 cm 1.9 - 3.8 cm LVOT Diameter 1.8 cm Aortic Root Diameter 2.3 cm LA Systolic Diameter LX 3.6 cm 3.0 - 4.0 / 2.7 - 3.8 cm Ascending Aorta Diameter 2.5 cm DOPPLER AV Peak Velocity 212.0 cm/s AV Peak Gradient 18.0 mmHg AV Mean Velocity 133.0 cm/s AV Mean Gradient 8.0 mmHg AV Velocity Time Integral 47.9 cm AI Deceleration Gillespie 187.0 cm/s AI Peak Velocity 329.0 cm/s AI Pressure Half Time 516.0 ms AI Peak Gradient 43.3 mmHg LVOT Peak Velocity 134.0 cm/s LVOT Peak Gradient 7.2 mmHg LVOT Mean Velocity 80.0 cm/s LVOT Mean Gradient 3.0 mmHg LVOT Velocity Time Integral 30.3 cm LVOT Stroke Volume 77.1 cm AV Area Cont Eq vti 1.6 cm AV Area Cont Eq pk 1.6 cm MV Peak Velocity 157.0 cm/s MV Peak Gradient 9.9 mmHg MV Mean Velocity 64.4 cm/s MV Mean Gradient 2.0 mmHg Mitral E Point Velocity 143.0 cm/s Mitral A Point Velocity 43.8 cm/s Mitral E to A Ratio 3.3 MV PHT Velocity 160.0 cm/s MV Deceleration Gillespie 395.0 cm/s MV Pressure Half Time 121.5 ms MV Area PHT 1.8 cm MV Deceleration Time 317.0 ms MR Peak Velocity 444.0 cm/s MR Peak Gradient 78.9 mmHg TR Peak Velocity 163.0 cm/s TR Peak Gradient 10.6 mmHg Right Atrial Pressure 10.0 mmHg Pulmonary Artery Systolic Pressu 20.6 mmHg Right Ventricular Systolic Press 20.6 mmHg PV Peak Velocity 73.1 cm/s PV Peak Gradient 2.1 mmHg PV Mean Velocity 48.0 cm/s PV Mean Gradient 1.0 mmHg PV Velocity Time Integral 18.4 cm LV E' Lateral Velocity 12.5 cm/s Mitral E to LV E' Lateral Ratio 11.4 LV E' Septal Velocity 9.5 cm/s Mitral E to LV E' Septal Ratio 15.1
[2018-03-01 16:00] VITALS: BP 88/44
--- NOTE | 2018-03-01 16:11 | Cons- Gastroenterology ---
General Information and HPI Consulting Request Date of Consult: 03/01/18 Requested By: Gela Almanza MD Reason for Consult: 1. Cirrhosis 2. Acute kidney kidney injury, question HRS type I 3. Primary biliary cholangitis 4. 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 She has PMH additionally significant for invasive ductal breast CA [id number] with chemotherapy but no Radiation Therapy. Patient has been having gradual decompensation of her liver disease. Significant outpatient labs include a negative HBsAg and HCVab. An AMA of 38 and AFP of 6.3. She had a CT Scan of the abdomen and pelvis that showed hypoattenuation in Segment 4a of the liver which was to be further evaluated by MRI. On that CT she also had mild ascites and evidence of portal hypertension with esophageal and gastric varices. Her Primary Cider Press Operator , Dr. Abdiel Reddy, had already referred her to [facility] for transplant evaluation which was scheduled to take place within the first week in March. Ms. Ace was last admitted to [facility] in January with acute hypoxic respiratory failure and since that time has been maintained on home oxygen. During that admission she underwent upper endoscopy by Dong Trejo MD who noted grade 1 esophageal varices with no stigmata of bleeding, portal hypertensive gastropathy, and fundal gastric varices with no stigmata of bleeding. On admission in January her BUN/Cr was 31/1.4 with a GFR of 38. At discharge it was 14/0.8 with a GFR of >60. She had been maintained on lactulose for constipation as well as Minimal HE/Stage 1 HE as well as for constipation. She drinks half a gallon of water daily and follows a sodium-restricted diet. She has not been having diarrhea. However, she was admitted last night with increasing shortness of breath, increasing peripheral edema over the past couple of weeks with increasing abdominal girth. She has also noted marked decrease in her urine output and has had only "dribbling." On admission whe had a BUN/ Creatinie of 45/4.8 which increased overnight to 57/5.3. She had a urine Na of 58. She was given a bolus of IV fluids and started on albumin, octreotide and midrodrine with little urine output. 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 AN 01/19/18) Home Med List: Escitalopram Oxalate 10 MG TABLET 1 TAB PO DAILY MENTAL HEALTH (Reported) Lactulose 10 GRAM/15 ML SOLUTION 30 ML PO DAILY CONSTIPATION (Reported) Lorazepam 0.5 MG TABLET 1 TAB PO TIDPRN PRN ANXIETY (Reported) Propranolol HCl 20 MG TABLET 1 TAB PO BID VARICES (Reported) Rifaximin (Xifaxan) 550 MG TABLET 1 TAB PO BID GI (Reported) Spironolactone 25 MG TABLET 1 TAB PO DAILY DIURETIC (Reported) Ursodiol 500 MG TABLET 2 TAB PO QHS BILE (Reported) Current Medications: Current Medications Sig/Freddy Start time Last Medication Dose Route Stop Time Status Admin Albumin Human 25 GM Q6 02/28 1800 AC 03/01 IV 1254 Albumin Human 25 GM TID 02/28 1615 DC IV Escitalopram Oxalate 10 MG DAILY 03/01 0900 AC 03/01 PO 1140 Lactulose 10 GM TID 02/28 1633 AC 03/01 PO 1344 Magnesium Chloride 64 MG BID 03/01 0900 AC PO Midodrine 10 MG Q8 03/01 1400 CAN PO Midodrine 5 MG 0800,1200,1600 03/01 0800 DC PO Midodrine 10 MG 0800,1200,1600 03/01 0800 DC PO Midodrine 10 MG 0800,1200,1600 02/28 2030 AC 03/01 PO 1140 Octreotide Acetate 500 MCG Q10H 03/01 1515 AC Dextrose/Water 500 ML IV Octreotide Acetate 100 MCG Q8 03/01 1400 DC 03/01 IV 1344 Propranolol HCl 20 MG BID 02/28 2100 AC PO Rifaximin 550 MG BID 02/28 2100 AC 03/01 PO 1139 Sodium Chloride 1,000 ML ONCE ONE 02/28 1130 DC 02/28 IV 02/28 1809 1151 Ursodiol 900 MG 02/28 AC 02/28 PO 211 Past History Travel History Traveled to [place] past 21 day No Medical History Blood Transfusion Hx: No Neurological: NONE EENT: NONE Cardiovascular: HYPOTENSION Respiratory: HOME O2 USE Gastrointestinal: hx colon adenoma Hepatic: cirrhosis (EtOH, ? 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 , Age 72; Cause: Hepatoma. FATHER, , Age 64; Cause: Colon cancer. Psychosocial History Where Do You Live? Home Who Do You Live With? child (dtr & grandson) Services at Home: Nursing Primary Language: Uzbek Smoking Status: Former Smoker ETOH Use: denies use Illicit Drug Use: denies illicit drug use Living Will? no Power of Jig Filler/HCP? no Functional Ability ADLs Independent: dressing, eating, toileting, bathing. Ambulation: independent IADLs Independent: shopping, housework, finances, food prep, telephone, transportation , medication admin. Review of Systems Review of Systems Constitutional: Reports: see HPI. EENTM: Reports: no symptoms. Cardiovascular: Reports: edema. Respiratory: Reports: see HPI. GI: Reports: no symptoms. Genitourinary: Reports: no symptoms, hesitation. Musculoskeletal: Reports: no symptoms. Skin: Reports: no symptoms. Neurological/Psychological: Reports: no symptoms. Hematologic/Endocrine: Reports: no symptoms. Exam & Diagnostic Data Vital Signs and I&O Vital Signs Date Time Temp Pulse Resp B/P B/P Pulse O2 O2 Flow FiO2 Mean Ox Delivery Rate 03/01 1200 95 Nasal 50% Cannula 03/01 1200 98.8 54 18 90/40 96 Nasal 50% Cannula 03/01 1144 90/40 03/01 1131 93 Nasal 50% Cannula 03/01 0842 94 Nasal 50% Cannula 03/01 0800 96 Nasal 50% Cannula 03/01 0800 97.8 57 24 90/50 96 Nasal 50% Cannula 03/01 0400 94 Nasal 50% Cannula 03/01 0008 98 Nasal 55% Cannula 03/01 0000 95 Nasal 50% Cannula 02/28 2300 97.7 54 18 92/40 95 Nasal 50% Cannula 02/28 2114 56 82/48 02/28 2102 90 Nasal 6.0L Cannula 02/28 2100 97.5 56 20 82/48 86 Nasal 4.0L Cannula 02/28 2001 Nasal 4.0L Cannula 02/28 1746 52 02/28 1720 97.5 50 18 79/48 92 Nasal 3.0L Cannula 02/28 1611 24 94 Nasal 3.0L Cannula 02/28 1611 24 95 Nasal 4.0L Cannula 02/28 1600 94 Nasal 3.0L Cannula Intake & Output 03/01 0400 02/28 0400 Intake Total 880 480 Output Total 39 0 0 Balance 841 480 0 Intake, IV 670 120 Intake, Oral 210 360 Number 0 0 Bowel Movements Output, Urine 39 0 0 Patient 209 lb 214 lb Weight Weight Bed scale Bed scale Measurement Method Physical Exam General Appearance: alert, awake, thin Head: atraumatic Eyes: Bilateral: normal appearance, pale conjunctivae. Ears, Nose, Throat: hearing grossly normal Neck: normal inspection, supple, full range of motion Respiratory: decreased breath sounds on the right with dullness to percussion Cardiovascular: regular rate/rhythm, normal S1 and S2 without rub, murmur, or gallop Gastrointestinal: normal bowel sounds, soft, non-tender, mild distention Extremities: 2+ pitting edema bilaterally Neurologic/Psych: alert, oriented x 3 Cranial Nerves: normal speech, no asterixis Skin: intact, warm/dry Results Pertinent Lab Results: Laboratory Tests 03/01 03/01 1400 1254 Hematology CBC w Diff MAN DIFF ORDERED WBC (4.8 - 10.8 /CUMM) 5.5 RBC (4.20 - 5.40 /CUMM) 2.11 L Hgb (12.0 - 16.0 G/DL) 7.4 *L Hct (37 - 47 %) 21.0 L MCV (81.0 - 99.0 FL) 99.2 H MCH (27.0 - 31.0 PG) 35.1 H MCHC (33.0 - 37.0 G/DL) 35.3 RDW (11.5 - 14.5 %) 22.1 H Plt Count (130 - 400 /CUMM) 80 L MPV (7.4 - 10.4 FL) 7.9 Gran % (42.2 - 75.2 %) 66.9 Lymphocytes % (20.5 - 51.1 %) 23.8 Monocytes % (1.7 - 9.3 %) 9.1 Eosinophils % (0 - 5 %) 0 Basophils % (0.0 - 2.0 %) 0.2 Absolute Granulocytes (1.4 - 6.5 /CUMM) 3.7 Absolute Lymphocytes (1.2 - 3.4 /CUMM) 1.3 Absolute Monocytes (0.10 - 0.60 /CUMM) 0.5 Absolute Eosinophils (0.0 - 0.7 /CUMM) 0 Absolute Basophils (0.0 - 0.2 /CUMM) 0 Platelet Estimate (ADEQUATE) DECREASED Polychromasia 1+ Poikilocytosis 2+ Anisocytosis 1+ Macrocytic Cells 1+ Target Cells Ovalocytes 1+ Mary Cells 2+ Schistocytes Urines Ur Random Creatinine (mg/dL) 222.7 Ur Random Sodium (30 - 90 mmol/L) 58 Ur Random Potassium (mmol/L) 27.1 Fraction Sodium Excret (<1% %) 1.1 H 03/01 03/01 0509 0507 Chemistry Sodium (137 - 145 mmol/L) 131 L Potassium (3.5 - 5.1 mmol/L) 3.6 Chloride (98 - 107 mmol/L) 94 L Carbon Dioxide (22 - 30 mmol/L) 17 L Anion Gap (5 - 16) 20 H BUN (7 - 17 mg/dL) 47 H Creatinine (0.5 - 1.0 mg/dL) 5.3 *H Estimated GFR (>60 ml/min) 8 L BUN/Creatinine Ratio (7 - 25 %) 8.9 Phosphorus (2.5 - 4.5 mg/dL) 5.0 H Magnesium (1.6 - 2.3 mg/dL) 1.6 Hematology CBC w Diff MAN DIFF ORDERED WBC (4.8 - 10.8 /CUMM) 5.3 RBC (4.20 - 5.40 /CUMM) 1.81 L Hgb (12.0 - 16.0 G/DL) 6.6 *L Hct (37 - 47 %) 18.6 *L MCV (81.0 - 99.0 FL) 102.9 H MCH (27.0 - 31.0 PG) 36.8 H MCHC (33.0 - 37.0 G/DL) 35.8 RDW (11.5 - 14.5 %) 19.5 H Plt Count (130 - 400 /CUMM) 74 L MPV (7.4 - 10.4 FL) 7.5 Gran % (42.2 - 75.2 %) 58.0 Lymphocytes % (20.5 - 51.1 %) 31.2 Monocytes % (1.7 - 9.3 %) 8.4 Eosinophils % (0 - 5 %) 2.1 Basophils % (0.0 - 2.0 %) 0.3 Absolute Granulocytes (1.4 - 6.5 /CUMM) 3.0 Segmented Neutrophils (42.2 - 75.2 %) 47 Absolute Lymphocytes (1.2 - 3.4 /CUMM) 1.6 Lymphocytes (20.5 - 51.1 %) 43 Monocytes (1.7 - 9.3 %) 6 Absolute Monocytes (0.10 - 0.60 /CUMM) 0.4 Eosinophils (0 - 5.0 %) 4 Absolute Eosinophils (0.0 - 0.7 /CUMM) 0.1 Absolute Basophils (0.0 - 0.2 /CUMM) 0 Platelet Estimate (ADEQUATE) DECREASED Polychromasia 1+ Poikilocytosis 2+ Anisocytosis 1+ Macrocytic Cells 1+ Target Cells FEW Ovalocytes 1+ Mary Cells 2+ Elliptocytes FEW Other Body Source Fld Total RBCs Counted (%) 100 02/28 02/28 2200 1421 Blood Gas pH (7.35 - 7.45 PH) 7.45 pCO2 (35 - 45 TORR) 24 L pO2 (80 - 100 TORR) 77 L HCO3 (21 - 28 MEQ/L) 16 L ABG O2 Sat (Measured) (>96.0 %) 93.0 L P-50 (Temp Corrected) N Carboxyhemoglobin (1.5 - 5.0 %) 2.3 O2 Concentration % 50% Temperature (97.0 - 100.0 FARH) 96.6 L O2 Delivery Method NC Chemistry Lactic Acid Cancelled Miscellaneous Phlebotomy Draw Site RIGHT BRACHIAL 02/28 02/28 1140 1059 Chemistry Sodium (137 - 145 mmol/L) 129 L Potassium (3.5 - 5.1 mmol/L) 3.9 Chloride (98 - 107 mmol/L) 93 L Carbon Dioxide (22 - 30 mmol/L) 18 L Anion Gap (5 - 16) 19 H BUN (7 - 17 mg/dL) 45 H Creatinine (0.5 - 1.0 mg/dL) 4.8 H Estimated GFR (>60 ml/min) 9 L BUN/Creatinine Ratio (7 - 25 %) 9.4 Glucose (65 - 99 mg/dL) 115 H Lactic Acid (0.7 - 2.1 mmol/L) 1.7 Calcium (8.4 - 10.2 mg/dL) 9.2 Phosphorus (2.5 - 4.5 mg/dL) 4.6 H Magnesium (1.6 - 2.3 mg/dL) 1.6 Total Bilirubin (0.2 - 1.3 mg/dL) 15.4 H AST (14 - 36 U/L) 39 H ALT (9 - 52 U/L) 22 Alkaline Phosphatase (<127 U/L) 122 Ammonia (9 - 30 umol/L) 82 H Creatine Kinase (30 - 135 U/L) 51 Troponin I (< 0.11 ng/ml) 0.02 Cancelled Cdw-L-Vllnychnmbn Pept (<125 pg/mL) 36199 H Cancelled Total Protein (6.3 - 8.2 g/dL) 8.1 Albumin (3.5 - 5.0 g/dL) 4.2 Globulin (1.9 - 4.2 gm/dL) 3.9 Albumin/Globulin Ratio (1.1 - 2.2 %) 1.1 Vitamin B12 (239 - 931 pg/mL) 975 H Folate (2.76 - 20.0 ng/mL) 12.1 Coagulation PT (9.4 - 12.5 SEC) 20.3 H INR (0.90 - 1.19) 1.85 H APTT (25 - 37 SEC) 36 Hematology CBC w Diff MAN DIFF ORDERED WBC (4.8 - 10.8 /CUMM) 6.7 RBC (4.20 - 5.40 /CUMM) 2.19 L Hgb (12.0 - 16.0 G/DL) 8.1 L Hct (37 - 47 %) 22.5 L MCV (81.0 - 99.0 FL) 102.8 H MCH (27.0 - 31.0 PG) 36.9 H MCHC (33.0 - 37.0 G/DL) 35.9 RDW (11.5 - 14.5 %) 20.2 H Plt Count (130 - 400 /CUMM) 98 L MPV (7.4 - 10.4 FL) 8.2 Gran % (42.2 - 75.2 %) 64.1 Lymphocytes % (20.5 - 51.1 %) 26.5 Monocytes % (1.7 - 9.3 %) 9.1 Eosinophils % (0 - 5 %) 0 Basophils % (0.0 - 2.0 %) 0.3 Absolute Granulocytes (1.4 - 6.5 /CUMM) 4.3 Absolute Lymphocytes (1.2 - 3.4 /CUMM) 1.8 Absolute Monocytes (0.10 - 0.60 /CUMM) 0.6 Absolute Eosinophils (0.0 - 0.7 /CUMM) 0 Absolute Basophils (0.0 - 0.2 /CUMM) 0 Platelet Estimate (ADEQUATE) DECREASED Poikilocytosis 2+ Anisocytosis 2+ [place] Cells 2+ Schistocytes 02/28 1057 Chemistry Sodium Cancelled Potassium Cancelled Chloride Cancelled Carbon Dioxide Cancelled Anion Gap Cancelled BUN Cancelled Creatinine Cancelled BUN/Creatinine Ratio Cancelled Glucose Cancelled Calcium Cancelled Total Bilirubin Cancelled AST Cancelled ALT Cancelled Alkaline Phosphatase Cancelled Total Protein Cancelled Albumin Cancelled Globulin Cancelled Albumin/Globulin Ratio Cancelled Urines Urine Color Cancelled Urine Clarity Cancelled Urine pH Cancelled Ur Specific [place] Cancelled Urine Protein Cancelled Urine Ketones Cancelled Urine Nitrite Cancelled Urine Bilirubin Cancelled Urine Urobilinogen Cancelled Ur Leukocyte Esterase Cancelled Ur Microscopic Cancelled Urine Hemoglobin Cancelled Urine Glucose Cancelled Assessment/Plan Assessment/Recommendations: ASSESSMENT: 1. Acute Kidney Injury, ? HRS Type 1 which seems unlikely given FeNa of 58. 2. Cirrhosis due to alcohol abuse, now in remission as well as primary biliary cholangitis 3. Hypoxia -- patient with large right pleural effusion on chest X-ray, likely hepatic hydrothorax. 4. History of hypoxemia now on home O2 -- ? hepatopulmonary HTN 5. Coagulopathy 6. Primary Biliary Cirrhosis RECOMMENDATIONS: Discussed with housestaff. Patient not responding to fluids, octreotie, albumin and midrodrine. Patient still with BP 90/40 and increated BUN/Cr. Patient may need norepinephrine to achieve sufficient increase in MAP. Further, patient may benefit from thoracentesis to improve pulmonary function. Given that patient is currently in the process of seeking a transplant evaluation and since she clearly needs more intensive hepatology services, I believe that transfer to [facility] is warranted. I have spoken with [facility] and she has been accepted for transfer to the [facility] with transplant hepatology in consultation. Consult Acknowledgment - Thank you for your consult request.
--- NOTE | 2018-03-01 16:22 | Discharge Summary ---
Visit Information Visit Dates Admission Date: 02/28/18 Discharge Date: 03/01/18 Hospital Course Course Attending Physician: Gela Almanza MD Primary Care Physician: Jean Carlos Chappell MD Consulting Request: 1 Consulting Specialty: Gastroenterology Consulting Physician: Reason for Consult: SHELLEY with possible hepatorenal syndrome Consulting Request: 2 Consulting Specialty: Nephrology Consulting Physician: Reason for Consult: SHELLEY Hospital Course: Patient is a 62 YO F with PMH significant for anxiety/depression, cirrhosis/ portal hypertension, esophageal varices (secondary to alcohol), H pylori gastritis, breast cancer status post mastectomy and chemotherapy therapy (as 14 years ago), colon adenoma, chronic back pain, CHF presents to ER with family for evaluation complaining of progressively worsening shortness of breath worse with exertion bilateral leg swelling and decreased urine output for the past 3 days. Admitted for acute kidney injury in the setting of GI bleed and hypotension which improved with hydration. She is scheduled to get transplant evaluation at [facility] coming March 25. She follows for GI, occasionally . PMH Decompensated alcoholic cirrhosis - although there was also mention of a possible diagnosis of primary biliary cirrhosis. Splenomegaly with portal hypertension leading to thrombocytopenia, esophageal and gastric varices, left breast surgery for cancer in 2003, anemia and thrombocytopenia. Family history: Strongly positive for alcohol abuse, negative for kidney disease. She has 2 children a son and a daughter who were not drinkers. Social history: Chronic alcoholism dating back many years but significantly exacerbated after her several years ago. Stopped since last april, had 2 drinks last and since then in absolute remission. 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 Assessment and plan Patient is a 62 YO F with PMH significant for Diastolic heart failure (EF65% ), alcoholic cirrhosis/portal hypertension possible overlap with progressive biliary cirrhosis (+AMA), esophageal varices, H pylori gastritis, breast cancer s/p mastectomy and chemotherapy therapy (2003), colon adenoma, chronic back pain, anxiety/depression recent admission to in 01/23 for acute kidney injury, acute resp failure, and oral laceration is admitted to general medicine floor initially with concerns of acute renal failure with possible hepatorenal syndrome. At presentation VS - Temp 97.8, HR 54, blood pressure 86/40, SPO2 92% on 2 L nasal cannula. Physical exam AAO X 3, She was pale, sclera was icteric, had a spider angioma on the left lower check, neck -no JVD, oral cavity dry chest - bilateral clear, heart systolic murmur present, abdomen distended-ascites with hepatosplenomegaly present, bilateral lower extremity 3+ edema present. Pertinent labs H&H 8.1/ 22.5, platelet count 98,000, granulocytes 64.1, serum Na 129, K 3.9, cl 93, bicarbonate 18, AG 19, BUN 45, Cr 4.8, GFR 9, glucose 115, lactic acid 1.7, Ca 9.2, Po4 4.6, Mg 1.6, total bilirubin 15.4, AST 39, ALT 22, ALP 122, ammonia 82, CPK 51, troponin 0.02, proBNP 18,200, TP 8.1, albumin 4.2, globulin 3.9, PT/INR-20.3/ 1.85, APTT 36. Imaging shows bilateral pleural effusions with increasing bibasilar airspace disease, mild vascular congestion. Problem list 1. Decompensated alcoholic cirrhosis with portal hypertension/esophageal & gastric varices 2. SHELLEY with possible Hepatorenal syndrome 3. Acute drop in H&H 4. Colon adenoma 5. Anxiety/depression 6. Breast Cancer status post mastectomy and chemotherapy (2003) Decompensated alcohol cirrhosis She has a history of heavy bourbon use X 45yrs which was worsened after her in 2012. She was in absolute remission from alcohol since (stopped since , had one time gloria). She had cirrhosis with possible overlap with + PBC (hx +AMA), with hx esoph/gastric varices & portal gastropathy. Recently admitted for esophageal bleed and SHELLEY, recovered with resuscitation/endoscopy and esophageal and gastric varices. She had spider angiomata, hepatosplenomegaly with 3+ pitting edema. She was on rifaximin/lactulose, prapranolol at baseline. CXR did show bilateral pleural effusions Right > left concerning for hepatic hydrothorax. She had mild asterexis although alert and oriented X 3. She was admitted to general medicine floor and transferred to ICU for acute desaturation to 82% on 3L of oxygen, persistent hypotension 80/40mmHg requiring 50% of high flow. She was started on albumin 25mg Q6, midodrine 10mg Q8 while continuing rifaximin, Ursodiol 900mg. She was profoundly oliguric with 15ml of urine since admission. Started on octerotide drip subsequently. Propronolol held due to bradycardia. Patient not responding to fluids, octreotie, albumin and midrodrine. Patient still with BP 90/40 and increated BUN/Cr. Patient may need norepinephrine to achieve sufficient increase in MAP. Further, patient may benefit from thoracentesis to improve pulmonary function. Given that patient is currently in the process of seeking a transplant evaluation and since she clearly needs more intensive hepatology services, A decidsion was made to transfer to [facility]. She was accepted by [facility] with transplant hepatology consultation. SHELLEY with possible Hepatorenal syndrome Cr at admission was 4.8 --> 5.3 (day 2). Urine lytes shows random Cr 222, Urine Na 58, K 27, FeNa 1.1. chem panel on 03/01/18 - Na 131 , K 3.6, Cl 94, bicarbonate 17, AG 20, BUN 47, Cr 5.3. She remained profoundly anuric with only 15ml of fluid. ProBNP 62707. She was started on Midodrine and albumin without any improvement. Started on octreotide drip. Patient remains alert, oriented X 3 without any encephalopathy. Acute drop in H&H Patient had a H&H of 8.1/22.5 at admission, dropped to 6.6/18 on 03/01. She received a unit of transfusion with improvement in H&H to 7.4/21. No hematemesis/melena. She received 1L of NS after admission. No clear source of bleed. Anxiety/depression Continued Escitalopram DVT prophylaxis ALPS Code status Full code Complications: Oliguria requiring transfer to [facility] in anticipation of orthotopic liver transplantation Allergies: Coded Allergies: Penicillins (TROUBLE BREATHING AN 01/19/18) Significant Procedures: CXR at admission 02/28/18 IMPRESSION: Increasing size of right subpulmonic pleural effusion with mild CHF. A small left effusion is present as well. CXR on 03/01/18 repeat after acute desaturation IMPRESSION: Stable cardiomegaly. Small bilateral pleural effusions with increasing bibasilar airspace disease and mild vascular congestion. ECHO on 03/01/18 CONCLUSIONS 1. Normal EF of 70% with restrictive hemodynamics. 2. Mild mitral regurgitation. 3. Moderate tricuspid regurgitation. 4. Trace aortic regurgitation. 5. Mild pulmonic regurgitation. 6. Large pleural effusion. Simba Kang M.D. (Electronically Signed) Final Date: 01 Mar 2018 14:43 MEASUREMENTS (Male / Female) Normal Values 2D ECHO LV Diastolic Diameter PLAX 4.9 cm 4.2 - 5.9 / 3.9 - 5.3 cm LV Systolic Diameter PLAX 2.9 cm 2.1 - 4.0 cm LV Fractional Shortening PLAX 40.8 % 25 - 46 % LV Ejection Fraction 2D Teich 71.4 % IVS Diastolic Thickness 1.0 cm LVPW Diastolic Thickness 0.8 cm LV Relative Wall Thickness 0.4 RV Internal Dim ED PLAX 3.5 cm 1.9 - 3.8 cm LVOT Diameter 1.8 cm Aortic Root Diameter 2.3 cm LA Systolic Diameter LX 3.6 cm 3.0 - 4.0 / 2.7 - 3.8 cm Ascending Aorta Diameter 2.5 cm DOPPLER AV Peak Velocity 212.0 cm/s AV Peak Gradient 18.0 mmHg AV Mean Velocity 133.0 cm/s AV Mean Gradient 8.0 mmHg AV Velocity Time Integral 47.9 cm AI Deceleration Hardy 187.0 cm/s AI Peak Velocity 329.0 cm/s AI Pressure Half Time 516.0 ms AI Peak Gradient 43.3 mmHg LVOT Peak Velocity 134.0 cm/s LVOT Peak Gradient 7.2 mmHg LVOT Mean Velocity 80.0 cm/s LVOT Mean Gradient 3.0 mmHg LVOT Velocity Time Integral 30.3 cm LVOT Stroke Volume 77.1 cm AV Area Cont Eq vti 1.6 cm AV Area Cont Eq pk 1.6 cm MV Peak Velocity 157.0 cm/s MV Peak Gradient 9.9 mmHg MV Mean Velocity 64.4 cm/s MV Mean Gradient 2.0 mmHg Mitral E Point Velocity 143.0 cm/s Mitral A Point Velocity 43.8 cm/s Mitral E to A Ratio 3.3 MV PHT Velocity 160.0 cm/s MV Deceleration Hardy 395.0 cm/s MV Pressure Half Time 121.5 ms MV Area PHT 1.8 cm MV Deceleration Time 317.0 ms MR Peak Velocity 444.0 cm/s MR Peak Gradient 78.9 mmHg TR Peak Velocity 163.0 cm/s TR Peak Gradient 10.6 mmHg Right Atrial Pressure 10.0 mmHg Pulmonary Artery Systolic Pressu 20.6 mmHg Right Ventricular Systolic Press 20.6 mmHg PV Peak Velocity 73.1 cm/s PV Peak Gradient 2.1 mmHg PV Mean Velocity 48.0 cm/s PV Mean Gradient 1.0 mmHg PV Velocity Time Integral 18.4 cm LV E' Lateral Velocity 12.5 cm/s Mitral E to LV E' Lateral Ratio 11.4 LV E' Septal Velocity 9.5 cm/s Mitral E to LV E' Septal Ratio 15.1 Endoscopy Procedure on 01/19/18 Medical History: unchanged Mental Status: alert/oriented Heart/Lung Eval Prior to Sedation: within normal limits Candidate for Sedation? Yes Procedure Date: 01/19/18 Procedure Type: EGD Capsule Maker: RALEIGH MAURICIO MD ASA Classification: IV (IV-E) Indications: INDX: (*Please refer to my extensive GI consult from earlier on 01/19/18). 62 y/o female, remote hx breast Ca, long hx EtOH abuse (D/C 09/2017) with cirrhosis, additionally, + AMA (? PBC component), hx esophageal & gastric varices with portal gastropathy by 11/21/17: EGD, with poor dentition & bleeding from ? oropharynx vs. UGI bleed ("blood from mouth when tilting head to left"). Rare Advil. Instrument: diagnostic gastroscope Meds Received: MAC (& intubated per anesthesia) Patient's Tolerance: good Complications: none Extent Reached: second part of duodenum Procedure: Follow-uppper endoscopy to the second portion of the duodenum was performed with the Olympus high definition videoendoscope, after obtaining informed consent from the patient, with the media monitor and pulse oximeter, with the assistance the GI on-call RNs, Kamilla, & Dr. Maynard, of [facility], by the bedside in the [facility], room #107. The patient had very poor dentition preoperatively. A mouthpiece was placed in the usual fashion to protect the patient's teeth. The patient was prophylactically intubated by anesthesiology, prior to inserting the endoscope. Before even inserting the endoscope, with the patient in the supine position, fresh bright red blood was seen emanating from a crack in the corner of the lower left lip. This completely corroborated the patient's story of having "blood from my mouth, when turning my head to the left". In view of this, I endoscoped the patient in the supine position, as I felt that turning the patient to the left lateral decubitus position would exacerbate her bleeding. Anesthesiology provided gentle pressure over the bleeding site at the lower left lip with a gauze pad, intraoperatively. Once the patient was sedated and intubated, the endoscope was advanced from the mouth into the esophagus, using direct visualization technique , with the patient in the supine position. The ET tube was seen going in between the vocal cords. There was some bright red blood in the pharynx, undoubtedly from the bleeding site at the lower left lip. The patient had swallowed some of this blood as well, but the brightness and amount of the blood diminished when entering the esophagus. The proximal esophageal mucosa appeared normal. There were no esophageal rings, webs, lesions, strictures, or ulcers. There was no monilia or vesicles. There was no esophageal ribbing. The Z line was well demarcated at 40 cm in the supine position. There was no hiatal hernia pouch. No significant esophageal inflammation was seen. There were no ectopic islands, nor gross Medina's esophagus. There were 3 columns of non-bleeding 1+ esophageal varices, extending from 30 cm-40 cm, with the patient in the supine position. There was no red nikolai sign. The vast majority of these esophageal varices flattened out with air insufflation. There was no Erin Jones tear. The araujo of the stomach distended normally with air insufflation. Direct and retroflexed views of the stomach were performed. No junctional varices were seen. There were some fairly large non-bleeding proximal gastric fundic varices, towards the greater curvature aspect, just below the cardia, & some smaller non- bleeding gastric fundic varices, distal to this. There was nothing endoscopically to suggest gastroparesis. There was some mild non-bleeding proximal portal gastropathy in the fundus & upper body of the stomach, with some erythema and inflammation, but no "elephant skinning". The remainder of the lesser curvature, incisura, lower body, and antrum appeared normal, without any gastric ulcers or gastric lesions. Some blood that had dripped down from the lip was washed and suctioned essentially clear from the stomach. The pylorus was patent, without any gastric outlet obstruction or channel ulcer. The duodenal bulb and duodenal sweep appeared normal, without any duodenal ulcers, distal ulcerations, or angiodysplasias. I was not able to see the ampulla with the direct-viewing scope. The folds of the second portion of the duodenum were normal in caliber, without any flattening, nodularity, scalloping, or mosaic pattern. No active upper GI bleeding was seen, aside from the blood emanating from the corner of the lower left lip. No GI therapeutics were performed, aside from the endoscopy itself. The patient tolerated the procedure well. Documenting photographs were obtained and placed inside the patient's chart in the ICU. At the conclusion of the upper endoscopy procedure, surgery was contacted. The patient remained sedated and was left on the ventilator by anesthesiology, until the tiny cut in the lower left lip was sutured by surgery. The patient was then uneventfully extubated by anesthesiology. Impression: 1. *Bleeding site from the corner of the lower left lip, sutured by surgery. 2. 3 columns of non-bleeding 1+ esophageal varices from 30-40 cm (supine position), without any red nikolai sign, left intact. No junctional varices. 3. Fairly large non-bleeding proximal gastric fundic varices, towards the greater curvature aspect, just below the cardia, & some smaller non-bleeding gastric fundic varices, distal to this. 4. Mild non-bleeding proximal portal gastropathy in the fundus & upper body of the stomach. Recommendations: NPO for now. Suture care of lower left lip per surgery. If stable, clears po tomorrow. May D/C IV Octreotide drip. May switch IV Protonix drip to IV Protonix 40 mg daily. Continue IV Ceftriaxone 1g daily for now, pending cultures. * Complete abd sono (r/o hydronephrosis, r/o ascites, doubt dilated ducts). If tappable ascites, should do paracentesis to r/o SBP. Panculture (i.e.- BC/UC/ sputum, etc). Hold Lactulose for now (if needed, can eventually substitute Rifaximin for Lactulose, which will not dehydrate the patient). Hold Aldactone 25 mg daily. (Eventual resumption of Inderal 20 mg po BID as BP allows, & Compa 500 mg tab- 2 tabs po Qhs, once the patient resumes po intake). T&C 2u PRBC. Keep Hgb > 7 (no hx ASHD, do not "overinflate" varices). Check CBC Q8h for now. Strict I/O's. Check urine lytes & FENa. Gentle IVF. O2 prn. *Empiric SPA 25g IVPB Q8h to increase oncotic pressure & hopefully improve GFR. Consider renal input if no improvement in GFR. Close follow-up of lytes, GFR, LFTs. Eventual outpt MRI liver with gadolinium to r/o HCC, once GFR normalizes. No NSAIDS! Avoid hepatotoxins & keep Tylenol use to < 2g daily. If not immune, should be vaccinated against both Hep A & B semielectively, plus annual flu shot & Pneumovax, if not recently given. The above was discussed with the medical ICU house staff. The above findings were conveyed to the patient, after she was extubated. As per patient request, I contacted her daughter, Ayanna Baker, postoperatively at [phone], regarding the above findings. As an aside, the patient is due for f/u surveillance colonoscopy in 05/2018. Further GI recommendations to follow, based on clinical course. Dr. Aly Reddy will assume the pt's outpt GI care after D/C. CC: Ariel OROZCO,Olga; Saadia OROZCO,Crow; Ta OROZCO,Jean Carlos; Nuzhat OROZCO,Raleigh Garcia; Barry OROZCO,Thomas Torres Pertinent Lab Results: as above Disposition Summary Disposition Principal Diagnosis: Decompensated Alcoholic Cirrhosis SHELLEY with possible Hepatorenal syndrome Additional Diagnosis: Colon adenoma Anxiety/depression Breast Cancer status post mastectomy and chemotherapy (2003) Discharge Disposition: other general hospital Discharge Instructions General Discharge Information Code Status: Full Code Patient's Diet: Sodium restricted diet Patient's Activity: activity as tolerated Follow-Up Instructions/Appts: Please follow up with your PCP in a week Please follow up with your [facility]er in a week Please follow up with [facility] Medications at Discharge Discharge Medications: Continue taking these medications: Spironolactone (Spironolactone) 25 MG TABLET 1 Tablet ORAL DAILY Qty = 30 Comments: NOT GIVEN WHILE IN HOSPITAL Lorazepam (Lorazepam) 0.5 MG TABLET 1 Tablet ORAL THREE TIMES A DAY NEEDED as needed for ANXIETY Qty = 30 Comments: NOT GIVEN WHILE IN HOSPITAL Propranolol HCl (Propranolol HCl) 20 MG TABLET 1 Tablet ORAL TWICE DAILY Qty = 60 Comments: NOT TAKEN IN HOSPITAL R/T HYPOTENSION Escitalopram Oxalate (Escitalopram Oxalate) 10 MG TABLET 1 Tablet ORAL DAILY Qty = 30 Comments: Last Taken: 03/01/18 Time: 11AM Ursodiol (Ursodiol) 500 MG TABLET 2 Tablet ORAL TAKE AT BEDTIME Qty = 60 Comments: Last Taken: 02/28/18 Time: 9PM Lactulose (Lactulose) 10 GRAM/15 ML SOLUTION 30 Milliliters ORAL DAILY Qty = 1000 Comments: Last Taken: 03/01/18 Time: 12PM Rifaximin (Xifaxan) 550 MG TABLET 1 Tablet ORAL TWICE DAILY Qty = 60 Comments: Last Taken: 03/01/18 Time: 11AM Start taking the following new medications: Midodrine HCl (Midodrine HCl) 2.5 MG TABLET 10 Milligram ORAL 0800,1200,1600 Qty = 5 No Refills Comments: Last Taken: 03/01/18 Time: 12PM Albumin Human (Alburx) 25 % VIAL 25 Gram INTRAVEN EVERY SIX HOURS Qty = 5 No Refills Comments: Last Taken: 03/01/18 Time: 6PM Octreotide Acetate (Octreotide Acetate) 500 MCG/ML VIAL 50 Milliliters INTRAVEN CONTINUOUS INFUSION Qty = 1 No Refills Instructions: 50mcg/hr of continous infusion. Copies To: Sue OROZCO,Elias Colmenares; Barry OROZCO,Thomas Torres Attending MD Review Statement Documenting Attending: Ham Agee MD
--- NOTE | 2018-03-01 17:10 | Patient Discharge Instructions ---
Discharge Instructions General Discharge Information You were seen/treated for: Acute kidney injury due to cirrhosis progression Special Instructions: Please follow up with in a week Please follow up with [facility] Diet Recommended Diet: Heart Healthy, Regular no added salt Activity Activity Self Limited: Yes Acute Coronary Syndrome Inclusion Criteria At DC or during hospital stay patient has or had the following: ACS DIAGNOSIS No Discharge Core Measures Meds if any: Prescribed or Continued at Discharge Meds if any: NOT Prescribed or Continued at Discharge Congestive Heart Failure Inclusion Criteria At DC or during hospital stay patient has or had the following: CHF DIAGNOSIS No Discharge Core Measures Meds if any: Prescribed or Continued at Discharge Meds if any: NOT Prescribed or Continued at Discharge Cerebrovascular accident Inclusion Criteria At DC or during hospital stay patient has or had the following: CVA/TIA Diagnosis No Discharge Core Measures Meds if any: Prescribed or Continued at Discharge Meds if any: NOT Prescribed or Continued at Discharge Venous thromboembolism Inclusion Criteria VTE Diagnosis No VTE Type NONE VTE Confirmed by (Test) NONE Discharge Core Measures - Per Current guidelines, there needs to be overlap - treatment for the first 5 days of Warfarin therapy. - If discharged on Warfarin prior to 5 days of - overlap therapy, the patient will need to be - assessed for post discharge needs including - *Post discharge parental anticoagulation - *Warfarin and/or parental anticoagulation education - *Follow up date to check INR post discharge At least 5 days overlap therapy as Inpatient No Meds if any: Prescribed or Continued at Discharge Note: Overlap Therapy is Warfarin and Anticoagulant Meds if any: NOT Prescribed or Continued at Discharge
[2018-03-01 17:35] VITALS: BP 90/40
[2018-03-01] MEDS ORDERED: MIDODRINE HCL2.5 M1 PO (17:49)
[2018-03-01] MEDS ORDERED: ALBURX50 ML IV (17:49)
[2018-03-01] MEDS ORDERED: OCTREOTIDE500 MCG/2 IV (17:54)
== END 2018-03-01 21:20 | disposition short-term general hospital (02) | DRG 432 ==
LOC: ERH 10:46 → ERHI 12:48 → CRI 12:48 → ENRESERV 13:35 → ENTRNSPT 14:47 → EDTRNSPTSTS 15:08 → EDTRNSPT 15:08 → CRI 15:33 → 2NB 15:37 → CMPTRNSPT 15:56 → CRI 21:30
PROVIDERS: Internal Medicine Adolescent Medicine; Physician Assistant Medical; Student in an Organized Health Care Education/Training Program
PROC: 30233N1 Transfusion of Nonautologous Red Blood Cells into Peripheral Vein, Percutaneous Approach (ICD-10-PCS; principal; 2018-03-01)
DX: K70.30 Alcoholic cirrhosis of liver without ascites (principal); K76.7 Hepatorenal syndrome; I50.33 Acute on chronic diastolic (congestive) heart failure; E87.3 Alkalosis; J91.8 Pleural effusion in other conditions classified elsewhere; D69.59 Other secondary thrombocytopenia; I95.9 Hypotension, unspecified; E87.2 Acidosis; E87.1 Hypo-osmolality and hyponatremia; N17.9 Acute kidney failure, unspecified; K76.6 Portal hypertension; R71.0 Precipitous drop in hematocrit; R34 Anuria and oliguria; Z99.81 Dependence on supplemental oxygen; F32.9 Major depressive disorder, single episode, unspecified; F41.9 Anxiety disorder, unspecified; Z85.3 Personal history of malignant neoplasm of breast; Z92.21 Personal history of antineoplastic chemotherapy; Z86.010 Personal history of colon polyps; G89.29 Other chronic pain; M54.9 Dorsalgia, unspecified; Z88.0 Allergy status to penicillin; E86.0 Dehydration; D53.9 Nutritional anemia, unspecified; Z87.891 Personal history of nicotine dependence; R09.02 Hypoxemia; F10.21 Alcohol dependence, in remission; Z90.10 Acquired absence of unspecified breast and nipple
CPT/HCPCS: 84133; 84300; CCU; 36415; 71045; 82436; 82570; 86920; 87086; 93005; 93010; 93306; 99291; J2354; J2550; J3250; J7060; P9016; P9047